=== PATIENT | male | born 1935 | race Caucasian/White ===

== ENCOUNTER 2017-04-25 11:15 | Inpatient (IN) | payer MEDICARE, BC ==
[2017-04-25] VITALS (39 sets, daily range): BP systolic 69–208; BP diastolic 41–97; PULSE 56–129; RESP 15–32; TEMP 98.7–98.9; O2SAT 48–100
[~2017-04-25] VITALS: Ht 170.2 cm; Wt 64.4 kg
[2017-04-25] MEDS ORDERED: methylPREDNISolone SOD SUCC 125 MG/2 ML VIAL IV PUSH ONE (11:30)
[2017-04-25] MEDS ORDERED: SODIUM CHLORIDE 0.9% FLUSH 10 ML FLUSH IVF PRN ×2 (11:30→16:00)
[2017-04-25] MEDS: RESP: ALBUTEROL 2.5 MG/IPRATROPIUM 0.5 MG NEB (SCH) INH ×3 (11:33→21:15)
[2017-04-25 11:40] LABS: BASOPHIL # 0.1 TH/MM3 (0-0.2); BASOPHIL % 0.3 % (0.0-2.0); EOSINOPHIL # 0.2 TH/MM3 (0-0.4); EOSINOPHIL % 0.7 % (0.0-4.0); HEMATOCRIT 48.1 % (39.0-51.0); HEMOGLOBIN 16.1 GM/DL (13.0-17.0); LYMPH % 1.7 % (9.0-44.0); LYMPHOCYTE # 0.4 TH/MM3 (1.0-4.8); MEAN CELL VOLUME 87.5 FL (80.0-100.0); MEAN CORPUSCULAR HEMOGLOBIN 29.2 PG (27.0-34.0); MEAN CORPUSCULAR HGB CONC 33.4 % (32.0-36.0); MEAN PLATELET VOLUME 8.2 FL (7.0-11.0); MONO % 5.9 % (0.0-8.0); MONOCYTE # 1.3 TH/MM3 (0-0.9); NEUT % 91.4 % (16.0-70.0); PLATELET COUNT 278 TH/MM3 (150-450); RED CELL DISTRIBUTION WIDTH 12.8 % (11.6-17.2)
[2017-04-25 11:45] LABS: CHLORIDE 87 MEQ/L (98-107); SODIUM (NA) 129 MEQ/L (136-145)
[2017-04-25 11:49] LABS: ALBUMIN 3.7 GM/DL (3.4-5.0); BICARBONATE 35.6 MEQ/L (21.0-32.0); BLOOD UREA NITROGEN 26 MG/DL (7-18); CALCIUM 9.9 MG/DL (8.5-10.1); GLUCOSE,RANDOM 195 MG/DL (74-106)
[2017-04-25 11:52] LABS: ALT (GPT) 24 U/L (12-78); AST (GOT) 21 U/L (15-37); GLOMERULAR FILTRATION RATE 65 ML/MIN (>89)
[2017-04-25 11:53] LABS: TOTAL BILIRUBIN ADULT 0.7 MG/DL (0.2-1.0)
[2017-04-25 11:54] LABS: TOTAL PROTEIN 8.9 GM/DL (6.4-8.2)
[2017-04-25 11:55] LABS: ALKALINE PHOSPHATASE 109 U/L (45-117)
[2017-04-25 11:57] LABS: TROPONIN I 0.05 NG/ML (0.02-0.05)
--- NOTE | 2017-04-25 12:04 | PD ---
HPI Chief Complaint: Respiratory Distress Time Seen by Provider: 11:23 Travel History International Travel<30 days: No Contact w/Intl Traveler<30days: No Traveled to known affect area: No History of Present Illness HPI This is a 81-year-old male who presents to the emergency department with a history of COPD with increasing shortness of breath, constant, severe over the past 2 days associated with a productive cough with jay sputum. He has not had any fevers or chills. History is limited as the patient is very dyspneic on exam. 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) Respiratory: Yes Shingles: Yes Tetanus Vaccination: > 5 Years Influenza Vaccination: Yes Social History Alcohol Use: No Tobacco Use: No Substance Use: No Allergies-Medications (Allergen,Severity, Reaction): Coded Allergies: No Known Drug Allergies (Verified Allergy, Unknown, 04/25/17) Reported Meds & Prescriptions Reported Meds & Active Scripts Active Reported Vitamin C (Ascorbic Acid) 250 Mg Tab 1,000 Mg PO DAILY Calcium & Magnesium (Calcium-Magnesium) 750-465 Mg Tab 1 Tab PO Saw [place] ([place]) 450 Mg Cap 2,000 Mg PO DAILY Multiple Vitamin 1 Tab 1 Tab PO DAILY Albuterol Neb (Albuterol Sulfate) 1.25 Mg/3 Ml Neb 1.25 Mg NEB Q6HR NEB PRN Advair Diskus Inh (Fluticasone-Salmeterol Inh) 250-50 Mcg/Blist Aer 2 Puff INH DAILY Rinse mouth after use. Simvastatin 10 Mg Tab 10 Mg PO DAILY Desloratadine 5 Mg Tab 5 Mg PO DAILY Quinapril-Hydrochlorothiazide 20-12.5 Mg Tab 1 Tab PO DAILY Review of Systems ROS Limitations: Clinical Condition Physical Exam Narrative GENERAL: Severe respiratory distress SKIN: Focused skin assessment warm and dry. HEAD: Atraumatic. Normocephalic. EYES: Pupils equal and round. No injection or drainage. ENT: Moist mucous membranes NECK: Trachea midline. CARDIOVASCULAR: Tachycardic No murmur appreciated. 1+ pitting edema in the bilateral lower extremities. RESPIRATORY: Poor air movement bilaterally, accessory muscle use, prolonged expiratory phase, speaking 1 word answers to questions GASTROINTESTINAL: Abdomen soft, non-tender, nondistended. MUSCULOSKELETAL: No obvious deformities. NEUROLOGICAL: Awake and alert. No obvious cranial nerve deficits. Moving all extremities. PSYCHIATRIC: Anxious appearing. Data Data Last Documented VS Vital Signs Date Time Temp Pulse Resp B/P (MAP) Pulse Ox O2 Delivery O2 Flow Rate FiO2 04/25/17 13:47 115 21 154/66 (95) 99 BiPAP 04/25/17 13:10 98.7 04/25/17 11:25 40 Orders Orders Electrocardiogram (04/25/17 11:23) Arterial Blood Gas (Abg) (04/25/17 11:23) Complete Blood Count With Diff (04/25/17 11:23) Comprehensive Metabolic Panel (04/25/17 11:23) Chest, Single Ap (04/25/17 11:23) Ecg Monitoring (04/25/17 11:23) Iv Access Insert/Monitor (04/25/17 11:23) Oximetry (04/25/17 11:23) Oxygen Administration (04/25/17 11:23) Methylprednisolone So Succ Inj (Solumedr (04/25/17 11:30) Albuterol-Ipratropium Neb (Duoneb Neb) (04/25/17 11:30) Sodium Chloride 0.9% Flush (Ns Flush) (04/25/17 11:30) B-Type Natriuretic Peptide (04/25/17 11:23) Troponin I (04/25/17 11:23) D-Dimer (04/25/17 11:28) Ct Pulmonary Angiogram (04/25/17 ) Blood Culture (04/25/17 12:06) Lactic Acid (04/25/17 12:06) Sodium Chlor 0.9% 1000 Ml Inj (Ns 1000 M (04/25/17 12:15) Cefepime Inj (Maxipime Inj) (04/25/17 12:15) Azithromycin Inj (Zithromax Inj) (04/25/17 12:15) Iohexol 350 Inj (Omnipaque 350 Inj) (04/25/17 13:06) Sodium Chlor 0.9% 1000 Ml Inj (Ns 1000 M (04/25/17 13:15) Arterial Blood Gas (Abg) (04/25/17 ) Influenzae A/B Antigen (04/25/17 14:16) Admit Order (Ed Use Only) (04/25/17 14:30) Labs Laboratory Tests Test 04/25/17 11:30 04/25/17 11:50 04/25/17 12:20 White Blood Count 22.0 TH/MM3 Red Blood Count 5.50 MIL/MM3 Hemoglobin 16.1 GM/DL Hematocrit 48.1 % Mean Corpuscular Volume 87.5 FL Mean Corpuscular Hemoglobin 29.2 PG Mean Corpuscular Hemoglobin Concent 33.4 % Red Cell Distribution Width 12.8 % Platelet Count 278 TH/MM3 Mean Platelet Volume 8.2 FL Neutrophils (%) (Auto) 91.4 % Lymphocytes (%) (Auto) 1.7 % Monocytes (%) (Auto) 5.9 % Eosinophils (%) (Auto) 0.7 % Basophils (%) (Auto) 0.3 % Neutrophils # (Auto) 20.0 TH/MM3 Lymphocytes # (Auto) 0.4 TH/MM3 Monocytes # (Auto) 1.3 TH/MM3 Eosinophils # (Auto) 0.2 TH/MM3 Basophils # (Auto) 0.1 TH/MM3 CBC Comment DIFF FINAL Differential Comment D-Dimer Quantitative (PE/DVT) 0.73 MG/L FEU Blood Urea Nitrogen 26 MG/DL Creatinine 1.10 MG/DL Random Glucose 195 MG/DL Total Protein 8.9 GM/DL Albumin 3.7 GM/DL Calcium Level 9.9 MG/DL Alkaline Phosphatase 109 U/L Aspartate Amino Transf (AST/SGOT) 21 U/L Alanine Aminotransferase (ALT/SGPT) 24 U/L Total Bilirubin 0.7 MG/DL Sodium Level 129 MEQ/L Potassium Level 3.9 MEQ/L Chloride Level 87 MEQ/L Carbon Dioxide Level 35.6 MEQ/L Anion Gap 6 MEQ/L Estimat Glomerular Filtration Rate 65 ML/MIN Troponin I 0.05 NG/ML B-Type Natriuretic Peptide 142 PG/ML Blood Gas Puncture Site RT RADIAL Blood Gas Patient Temperature 98.6 Blood Gas HCO3 37 mmol/L Blood Gas Base Excess 10.5 mmol/L Blood Gas Oxygen Saturation 93 % Arterial Blood pH 7.29 Arterial Blood Partial Pressure CO2 79 mmHG Arterial Blood Partial Pressure O2 88 mmHG Arterial Blood Oxygen Content 20.6 Vol % Arterial Blood Carboxyhemoglobin 1.8 % Arterial Blood Methemoglobin 1.1 % Blood Gas Hemoglobin 15.7 G/DL Oxygen Delivery Device BIPAP Blood Gas Ventilator Setting IPAP15/EPAP5 Blood Gas Inspired Oxygen 40 % Lactic Acid Level 2.7 mmol/L MDM Medical Decision Making Medical Screen Exam Complete: Yes Emergency Medical Condition: Yes Interpretation(s) Afebrile, tachycardic, tachypneic, hypoxic Leukocytosis 91% neutrophils Mild hyponatremia Lactic acid is 2.7 Troponin is 0.05 ABG: Respiratory acidosis with metabolic compensation Last 24 hours Impressions Chest X-Ray 04/25/17 1123 Signed Impressions: Service Date/Time: Tuesday, April 25, 2017 11:38 - CONCLUSION: 1. Hyperinflation which could indicate underlying emphysema. 2. No focal consolidation. Suhail Cooper MD CT Angiography 04/25/17 0000 Signed Impressions: Service Date/Time: Tuesday, April 25, 2017 12:58 - CONCLUSION: 1. The study is negative for pulmonary embolism. 2. Bilateral subcentimeter (8 mm and 9 mm) pulmonary nodules and scattered areas of terminal airway opacity. In accordance with Fleischner Society guidelines, recommend followup CT thorax in 6 months to follow the nodules. Mk Freitas MD Differential Diagnosis COPD exacerbation, pneumonia, pulmonary embolism, bronchitis Narrative Course This is a 81-year-old male who presents to the emergency department in severe respiratory distress. His oxygen saturation on arrival was 45% on room air. He is not on oxygen at home. He was immediately placed on oxygen and transitioned to BiPAP. He tolerated BiPAP quite well and his initial ABG suggested he may improve. He was observed in the emergency department and every time he came off BiPAP for CT or to clear his sputum he became extremely dyspneic. Repeat ABG was not reassuring. The decision was made between ne and Dr. Rudd to electively intubate the patient. Intubation went smoothly without complication. Labs were obtained which demonstrate a leukocytosis of 22 and a lactic acid of 2.7. Patient was given 2 L of IV hydration, cefepime and azithromycin and cultures were obtained. CT of the chest is reassuring with no pneumonia or pulmonary embolism. The patient will be admitted to the intensive care unit for further management. Critical Care Narrative Aggregate critical care time was 60 minutes. Time to perform other separately billable procedures was not included in the critical care time. My time did not include minutes spent treating any other patients simultaneously or on activities that did not directly contribute to the patient's treatment. The services I provided to this patient were to treat and/or prevent clinically significant deterioration that could result in: Disability, I provided critical care services requiring my management, as noted below: Chart data review, documentation time, medication orders and management, vital sign assessments/reviewing monitor data, ordering and reviewing lab tests, ordering and interpreting/reviewing x-rays and diagnostic studies, care of the patient and discussion of the patient with the admitting physicians. Procedures Procedure Narrative After the risks and benefits were discussed the following procedure was performed: INTUBATION: The patient was put in optimal position for the procedure. Rapid sequence intubation was initiated by me using 20 milligrams of etomidate IV and 100 milligrams of succinylcholine IV. The patient was intubated with a 7.5 cuffed endotracheal tube. Tube placement was confirmed by visualization of the tube and balloon passing through the cords, capnometry and subsequent chest x- ray. Breath sounds were equal and well aerated bilaterally postintubation. No breath sounds over stomach. Patient tolerated procedure well. Physician Communication Physician Communication Discussed with Dr. Rudd Diagnosis Primary Impression: COPD with exacerbation Admitting Information Admitting Physician Requests: Admit Patient Instructions: General Instructions Ani Cardona MD Apr 25, 2017 12:04
--- NOTE | 2017-04-25 12:12 | RADRPT ---
EXAM DATE/TIME: 04/25/2017 11:38 [facility] COMPARISON: No previous studies available for comparison. INDICATIONS : Short of Breath and wheezing. MEDICAL HISTORY : None. SURGICAL HISTORY : None. ENCOUNTER: Initial ACUITY: 1 day PAIN SCORE: 0/10 LOCATION: Bilateral chest FINDINGS: A single AP erect view of the chest was obtained and demonstrates hyperinflation of both lungs with n o focal confluent infiltrates or effusions. The heart and mediastinal structures remain within normal limits. There are atherosclerotic calcifications in the aorta. There is overlying artifact from oxyg en tubing and electrocardiogram leads. CONCLUSION: 1. Hyperinflation which could indicate underlying emphysema. 2. No focal consolidation. Suhail Cooper MD on April 25, 2017 at 12:09 Board Certified Radiologist. This report was verified electronically.
[2017-04-25] MEDS ORDERED: SAW450CA2 PO (12:15)
[2017-04-25] MEDS ORDERED: SIMV10TA PO (12:15)
[2017-04-25] MEDS ORDERED: ADVA250A INH (12:15)
[2017-04-25] MEDS ORDERED: DESL5TAB4 PO (12:15)
[2017-04-25] MEDS ORDERED: ALBU1.25 NEB (12:15)
[2017-04-25] MEDS ORDERED: MULTTAB67 PO (12:15)
[2017-04-25] MEDS ORDERED: CALC-131 PO (12:15)
[2017-04-25] MEDS ORDERED: QUIN20TA2 PO (12:15)
[2017-04-25] MEDS ORDERED: SODIUM CHLOR 0.9% 1000 ML INJ 1,000 ML IV ONE ×3 (12:15→15:55)
[2017-04-25] MEDS ORDERED: VITA250T3 PO (12:15)
[2017-04-25] MEDS ORDERED: CEFEPIME INJ 2,000 MG in SODIUM CHLORIDE 0.9% INJ 100 ML IV ONE (12:15)
[2017-04-25] MEDS ORDERED: AZITHROMYCIN INJ 500 MG in SODIUM CHLOR 0.9% 250 ML INJ 250 ML IV ONE (12:15)
[2017-04-25] MEDS ORDERED: IOHEXOL 350 MG/ML 10 ML VIAL (for RAD DIAG) IVCONTRAST ONE (13:06)
--- NOTE | 2017-04-25 13:24 | RADRPT ---
EXAM DATE/TIME: 04/25/2017 12:58 [facility] COMPARISON: No previous studies available for comparison. INDICATIONS : Short of breath. IV CONTRAST: 65 cc Omnipaque 350 (iohexol) IV RADIATION DOSE: 12.37 CTDIvol (mGy) MEDICAL HISTORY : None SURGICAL HISTORY : None. ENCOUNTER: Initial ACUITY: 1 day PAIN SCALE: 0/10 LOCATION: chest TECHNIQUE: Volumetric scanning of the chest was performed using a pulmonary embolism protocol MIP images were re constructed. Using automated exposure control and adjustment of the mA and/or kV according to patien t size, radiation dose was kept as low as reasonably achievable to obtain optimal diagnostic quality images. DICOM format image data is available electronically for review and comparison. Follow-up recommendations for detected pulmonary nodules are based at a minimum on nodule size and pa tient risk factors according to Fleischner Society Guidelines. FINDINGS: PULMONARY ARTERIES: No filling defects are seen in the pulmonary arteries through the segmental level. LUNGS: There is scattered areas of interstitial prominence in the medial right lung and in the lateral left midlung. There are 2 focal nodular densities with a regular margins, central material left lung shruthi uring 9 mm (image #55) and medial upper right lung near the thoracic spine measuring 9 mm (image #34) .. There are also mild tree in bud opacities in the lateral mid lungs bilaterally and in the posteri or lateral left lower lung. No focal areas of consolidation PLEURAE: There is no pleural thickening or pleural effusion. MEDIASTINUM: There is good visualization of the great vessels of the middle mediastinum. No evidence of mediastin al or hilar adenopathy/mass. OTHER: The left kidney is not seen. CONCLUSION: 1. The study is negative for pulmonary embolism. 2. Bilateral subcentimeter (8 mm and 9 mm) pulmonary nodules and scattered areas of terminal airway o pacity. In accordance with Fleischner Society guidelines, recommend followup CT thorax in 6 months t o follow the nodules. Mk Freitas MD on April 25, 2017 at 13:11 Board Certified Radiologist. This report was verified electronically.
[2017-04-25] MEDS ORDERED: SENNOSIDES 8.6 MG TAB PO PRN (15:15)
[2017-04-25] MEDS ORDERED: BISACODYL 10 MG SUPP RECTAL PRN (15:15)
[2017-04-25] MEDS ORDERED: DEXTROSE 50% IN WATER 50 ML VIAL(D50) IV PUSH PRN (15:15)
[2017-04-25] MEDS ORDERED: LACTULOSE SYRUP 20 GM/30 ML CUP PO PRN (15:15)
[2017-04-25] MEDS ORDERED: MAGNESIUM HYDROXIDE SUSP 30 ML CUP PO PRN (15:15)
[2017-04-25] MEDS ORDERED: MISCELLANEOUS NURSING INFORMATION XX SCH (15:15)
[2017-04-25] MEDS ORDERED: CHLORHEXIDINE GLUCONATE 2 % 1 PACK (2 CLOTHS) TOP PRN (15:15)
[2017-04-25] MEDS ORDERED: GLUCAGON 1 MG/ML VIAL OTHER PRN (15:15)
[2017-04-25] MEDS ORDERED: SUCCINYLCHOLINE CHLORIDE 200 MG/10 ML VIAL ONE (15:25)
[2017-04-25] MEDS ORDERED: ETOMIDATE 20 MG/10 ML VIAL IV PUSH ONE (15:30)
[2017-04-25] MEDS ORDERED: SUCCINYLCHOLINE CHLORIDE 100 MG/5 ML SYRINGE IV PUSH ONE (15:30)
[2017-04-25] MEDS ORDERED: PROPOFOL 1000 MG/100 ML INJ 100 ML IV PRN (15:45)
[2017-04-25] MEDS: PROPOFOL 1000 MG/100 ML INJ 100 ML IV PRN ×2 (15:54→17:30)
[2017-04-25] MEDS: ENOXAPARIN SODIUM 40 MG/0.4 ML SYRINGE SQ SCH (16:24)
[2017-04-25] MEDS: PANTOPRAZOLE SODIUM 40 MG VIAL IV PUSH SCH (16:25)
[2017-04-25] MEDS: SODIUM CHLOR 0.9% 1000 ML INJ 1,000 ML IV SCH (16:26)
[2017-04-25] MEDS: PIPERACIL-TAZO 4.5 GM PREMIX 100 ML IV SCH ×2 (16:27→21:57)
--- NOTE | 2017-04-25 16:49 | RADRPT ---
EXAM DATE/TIME: 04/25/2017 16:15 [facility] COMPARISON: CT PULMONARY ANGIOGRAM, April 25, 2017, 12:58. CHEST SINGLE AP, April 25, 2017, 11:38. INDICATIONS : Post intubation. MEDICAL HISTORY : None. SURGICAL HISTORY : None. ENCOUNTER: Subsequent ACUITY: 1 day PAIN SCORE: Non-responsive. LOCATION: Bilateral chest FINDINGS: A single view of the chest demonstrates the lungs to be symmetrically aerated without evidence of mas s, infiltrate or effusion. The endotracheal tube identified with the tip above the candice at the cla vicular heads. Nasogastric tube traverses the GE junction and is positioned in the gastric fundus. He art size is normal. Osseous structures are intact CONCLUSION: 1. Endotracheal tube appropriately positioned above the candice the nasogastric tube entering the stom ach. 2. Lungs are grossly clear. Trevin Flores MD on April 25, 2017 at 16:43 Board Certified Radiologist. This report was verified electronically.
[2017-04-25] MEDS ORDERED: fentaNYL DRIP 250 ML IV PRN (17:00)
[2017-04-25] MEDS ORDERED: SODIUM CHLORID 0.9% 500 ML INJ 500 ML IV ONE (17:00)
--- NOTE | 2017-04-25 17:28 | MH ---
cc: JENNIFER NIKC M.D. DATE OF 1935 DATE OF ADMISSION 04/25/2017 HISTORY The patient is a 81-year-old male with past medical history of COPD, hyperlipidemia who presented to [facility] [place] [facility] ED with progressive worsening of shortness of breath for the past 2 days associated with productive cough. There is no history of any constitutional symptoms. On arrival to the ER the patient was hypertensive and tachycardiac. He was placed on a BiPap 15/5 with 40% FIO2 and his ABG showed acute hypercapnic respiratory acidosis with a pH of 7.29, CO2 79, bicarb 37, saturation 93%. A repeat ABG was performed at 1450 on the same setting which showed worsening pH of 7.21, CO2 79, bicarb 30 and sats of 96%. He was subsequently intubated and placed on full mechanical ventilation. His laboratory data significant for leukocytosis with WBC of 22.0 and lactic acid level at 2.7. In the ER he was given 2 liters of normal saline, cefepime, azithromycin, Solu-Medrol and bronchodilator treatment. CT angiogram was obtained which showed no evidence of pulmonary embolism, however, it showed bilateral subcentimeter pulmonary nodules. When seen in the ER the patient is sedated with Diprivan and on full mechanical ventilation. Most of the history was obtained from reviewing the medical records as there are no family members present at the bedside. PAST MEDICAL HISTORY Significant for severe COPD. 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 SOCIAL HISTORY Nonsmoker, nondrinker. ALLERGIES NO KNOWN DRUG ALLERGIES. FAMILY HISTORY Noncontributory. MEDICATIONS Reported medications include: 1. Multivitamins. 2. Albuterol inhaler. 3. Advair. 4. Simvastatin. 5. Vitamin C. 6. Calcium. 7. Multivitamins. REVIEW OF SYSTEMS As per history of present illness. The rest of the review of symptoms unobtainable. PHYSICAL EXAMINATION GENERAL: A 81-year-old male intubated for respiratory failure. VITAL SIGNS: Temperature of 98.7, pulse 78, blood pressure 105/58, saturation 98%, vent setting PRVC / assist control, rate of 16, tidal volume 500. Itime 1.0. PEEP of 5. FIO2 35%. HEENT: Atraumatic, normocephalic. Pupils equal, round and reactive to light and accommodation. Extraocular muscles intact. Conjunctivae pink. Nonicteric sclerae. Oral mucosa within normal. NECK: Supple. No JVD, adenopathy or thyromegaly. Trachea midline. Orally intubated. CARDIOVASCULAR: Regular rate and rhythm. Normal S1-S2. No murmurs, rubs or gallops noted. LUNGS: Pulmonary exam bilateral equal air entry. No crackles. Overall diminished. ABDOMEN: Soft, nontender, no distension. Positive bowel sounds. EXTREMITIES: No clubbing, cyanosis or edema. NEUROLOGIC: Intubated and sedated. LABORATORY DATA WBC 22, hemoglobin 16, hematocrit 48, platelet count 278. Sodium 129, potassium 3.9, chloride 87, CO2 35, BUN 26, creatinine 1.1, glucose 195, lactic acid 2.7. BNP 142. Albumin 3.7. IMAGING Radiographic studies, CT angiogram of the chest showed no evidence of pulmonary embolism. However it showed bilateral subcentimeter 8 mm and 9 mm pulmonary nodules. IMPRESSION 1. Acute hypoxemic and hypercapnic respiratory failure requiring intubation. 2. COPD exacerbation. 3. Leukocytosis. 4. Mild lactic acidemia. 5. Hyponatremia. 6. Bilateral subcentimeter pulmonary nodules. RECOMMENDATIONS 1. Continue with Diprivan infusion for sedation and daily sedation vacation. 2. Continue vent support and maintain sats above 92%. 3. Bronchodilators in the form of DuoNeb q.6h and IV steroids. We will continue with Solu-Medrol 60 mg IV q.6h. 4. We will initiate ICU vent bundle. Check a chest x-ray and ABG postintubation. We will start spontaneous breathing trials in a.m. as tolerated. Consult pulmonary service. The patient is known to Dr. Pratt. He will need a repeat CT scan of the chest in 3 months to follow up on the stability of pulmonary nodules. His last PFT from April 2016 showed severe obstructive lung disease with no response to bronchodilator treatment. 5. Monitor heart rate and blood pressure closely and maintain MAP greater than 65 mmHg. Serial lactic acid monitoring. 6. Monitor renal function Is and Os and electrolyte replacement per protocol. Continue with IV fluids in the form of NS at 84 ml an hour. 7. Keep n.p.o. for now and place on Protonix 40 mg IV daily for GI prophylaxis. Start nutrition support within 24 hours if remains intubated. 8. Continue with empiric antibiotics in the form of Zosyn and monitor for signs of infections which include fever and WBC. Follow up on a blood cultures. Check sputum culture with gram stain for strep pneumoniae and Legionella urinary antigen and will send nasal washing to rule out influenza. 9. Place on sliding scale insulin with Accu-Cheks q. 4-hour for glycemic control. 10. Monitor CBC. 11. GI prophylaxis with Protonix 40 mg daily and DVT prophylaxis with SCDs and Lovenox 40 mg subcu daily. Further recommendations will be based on hospital course. MD BEVERLY Mensah/YAS /4:35 PM /4:59 PM
[2017-04-25] MEDS ORDERED: ALBUMIN 5% INJ 250 ML IV ONE (19:39)
[2017-04-25] MEDS: INSULIN NovoLIN REGULAR SUPPLEMENTAL SCALE SQ SCH (20:00)
[2017-04-25] MEDS ORDERED: ALBUMIN 5% INJ 500 ML IV ONE (20:00)
[2017-04-25] MEDS: DOCUSATE SODIUM 50 MG/SENNA 8.6 MG TAB PO SCH (21:00)
[2017-04-25] MEDS: methylPREDNISolone SOD SUCC 125 MG/2 ML VIAL IV SCH (21:54)
[2017-04-25] MEDS: NOREPINEPHRINE 4 MG/D5W 250 ML IV PRN (22:13)
[2017-04-26] VITALS (46 sets, daily range): BP systolic 100–158; BP diastolic 47–71; PULSE 46–92; RESP 15–16; TEMP 97.5–97.9; O2SAT 95–100
--- NOTE | 2017-04-26 00:53 | PD ---
Data Data Last Documented VS Vital Signs Date Time Temp Pulse Resp B/P (MAP) Pulse Ox O2 Delivery O2 Flow Rate FiO2 04/25/17 13:47 115 21 154/66 (95) 99 BiPAP 04/25/17 13:10 98.7 04/25/17 11:25 40 Orders Orders Electrocardiogram (04/25/17 11:23) Arterial Blood Gas (Abg) (04/25/17 11:23) Complete Blood Count With Diff (04/25/17 11:23) Comprehensive Metabolic Panel (04/25/17 11:23) Chest, Single Ap (04/25/17 11:23) Ecg Monitoring (04/25/17 11:23) Iv Access Insert/Monitor (04/25/17 11:23) Oximetry (04/25/17 11:23) Oxygen Administration (04/25/17 11:23) Methylprednisolone So Succ Inj (Solumedr (04/25/17 11:30) Albuterol-Ipratropium Neb (Duoneb Neb) (04/25/17 11:30) Sodium Chloride 0.9% Flush (Ns Flush) (04/25/17 11:30) B-Type Natriuretic Peptide (04/25/17 11:23) Troponin I (04/25/17 11:23) D-Dimer (04/25/17 11:28) Ct Pulmonary Angiogram (04/25/17 ) Blood Culture (04/25/17 12:06) Lactic Acid (04/25/17 12:06) Sodium Chlor 0.9% 1000 Ml Inj (Ns 1000 M (04/25/17 12:15) Cefepime Inj (Maxipime Inj) (04/25/17 12:15) Azithromycin Inj (Zithromax Inj) (04/25/17 12:15) Iohexol 350 Inj (Omnipaque 350 Inj) (04/25/17 13:06) Sodium Chlor 0.9% 1000 Ml Inj (Ns 1000 M (04/25/17 13:15) Arterial Blood Gas (Abg) (04/25/17 ) Influenzae A/B Antigen (04/25/17 14:16) Admit Order (Ed Use Only) (04/25/17 14:30) Labs Laboratory Tests Test 04/25/17 11:30 04/25/17 11:50 04/25/17 12:20 White Blood Count 22.0 TH/MM3 Red Blood Count 5.50 MIL/MM3 Hemoglobin 16.1 GM/DL Hematocrit 48.1 % Mean Corpuscular Volume 87.5 FL Mean Corpuscular Hemoglobin 29.2 PG Mean Corpuscular Hemoglobin Concent 33.4 % Red Cell Distribution Width 12.8 % Platelet Count 278 TH/MM3 Mean Platelet Volume 8.2 FL Neutrophils (%) (Auto) 91.4 % Lymphocytes (%) (Auto) 1.7 % Monocytes (%) (Auto) 5.9 % Eosinophils (%) (Auto) 0.7 % Basophils (%) (Auto) 0.3 % Neutrophils # (Auto) 20.0 TH/MM3 Lymphocytes # (Auto) 0.4 TH/MM3 Monocytes # (Auto) 1.3 TH/MM3 Eosinophils # (Auto) 0.2 TH/MM3 Basophils # (Auto) 0.1 TH/MM3 CBC Comment DIFF FINAL Differential Comment D-Dimer Quantitative (PE/DVT) 0.73 MG/L FEU Blood Urea Nitrogen 26 MG/DL Creatinine 1.10 MG/DL Random Glucose 195 MG/DL Total Protein 8.9 GM/DL Albumin 3.7 GM/DL Calcium Level 9.9 MG/DL Alkaline Phosphatase 109 U/L Aspartate Amino Transf (AST/SGOT) 21 U/L Alanine Aminotransferase (ALT/SGPT) 24 U/L Total Bilirubin 0.7 MG/DL Sodium Level 129 MEQ/L Potassium Level 3.9 MEQ/L Chloride Level 87 MEQ/L Carbon Dioxide Level 35.6 MEQ/L Anion Gap 6 MEQ/L Estimat Glomerular Filtration Rate 65 ML/MIN Troponin I 0.05 NG/ML B-Type Natriuretic Peptide 142 PG/ML Blood Gas Puncture Site RT RADIAL Blood Gas Patient Temperature 98.6 Blood Gas HCO3 37 mmol/L Blood Gas Base Excess 10.5 mmol/L Blood Gas Oxygen Saturation 93 % Arterial Blood pH 7.29 Arterial Blood Partial Pressure CO2 79 mmHG Arterial Blood Partial Pressure O2 88 mmHG Arterial Blood Oxygen Content 20.6 Vol % Arterial Blood Carboxyhemoglobin 1.8 % Arterial Blood Methemoglobin 1.1 % Blood Gas Hemoglobin 15.7 G/DL Oxygen Delivery Device BIPAP Blood Gas Ventilator Setting IPAP15/EPAP5 Blood Gas Inspired Oxygen 40 % Lactic Acid Level 2.7 mmol/L MDM Supervised Visit with WINSOME: No Narrative Course I was called by senior commissions analyst Dr. Foster to place a central line as there is no senior commissions analyst coverage in [place] overnight. Patient requires central line placement as he is on a Levophed drip. This line was placed emergently by me. See procedure note. Procedures Procedure Narrative CENTRAL VENOUS LINE: The site was prepped with ChloraPrep and sterilely draped. The deep vein was cannulated using normal Seldinger technique under ultrasound guidance using the linear ultrasound probe. A triple lumen central line was placed in the right IJ and secured with simple interrupted suture. The site was sterilely dressed. The patient tolerated the procedure well. Postprocedural x- ray ordered. Diagnosis Primary Impression: COPD with exacerbation Patient Instructions: General Instructions Carl Guzman MD Apr 26, 2017 00:53
--- NOTE | 2017-04-26 01:14 | RADRPT ---
EXAM DATE/TIME: 04/26/2017 00:47 [facility] COMPARISON: CHEST SINGLE AP, April 25, 2017, 16:15. INDICATIONS : Central line placement. MEDICAL HISTORY : None. SURGICAL HISTORY : None. ENCOUNTER: Subsequent ACUITY: 1 day PAIN SCORE: Non-responsive. LOCATION: Bilateral chest FINDINGS: A single view of the chest demonstrates the lungs to be symmetrically aerated without evidence of mas s, infiltrate or effusion. Right jugular central line with tip in the SVC and no pneumothorax. Nasog astric tube with tip in stomach. The cardiomediastinal contours are unremarkable. Osseous structures are intact. CONCLUSION: Adequate placement a right jugular central line without pneumothorax. Bill Vences MD on April 26, 2017 at 1:11 Board Certified Radiologist. This report was verified electronically.
[2017-04-26] MEDS: RESP: ALBUTEROL 2.5 MG/IPRATROPIUM 0.5 MG NEB (SCH) INH ×4 (03:44→21:02)
[2017-04-26] MEDS: INSULIN NovoLIN REGULAR SUPPLEMENTAL SCALE SQ SCH ×6 (04:00→20:00)
[2017-04-26] MEDS: CHLORHEXIDINE GLUCONATE 2 % 1 PACK (2 CLOTHS) TOP SCH (04:00)
[2017-04-26] MEDS: PROPOFOL 1000 MG/100 ML INJ 100 ML IV PRN ×2 (04:17→15:37)
[2017-04-26] MEDS: SODIUM CHLOR 0.9% 1000 ML INJ 1,000 ML IV SCH ×2 (04:43→11:18)
[2017-04-26] MEDS: PIPERACIL-TAZO 4.5 GM PREMIX 100 ML IV SCH ×4 (04:43→21:06)
[2017-04-26] MEDS: methylPREDNISolone SOD SUCC 125 MG/2 ML VIAL IV SCH ×4 (04:44→23:19)
[2017-04-26 06:22] LABS: ALBUMIN 2.8 GM/DL (3.4-5.0); ALKALINE PHOSPHATASE 72 U/L (45-117); ALT (GPT) 18 U/L (12-78); AST (GOT) 16 U/L (15-37); CALCIUM 8.1 MG/DL (8.5-10.1); CHLORIDE 101 MEQ/L (98-107); CREATININE 0.81 MG/DL (0.60-1.30); GLOMERULAR FILTRATION RATE 92 ML/MIN (>89); GLUCOSE,RANDOM 165 MG/DL (74-106); MAGNESIUM 2.1 MG/DL (1.5-2.5); PHOSPHORUS 1.4 MG/DL (2.5-4.9); SODIUM (NA) 137 MEQ/L (136-145); TOTAL BILIRUBIN ADULT 0.5 MG/DL (0.2-1.0); TOTAL PROTEIN 6.2 GM/DL (6.4-8.2)
[2017-04-26 06:23] LABS: BLOOD UREA NITROGEN 24 MG/DL (7-18)
--- NOTE | 2017-04-26 08:50 | MB ---
cc: ANDI HIGGINBOTHAM ALAA M.D. DATE OF CONSULTATION: 04/25/[address] Albino Rudd. REASON FOR CONSULTATION COPD and respiratory failure. HISTORY OF PRESENT ILLNESS Mr. Sosa is an elderly 81-year-old male who is known to me from the office with a history of severe COPD , anxiety disorder. The patient came to the hospital with worsening of his shortness of breath going on for the last two days. He was seen in the emergency room and found to be tachycardic and tachypneic. He was found to be in respiratory acidosis and hypoxic. The patient was put on BiPAP. With worsening of his respiratory acidosis he was intubated and currently on the ventilator. He is on fentanyl. He started waking up, has received 2 liters of fluid. His blood pressure is borderline. LABORATORY CBC showed WBC count 22,000, hemoglobin 16.1, hematocrit 48, MCV 87, platelet count 278. Sodium 129, potassium 3.9, chloride 87, CO2 35, BUN 26, creatinine 1.10. Blood gas on assist control: FIO2 32%, pH 7.26, PCO2 65, PO2 132. IMAGING CT of the chest shows no pulmonary embolism. It shows two subcentimeter lung nodules. PAST MEDICAL HISTORY 1. COPD. 2. Right kidney donation. MEDICATIONS He is currently takin. Solu-Medrol 60 mg q.6h. 2. Fentanyl drip. 3. Protonix 40 mg. 4. Albuterol/Atrovent nebulizer treatment. 5. Lovenox 40 mg a day. 6. Zosyn IV. ALLERGIES No known drug allergies. SOCIAL HISTORY He has a history of smoking in the past. FAMILY HISTORY Noncontributory. REVIEW OF SYSTEMS Cannot be assessed. PHYSICAL EXAMINATION GENERAL: An elderly male on a ventilator. He is sedated with fentanyl. VITAL SIGNS: Blood pressure 97/54, heart rate 17, respirations 16, temperature 98. HEENT: Pupils react to light. He is orally intubated. NECK: Supple. JVP not raised. CHEST: Equal bilaterally. He has rhonchi. CV: S1, S2 normal. ABDOMEN: Benign. EXTREMITIES: No edema. IMPRESSION 1. Hypercapnic respiratory failure. 2. Leukocytosis. 3. Early sepsis. 4. Lung nodules. 5. Severe COPD. PLAN The patient will be maintained on the ventilator. If needed will start him on Diprivan. If blood pressure does not hold he will need pressor support. He is started on IV albumin. He already received IV fluid. Continue antibiotic, IV Solu-Medrol and aerosol treatment. He is on subcu Lovenox. Further treatment will depend on the course in the hospital. Thank you, Dr. Rudd, for this consult. MD PANCHITO Christensen/BT /7:43 PM /8:27 AM MTDNehemias
[2017-04-26] MEDS: DOCUSATE SODIUM 50 MG/SENNA 8.6 MG TAB PO SCH ×2 (09:00→21:02)
[2017-04-26] MEDS: PANTOPRAZOLE SODIUM 40 MG VIAL IV PUSH SCH (09:27)
[2017-04-26] MEDS: NOREPINEPHRINE 4 MG/D5W 250 ML IV PRN (09:37)
[2017-04-26] MEDS ORDERED: MAGNESIUM OXIDE 400 MG TAB PO PRN (09:45)
[2017-04-26] MEDS ORDERED: SODIUM PHOSPHATE INJ 30 MMOL in SODIUM CHLOR 0.9% 250 ML INJ 240 ML IV PRN (09:45)
[2017-04-26] MEDS ORDERED: POTASSIUM PHOSPHATE MONOBASIC 500 MG TAB PO PRN (09:45)
[2017-04-26] MEDS ORDERED: POTASSIUM CHLORIDE 25 MEQ EFFERVESCENT TAB PO PRN (09:45)
[2017-04-26] MEDS ORDERED: POTASSIUM CHLOR 20 MEQ PREMIX 100 ML IV PRN ×2 (09:45)
[2017-04-26] MEDS ORDERED: POTASSIUM PHOSPHATE INJ 30 MMOL in SODIUM CHLOR 0.9% 250 ML INJ 250 ML IV PRN (09:45)
[2017-04-26] MEDS ORDERED: POTASSIUM CHLOR 40 MEQ PREMIX 100 ML IV PRN ×2 (09:45)
[2017-04-26] MEDS ORDERED: MAGNESIUM SULFATE INJ 4 GM in SODIUM CHLORIDE 0.9% INJ 92 ML IV PRN (09:45)
[2017-04-26] MEDS ORDERED: MAGNESIUM SULFATE INJ 2 GM in SODIUM CHLORIDE 0.9% INJ 96 ML IV PRN (09:45)
--- NOTE | 2017-04-26 12:34 | MB ---
cc: JACEK CELESTE MD DATE OF CONSULTATION 04/26/2017 REASON FOR CONSULTATION 1. Urinary retention 2. Difficult Hernandez catheter placement. HISTORY OF PRESENT ILLNESS The patient is a 81-year-old male with a past history of COPD who presented to [place] ED late yesterday with progressive worsening of shortness of breath for the last two days associated with a cough. On arrival to the ER, he was found to be hypertensive and tachycardiac and his EKG showed acute respiratory acidosis. He began to progress to respiratory failure and subsequently was intubated and placed on full mechanical ventilation. Once in the intensive care unit, he had minimal output. A bladder scan was performed which greater than 800 in his bladder. Multiple attempts were made to pass a Hernandez catheter, but the nurse staff were unsuccessful. Urology was consulted for catheter placement due to urinary retention and the fact the patient is critically ill. Currently the patient is intubated and sedated and all of the history is per the records, but per the records, there was no evidence of any prostate issues in the past. There was no evidence of any urinary tract infections or kidney stones. PAST MEDICAL HISTORY History of COPD and hyperlipidemia. 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 SOCIAL HISTORY Denies smoking, alcohol or illicit drugs. ALLERGIES NO KNOWN DRUG ALLERGIES. FAMILY HISTORY No evidence any urolithiasis or genitourinary malignancy. MEDICATIONS Include: 1. Albuterol inhaler 2. Advair 3. Simvastatin 4. Multivitamins REVIEW OF SYSTEMS See HPI, otherwise all systems reviewed and are otherwise negative. PHYSICAL EXAMINATION VITAL SIGNS: Temperature 97.9, pulse 60, respiratory rate 15, BP 137/61, on 35% FIO2. GENERAL: He is intubated and sedated. No apparent distress, appears his stated age. HEAD: Normocephalic, atraumatic. NECK: Supple. Trachea is midline. EYES: No scleral icterus. Pupils equal, round, and reactive to light. SKIN: No ulcers or rashes visible. Mucous membranes pink and moist. LUNGS: Clear to auscultation bilaterlally. No wheezes, rales or rhonchi. HEART: Regular rate and rhythm. No murmurs, gallops, or rubs. ABDOMEN: Soft, nontender, nondistended. His bladder is palpable. GENITOURINARY: His penis is circumcised. Testes are descended bilaterally without mass. Normal in size. They are slightly atrophic but normal consistency. 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 EXTREMITIES: Nontender. No clubbing, cyanosis or edema. LABORATORY DATA Labs show a white count 22.0, hemoglobin 16.1, hematocrit 48.1, platelet count 278. Sodium 129, potassium 3.9, chloride 87, bicarb 35.6, creatinine 1.0, BUN 26, GFR 65. IMAGING STUDIES CT angiography images were reviewed. Agree with radiologist report. The patient does not have any evidence of pulmonary embolism, however, he has small bilateral pulmonary nodules. ASSESSMENT AND PLAN The patient is a 81-year-old male with a history of COPD who presented to the ER in respiratory distress, was subsequently intubated and presents with urinary retention, as well as Hernandez catheter placement secondary to a coronal hypospadias. PLAN Using a sterile hemostat, I was able to dilate the urethral meatus which was located on the ventral side of the penis near the coronal sulcus. I was then able to pass a 16-Afghan regular catheter without difficulty into the bladder. 800 cc of concentrated urine returned. Recommend leaving the Hernandez catheter in place at this time. Give a void trial prior to discharge. We will start the patient on Flomax once he is able to take p.o. Thank you for this consult. MD ELEAZAR Sierra/BENJAMIN /11:54 AM /12:20 PM
[2017-04-26 14:15] LABS: AUTOMATED NEUTROPHIL # 11.1 TH/MM3 (1.8-7.7); EOSINOPHIL % 0.1 % (0.0-4.0); HEMATOCRIT 36.9 % (39.0-51.0); HEMOGLOBIN 12.2 GM/DL (13.0-17.0); LYMPH % 1.5 % (9.0-44.0); LYMPHOCYTE # 0.2 TH/MM3 (1.0-4.8); MEAN CELL VOLUME 88.3 FL (80.0-100.0); MEAN CORPUSCULAR HEMOGLOBIN 29.3 PG (27.0-34.0); MEAN CORPUSCULAR HGB CONC 33.2 % (32.0-36.0); MEAN PLATELET VOLUME 7.7 FL (7.0-11.0); MONO % 4.5 % (0.0-8.0); MONOCYTE # 0.5 TH/MM3 (0-0.9); NEUT % 93.9 % (16.0-70.0); PLATELET COUNT 222 TH/MM3 (150-450); RED BLOOD COUNT 4.18 MIL/MM3 (4.50-5.90); RED CELL DISTRIBUTION WIDTH 13.3 % (11.6-17.2); WHITE BLOOD COUNT 11.8 TH/MM3 (4.0-11.0)
[2017-04-26] MEDS: ENOXAPARIN SODIUM 40 MG/0.4 ML SYRINGE SQ SCH (15:38)
--- NOTE | 2017-04-26 16:58 | HHI.CCPN ---
Subjective Remarks/Hospital Course Patient is a 81-year-old male with past medical history of COPD, hyperlipidemia who presented to [place] ED with progressive worsening of shortness of breath for the past 2 days associated with productive cough. There is no history of any constitutional symptoms. On arrival to the ER the patient was hypertensive and tachycardiac. He was placed on a BiPap 15/5 with 40% FIO2 and his ABG showed acute hypercapnic respiratory acidosis with a pH of 7.29, CO2 79, bicarb 37, saturation 93%. A repeat ABG was performed at 1450 on the same setting which showed worsening pH of 7.21, CO2 79, bicarb 30 and sats of 96 %. He was subsequently intubated and placed on full mechanical ventilation. His laboratory data significant for leukocytosis with WBC of 22.0 and lactic acid level at 2.7. In the ER he was given 2 liters of normal saline, cefepime, azithromycin, Solu-Medrol and bronchodilator treatment. CT angiogram was obtained which showed no evidence of pulmonary embolism, however, it showed bilateral subcentimeter pulmonary nodules. When seen in the ER the patient is sedated with Diprivan and on full mechanical ventilation. 04/26 Patient was placed on Levophed overnight for hypotension he is now on 1.5 luis. Sedated with Diprivan. WBC is trending down. Afebrile. 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 Objective Vital Signs Date Time Temp Pulse Resp B/P (MAP) Pulse Ox O2 Delivery O2 Flow Rate FiO2 04/26/17 16:00 54 04/26/17 16:00 35 04/26/17 16:00 97.7 15 137/61 (86) 100 04/25/17 17:15 Ventilator Intake and Output 04/26/17 04/26/17 04/27/17 08:00 16:00 00:00 Intake Total 382 ml 650 ml Output Total 800 ml Balance -418 ml 650 ml Result Diagram: 04/26/17 1405 04/26/17 1005 Other Results Laboratory Tests Test 04/25/17 18:30 04/26/17 04:55 04/26/17 10:40 04/26/17 13:31 Nasal Screen MRSA (PCR) MRSA NOT DETECTED Blood Urea Nitrogen 24 MG/DL Creatinine 0.81 MG/DL Random Glucose 165 MG/DL Total Protein 6.2 GM/DL Albumin 2.8 GM/DL Calcium Level 8.1 MG/DL Phosphorus Level 1.4 MG/DL 1.7 MG/DL Magnesium Level 2.1 MG/DL Alkaline Phosphatase 72 U/L Aspartate Amino Transf (AST/SGOT) 16 U/L Alanine Aminotransferase (ALT/SGPT) 18 U/L Total Bilirubin 0.5 MG/DL Sodium Level 137 MEQ/L Potassium Level 4.2 MEQ/L Chloride Level 101 MEQ/L Carbon Dioxide Level 29.0 MEQ/L Anion Gap 7 MEQ/L Estimat Glomerular Filtration Rate 92 ML/MIN Lactic Acid Level 1.5 mmol/L Blood Gas Puncture Site RT RADIAL Blood Gas Patient Temperature 37.0 Blood Gas HCO3 28 mmol/L Blood Gas Base Excess 3.2 mmol/L Blood Gas Oxygen Saturation 96 % Arterial Blood pH 7.36 Arterial Blood Partial Pressure CO2 51 mmHg Arterial Blood Partial Pressure O2 98 mmHg Arterial Blood Oxygen Content 16.4 Vol % Arterial Blood Carboxyhemoglobin 1.1 % Arterial Blood Methemoglobin 1.1 % Blood Gas Hemoglobin 12.1 G/DL Oxygen Delivery Device VENTILATOR Blood Gas Ventilator Setting PRVC/AC 16/500/1/5PE Blood Gas Inspired Oxygen 35 % Test 04/26/17 14:05 White Blood Count 11.8 TH/MM3 Red Blood Count 4.18 MIL/MM3 Hemoglobin 12.2 GM/DL Hematocrit 36.9 % Mean Corpuscular Volume 88.3 FL Mean Corpuscular Hemoglobin 29.3 PG Mean Corpuscular Hemoglobin Concent 33.2 % Red Cell Distribution Width 13.3 % Platelet Count 222 TH/MM3 Mean Platelet Volume 7.7 FL Neutrophils (%) (Auto) 93.9 % Lymphocytes (%) (Auto) 1.5 % Monocytes (%) (Auto) 4.5 % Eosinophils (%) (Auto) 0.1 % Basophils (%) (Auto) 0.0 % Neutrophils # (Auto) 11.1 TH/MM3 Lymphocytes # (Auto) 0.2 TH/MM3 Monocytes # (Auto) 0.5 TH/MM3 Eosinophils # (Auto) 0.0 TH/MM3 Basophils # (Auto) 0.0 TH/MM3 CBC Comment DIFF FINAL Differential Comment Imaging Last Impressions Chest X-Ray 04/26/17 0000 Signed Impressions: Service Date/Time: Wednesday, April 26, 2017 00:47 - CONCLUSION: Adequate placement a right jugular central line without pneumothorax. Bill Vences MD CT Angiography 04/25/17 0000 Signed Impressions: Service Date/Time: Tuesday, April 25, 2017 12:58 - CONCLUSION: 1. The study is negative for pulmonary embolism. 2. Bilateral subcentimeter (8 mm and 9 mm) pulmonary nodules and scattered areas of terminal airway opacity. In accordance with Fleischner Society guidelines, recommend followup CT thorax in 6 months to follow the nodules. Mk Freitas MD Objective Remarks GENERAL: Patient is 81 yo intubated and sedated SKIN: Warm and dry. HEAD: Normocephalic. EYES: No scleral icterus. No injection or drainage. NECK: Supple, trachea midline. No JVD or lymphadenopathy. CARDIOVASCULAR: Regular rate and rhythm without murmurs, gallops, or rubs. RESPIRATORY: Breath sounds equal bilaterally. No accessory muscle use. GASTROINTESTINAL: Abdomen soft, non-tender, nondistended. MUSCULOSKELETAL: No cyanosis, or edema. Neuro: Sedated A/P Assessment and Plan 1. Acute hypoxemic and hypercapnic respiratory failure requiring intubation. 2. COPD exacerbation. 3. Leukocytosis...trending down 4. Mild lactic acidemia... resolved 5. Hyponatremia. 6. Bilateral subcentimeter pulmonary nodules. Plan: Neuro: On Diprivan infusion for sedation> Daily sedation vacation. Pulm: Continue vent support and maintain sats >92%. Bronchodilators, Solu-Medrol 60 mg IV q.6h. ICU vent bundle. Start SBT in am Pulm- Dr. Pratt. CV: Wean off Levophed Monitor HR and BP and maintain MAP> 65 mmHg. Lactic acid 1.5 : Monitor renal function Is and Os and electrolyte replacement per protocol. For Phos replacement. d/c IVF GI: On Protonix 40 mg IV daily for GI prophylaxis. Start Glucerna 1.5 with goal rate 45ml/hr ID: Continue with abx- Zosyn and monitor for signs of infections ( fever and WBC ). WBC is trending down Follow up on a blood cultures.Check strep pneumoniae and Legionella urinary antigen. Nasal washing negative for influenza. Endo: SSI with Accu-Cheks q. 4-hour for glycemic control. Heme: Monitor CBC. GI prophylaxis with Protonix 40 mg daily and DVT prophylaxis with SCDs and Lovenox 40 mg subcu daily. Level 3 Albino Rudd MD Apr 26, 2017 16:58
--- NOTE | 2017-04-26 17:36 | HHI.PR ---
Subjective Remarks 81 YOWM with VDRF, COPD exac tried sedation vacation and CPAP Became techypnoic , techycardia Awake, follows commands no fever Objective Vital Signs Vital Signs Date Time Temp Pulse Resp B/P (MAP) Pulse Ox O2 Delivery O2 Flow Rate FiO2 04/26/17 17:05 98 35 04/26/17 17:00 58 15 108/47 (67) 98 04/26/17 16:55 58 119/53 04/26/17 16:00 54 04/26/17 16:00 35 04/26/17 16:00 97.7 54 15 137/61 (86) 100 04/26/17 15:00 48 15 107/53 (71) 98 04/26/17 14:00 54 16 155/71 (99) 99 04/26/17 14:00 54 04/26/17 13:52 99 35 04/26/17 13:00 50 15 134/57 (82) 98 04/26/17 12:00 97.6 50 16 117/52 (73) 97 04/26/17 12:00 35 04/26/17 12:00 50 04/26/17 11:30 56 16 136/57 (83) 96 04/26/17 11:00 62 15 151/65 (93) 95 04/26/17 11:00 62 151/65 04/26/17 10:58 95 35 04/26/17 10:30 56 16 145/60 (88) 99 04/26/17 10:00 56 04/26/17 10:00 56 16 155/66 (95) 99 04/26/17 09:45 52 15 126/60 (82) 100 04/26/17 09:37 53 132/58 04/26/17 09:30 50 15 132/58 (82) 100 04/26/17 09:15 46 15 122/55 (77) 100 04/26/17 09:00 46 15 119/55 (76) 99 04/26/17 08:00 60 04/26/17 08:00 60 16 158/65 (96) 97 04/26/17 08:00 35 04/26/17 08:00 46 121/54 04/26/17 07:45 50 150/63 04/26/17 07:03 99 35 04/26/17 07:00 52 148/62 04/26/17 07:00 97.5 52 16 148/62 (90) 99 04/26/17 06:00 50 04/26/17 06:00 50 15 145/57 (86) 100 04/26/17 05:00 56 16 120/53 (75) 04/26/17 04:00 35 04/26/17 04:00 60 04/26/17 04:00 97.9 60 15 137/61 (86) 04/26/17 03:43 98 35 04/26/17 03:00 66 16 138/63 (88) 04/26/17 02:15 50 15 112/54 (73) 04/26/17 02:00 56 04/26/17 01:45 62 15 106/50 (68) 04/26/17 00:55 98 35 04/26/17 00:00 35 04/26/17 00:00 54 04/25/17 23:15 58 16 126/57 (80) 04/25/17 22:13 57 112/54 04/25/17 22:00 98 35 04/25/17 22:00 56 15 112/54 (73) 04/25/17 22:00 56 04/25/17 21:08 62 15 119/65 (83) 04/25/17 20:08 98.7 78 17 110/58 (75) 04/25/17 20:00 84 04/25/17 20:00 35 04/25/17 19:55 98 35 04/25/17 19:08 66 15 87/51 (63) 04/25/17 18:56 64 16 85/48 (60) 04/25/17 18:54 64 15 77/45 (56) 04/25/17 18:53 64 16 82/46 (58) 04/25/17 18:38 68 15 91/54 (66) 04/25/17 18:31 64 15 91/49 (63) 04/25/17 18:25 66 16 84/45 (58) 04/25/17 18:23 66 15 87/47 (60) 04/25/17 18:22 66 15 81/49 (60) 04/25/17 18:08 66 16 83/47 (59) 04/25/17 17:53 78 15 96/50 (65) 04/25/17 17:40 80 27 90/48 (62) 04/25/17 17:40 100 35 04/25/17 17:36 72 15 69/50 (56) 04/25/17 17:34 72 15 77/41 (53) I/O 04/25/17 04/25/17 04/25/17 04/26/17 04/26/17 04/26/17 07:00 15:00 23:00 07:00 15:00 23:00 Intake Total 1100 ml 3550 ml 382 ml 554 ml 917 ml Output Total 800 ml Balance 1100 ml 3550 ml -418 ml 554 ml 917 ml Intake IV Total 1100 ml 3550 ml 382 ml 554 ml 917 ml Output Urine Total 800 ml Result Diagram: 04/26/17 1405 04/26/17 0455 Objective Remarks GENERAL: elderly WM, on Vent SKIN: Warm and dry. HEAD: Normocephalic. EYES: No scleral icterus. No injection or drainage. NECK: Supple, trachea midline. No JVD or lymphadenopathy. CARDIOVASCULAR: Regular rate and rhythm without murmurs, gallops, or rubs. RESPIRATORY: Breath sounds equal bilaterally. No accessory muscle use. GASTROINTESTINAL: Abdomen soft, non-tender, nondistended. MUSCULOSKELETAL: No cyanosis, or edema. BACK: Nontender without obvious deformity. No CVA tenderness. A/P Assessment and Plan VDRF COPD exac Sepsis Anxiety Lung nodules PLAN: Sedation with diprivan vent support Aerosol nebs cont Abx IV Solumedrol SQ Lovenox CPAP trial in Denys Pratt MD Apr 26, 2017 17:36
[2017-04-27] VITALS (50 sets, daily range): BP systolic 97–232; BP diastolic 43–102; PULSE 52–145; RESP 15–38; TEMP 97.4–98; O2SAT 93–99
[2017-04-27] MEDS: PROPOFOL 1000 MG/100 ML INJ 100 ML IV PRN ×2 (00:23→07:51)
[2017-04-27] MEDS: CHLORHEXIDINE GLUCONATE 2 % 1 PACK (2 CLOTHS) TOP SCH (04:00)
[2017-04-27] MEDS: PIPERACIL-TAZO 4.5 GM PREMIX 100 ML IV SCH ×4 (04:14→22:28)
[2017-04-27] MEDS: INSULIN NovoLIN REGULAR SUPPLEMENTAL SCALE SQ SCH ×6 (04:20→19:30)
[2017-04-27] MEDS: methylPREDNISolone SOD SUCC 125 MG/2 ML VIAL IV SCH ×4 (04:26→22:28)
[2017-04-27] MEDS: RESP: ALBUTEROL 2.5 MG/IPRATROPIUM 0.5 MG NEB (SCH) INH ×4 (04:54→20:00)
[2017-04-27 05:10] LABS: AUTOMATED NEUTROPHIL # 12.6 TH/MM3 (1.8-7.7); EOSINOPHIL % 0.1 % (0.0-4.0); HEMATOCRIT 36.6 % (39.0-51.0); HEMOGLOBIN 11.9 GM/DL (13.0-17.0); LYMPH % 1.3 % (9.0-44.0); LYMPHOCYTE # 0.2 TH/MM3 (1.0-4.8); MEAN CORPUSCULAR HEMOGLOBIN 28.3 PG (27.0-34.0); MEAN CORPUSCULAR HGB CONC 32.6 % (32.0-36.0); MEAN PLATELET VOLUME 7.4 FL (7.0-11.0); MONO % 5.4 % (0.0-8.0); MONOCYTE # 0.7 TH/MM3 (0-0.9); NEUT % 93.2 % (16.0-70.0); PLATELET COUNT 261 TH/MM3 (150-450); RED CELL DISTRIBUTION WIDTH 13.2 % (11.6-17.2); WHITE BLOOD COUNT 13.5 TH/MM3 (4.0-11.0)
[2017-04-27 05:39] LABS: BICARBONATE 30.3 MEQ/L (21.0-32.0); CALCIUM 8.1 MG/DL (8.5-10.1); CREATININE 0.76 MG/DL (0.60-1.30); MAGNESIUM 2.5 MG/DL (1.5-2.5); PHOSPHORUS 2.3 MG/DL (2.5-4.9)
--- NOTE | 2017-04-27 07:11 | HHI.CCPN ---
Subjective Remarks/Hospital Course Patient is a 81-year-old male with past medical history of COPD, hyperlipidemia who presented to [place] ED with progressive worsening of shortness of breath for the past 2 days associated with productive cough. There is no history of any constitutional symptoms. On arrival to the ER the patient was hypertensive and tachycardiac. He was placed on a BiPap 15/5 with 40% FIO2 and his ABG showed acute hypercapnic respiratory acidosis with a pH of 7.29, CO2 79, bicarb 37, saturation 93%. A repeat ABG was performed at 1450 on the same setting which showed worsening pH of 7.21, CO2 79, bicarb 30 and sats of 96 %. He was subsequently intubated and placed on full mechanical ventilation. His laboratory data significant for leukocytosis with WBC of 22.0 and lactic acid level at 2.7. In the ER he was given 2 liters of normal saline, cefepime, azithromycin, Solu-Medrol and bronchodilator treatment. CT angiogram was obtained which showed no evidence of pulmonary embolism, however, it showed bilateral subcentimeter pulmonary nodules. When seen in the ER the patient is sedated with Diprivan and on full mechanical ventilation. 04/26 Patient was placed on Levophed overnight for hypotension he is now on 1.5 luis. Sedated with Diprivan. WBC is trending down. Afebrile. 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 04/27 No events overnight. Off Levophed. On Fentanyl drip for sedation. Afebrile. Objective Vital Signs Date Time Temp Pulse Resp B/P (MAP) Pulse Ox O2 Delivery O2 Flow Rate FiO2 04/27/17 06:01 68 15 100/44 (62) 98 04/27/17 04:54 35 04/27/17 04:01 97.5 04/25/17 17:15 Ventilator Intake and Output 04/27/17 04/27/17 04/28/17 08:00 16:00 00:00 Intake Total 586 ml Output Total 300 ml Balance 286 ml Result Diagram: 04/27/17 0430 04/27/17 043 Other Results Laboratory Tests Test 04/26/17 10:40 04/26/17 13:31 04/26/17 14:05 04/27/17 04:30 Phosphorus Level 1.7 MG/DL 2.3 MG/DL Blood Gas Puncture Site RT RADIAL Blood Gas Patient Temperature 37.0 Blood Gas HCO3 28 mmol/L Blood Gas Base Excess 3.2 mmol/L Blood Gas Oxygen Saturation 96 % Arterial Blood pH 7.36 Arterial Blood Partial Pressure CO2 51 mmHg Arterial Blood Partial Pressure O2 98 mmHg Arterial Blood Oxygen Content 16.4 Vol % Arterial Blood Carboxyhemoglobin 1.1 % Arterial Blood Methemoglobin 1.1 % Blood Gas Hemoglobin 12.1 G/DL Oxygen Delivery Device VENTILATOR Blood Gas Ventilator Setting [facility]/ 16500/1/5PE Blood Gas Inspired Oxygen 35 % White Blood Count 11.8 TH/MM3 13.5 TH/MM3 Red Blood Count 4.18 MIL/MM3 4.20 MIL/MM3 Hemoglobin 12.2 GM/DL 11.9 GM/DL Hematocrit 36.9 % 36.6 % Mean Corpuscular Volume 88.3 FL 87.0 FL Mean Corpuscular Hemoglobin 29.3 PG 28.3 PG Mean Corpuscular Hemoglobin Concent 33.2 % 32.6 % Red Cell Distribution Width 13.3 % 13.2 % Platelet Count 222 TH/MM3 261 TH/MM3 Mean Platelet Volume 7.7 FL 7.4 FL Neutrophils (%) (Auto) 93.9 % 93.2 % Lymphocytes (%) (Auto) 1.5 % 1.3 % Monocytes (%) (Auto) 4.5 % 5.4 % Eosinophils (%) (Auto) 0.1 % 0.1 % Basophils (%) (Auto) 0.0 % 0.0 % Neutrophils # (Auto) 11.1 TH/MM3 12.6 TH/MM3 Lymphocytes # (Auto) 0.2 TH/MM3 0.2 TH/MM3 Monocytes # (Auto) 0.5 TH/MM3 0.7 TH/MM3 Eosinophils # (Auto) 0.0 TH/MM3 0.0 TH/MM3 Basophils # (Auto) 0.0 TH/MM3 0.0 TH/MM3 CBC Comment DIFF FINAL DIFF FINAL Differential Comment Blood Urea Nitrogen 28 MG/DL Creatinine 0.76 MG/DL Random Glucose 161 MG/DL Calcium Level 8.1 MG/DL Magnesium Level 2.5 MG/DL Sodium Level 141 MEQ/L Potassium Level 3.2 MEQ/L Chloride Level 104 MEQ/L Carbon Dioxide Level 30.3 MEQ/L Anion Gap 7 MEQ/L Estimat Glomerular Filtration Rate 99 ML/MIN Imaging Last Impressions Chest X-Ray 04/26/17 0000 Signed Impressions: Service Date/Time: Wednesday, April 26, 2017 00:47 - CONCLUSION: Adequate placement a right jugular central line without pneumothorax. Bill Vences MD CT Angiography 04/25/17 0000 Signed Impressions: Service Date/Time: Tuesday, April 25, 2017 12:58 - CONCLUSION: 1. The study is negative for pulmonary embolism. 2. Bilateral subcentimeter (8 mm and 9 mm) pulmonary nodules and scattered areas of terminal airway opacity. In accordance with Fleischner Society guidelines, recommend followup CT thorax in 6 months to follow the nodules. Mk Freitas MD Objective Remarks GENERAL: Patient is 81 yo intubated and sedated SKIN: Warm and dry. HEAD: Normocephalic. EYES: No scleral icterus. No injection or drainage. NECK: Supple, trachea midline. No JVD or lymphadenopathy. CARDIOVASCULAR: Regular rate and rhythm without murmurs, gallops, or rubs. RESPIRATORY: Breath sounds equal bilaterally. No accessory muscle use. GASTROINTESTINAL: Abdomen soft, non-tender, nondistended. MUSCULOSKELETAL: No cyanosis, or edema. Neuro: Sedated A/P Assessment and Plan 1. Acute hypoxemic and hypercapnic respiratory failure requiring intubation. 2. COPD exacerbation. 3. Leukocytosis...trending down 4. Mild lactic acidemia... resolved 5. Hyponatremia. 6. Bilateral subcentimeter pulmonary nodules. Plan: Neuro: On Diprivan infusion for sedation> Daily sedation vacation. Pulm: Continue vent support and maintain sats >92%. Bronchodilators, Solu-Medrol 60 mg IV q.6h. ICU vent bundle. SBT as basilio Pulm- Dr. Pratt. CV: Off Levophed Monitor HR and BP and maintain MAP> 65 mmHg. Lactic acid 1.5 : Monitor renal function Is and Os and electrolyte replacement per protocol. Will need K, Phos replacement today. GI: On Protonix 40 mg IV daily for GI prophylaxis. Glucerna 1.5 with goal rate 45ml/hr ID: Continue with abx- Zosyn and monitor for signs of infections ( fever and WBC ). strep pneumoniae and Legionella urinary antigen negative Nasal washing negative for influenza. 04/25 Sputum cx: Haemophilus Influenza 04/25 BC: NGTD Endo: SSI with Accu-Cheks q. 4-hour for glycemic control. Heme: Monitor CBC. GI prophylaxis with Protonix 40 mg daily and DVT prophylaxis with SCDs and Lovenox 40 mg subcu daily. Level 3 Albion Rudd MD Apr 27, 2017 07:11
[2017-04-27] MEDS: DOCUSATE SODIUM 50 MG/SENNA 8.6 MG TAB PO SCH ×2 (07:51→19:25)
[2017-04-27] MEDS: PANTOPRAZOLE SODIUM 40 MG VIAL IV PUSH SCH (07:51)
--- NOTE | 2017-04-27 08:02 | EKG ---
Date Performed: 04/25/2017 Time Performed: 11:27:09 PTAGE: 81 years EKG: SINUS TACHYCARDIA INFERIOR MYOCARDIAL INFARCTION, AGE UNDETERMINED ABNORMAL ECG NO PREVIOUS TRACING DOCTOR: Angel Singh Interpretating Date/Time 04/27/2017 08:01:53
[2017-04-27] MEDS: DEXMEDETOMIDINE INJ 200 MCG in SODIUM CHLORIDE 0.9% INJ 50 ML IV PRN ×2 (11:40→19:27)
[2017-04-27] MEDS: ENOXAPARIN SODIUM 40 MG/0.4 ML SYRINGE SQ SCH (16:00)
--- NOTE | 2017-04-27 17:22 | HHI.PR ---
Subjective Remarks 81 YOWM with VDRF, COPD exac Extubated On VM Mild sob, anxious Objective Vital Signs Vital Signs Date Time Temp Pulse Resp B/P (MAP) Pulse Ox O2 Delivery O2 Flow Rate FiO2 04/27/17 16:00 98 Venturi Mask 6 50 04/27/17 13:35 Venturi Mask 50 35 04/27/17 13:35 97 35 04/27/17 10:40 99 35 04/27/17 10:40 35 04/27/17 10:00 72 04/27/17 08:00 72 04/27/17 07:45 96 35 04/27/17 07:40 145 34 196/96 (129) 97 04/27/17 07:15 102 16 99 04/27/17 07:10 99 35 04/27/17 07:10 35 04/27/17 07:01 98.0 62 15 107/46 (66) 97 04/27/17 07:00 62 16 97 04/27/17 06:01 68 15 100/44 (62) 98 04/27/17 06:00 68 04/27/17 05:31 70 15 99/45 (63) 98 04/27/17 05:01 64 15 97/43 (61) 99 04/27/17 04:54 97 35 04/27/17 04:31 70 15 115/49 (71) 97 04/27/17 04:01 97.5 72 16 110/53 (72) 97 04/27/17 04:00 35 04/27/17 04:00 72 04/27/17 03:01 80 15 100/45 (63) 97 04/27/17 02:01 102 15 119/52 (74) 97 04/27/17 02:00 101 04/27/17 01:34 126 04/27/17 01:34 126 27 165/67 (99) 98 04/27/17 01:31 122 20 156/61 (92) 97 04/27/17 01:01 118 25 145/63 (90) 98 04/27/17 00:35 97 35 04/27/17 00:29 70 25 152/80 (104) 97 04/27/17 00:01 97.4 52 15 144/63 (90) 98 04/27/17 00:00 35 04/27/17 00:00 55 04/26/17 23:31 52 16 114/57 (76) 98 04/26/17 23:01 50 15 100/51 (67) 97 04/26/17 22:31 52 15 111/55 (73) 98 04/26/17 22:01 70 16 143/67 (92) 99 04/26/17 22:00 68 04/26/17 21:58 98 35 04/26/17 21:31 54 16 119/56 (77) 100 04/26/17 21:01 50 16 147/64 (91) 98 04/26/17 20:01 54 16 140/62 (88) 98 04/26/17 20:00 57 04/26/17 20:00 35 04/26/17 19:36 97 35 04/26/17 19:31 97.5 48 16 113/55 (74) 98 04/26/17 19:16 50 15 119/57 (77) 98 04/26/17 19:01 52 15 122/57 (78) 98 04/26/17 18:00 90 15 137/71 (93) 98 04/26/17 18:00 92 04/26/17 17:40 97 35 I/O 04/26/17 04/26/17 04/26/17 04/27/17 04/27/17 04/27/17 07:00 15:00 23:00 07:00 15:00 23:00 Intake Total 382 ml 554 ml 1272 ml 586 ml Output Total 800 ml 470.0 ml 320.0 ml Balance -418 ml 554 ml 802.0 ml 266.0 ml Intake IV Total 382 ml 554 ml 1272 ml 276 ml Tube Feeding 250 ml Other 60 ml Output Urine Total 800 ml 450 ml 300 ml Tube Feeding Residual Discard 20.0 ml 20.0 ml # Bowel Movements 0 0 Result Diagram: 04/27/1742904/27/17429 Objective Remarks GENERAL: elderly WM, on Vent SKIN: Warm and dry. HEAD: Normocephalic. EYES: No scleral icterus. No injection or drainage. NECK: Supple, trachea midline. No JVD or lymphadenopathy. CARDIOVASCULAR: Regular rate and rhythm without murmurs, gallops, or rubs. RESPIRATORY: Breath sounds equal bilaterally. No accessory muscle use. GASTROINTESTINAL: Abdomen soft, non-tender, nondistended. MUSCULOSKELETAL: No cyanosis, or edema. BACK: Nontender without obvious deformity. No CVA tenderness. A/P Assessment and Plan VDRF, s/p extubation COPD exac Sepsis Anxiety Lung nodules PLAN: cont VM CPAP prn Aerosol nebs cont Abx IV Solumedrol SQ Lovenox Denys Pratt MD Apr 27, 2017 17:22
[2017-04-27 21:19] LABS: PHOSPHORUS 2.9 MG/DL (2.5-4.9)
[2017-04-27] MEDS: RESP: ALBUTEROL 2.5 MG/IPRATROPIUM 0.5 MG NEB (PRN) NEB (22:50)
[2017-04-28] VITALS (65 sets, daily range): BP systolic 91–192; BP diastolic 45–89; PULSE 56–130; RESP 14–28; TEMP 97.2–98.9; O2SAT 93–100
[2017-04-28] MEDS: RESP: ALBUTEROL 2.5 MG/IPRATROPIUM 0.5 MG NEB (SCH) INH ×4 (03:18→20:54)
[2017-04-28] MEDS: INSULIN NovoLIN REGULAR SUPPLEMENTAL SCALE SQ SCH ×6 (04:00→20:27)
[2017-04-28] MEDS: CHLORHEXIDINE GLUCONATE 2 % 1 PACK (2 CLOTHS) TOP SCH (04:00)
[2017-04-28] MEDS: PIPERACIL-TAZO 4.5 GM PREMIX 100 ML IV SCH ×4 (04:40→20:26)
[2017-04-28] MEDS: methylPREDNISolone SOD SUCC 125 MG/2 ML VIAL IV SCH ×4 (04:40→21:57)
[2017-04-28 05:35] LABS: BICARBONATE 33.9 MEQ/L (21.0-32.0)
[2017-04-28 05:36] LABS: CALCIUM 8.3 MG/DL (8.5-10.1); MAGNESIUM 2.7 MG/DL (1.5-2.5)
[2017-04-28 05:38] LABS: CREATININE 0.66 MG/DL (0.60-1.30)
[2017-04-28 05:39] LABS: PHOSPHORUS 2.2 MG/DL (2.5-4.9)
[2017-04-28 05:42] LABS: AUTOMATED NEUTROPHIL # 14.4 TH/MM3 (1.8-7.7); BASOPHIL % 0.1 % (0.0-2.0); EOSINOPHIL % 0.1 % (0.0-4.0); HEMATOCRIT 37.1 % (39.0-51.0); HEMOGLOBIN 12.3 GM/DL (13.0-17.0); LYMPH % 1.1 % (9.0-44.0); LYMPHOCYTE # 0.2 TH/MM3 (1.0-4.8); MEAN CORPUSCULAR HEMOGLOBIN 28.9 PG (27.0-34.0); MEAN CORPUSCULAR HGB CONC 33.2 % (32.0-36.0); MONO % 4.2 % (0.0-8.0); MONOCYTE # 0.6 TH/MM3 (0-0.9); NEUT % 94.5 % (16.0-70.0); PLATELET COUNT 228 TH/MM3 (150-450); RED BLOOD COUNT 4.27 MIL/MM3 (4.50-5.90); RED CELL DISTRIBUTION WIDTH 13.4 % (11.6-17.2); WHITE BLOOD COUNT 15.2 TH/MM3 (4.0-11.0)
--- NOTE | 2017-04-28 06:50 | HHI.CCPN ---
Subjective Remarks/Hospital Course Patient is a 81-year-old male with past medical history of COPD, hyperlipidemia who presented to [place] ED with progressive worsening of shortness of breath for the past 2 days associated with productive cough. There is no history of any constitutional symptoms. On arrival to the ER the patient was hypertensive and tachycardiac. He was placed on a BiPap 15/5 with 40% FIO2 and his ABG showed acute hypercapnic respiratory acidosis with a pH of 7.29, CO2 79, bicarb 37, saturation 93%. A repeat ABG was performed at 1450 on the same setting which showed worsening pH of 7.21, CO2 79, bicarb 30 and sats of 96 %. He was subsequently intubated and placed on full mechanical ventilation. His laboratory data significant for leukocytosis with WBC of 22.0 and lactic acid level at 2.7. In the ER he was given 2 liters of normal saline, cefepime, azithromycin, Solu-Medrol and bronchodilator treatment. CT angiogram was obtained which showed no evidence of pulmonary embolism, however, it showed bilateral subcentimeter pulmonary nodules. When seen in the ER the patient is sedated with Diprivan and on full mechanical ventilation. 04/26 Patient was placed on Levophed overnight for hypotension he is now on 1.5 luis. Sedated with Diprivan. WBC is trending down. Afebrile. 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 04/27 No events overnight. Off Levophed. On Fentanyl drip for sedation. Afebrile. 04/28 Patient was extubated yesterday. On BIPAP overnight 04/07 with 30% FIO2. Awake and alert. Afebrile. Objective Vital Signs Date Time Temp Pulse Resp B/P (MAP) Pulse Ox O2 Delivery O2 Flow Rate FiO2 04/28/17 06:03 88 04/28/17 06:00 98.9 16 150/68 (95) 95 04/28/17 04:30 30 04/27/17 20:10 Bi-Pap 04/27/17 16:00 6 Intake and Output 04/28/17 04/28/17 04/29/17 08:00 16:00 00:00 Output Total 500 ml Balance -500 ml Result Diagram: 04/28/17 0500 04/28/17 0500 Other Results Laboratory Tests Test 04/27/17 15:45 04/27/17 20:45 04/27/17 20:52 04/28/17 05:00 Blood Gas Puncture Site RT RADIAL RT RADIAL Blood Gas Patient Temperature 37.0 37.0 Blood Gas HCO3 31 mmol/L 32 mmol/L Blood Gas Base Excess 5.8 mmol/L 6.2 mmol/L Blood Gas Oxygen Saturation 96 % 96 % Arterial Blood pH 7.39 7.34 Arterial Blood Partial Pressure CO2 53 mmHg 61 mmHg Arterial Blood Partial Pressure O2 120 mmHg 106 mmHg Arterial Blood Oxygen Content 17.8 Vol % 17.9 Vol % Arterial Blood Carboxyhemoglobin 0.9 % 0.8 % Arterial Blood Methemoglobin 1.3 % 1.1 % Blood Gas Hemoglobin 13.0 G/DL 13.2 G/DL Oxygen Delivery Device VENTILATOR BIPAP Blood Gas Ventilator Setting CPAP 5/10/35% [id number] Blood Gas Inspired Oxygen 35 % 35 % Potassium Level 3.9 MEQ/L 4.1 MEQ/L Phosphorus Level 2.9 MG/DL 2.2 MG/DL White Blood Count 15.2 TH/MM3 Red Blood Count 4.27 MIL/MM3 Hemoglobin 12.3 GM/DL Hematocrit 37.1 % Mean Corpuscular Volume 87.0 FL Mean Corpuscular Hemoglobin 28.9 PG Mean Corpuscular Hemoglobin Concent 33.2 % Red Cell Distribution Width 13.4 % Platelet Count 228 TH/MM3 Mean Platelet Volume 8.0 FL Neutrophils (%) (Auto) 94.5 % Lymphocytes (%) (Auto) 1.1 % Monocytes (%) (Auto) 4.2 % Eosinophils (%) (Auto) 0.1 % Basophils (%) (Auto) 0.1 % Neutrophils # (Auto) 14.4 TH/MM3 Lymphocytes # (Auto) 0.2 TH/MM3 Monocytes # (Auto) 0.6 TH/MM3 Eosinophils # (Auto) 0.0 TH/MM3 Basophils # (Auto) 0.0 TH/MM3 CBC Comment DIFF FINAL Differential Comment Blood Urea Nitrogen 37 MG/DL Creatinine 0.66 MG/DL Random Glucose 125 MG/DL Calcium Level 8.3 MG/DL Magnesium Level 2.7 MG/DL Sodium Level 144 MEQ/L Chloride Level 106 MEQ/L Carbon Dioxide Level 33.9 MEQ/L Anion Gap 4 MEQ/L Estimat Glomerular Filtration Rate 116 ML/MIN Imaging Last Impressions Chest X-Ray 04/26/17 0000 Signed Impressions: Service Date/Time: Wednesday, April 26, 2017 00:47 - CONCLUSION: Adequate placement a right jugular central line without pneumothorax. Bill Vences MD CT Angiography 04/25/17 0000 Signed Impressions: Service Date/Time: Tuesday, April 25, 2017 12:58 - CONCLUSION: 1. The study is negative for pulmonary embolism. 2. Bilateral subcentimeter (8 mm and 9 mm) pulmonary nodules and scattered areas of terminal airway opacity. In accordance with Fleischner Society guidelines, recommend followup CT thorax in 6 months to follow the nodules. Mk Freitas MD Objective Remarks GENERAL: Patient is 81 yo lying in bed in NAD SKIN: Warm and dry. HEAD: Normocephalic. EYES: No scleral icterus. No injection or drainage. NECK: Supple, trachea midline. No JVD or lymphadenopathy. CARDIOVASCULAR: Regular rate and rhythm without murmurs, gallops, or rubs. RESPIRATORY: Breath sounds equal bilaterally. No accessory muscle use. GASTROINTESTINAL: Abdomen soft, non-tender, nondistended. MUSCULOSKELETAL: No cyanosis, or edema. Neuro: Awake and alert A/P Assessment and Plan 1. Acute hypoxemic and hypercapnic respiratory failure requiring intubation. Extubated 04/26 2. COPD exacerbation. 3. Leukocytosis...trending down 4. Mild lactic acidemia... resolved 5. Hyponatremia. 6. Bilateral subcentimeter pulmonary nodules. Plan: Neuro: Awake and alert. Avoid sedatives Pulm: Continue with oxygen maintain sats >92%. Bronchodilators, Solu-Medrol 60 mg IV q.6h. NIPPV PRN for resp distress. Add Symbicort Pulm- Dr. Pratt. CV:Monitor HR and BP and maintain MAP> 65 mmHg. Lactic acid 1.5 : Monitor renal function Is and Os and electrolyte replacement per protocol. Will need Phos replacement today. GI: On Protonix 40 mg IV daily for GI prophylaxis. On PO diet ID: Continue with abx- Zosyn and monitor for signs of infections ( fever and WBC ). strep pneumoniae and Legionella urinary antigen negative Nasal washing negative for influenza. 04/25 Sputum cx: Haemophilus Influenza 04/25 BC: NGTD Endo: SSI with Accu-Cheks q. 4-hour for glycemic control. Heme: Monitor CBC. GI prophylaxis with Protonix 40 mg daily and DVT prophylaxis with SCDs and Lovenox 40 mg subcu daily. Level 3 Albino Rudd MD Apr 28, 2017 06:50
[2017-04-28 07:53] LABS: BILIRUBIN, URINE NEG (NEG); BLOOD, URINE LARGE (NEG); GLUCOSE,URINE NEG (NEG); KETONE, URINE TRACE mg/dL (NEG); NITRITE,URINE NEG (NEG); URINE LEUKOCYTE ESTERASE NEG (NEG)
[2017-04-28 07:57] LABS: RBC, URINE INNUM /hpf (0-3); SQUAMOUS EPITHELIAL CELL URINE 0-5 /hpf (0-5); URINE COLOR PINK (YELLW/STRAW)
[2017-04-28] MEDS: RESP: ALBUTEROL 2.5 MG/IPRATROPIUM 0.5 MG NEB (PRN) NEB (08:21)
[2017-04-28] MEDS: DOCUSATE SODIUM 50 MG/SENNA 8.6 MG TAB PO SCH ×2 (09:00→20:27)
[2017-04-28] MEDS: BUDESONIDE-FORMOTEROL 160/4.5 MCG INHALER INH SCH ×2 (09:00→20:25)
[2017-04-28] MEDS: PANTOPRAZOLE SODIUM 40 MG VIAL IV PUSH SCH (10:31)
[2017-04-28] MEDS: ENOXAPARIN SODIUM 40 MG/0.4 ML SYRINGE SQ SCH (17:44)
--- NOTE | 2017-04-28 18:04 | HHI.PR ---
Subjective Remarks 81 YOWM with VDRF, COPD exac Extubated On VM Mild sob, anxious Feels hungry ' I did't get any thing to eat" Objective Vital Signs Vital Signs Date Time Temp Pulse Resp B/P (MAP) Pulse Ox O2 Delivery O2 Flow Rate FiO2 04/28/17 17:30 88 16 176/77 (110) 97 04/28/17 17:00 96 22 175/75 (108) 97 04/28/17 16:30 100 20 177/86 (116) 97 04/28/17 16:00 72 04/28/17 16:00 96 17 174/76 (108) 97 04/28/17 15:00 92 18 172/81 (111) 99 04/28/17 14:30 82 17 168/85 (112) 98 04/28/17 14:00 80 22 160/77 (104) 99 04/28/17 14:00 68 04/28/17 13:30 72 18 167/73 (104) 98 04/28/17 13:20 96 Venturi Mask 6.00 40 04/28/17 13:00 72 18 155/64 (94) 98 04/28/17 12:00 64 04/28/17 12:00 62 19 156/64 (94) 97 04/28/17 11:30 56 18 134/63 (86) 96 04/28/17 11:09 97 30 04/28/17 11:00 60 17 131/61 (84) 97 04/28/17 10:30 82 15 156/69 (98) 97 04/28/17 10:00 90 21 160/66 (97) 96 04/28/17 09:30 90 14 158/78 (104) 97 04/28/17 09:00 96 19 160/69 (99) 95 04/28/17 08:36 97 30 04/28/17 08:30 100 20 190/89 (122) 98 04/28/17 08:22 95 Venturi Mask 6.00 40 04/28/17 08:00 93 04/28/17 08:00 98.7 94 24 176/82 (113) 96 04/28/17 07:30 90 25 192/77 (115) 97 04/28/17 07:00 82 18 96 04/28/17 07:00 96 Bi-Pap 04/28/17 06:03 88 10/26/17 06:00 98.9 74 16 150/68 (95) 95 04/28/17 05:30 76 17 140/66 (90) 95 04/28/17 05:30 76 17 140/66 (90) 95 04/28/17 05:00 60 18 136/64 (88) 94 04/28/17 05:00 60 18 136/64 (88) 94 04/28/17 04:53 88 04/28/17 04:30 95 30 04/28/17 04:30 62 18 123/55 (77) 94 04/28/17 04:30 98.1 62 18 123/55 (77) 94 04/28/17 04:30 62 18 123/55 (77) 94 04/28/17 04:15 76 19 94 04/28/17 04:00 72 18 118/54 (75) 94 04/28/17 04:00 72 18 118/54 (75) 94 04/28/17 04:00 72 18 118/54 (75) 94 04/28/17 03:45 84 19 93 04/28/17 03:30 88 17 152/76 (101) 94 04/28/17 03:30 88 17 152/76 (101) 94 04/28/17 03:30 88 17 152/76 (101) 94 04/28/17 03:30 88 17 152/76 (101) 94 04/28/17 03:15 68 17 95 04/28/17 03:15 68 17 95 04/28/17 03:00 56 17 119/59 (79) 94 04/28/17 03:00 56 17 119/59 (79) 94 04/28/17 03:00 92 04/28/17 03:00 56 17 119/59 (79) 94 04/28/17 03:00 56 17 119/59 (79) 94 04/28/17 02:45 68 16 94 04/28/17 02:45 68 16 94 04/28/17 02:30 88 19 152/72 (98) 95 04/28/17 02:30 88 19 152/72 (98) 95 04/28/17 02:30 88 19 152/72 (98) 95 04/28/17 02:30 88 19 152/72 (98) 95 04/28/17 02:15 62 17 95 04/28/17 02:15 62 17 95 04/28/17 02:00 60 16 134/64 (87) 95 04/28/17 02:00 60 16 134/64 (87) 95 04/28/17 02:00 60 16 134/64 (87) 95 04/28/17 02:00 60 16 134/64 (87) 95 04/28/17 01:45 64 17 94 04/28/17 01:45 64 17 94 04/28/17 01:30 58 16 126/57 (80) 95 04/28/17 01:30 58 16 126/57 (80) 95 04/28/17 01:30 58 16 126/57 (80) 95 04/28/17 01:30 58 16 126/57 (80) 95 04/28/17 01:15 62 18 95 04/28/17 01:15 62 18 95 04/28/17 01:05 95 30 04/28/17 01:00 80 21 161/76 (104) 95 04/28/17 01:00 80 21 161/76 (104) 95 04/28/17 01:00 80 21 161/76 (104) 95 04/28/17 01:00 80 21 161/76 (104) 95 04/28/17 01:00 80 21 161/76 (104) 95 04/28/17 00:45 62 17 133/59 (83) 95 04/28/17 00:45 62 17 133/59 (83) 95 04/28/17 00:45 62 17 133/59 (83) 95 04/28/17 00:45 97.2 62 17 133/59 (83) 95 04/28/17 00:45 62 17 133/59 (83) 95 04/28/17 00:45 62 17 133/59 (83) 95 04/28/17 00:30 70 19 156/71 (99) 94 04/28/17 00:30 70 19 156/71 (99) 94 04/28/17 00:30 70 19 156/71 (99) 94 04/28/17 00:30 70 19 156/71 (99) 94 04/28/17 00:30 70 19 156/71 (99) 94 04/28/17 00:30 70 19 156/71 (99) 94 04/28/17 00:15 68 18 133/70 (91) 94 04/28/17 00:15 68 18 133/70 (91) 94 04/28/17 00:15 68 18 133/70 (91) 94 04/28/17 00:15 68 18 133/70 (91) 94 04/28/17 00:15 68 18 133/70 (91) 94 04/28/17 00:15 68 18 133/70 (91) 94 04/28/17 00:01 62 04/28/17 00:00 68 18 135/61 (85) 95 04/28/17 00:00 68 18 135/61 (85) 95 04/28/17 00:00 68 18 135/61 (85) 95 04/28/17 00:00 68 18 135/61 (85) 95 04/28/17 00:00 68 18 135/61 (85) 95 04/28/17 00:00 68 18 135/61 (85) 95 04/27/17 23:00 94 30 04/27/17 22:00 86 22 153/78 (103) 93 04/27/17 22:00 86 04/27/17 21:10 97 30 04/27/17 20:55 96 30 04/27/17 20:53 102 22 147/75 (99) 96 04/27/17 20:43 97 04/27/17 20:30 120 26 163/83 (109) 95 04/27/17 20:10 95 35 04/27/17 20:10 94 Bi-Pap 04/27/17 20:05 140 38 232/99 (143) 94 04/27/17 20:00 94 Venturi Mask 40 04/27/17 20:00 120 04/27/17 19:00 97.7 108 28 184/90 (121) 97 04/27/17 18:31 104 27 178/99 (125) 97 I/O 04/27/17 04/27/17 04/27/17 04/28/17 04/28/17 04/28/17 07:00 15:00 23:00 07:00 15:00 23:00 Intake Total 586 ml 50 ml 240 ml Output Total 320.0 ml 550 ml 500 ml Balance 266.0 ml -500 ml -260 ml Intake Oral 0 ml IV Total 276 ml 50 ml 240 ml Tube Feeding 250 ml 0 ml Other 60 ml Output Urine Total 300 ml 550 ml 500 ml Tube Feeding Residual Discard 20.0 ml # Bowel Movements 0 0 Result Diagram: 04/28/1749904/28/17499 Objective Remarks GENERAL: elderly WM, on Vent SKIN: Warm and dry. HEAD: Normocephalic. EYES: No scleral icterus. No injection or drainage. NECK: Supple, trachea midline. No JVD or lymphadenopathy. CARDIOVASCULAR: Regular rate and rhythm without murmurs, gallops, or rubs. RESPIRATORY: Breath sounds equal bilaterally. No accessory muscle use. GASTROINTESTINAL: Abdomen soft, non-tender, nondistended. MUSCULOSKELETAL: No cyanosis, or edema. BACK: Nontender without obvious deformity. No CVA tenderness. A/P Assessment and Plan VDRF, s/p extubation COPD exac Sepsis Anxiety Lung nodules PLAN: cont VM CPAP prn Aerosol nebs cont Abx IV Solumedrol SQ Lovenox Start Po diet Denys Pratt MD Apr 28, 2017 18:04
[2017-04-28] MEDS: hydrALAZINE HCL 20 MG/ML VIAL IV PRN (20:26)
[2017-04-28] MEDS ORDERED: DEXMEDETOMIDINE HCL 200 MCG/2 ML VIAL IV PUSH ONE (21:00)
[2017-04-28] MEDS ORDERED: DEXMEDETOMIDINE INJ 200 MCG in SODIUM CHLORIDE 0.9% INJ 50 ML IV PRN (21:00)
[2017-04-28] MEDS ORDERED: LORazepam 2 MG/ML VIAL ONE (21:24)
[2017-04-28] MEDS ORDERED: LORazepam 2 MG/ML VIAL IV ONE (21:30)
[2017-04-29] VITALS (81 sets, daily range): BP systolic 102–177; BP diastolic 49–89; PULSE 56–116; RESP 13–34; TEMP 98.2–99.2; O2SAT 90–98
[2017-04-29] MEDS: RESP: ALBUTEROL 2.5 MG/IPRATROPIUM 0.5 MG NEB (SCH) INH ×3 (03:46→15:23)
[2017-04-29] MEDS: CHLORHEXIDINE GLUCONATE 2 % 1 PACK (2 CLOTHS) TOP SCH (04:00)
[2017-04-29] MEDS: INSULIN NovoLIN REGULAR SUPPLEMENTAL SCALE SQ SCH ×7 (04:00→21:47)
[2017-04-29] MEDS: methylPREDNISolone SOD SUCC 125 MG/2 ML VIAL IV SCH ×4 (04:20→21:37)
[2017-04-29] MEDS: PIPERACIL-TAZO 4.5 GM PREMIX 100 ML IV SCH ×2 (04:20→08:35)
[2017-04-29 05:28] LABS: AUTOMATED NEUTROPHIL # 10.7 TH/MM3 (1.8-7.7); BASOPHIL # 0.1 TH/MM3 (0-0.2); BASOPHIL % 1.2 % (0.0-2.0); HEMATOCRIT 38.9 % (39.0-51.0); LYMPHOCYTE # 0.3 TH/MM3 (1.0-4.8); MEAN CELL VOLUME 87.3 FL (80.0-100.0); MEAN CORPUSCULAR HEMOGLOBIN 29.2 PG (27.0-34.0); MEAN CORPUSCULAR HGB CONC 33.5 % (32.0-36.0); MEAN PLATELET VOLUME 7.1 FL (7.0-11.0); MONO % 4.6 % (0.0-8.0); MONOCYTE # 0.5 TH/MM3 (0-0.9); NEUT % 91.2 % (16.0-70.0); PLATELET COUNT 231 TH/MM3 (150-450); RED BLOOD COUNT 4.46 MIL/MM3 (4.50-5.90); RED CELL DISTRIBUTION WIDTH 13.3 % (11.6-17.2); WHITE BLOOD COUNT 11.6 TH/MM3 (4.0-11.0)
[2017-04-29 05:37] LABS: CALCIUM 8.1 MG/DL (8.5-10.1)
[2017-04-29 05:38] LABS: BICARBONATE 36.8 MEQ/L (21.0-32.0)
[2017-04-29 05:41] LABS: CREATININE 0.73 MG/DL (0.60-1.30); PHOSPHORUS 2.1 MG/DL (2.5-4.9)
[2017-04-29] MEDS: hydrALAZINE HCL 20 MG/ML VIAL IV PRN ×2 (06:32→20:34)
[2017-04-29] MEDS: PANTOPRAZOLE SODIUM 40 MG VIAL IV PUSH SCH (08:35)
[2017-04-29] MEDS: DOCUSATE SODIUM 50 MG/SENNA 8.6 MG TAB PO SCH ×2 (08:35→20:34)
[2017-04-29] MEDS: BUDESONIDE-FORMOTEROL 160/4.5 MCG INHALER INH SCH ×2 (08:35→20:35)
[2017-04-29] MEDS: ENOXAPARIN SODIUM 40 MG/0.4 ML SYRINGE SQ SCH (16:00)
--- NOTE | 2017-04-29 16:23 | HHI.CCPN ---
Subjective Remarks/Hospital Course Patient is a 81-year-old male with past medical history of COPD, hyperlipidemia who presented to [place] ED with progressive worsening of shortness of breath for the past 2 days associated with productive cough. There is no history of any constitutional symptoms. On arrival to the ER the patient was hypertensive and tachycardiac. He was placed on a BiPap 15/5 with 40% FIO2 and his ABG showed acute hypercapnic respiratory acidosis with a pH of 7.29, CO2 79, bicarb 37, saturation 93%. A repeat ABG was performed at 1450 on the same setting which showed worsening pH of 7.21, CO2 79, bicarb 30 and sats of 96 %. He was subsequently intubated and placed on full mechanical ventilation. His laboratory data significant for leukocytosis with WBC of 22.0 and lactic acid level at 2.7. In the ER he was given 2 liters of normal saline, cefepime, azithromycin, Solu-Medrol and bronchodilator treatment. CT angiogram was obtained which showed no evidence of pulmonary embolism, however, it showed bilateral subcentimeter pulmonary nodules. When seen in the ER the patient is sedated with Diprivan and on full mechanical ventilation. 04/26 Patient was placed on Levophed overnight for hypotension he is now on 1.5 lius. Sedated with Diprivan. WBC is trending down. Afebrile. 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 04/27 No events overnight. Off Levophed. On Fentanyl drip for sedation. Afebrile. 04/28 Patient was extubated yesterday. On BIPAP overnight 04/07 with 30% FIO2. Awake and alert. Afebrile. 04/29 No events overnight. On 3L oxygen with good sats. Afebrile. Objective Vital Signs Date Time Temp Pulse Resp B/P (MAP) Pulse Ox O2 Delivery O2 Flow Rate FiO2 04/29/17 13:15 106 20 96 04/29/17 12:44 171/83 (112) 04/29/17 11:12 Nasal Cannula 3.00 04/29/17 08:00 30 04/29/17 08:00 98.7 Intake and Output 04/29/17 04/29/17 04/30/17 08:00 16:00 00:00 Intake Total 32 ml 100 ml Output Total 375 ml Balance -343 ml 100 ml Result Diagram: 04/29/17 0515 04/29/17 0515 Other Results Laboratory Tests Test 04/29/17 05:15 White Blood Count 11.6 TH/MM3 Red Blood Count 4.46 MIL/MM3 Hemoglobin 13.0 GM/DL Hematocrit 38.9 % Mean Corpuscular Volume 87.3 FL Mean Corpuscular Hemoglobin 29.2 PG Mean Corpuscular Hemoglobin Concent 33.5 % Red Cell Distribution Width 13.3 % Platelet Count 231 TH/MM3 Mean Platelet Volume 7.1 FL Neutrophils (%) (Auto) 91.2 % Lymphocytes (%) (Auto) 3.0 % Monocytes (%) (Auto) 4.6 % Eosinophils (%) (Auto) 0.0 % Basophils (%) (Auto) 1.2 % Neutrophils # (Auto) 10.7 TH/MM3 Lymphocytes # (Auto) 0.3 TH/MM3 Monocytes # (Auto) 0.5 TH/MM3 Eosinophils # (Auto) 0.0 TH/MM3 Basophils # (Auto) 0.1 TH/MM3 CBC Comment DIFF FINAL Differential Comment Blood Urea Nitrogen 42 MG/DL Creatinine 0.73 MG/DL Random Glucose 125 MG/DL Calcium Level 8.1 MG/DL Phosphorus Level 2.1 MG/DL Sodium Level 143 MEQ/L Potassium Level 4.1 MEQ/L Chloride Level 104 MEQ/L Carbon Dioxide Level 36.8 MEQ/L Anion Gap 2 MEQ/L Estimat Glomerular Filtration Rate 104 ML/MIN Imaging Last Impressions Chest X-Ray 04/26/17 0000 Signed Impressions: Service Date/Time: Wednesday, April 26, 2017 00:47 - CONCLUSION: Adequate placement a right jugular central line without pneumothorax. Bill Vences MD CT Angiography 04/25/17 0000 Signed Impressions: Service Date/Time: Tuesday, April 25, 2017 12:58 - CONCLUSION: 1. The study is negative for pulmonary embolism. 2. Bilateral subcentimeter (8 mm and 9 mm) pulmonary nodules and scattered areas of terminal airway opacity. In accordance with Fleischner Society guidelines, recommend followup CT thorax in 6 months to follow the nodules. Mk Freitas MD Objective Remarks GENERAL: Patient is 81 yo lying in bed in [facility] SKIN: Warm and dry. HEAD: Normocephalic. EYES: No scleral icterus. No injection or drainage. NECK: Supple, trachea midline. No JVD or lymphadenopathy. CARDIOVASCULAR: Tachycardic without murmurs, gallops, or rubs. RESPIRATORY: Breath sounds equal bilaterally. No accessory muscle use. GASTROINTESTINAL: Abdomen soft, non-tender, nondistended. MUSCULOSKELETAL: No cyanosis, or edema. Neuro: Awake and alert A/P Assessment and Plan 1. Acute hypoxemic and hypercapnic respiratory failure requiring intubation. Extubated 04/26 2. COPD exacerbation. 3. Leukocytosis...trending down 4. Mild lactic acidemia... resolved 5. Hypertension 6. Bilateral subcentimeter pulmonary nodules. Plan: Neuro: Awake and alert. Avoid sedatives Pulm: Continue with oxygen maintain sats >92%. Bronchodilators, Solu-Medrol 60 mg IV q.6h. NIPPV PRN for resp distress. Add Symbicort Pulm- Dr. Pratt. CV: Place on Lopressor 25mg Q12 for BP control. Monitor HR and BP and maintain MAP> 65 mmHg. Lactic acid 1.5 : Monitor renal function Is and Os and electrolyte replacement per protocol. Will need Phos replacement today. GI: On Protonix 40 mg IV daily for GI prophylaxis. On PO diet ID: Change Zosyn to Rocephin and monitor for signs of infections ( fever and WBC ). strep pneumoniae and Legionella urinary antigen negative Nasal washing negative for influenza. 04/25 Sputum cx: Haemophilus Influenza 04/25 BC: NGTD Endo: SSI with Accu-Cheks q. 4-hour for glycemic control. Heme: Monitor CBC. GI prophylaxis with Protonix 40 mg daily and DVT prophylaxis with SCDs and Lovenox 40 mg subcu daily. Level 3 Albino Rudd MD Apr 29, 2017 16:23
--- NOTE | 2017-04-29 17:18 | HHI.PR ---
Subjective Remarks 81 YOWM with VDRF, COPD exac Extubated On VM Mild sob, anxious Anxiety makes his sob worse Wants to get out of bed at BS Objective Vital Signs Vital Signs Date Time Temp Pulse Resp B/P (MAP) Pulse Ox O2 Delivery O2 Flow Rate FiO2 04/29/17 13:15 106 20 96 04/29/17 13:00 106 25 95 04/29/17 12:44 112 20 171/83 (112) 95 04/29/17 12:30 108 20 95 04/29/17 12:23 114 25 163/88 (113) 95 04/29/17 12:08 104 18 158/82 (107) 96 04/29/17 12:01 106 17 157/73 (101) 97 04/29/17 12:00 98 04/29/17 11:53 108 20 96 04/29/17 11:38 108 20 157/81 (106) 98 04/29/17 11:30 112 23 97 04/29/17 11:23 112 22 177/76 (109) 97 04/29/17 11:12 98 Nasal Cannula 3.00 04/29/17 11:08 96 18 165/72 (103) 97 04/29/17 10:53 114 26 171/84 (113) 97 04/29/17 10:38 98 21 149/76 (100) 97 04/29/17 10:30 102 19 96 04/29/17 10:23 108 23 149/76 (100) 96 04/29/17 10:08 100 20 136/66 (89) 97 04/29/17 10:00 95 04/29/17 09:53 112 29 154/71 (98) 95 04/29/17 09:38 110 26 153/74 (100) 90 04/29/17 09:30 116 24 94 04/29/17 09:07 90 18 142/85 (104) 95 04/29/17 09:00 74 17 95 04/29/17 08:52 82 18 130/63 (85) 94 04/29/17 08:37 82 16 128/60 (82) 95 04/29/17 08:22 78 18 125/56 (79) 95 04/29/17 08:07 88 16 129/63 (85) 95 04/29/17 08:00 99 Bi-Pap 30 04/29/17 08:00 63 04/29/17 08:00 98.7 62 18 94 04/29/17 07:52 66 17 106/58 (74) 94 04/29/17 07:41 94 30 04/29/17 07:37 68 20 108/49 (68) 94 04/29/17 07:22 66 17 108/50 (69) 94 04/29/17 07:07 66 18 104/53 (70) 94 04/29/17 07:00 70 19 95 04/29/17 06:07 62 17 158/70 (99) 97 04/29/17 06:00 62 04/29/17 06:00 97 Bi-Pap 30 04/29/17 05:52 60 18 149/70 (96) 96 04/29/17 05:37 56 19 150/61 (90) 96 04/29/17 05:22 74 18 154/68 (96) 97 04/29/17 05:11 84 21 158/72 (100) 97 04/29/17 05:07 92 23 165/78 (107) 97 04/29/17 04:37 64 20 134/59 (84) 97 04/29/17 04:22 62 17 138/58 (84) 97 04/29/17 04:07 98.4 64 20 136/60 (85) 94 04/29/17 04:00 96 30 04/29/17 04:00 97 Bi-Pap 30 04/29/17 04:00 64 04/29/17 03:52 64 18 157/73 (101) 97 04/29/17 03:37 64 18 154/70 (98) 97 04/29/17 03:22 64 18 147/69 (95) 96 04/29/17 03:07 64 18 143/63 (89) 96 04/29/17 02:52 64 19 141/68 (92) 96 04/29/17 02:37 64 17 144/74 (97) 96 04/29/17 02:22 64 18 142/65 (90) 96 04/29/17 02:07 64 18 140/67 (91) 96 04/29/17 02:00 64 04/29/17 01:52 64 17 135/65 (88) 96 04/29/17 01:37 64 19 131/64 (86) 96 04/29/17 01:35 96 30 04/29/17 01:22 64 18 133/68 (89) 96 04/29/17 01:22 64 18 133/68 (89) 96 04/29/17 01:07 64 20 129/62 (84) 95 04/29/17 01:07 64 20 129/62 (84) 95 04/29/17 00:52 64 19 118/58 (78) 95 04/29/17 00:52 64 19 118/58 (78) 95 04/29/17 00:37 62 19 112/57 (75) 95 04/29/17 00:37 62 19 112/57 (75) 95 04/29/17 00:37 62 19 112/57 (75) 95 04/29/17 00:30 58 19 95 04/29/17 00:22 62 19 108/53 (71) 94 04/29/17 00:22 62 19 108/53 (71) 94 04/29/17 00:22 62 19 108/53 (71) 94 04/29/17 00:15 58 20 94 04/29/17 00:15 58 20 94 04/29/17 00:07 60 21 102/52 (69) 95 04/29/17 00:07 99.2 60 21 102/52 (69) 95 04/29/17 00:07 60 21 102/52 (69) 95 04/29/17 00:00 68 19 95 04/29/17 00:00 68 04/29/17 00:00 95 Bi-Pap 30 04/28/17 22:37 96 22 110/54 (72) 94 04/28/17 22:35 93 30 04/28/17 22:22 100 24 107/55 (72) 94 04/28/17 22:11 106 24 113/59 (77) 93 04/28/17 22:04 98 21 103/48 (66) 93 04/28/17 22:00 100 04/28/17 22:00 100 25 91/45 (60) 94 04/28/17 21:30 130 28 158/58 (91) 94 04/28/17 21:00 130 26 181/71 (107) 98 04/28/17 20:55 95 30 04/28/17 20:55 100 Bi-Pap 30 04/28/17 20:30 92 23 192/86 (121) 100 04/28/17 20:00 94 04/28/17 20:00 97.7 94 19 184/81 (115) 100 04/28/17 19:55 95 Venturi Mask 40 04/28/17 19:30 98 21 188/80 (116) 100 04/28/17 19:00 112 28 187/87 (120) 100 04/28/17 19:00 100 Nasal Cannula 4.00 04/28/17 18:00 64 04/28/17 17:30 88 16 176/77 (110) 97 I/O 04/28/17 04/28/17 04/28/17 04/29/17 04/29/17 04/29/17 07:00 15:00 23:00 07:00 15:00 23:00 Intake Total 240 ml 32 ml 100 ml Output Total 500 ml 500 ml 375 ml Balance -260 ml -500 ml -343 ml 100 ml Intake Oral 0 ml IV Total 240 ml 32 ml 100 ml Output Urine Total 500 ml 500 ml 375 ml Result Diagram: 04/29/17 0515 04/29/17 0515 Objective Remarks GENERAL: elderly WM, on Vent SKIN: Warm and dry. HEAD: Normocephalic. EYES: No scleral icterus. No injection or drainage. NECK: Supple, trachea midline. No JVD or lymphadenopathy. CARDIOVASCULAR: Regular rate and rhythm without murmurs, gallops, or rubs. RESPIRATORY: Breath sounds equal bilaterally. No accessory muscle use. GASTROINTESTINAL: Abdomen soft, non-tender, nondistended. MUSCULOSKELETAL: No cyanosis, or edema. BACK: Nontender without obvious deformity. No CVA tenderness. A/P Assessment and Plan VDRF, s/p extubation COPD exac Sepsis Anxiety Lung nodules PLAN: cont VM CPAP prn Aerosol nebs cont Abx IV Solumedrol SQ Lovenox Buspar 5 mg bid DW pt and his Denys Pratt MD Apr 29, 2017 17:18
[2017-04-29] MEDS: cefTRIAXone INJ 1,000 MG in SODIUM CHLORIDE 0.9% INJ 100 ML IV SCH (17:39)
[2017-04-29] MEDS: METOPROLOL TARTRATE 25 MG TAB PO SCH ×2 (17:39→20:34)
[2017-04-29] MEDS: busPIRone HCL 5 MG TAB PO SCH (20:34)
[2017-04-29] MEDS: RESP: ALBUTEROL 2.5 MG/IPRATROPIUM 0.5 MG NEB (PRN) NEB (21:52)
[2017-04-30] VITALS (20 sets, daily range): BP systolic 143–190; BP diastolic 56–88; PULSE 64–110; RESP 15–31; TEMP 96.9–99.7; O2SAT 93–98
[2017-04-30] MEDS: CHLORHEXIDINE GLUCONATE 2 % 1 PACK (2 CLOTHS) TOP SCH (04:00)
[2017-04-30] MEDS: INSULIN NovoLIN REGULAR SUPPLEMENTAL SCALE SQ SCH (04:00)
[2017-04-30] MEDS: methylPREDNISolone SOD SUCC 125 MG/2 ML VIAL IV SCH (05:45)
--- NOTE | 2017-04-30 06:31 | HHI.CCPN ---
Subjective Remarks/Hospital Course Patient is a 81-year-old male with past medical history of COPD, hyperlipidemia who presented to [place] ED with progressive worsening of shortness of breath for the past 2 days associated with productive cough. There is no history of any constitutional symptoms. On arrival to the ER the patient was hypertensive and tachycardiac. He was placed on a BiPap 15/5 with 40% FIO2 and his ABG showed acute hypercapnic respiratory acidosis with a pH of 7.29, CO2 79, bicarb 37, saturation 93%. A repeat ABG was performed at 1450 on the same setting which showed worsening pH of 7.21, CO2 79, bicarb 30 and sats of 96 %. He was subsequently intubated and placed on full mechanical ventilation. His laboratory data significant for leukocytosis with WBC of 22.0 and lactic acid level at 2.7. In the ER he was given 2 liters of normal saline, cefepime, azithromycin, Solu-Medrol and bronchodilator treatment. CT angiogram was obtained which showed no evidence of pulmonary embolism, however, it showed bilateral subcentimeter pulmonary nodules. When seen in the ER the patient is sedated with Diprivan and on full mechanical ventilation. 04/26 Patient was placed on Levophed overnight for hypotension he is now on 1.5 luis. Sedated with Diprivan. WBC is trending down. Afebrile. 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 04/27 No events overnight. Off Levophed. On Fentanyl drip for sedation. Afebrile. 04/28 Patient was extubated yesterday. On BIPAP overnight 04/07 with 30% FIO2. Awake and alert. Afebrile. 04/29 No events overnight. On 3L oxygen with good sats. Afebrile. Subjective: 04/30 Temp max 99.7 with WBC continuing downtrend. Tolerating NC. Nurse states he was short of breath with getting up last night and is generally weak. He does not use home O2 but inquires about whether Dr. Pratt feels he will need it. Not sleeping well. Objective Vital Signs Date Time Temp Pulse Resp B/P (MAP) Pulse Ox O2 Delivery O2 Flow Rate FiO2 04/30/17 06:00 80 20 159/66 (97) 93 04/30/17 04:00 99.7 04/29/17 21:52 Nasal Cannula 2.00 04/29/17 08:00 30 Intake and Output 04/30/17 04/30/17 05/01/17 08:00 16:00 00:00 Intake Total 520 ml Output Total 400 ml Balance 120 ml Result Diagram: 04/29/17 0515 04/29/17 0515 Imaging Last Impressions Chest X-Ray 04/26/17 0000 Signed Impressions: Service Date/Time: Wednesday, April 26, 2017 00:47 - CONCLUSION: Adequate placement a right jugular central line without pneumothorax. Bill Vences MD CT Angiography 04/25/17 0000 Signed Impressions: Service Date/Time: Tuesday, April 25, 2017 12:58 - CONCLUSION: 1. The study is negative for pulmonary embolism. 2. Bilateral subcentimeter (8 mm and 9 mm) pulmonary nodules and scattered areas of terminal airway opacity. In accordance with Fleischner Society guidelines, recommend followup CT thorax in 6 months to follow the nodules. Mk Freitas MD Objective Remarks GENERAL: WNWD male patient who is sitting up in bed, awake and conversant. SKIN: Warm and dry. HEAD: Normocephalic. EYES: No scleral icterus. No injection or drainage. NECK: Supple, trachea midline. No JVD or lymphadenopathy. CARDIOVASCULAR: RRR with rate in the 80s. No mrg. RESPIRATORY: Breath sounds equal bilaterally but with slight expiratory wheeze. GASTROINTESTINAL: Abdomen soft, non-tender, nondistended. : Alfonso in place with light yellow urine output MUSCULOSKELETAL: No cyanosis, or edema. NEURO: Awake and alert, oriented. Moves all extremities with no focal deficit. A/P Problem List: (1) Acute respiratory failure with hypoxia and hypercapnia ICD Code: J96.01 - Acute respiratory failure with hypoxia; J96.02 - Acute respiratory failure with hypercapnia Status: Resolved (2) HTN (hypertension) ICD Code: I10 - Essential (primary) hypertension Status: Chronic (3) HLD (hyperlipidemia) ICD Code: E78.5 - Hyperlipidemia, unspecified (4) BPH (benign prostatic hyperplasia) ICD Code: N40.0 - Benign prostatic hyperplasia without lower urinary tract symptoms Status: Chronic (5) Pulmonary nodules ICD Code: R91.8 - Other nonspecific abnormal finding of lung field Status: Acute (6) Pneumonia due to hemophilus influenzae ICD Code: J14 - Pneumonia due to Hemophilus influenzae Status: Acute (7) COPD with exacerbation ICD Code: J44.1 - Chronic obstructive pulmonary disease with (acute) exacerbation Status: Acute (8) Insomnia due to medical condition ICD Code: G47.01 - Insomnia due to medical condition Status: Acute (9) Physical deconditioning ICD Code: R53.81 - Other malaise Status: Acute Assessment and Plan 1. Acute hypoxemic and hypercapnic respiratory failure requiring intubation. Extubated 04/26 2. COPD exacerbation. 3. Leukocytosis...trending down 4. Mild lactic acidemia... resolved 5. Hypertension 6. Bilateral subcentimeter pulmonary nodules. Plan: Neuro: Deconditioning Awake and alert. Avoid sedatives. Melatonin qhs for sleep. OOB. PT consult Pulm: Acute hypoxemic and hypercapnic respiratory failure, resolved Acute COPD exacerbation Subcentimeter pulmonary nodules Tolerating nasal cannula. BiPAP if needed for respiratory distress. Reordered scheduled Duoneb q6 hours. D/c solumedrol and place on prednisone 60 mg by mouth daily. NIPPV PRN for resp distress. Continue Symbicort Pulm- Dr. Pratt. CV: HTN Hyperlipidemia Continue on Lopressor 25mg Q12 for BP control. Continue simvastatin 10 mg by mouth daily Monitor HR and BP and maintain MAP> 65 mmHg. Lactic acid 1.5 : BPH Urethral dilation and alfonso placement by Dr. Carbajal. Reviewed recommendations, will remove Alfonso now that he is extubated and allow for voiding trial.Start Flomax. D/c electrolyte replacement. GI: Change Protonix to 40 mg by mouth daily for GI prophylaxis while on steroids. On PO diet ID: Previously on cefepime 04/25, then Zosyn 04/25 through 04/29 Continue Rocephin with stop date 05/01 strep pneumoniae and Legionella urinary antigen negative Nasal washing negative for influenza. 04/25 Sputum cx: Haemophilus Influenza 04/25 BC: NGTD Endo: Not requiring insulin coverage so will discontinue. Heme: Monitor CBC. GI prophylaxis with Protonix 40 mg daily and DVT prophylaxis with SCDs and Lovenox 40 mg subcu daily. Transfer to floor. Consult hospitalist to assume care. Level 2 Luzmaria Cash MD Apr 30, 2017 06:31
[2017-04-30] MEDS ORDERED: MELATONIN 5 MG TAB PO PRN (06:45)
[2017-04-30] MEDS: predniSONE 20 MG TAB PO SCH (07:59)
[2017-04-30] MEDS: PANTOPRAZOLE SOD 40 MG DELAYED RELEASE TAB PO SCH (08:00)
[2017-04-30] MEDS: PRAVASTATIN SOD 20 MG TAB PO SCH (08:00)
[2017-04-30] MEDS: TAMSULOSIN HCL 0.4 MG CAP PO SCH (08:00)
[2017-04-30] MEDS: METOPROLOL TARTRATE 25 MG TAB PO SCH ×2 (08:00→20:39)
[2017-04-30] MEDS: busPIRone HCL 5 MG TAB PO SCH ×2 (08:00→20:39)
[2017-04-30] MEDS: BUDESONIDE-FORMOTEROL 160/4.5 MCG INHALER INH SCH ×2 (08:00→20:39)
[2017-04-30] MEDS: DOCUSATE SODIUM 50 MG/SENNA 8.6 MG TAB PO SCH ×2 (08:00→20:39)
[2017-04-30 08:19] LABS: BASOPHIL # 0.1 TH/MM3 (0-0.2); BASOPHIL % 0.9 % (0.0-2.0); EOSINOPHIL # 0.2 TH/MM3 (0-0.4); EOSINOPHIL % 1.4 % (0.0-4.0); HEMATOCRIT 40.2 % (39.0-51.0); HEMOGLOBIN 13.4 GM/DL (13.0-17.0); LYMPH % 2.1 % (9.0-44.0); LYMPHOCYTE # 0.3 TH/MM3 (1.0-4.8); MEAN CELL VOLUME 87.7 FL (80.0-100.0); MEAN CORPUSCULAR HEMOGLOBIN 29.1 PG (27.0-34.0); MEAN CORPUSCULAR HGB CONC 33.2 % (32.0-36.0); MEAN PLATELET VOLUME 8.1 FL (7.0-11.0); MONO % 1.2 % (0.0-8.0); MONOCYTE # 0.2 TH/MM3 (0-0.9); NEUT % 94.4 % (16.0-70.0); PLATELET COUNT 248 TH/MM3 (150-450); RED BLOOD COUNT 4.59 MIL/MM3 (4.50-5.90); RED CELL DISTRIBUTION WIDTH 13.3 % (11.6-17.2); WHITE BLOOD COUNT 14.8 TH/MM3 (4.0-11.0)
[2017-04-30 08:33] LABS: CALCIUM 8.3 MG/DL (8.5-10.1)
[2017-04-30 08:34] LABS: BICARBONATE 34.1 MEQ/L (21.0-32.0)
[2017-04-30 08:37] LABS: CREATININE 0.59 MG/DL (0.60-1.30); PHOSPHORUS 2.4 MG/DL (2.5-4.9)
[2017-04-30] MEDS: RESP: ALBUTEROL 2.5 MG/IPRATROPIUM 0.5 MG NEB (SCH) NEB ×3 (11:03→20:55)
[2017-04-30] MEDS: LISINOPRIL 20 MG TAB PO SCH (13:56)
[2017-04-30] MEDS: HYDROCHLOROTHIAZIDE 12.5 MG CAP PO SCH (13:56)
[2017-04-30] MEDS: ENOXAPARIN SODIUM 40 MG/0.4 ML SYRINGE SQ SCH (16:00)
[2017-04-30] MEDS: cefTRIAXone INJ 1,000 MG in SODIUM CHLORIDE 0.9% INJ 100 ML IV SCH (16:18)
[2017-04-30] MEDS: ENALAPRILAT 1.25 MG/ML VIAL IV PUSH PRN (16:56)
--- NOTE | 2017-04-30 17:50 | HHI.PR ---
Subjective Remarks 81 YOWM with VDRF, COPD exac Mild sob, anxious Anxiety makes his sob worse Wants to get out of bed Breathing better Weaned to NC Objective Vital Signs Vital Signs Date Time Temp Pulse Resp B/P (MAP) Pulse Ox O2 Delivery O2 Flow Rate FiO2 04/30/17 16:56 110 04/30/17 16:56 108 20 184/78 (113) 97 04/30/17 12:03 99 04/30/17 12:00 97.7 97 20 173/70 (104) 97 04/30/17 11:05 96 Nasal Cannula 2.00 04/30/17 08:41 98.2 85 18 162/70 (100) 98 04/30/17 08:41 92 04/30/17 08:41 Nasal Cannula 2.00 04/30/17 06:00 80 20 159/66 (97) 93 04/30/17 06:00 85 04/30/17 05:00 72 16 153/65 (94) 96 04/30/17 04:00 99.7 82 21 151/66 (94) 95 04/30/17 04:00 92 04/30/17 03:00 76 16 153/61 (91) 96 04/30/17 02:45 82 15 97 04/30/17 02:30 70 17 96 04/30/17 02:15 84 23 97 04/30/17 02:00 72 19 152/64 (93) 96 04/30/17 02:00 86 04/30/17 02:00 79 04/30/17 01:45 70 31 96 04/30/17 01:30 64 17 96 04/30/17 01:15 78 17 96 04/30/17 01:00 70 17 143/63 (89) 97 04/30/17 00:00 80 04/30/17 00:00 99.7 88 20 148/56 (86) 95 04/29/17 23:00 86 31 143/61 (88) 96 04/29/17 22:26 94 25 149/66 (93) 94 04/29/17 22:00 86 21 95 04/29/17 22:00 86 04/29/17 21:56 84 13 145/74 (97) 95 04/29/17 21:52 94 Nasal Cannula 2.00 04/29/17 21:26 94 22 154/68 (96) 94 10/27/17 21:00 94 22 94 04/29/17 20:00 Nasal Cannula 2.00 04/29/17 20:00 82 04/29/17 20:00 98.2 83 23 168/75 (106) 94 04/29/17 18:00 100 34 159/89 (112) 93 I/O 04/29/17 04/29/17 04/29/17 04/30/17 04/30/17 04/30/17 07:00 15:00 23:00 07:00 15:00 23:00 Intake Total 32 ml 100 ml 100 ml 520 ml Output Total 375 ml 450 ml 400 ml 175 ml Balance -343 ml 100 ml -350 ml 120 ml -175 ml Intake Oral 0 ml 520 ml IV Total 32 ml 100 ml 100 ml Output Urine Total 375 ml 450 ml 400 ml 175 ml # Bowel Movements 0 0 Result Diagram: 04/30/1772904/30/1730 Objective Remarks GENERAL: elderly WM, on Vent SKIN: Warm and dry. HEAD: Normocephalic. EYES: No scleral icterus. No injection or drainage. NECK: Supple, trachea midline. No JVD or lymphadenopathy. CARDIOVASCULAR: Regular rate and rhythm without murmurs, gallops, or rubs. RESPIRATORY: Breath sounds equal bilaterally. No accessory muscle use. GASTROINTESTINAL: Abdomen soft, non-tender, nondistended. MUSCULOSKELETAL: No cyanosis, or edema. BACK: Nontender without obvious deformity. No CVA tenderness. A/P Assessment and Plan VDRF, s/p extubation COPD exac Sepsis Anxiety Lung nodules PLAN: cont VM CPAP prn Aerosol nebs cont Abx IV Solumedrol SQ Lovenox Buspar 5 mg bid Stable to tr to floor Denys Pratt MD Apr 30, 2017 17:50
[2017-05-01] VITALS (8 sets, daily range): BP systolic 164–198; BP diastolic 83–93; PULSE 77–110; RESP 18–24; TEMP 96.8–98; O2SAT 92–96
[2017-05-01] MEDS: ENALAPRILAT 1.25 MG/ML VIAL IV PUSH PRN (00:05)
[2017-05-01] MEDS: CHLORHEXIDINE GLUCONATE 2 % 1 PACK (2 CLOTHS) TOP SCH (03:00)
[2017-05-01] MEDS: RESP: ALBUTEROL 2.5 MG/IPRATROPIUM 0.5 MG NEB (SCH) NEB ×5 (03:00→19:23)
[2017-05-01 07:57] LABS: AUTOMATED NEUTROPHIL # 14.5 TH/MM3 (1.8-7.7); BASOPHIL # 0.2 TH/MM3 (0-0.2); BASOPHIL % 1.4 % (0.0-2.0); EOSINOPHIL % 0.1 % (0.0-4.0); HEMATOCRIT 42.7 % (39.0-51.0); HEMOGLOBIN 14.1 GM/DL (13.0-17.0); LYMPH % 4.6 % (9.0-44.0); LYMPHOCYTE # 0.7 TH/MM3 (1.0-4.8); MEAN CELL VOLUME 87.6 FL (80.0-100.0); MEAN CORPUSCULAR HEMOGLOBIN 28.8 PG (27.0-34.0); MEAN CORPUSCULAR HGB CONC 32.9 % (32.0-36.0); MEAN PLATELET VOLUME 7.7 FL (7.0-11.0); MONO % 4.5 % (0.0-8.0); MONOCYTE # 0.7 TH/MM3 (0-0.9); NEUT % 89.4 % (16.0-70.0); PLATELET COUNT 275 TH/MM3 (150-450); RED BLOOD COUNT 4.88 MIL/MM3 (4.50-5.90); RED CELL DISTRIBUTION WIDTH 13.4 % (11.6-17.2); WHITE BLOOD COUNT 16.1 TH/MM3 (4.0-11.0)
[2017-05-01 08:06] LABS: BICARBONATE 35.6 MEQ/L (21.0-32.0); CALCIUM 8.4 MG/DL (8.5-10.1)
[2017-05-01 08:10] LABS: CREATININE 0.62 MG/DL (0.60-1.30)
[2017-05-01] MEDS: LISINOPRIL 20 MG TAB PO SCH ×2 (08:56→20:29)
[2017-05-01] MEDS: TAMSULOSIN HCL 0.4 MG CAP PO SCH (08:56)
[2017-05-01] MEDS: HYDROCHLOROTHIAZIDE 12.5 MG CAP PO SCH ×2 (08:56→20:30)
[2017-05-01] MEDS: predniSONE 20 MG TAB PO SCH (08:56)
[2017-05-01] MEDS: DOCUSATE SODIUM 50 MG/SENNA 8.6 MG TAB PO SCH ×2 (08:56→20:31)
[2017-05-01] MEDS: METOPROLOL TARTRATE 25 MG TAB PO SCH ×2 (08:57→20:31)
[2017-05-01] MEDS: PRAVASTATIN SOD 20 MG TAB PO SCH (08:57)
[2017-05-01] MEDS: PANTOPRAZOLE SOD 40 MG DELAYED RELEASE TAB PO SCH (08:57)
[2017-05-01] MEDS: busPIRone HCL 5 MG TAB PO SCH ×2 (08:57→20:29)
[2017-05-01] MEDS: BUDESONIDE-FORMOTEROL 160/4.5 MCG INHALER INH SCH ×2 (08:57→21:24)
[2017-05-01] MEDS: ENOXAPARIN SODIUM 40 MG/0.4 ML SYRINGE SQ SCH (16:00)
--- NOTE | 2017-05-01 17:27 | HHI.PR ---
Subjective Remarks 81 YOWM with VDRF, COPD exac Mild sob, anxious Anxiety makes his sob worse Breathing better Weaned to NC " I want to go to rehab" Objective Vital Signs Vital Signs Date Time Temp Pulse Resp B/P (MAP) Pulse Ox O2 Delivery O2 Flow Rate FiO2 05/01/17 16:00 98.0 110 18 164/93 (116) 92 05/01/17 12:00 97.9 104 24 183/83 (116) 92 05/01/17 09:25 Nasal Cannula 2.00 30 05/01/17 08:08 95 Nasal Cannula 2.00 05/01/17 08:00 97.7 94 20 187/91 (123) 94 05/01/17 04:00 96.8 99 20 186/86 (119) 95 05/01/17 00:00 97.1 77 20 193/85 (121) 96 04/30/17 20:55 96 Nasal Cannula 2.00 04/30/17 20:00 74 04/30/17 20:00 97 Nasal Cannula 2.00 04/30/17 20:00 96.9 95 20 190/88 (122) 97 I/O 04/30/17 04/30/17 04/30/17 05/01/17 05/01/17 05/01/17 07:00 15:00 23:00 07:00 15:00 23:00 Intake Total 520 ml 480 ml 240 ml Output Total 400 ml 175 ml 350 ml 750 ml 500 ml Balance 120 ml -175 ml -350 ml -270 ml -260 ml Intake Oral 520 ml 480 ml 240 ml Output Urine Total 400 ml 175 ml 350 ml 750 ml 500 ml # Bowel Movements 0 1 Result Diagram: 05/01/1772305/01/17723 Objective Remarks GENERAL: elderly WM, on Vent SKIN: Warm and dry. HEAD: Normocephalic. EYES: No scleral icterus. No injection or drainage. NECK: Supple, trachea midline. No JVD or lymphadenopathy. CARDIOVASCULAR: Regular rate and rhythm without murmurs, gallops, or rubs. RESPIRATORY: Breath sounds equal bilaterally. No accessory muscle use. GASTROINTESTINAL: Abdomen soft, non-tender, nondistended. MUSCULOSKELETAL: No cyanosis, or edema. BACK: Nontender without obvious deformity. No CVA tenderness. A/P Assessment and Plan VDRF, s/p extubation COPD exac Sepsis Anxiety Lung nodules PLAN: cont VM CPAP prn Aerosol nebs cont Abx DC Solumedrol PO Prednisone SQ Lovenox Buspar 5 mg bid Denys Pratt MD May 01, 2017 17:27
[2017-05-01] MEDS ORDERED: FUROSEMIDE 20 MG/2 ML VIAL IV PUSH ONE ×2 (18:30→22:00)
--- NOTE | 2017-05-01 18:53 | HHI.PR ---
Subjective Remarks 81 year-old male who is originally was managed by critical care medicine and suddenly transferred to medical care when stabilized. Patient presented to emergency department on 04/25/17 at that time patient was found to have hypercapnic, hypoxic respiratory failure due to chronic obstructive pulmonary disease exacerbation. Patient was intubated in the emergency department, central line was placed area patient is admitted to critical care management. Patient underwent treatment with O2 supplementation by ventilator, ventilator bundle, Solu-Medrol, patient did develop hypotension and required at least 3 L of fluid bolus. And subtotally started on Levophed for blood pressure management on the night of 04/26. Patient continued followed by critical care and eventually was extubated on 04/27. Patient remained on BiPAP and continued management with O2 supplementation, steroids, antibiotics. Oil Plant Operator was consulted for care and management. Patient was successfully weaned off of BiPAP and tolerating nasal cannula oxygen at 2 L. Hospitalist was consulted to assume medical management. Upon evaluating the patient today he appears to be rather stable. Oxygen 2 L per Nasal Cannula. He States That He Is Rather Deconditioned and Unable to Stand and Walk on His Own at This Time. Patient Indicates That He Still Has Significant Edema in His Arms, Hands , Legs. Records Indicate That He Has Gained Approximately 5 Kg since Presenting to the Hospital. Patient blood pressure is now elevated and his home medications have been continued. Patient continues on nebulizer treatments , Symbicort, prednisone 60 mg daily. Patient states that he is unable to go home and his condition that he is in. Asking if he can go to a rehabilitation facility prior to going home. Objective Vitals Vital Signs Date Time Temp Pulse Resp B/P (MAP) Pulse Ox O2 Delivery O2 Flow Rate FiO2 05/01/17 16:00 98.0 110 18 164/93 (116) 92 05/01/17 12:00 97.9 104 24 183/83 (116) 92 05/01/17 09:25 Nasal Cannula 2.00 30 05/01/17 08:08 95 Nasal Cannula 2.00 05/01/17 08:00 97.7 94 20 187/91 (123) 94 05/01/17 04:00 96.8 99 20 186/86 (119) 95 05/01/17 00:00 97.1 77 20 193/85 (121) 96 04/30/17 20:55 96 Nasal Cannula 2.00 04/30/17 20:00 74 04/30/17 20:00 97 Nasal Cannula 2.00 04/30/17 20:00 96.9 95 20 190/88 (122) 97 I/O 04/30/17 04/30/17 04/30/17 05/01/17 05/01/17 05/01/17 07:00 15:00 23:00 07:00 15:00 23:00 Intake Total 520 ml 480 ml 240 ml Output Total 400 ml 175 ml 350 ml 750 ml 500 ml 600 ml Balance 120 ml -175 ml -350 ml -270 ml -260 ml -600 ml Intake Oral 520 ml 480 ml 240 ml Output Urine Total 400 ml 175 ml 350 ml 750 ml 500 ml 600 ml # Bowel Movements 0 1 Result Diagram: 05/01/1724 05/01/17723 Imaging Last Impressions Chest X-Ray 04/26/17 0000 Signed Impressions: Service Date/Time: Wednesday, April 26, 2017 00:47 - CONCLUSION: Adequate placement a right jugular central line without pneumothorax. Bill Vences MD CT Angiography 04/25/17 0000 Signed Impressions: Service Date/Time: Tuesday, April 25, 2017 12:58 - CONCLUSION: 1. The study is negative for pulmonary embolism. 2. Bilateral subcentimeter (8 mm and 9 mm) pulmonary nodules and scattered areas of terminal airway opacity. In accordance with Fleischner Society guidelines, recommend followup CT thorax in 6 months to follow the nodules. Mk Freitas MD Objective Remarks GENERAL: Well-developed, well-nourished, patient appears to still have some respiratory difficulties. alert and orientated HEENT: Head is normocephalic without any lesions or masses noted. Facial features are symmetric. Eyes: Extraocular muscles are intact. NECK: Supple without any masses. Trachea midline no deviation. No JVD, CARDIAC: Regular rhythm, regular rate. S1/S2 are heard. No murmurs gallops or rubs. LUNGS: Diminished breath sounds, patient unable to finish full sentences when talking due to shortness of breath No wheeze, rhonchi or rales. No use of accessory muscles on inspiration or expiration. ABDOMEN: Soft, nontender. Nondistended. Bowel sounds heard in all 4 quadrants. No organomegaly or masses. Negative rebound, negative guarding EXTREMITIES: No 2+ pitting edema noted in the hands and feet, pulses are equal bilaterally. No cyanosis or clubbing NEUROLOGY: Mood and affect appear appropriate. Cranial nerves II through XII grossly intact. Moving all extremities, speech is clear Urinary Catheter: No Date of Insertion: Apr 28, 2017 Date of Removal: May 01, 2017 A/P Assessment and Plan Severe sepsis on presentation - Patient met criteria of leukocytosis, tachycardia, respiratory failure, lactic acidosis - Patient was initially started on cefepime, Zithromax, Zosyn - Patient required intubation and sedation - Blood cultures were unremarkable 5 days, influenza testing was negative, urine culture is unremarkable, Legionella, streptococcal antigen were negative - Sputum culture showed Haemophilus influenza Acute hypoxic, hypercapnic respiratory failure: Secondary to chronic obstructive pulmonary disease exacerbation - Patient required intubation on 04/25/17, extubated on 04/26/17. - Continue O2 supplementation maintain O2 sats greater than 92% - Continue to wean by mouth prednisone - Continue nebulizer treatments - Continue budesonide Haemophilus influenza infection - Original sputum culture showed Haemophilus influenza, follow sputum culture showed light growth of normal respiratory mala - Patient did receive 5 days of Zosyn, 3 days of Rocephin - Patient without any signs of infection at this time Leukocytosis - Was improving, however his worsening this time, - Could be secondary to steroid use or possible recurrent infection Fluid overload with peripheral edema - Patient did require significant IV fluid boluses, IV fluid, 5 kg weight gain - Home diuretic has been continued, will increase to twice a day considering patient blood pressures also uncontrolled - Give Lasix 20 mg IV 1 Hypertension - Increase to lisinopril 20 mg twice daily - Increase the HCTZ 12.5 mg twice daily - Continue metoprolol 25 mg every 12 hours - Vasotec as needed Anxiety - Continue Buspar Subcentimeter pulmonary nodules - Will require outpatient management with dental hygiene administrative assistant Physical deconditioning - Physical therapy following the patient - Patient will need rehabilitation facility upon discharge Prophylaxis - DVT prevention with Lovenox - GI protection with [facility] May 01, 2017 18:53
[2017-05-01] MEDS: cefTRIAXone INJ 1,000 MG in SODIUM CHLORIDE 0.9% INJ 100 ML IV SCH (18:55)
[2017-05-01] MEDS ORDERED: FAMOTIDINE 20 MG TAB PO SCH (21:00)
[2017-05-02] VITALS: BP 185/89; PULSE 98; RESP 18; TEMP 96.5; O2SAT 91
[2017-05-02] MEDS: ENALAPRILAT 1.25 MG/ML VIAL IV PUSH PRN (00:43)
[2017-05-02 03:47] VITALS: BP 188/86; PULSE 75; RESP 18; TEMP 97.7; O2SAT 91
[2017-05-02] MEDS ORDERED: cloNIDine HCL 0.1 MG TAB PO ONE (04:30)
[2017-05-02 06:45] LABS: AUTOMATED NEUTROPHIL # 13.5 TH/MM3 (1.8-7.7); BASOPHIL # 0.1 TH/MM3 (0-0.2); EOSINOPHIL % 0.2 % (0.0-4.0); HEMATOCRIT 43.6 % (39.0-51.0); HEMOGLOBIN 14.6 GM/DL (13.0-17.0); LYMPH % 3.6 % (9.0-44.0); LYMPHOCYTE # 0.5 TH/MM3 (1.0-4.8); MEAN CELL VOLUME 86.8 FL (80.0-100.0); MEAN CORPUSCULAR HEMOGLOBIN 29.2 PG (27.0-34.0); MEAN CORPUSCULAR HGB CONC 33.6 % (32.0-36.0); MEAN PLATELET VOLUME 7.3 FL (7.0-11.0); MONO % 4.6 % (0.0-8.0); MONOCYTE # 0.7 TH/MM3 (0-0.9); NEUT % 90.6 % (16.0-70.0); PLATELET COUNT 273 TH/MM3 (150-450); RED BLOOD COUNT 5.02 MIL/MM3 (4.50-5.90); WHITE BLOOD COUNT 14.8 TH/MM3 (4.0-11.0)
[2017-05-02 07:09] LABS: BICARBONATE 35.6 MEQ/L (21.0-32.0)
[2017-05-02 07:11] LABS: CALCIUM 8.6 MG/DL (8.5-10.1)
[2017-05-02 07:12] LABS: CREATININE 0.57 MG/DL (0.60-1.30)
[2017-05-02] MEDS: RESP: ALBUTEROL 2.5 MG/IPRATROPIUM 0.5 MG NEB (SCH) NEB ×2 (07:56→14:00)
[2017-05-02 07:59] VITALS: O2SAT 96
[2017-05-02 08:00] VITALS: BP 131/72; PULSE 68; RESP 18; TEMP 97.7; O2SAT 99
[2017-05-02] MEDS: BUDESONIDE-FORMOTEROL 160/4.5 MCG INHALER INH SCH (08:32)
[2017-05-02] MEDS: DOCUSATE SODIUM 50 MG/SENNA 8.6 MG TAB PO SCH ×2 (08:33→09:00)
[2017-05-02] MEDS: PRAVASTATIN SOD 20 MG TAB PO SCH (08:34)
[2017-05-02] MEDS: METOPROLOL TARTRATE 25 MG TAB PO SCH (08:34)
[2017-05-02] MEDS: HYDROCHLOROTHIAZIDE 12.5 MG CAP PO SCH (08:34)
[2017-05-02] MEDS: LISINOPRIL 20 MG TAB PO SCH (08:34)
[2017-05-02] MEDS: TAMSULOSIN HCL 0.4 MG CAP PO SCH (08:34)
[2017-05-02] MEDS: busPIRone HCL 5 MG TAB PO SCH (08:35)
[2017-05-02] MEDS ORDERED: predniSONE 50 MG TAB PO SCH (09:00)
[2017-05-02 12:00] VITALS: BP 128/75; PULSE 72; RESP 17; TEMP 97.9; O2SAT 98
[2017-05-02] MEDS ORDERED: METO25TA3 PO (13:35)
[2017-05-02] MEDS ORDERED: FAMO20TA2 PO (13:35)
[2017-05-02] MEDS ORDERED: LISI-515 PO (13:35)
[2017-05-02] MEDS ORDERED: GNP5TAB6 PO (13:35)
[2017-05-02] MEDS ORDERED: IPRASOL NEB (13:35)
[2017-05-02] MEDS ORDERED: PRED10 PO (13:35)
[2017-05-02] MEDS ORDERED: BUSP5TAB PO (13:35)
[2017-05-02] MEDS ORDERED: HYDR12.57 PO (13:35)
[2017-05-02] MEDS ORDERED: TAMS5CAP PO (13:35)
--- NOTE | 2017-05-02 13:38 | HHI.DCPOC ---
Discharge Care Plan Diagnosis: (1) Acute respiratory failure with hypoxia and hypercapnia (2) COPD with exacerbation (3) Pneumonia due to hemophilus influenzae Goals to Promote Your Health * To prevent worsening of your condition and complications * To maintain your health at the optimal level Directions to Meet Your Goals Take your medications as prescribed Follow your dietary instruction Follow activity as directed Keep your appointments as scheduled Take your immunizations and boosters as scheduled If your symptoms worsen call your PCP, if no PCP go to Urgent Care Center or Emergency Room Smoking is Dangerous to Your Health. Avoid second hand smoke Call the 24-hour hour crisis hotline for domestic abuse at [facility] May 02, 2017 13:38
--- NOTE | 2017-05-02 13:38 | HHI.DCPOC ---
Discharge Care Plan Diagnosis: (1) Acute respiratory failure with hypoxia and hypercapnia (2) COPD with exacerbation (3) Pneumonia due to hemophilus influenzae Goals to Promote Your Health * To prevent worsening of your condition and complications * To maintain your health at the optimal level Directions to Meet Your Goals Take your medications as prescribed Follow your dietary instruction Follow activity as directed Keep your appointments as scheduled Take your immunizations and boosters as scheduled If your symptoms worsen call your PCP, if no PCP go to Urgent Care Center or Emergency Room Smoking is Dangerous to Your Health. Avoid second hand smoke Call the 24-hour hour crisis hotline for domestic abuse at [facility] May 02, 2017 13:38
--- NOTE | 2017-05-02 13:38 | HHI.DCPOC ---
Discharge Care Plan Diagnosis: (1) Acute respiratory failure with hypoxia and hypercapnia (2) COPD with exacerbation (3) Pneumonia due to hemophilus influenzae Goals to Promote Your Health * To prevent worsening of your condition and complications * To maintain your health at the optimal level Directions to Meet Your Goals Take your medications as prescribed Follow your dietary instruction Follow activity as directed Keep your appointments as scheduled Take your immunizations and boosters as scheduled If your symptoms worsen call your PCP, if no PCP go to Urgent Care Center or Emergency Room Smoking is Dangerous to Your Health. Avoid second hand smoke Call the 24-hour hour crisis hotline for domestic abuse at [facility] May 02, 2017 13:38
--- NOTE | 2017-05-02 13:43 | HHI.DS ---
Discharge Summary Admission Date Apr 25, 2017 at 14:30 Discharge Date: May 02, 2017 Admitting Diagnosis copd exacerbation (1) Acute respiratory failure with hypoxia and hypercapnia ICD Code: J96.01 - Acute respiratory failure with hypoxia; J96.02 - Acute respiratory failure with hypercapnia Status: Resolved (2) COPD with exacerbation ICD Code: J44.1 - Chronic obstructive pulmonary disease with (acute) exacerbation Status: Acute (3) Pneumonia due to hemophilus influenzae ICD Code: J14 - Pneumonia due to Hemophilus influenzae Status: Acute Procedures Intubation 04/25 until extubation on 04/26 Central line Brief History - From Admission The patient is a 81-year-old male with past medical history of COPD, hyperlipidemia who presented to [place] ED with progressive worsening of shortness of breath for the past 2 days associated with productive cough. There is no history of any constitutional symptoms. On arrival to the ER the patient was hypertensive and tachycardiac. He was placed on a BiPap 15/5 with 40% FIO2 and his ABG showed acute hypercapnic respiratory acidosis with a pH of 7.29, CO2 79, bicarb 37, saturation 93%. A repeat ABG was performed at 1450 on the same setting which showed worsening pH of 7.21, CO2 79, bicarb 30 and sats of 96%. He was subsequently intubated and placed on full mechanical ventilation. His laboratory data significant for leukocytosis with WBC of 22.0 and lactic acid level at 2.7. In the ER he was given 2 liters of normal saline, cefepime, azithromycin, Solu-Medrol and bronchodilator treatment. CT angiogram was obtained which showed no evidence of pulmonary embolism, however, it showed bilateral subcentimeter pulmonary nodules. When seen in the ER the patient is sedated with Diprivan and on full mechanical ventilation. Most of the history was obtained from reviewing the medical records as there are no family members present at the bedside. CBC/BMP: 05/02/17 0620 05/02/17 0620 Significant Findings Laboratory Tests Test 04/30/17 07:30 05/01/17 07:24 05/02/17 06:20 White Blood Count 14.8 TH/MM3 (4.0-11.0) 16.1 TH/MM3 (4.0-11.0) 14.8 TH/MM3 (4.0-11.0) Neutrophils (%) (Auto) 94.4 % (16.0-70.0) 89.4 % (16.0-70.0) 90.6 % (16.0-70.0) Lymphocytes (%) (Auto) 2.1 % (9.0-44.0) 4.6 % (9.0-44.0) 3.6 % (9.0-44.0) Neutrophils # (Auto) 14.0 TH/MM3 (1.8-7.7) 14.5 TH/MM3 (1.8-7.7) 13.5 TH/MM3 (1.8-7.7) Lymphocytes # (Auto) 0.3 TH/MM3 (1.0-4.8) 0.7 TH/MM3 (1.0-4.8) 0.5 TH/MM3 (1.0-4.8) Blood Urea Nitrogen 41 MG/DL (7-18) 32 MG/DL (7-18) 22 MG/DL (7-18) Creatinine 0.59 MG/DL (0.60-1.30) 0.57 MG/DL (0.60-1.30) Random Glucose 111 MG/DL (74-106) Calcium Level 8.3 MG/DL (8.5-10.1) 8.4 MG/DL (8.5-10.1) Phosphorus Level 2.4 MG/DL (2.5-4.9) Carbon Dioxide Level 34.1 MEQ/L (21.0-32.0) 35.6 MEQ/L (21.0-32.0) 35.6 MEQ/L (21.0-32.0) Chloride Level 97 MEQ/L (98-107) 92 MEQ/L (98-107) Sodium Level 135 MEQ/L (136-145) Imaging Last Impressions Chest X-Ray 04/26/17 0000 Signed Impressions: Service Date/Time: Wednesday, April 26, 2017 00:47 - CONCLUSION: Adequate placement a right jugular central line without pneumothorax. Bill Vences MD CT Angiography 04/25/17 0000 Signed Impressions: Service Date/Time: Tuesday, April 25, 2017 12:58 - CONCLUSION: 1. The study is negative for pulmonary embolism. 2. Bilateral subcentimeter (8 mm and 9 mm) pulmonary nodules and scattered areas of terminal airway opacity. In accordance with Fleischner Society guidelines, recommend followup CT thorax in 6 months to follow the nodules. Mk Freitas MD PE at Discharge GENERAL: Well-developed, well-nourished, patient appears to still have some respiratory difficulties. alert and orientated HEENT: Head is normocephalic without any lesions or masses noted. Facial features are symmetric. Eyes: Extraocular muscles are intact. NECK: Supple without any masses. Trachea midline no deviation. No JVD, CARDIAC: Regular rhythm, regular rate. S1/S2 are heard. No murmurs gallops or rubs. LUNGS: Diminished breath sounds, patient unable to finish full sentences when talking due to shortness of breath No wheeze, rhonchi or rales. No use of accessory muscles on inspiration or expiration. ABDOMEN: Soft, nontender. Nondistended. Bowel sounds heard in all 4 quadrants. No organomegaly or masses. Negative rebound, negative guarding EXTREMITIES: No 2+ pitting edema noted in the hands and feet, pulses are equal bilaterally. No cyanosis or clubbing NEUROLOGY: Mood and affect appear appropriate. Cranial nerves II through XII grossly intact. Moving all extremities, speech is clear Hospital Course 81 year-old male who is originally was managed by critical care medicine and suddenly transferred to medical care when stabilized. Patient presented to emergency department on 04/25/17 at that time patient was found to have hypercapnic, hypoxic respiratory failure due to chronic obstructive pulmonary disease exacerbation. Patient was intubated in the emergency department, central line was placed area patient is admitted to critical care management. Patient underwent treatment with O2 supplementation by ventilator, ventilator bundle, Solu-Medrol, patient did develop hypotension and required at least 3 L of fluid bolus. And subtotally started on Levophed for blood pressure management on the night of 04/26. Patient continued followed by critical care and eventually was extubated on 04/27. Patient remained on BiPAP and continued management with O2 supplementation, steroids, antibiotics. Drug Purchaser was consulted for care and management. Patient was successfully weaned off of BiPAP and tolerating nasal cannula oxygen at 2 L. Hospitalist was consulted to assume medical management. Upon evaluating the patient today he appears to be rather stable. Oxygen 2 L per Nasal Cannula. He States That He Is Rather Deconditioned and Unable to Stand and Walk on His Own at This Time. Patient Indicates That He Still Has Significant Edema in His Arms, Hands , Legs. Records Indicate That He Has Gained Approximately 5 Kg since Presenting to the Hospital. Patient blood pressure is now elevated and his home medications have been continued. Patient continues on nebulizer treatments , Symbicort, prednisone 60 mg daily. Patient states that he is unable to go home and his condition that he is in. Asking if he can go to a rehabilitation facility prior to going home. Patient is doing well today. He had significant diuresis last night with improvement of his edema. Patient is stable to discharge to [facility] today. Will plan discharge accordingly. Pt Condition on Discharge: Stable Discharge Disposition: Discharge to SNF Discharge Time: > 30 minutes Discharge Instructions DIET: Follow Instructions for: Heart Healthy Diet Speech Therapy-Diet Recommends: Pureed Activities you can perform: Regular-No Restrictions Activities to Avoid: Driving for 24 hrs Follow up Referrals: PCP Follow-up - 1 Week Pulmonology with Denys Pratt MD New Medications: Prednisone (Prednisone) 10 Mg Tab 10 MG PO DIRECTED for COPD, #30 TAB 0 Refills 5 tablets daily for 2 days, then 4 tablets daily for 2 days, then 3 tablets daily for 2 days, then 2 tabs daily for 2 days, then 1 tab daily for 2 days Buspirone (Buspirone) 5 Mg Tab 5 MG PO Q12HR for anxiety for 30 Days, TAB Famotidine (Famotidine) 20 Mg Tab 20 MG PO HS for GI protection for 30 Days, TAB Hydrochlorothiazide (Hydrochlorothiazide) 12.5 Mg Cap 12.5 MG PO BID for Blood Pressure Management for 30 Days, #60 CAP Ipratropium-Albuterol Neb (Duoneb) 0.5-2.5 Mg/3 Ml Neb 1 AMPULE NEB Q6HR WHILE AWAKE NEB for COPD for 30 Days, ML Lisinopril (Lisinopril) 20 Mg Tab 20 MG PO BID for Blood Pressure Management for 30 Days, #60 TAB Melatonin (Gnp Melatonin Maximum Str) 5 Mg Tab 5 MG PO HS PRN for SLEEP for 30 Days, TAB Metoprolol Tartrate (Metoprolol Tartrate) 25 Mg Tab 25 MG PO Q12HR for Blood Pressure Management for 30 Days, TAB Tamsulosin (Flomax) 0.4 Mg Cap 0.4 MG PO DAILY for urinary retention, #30 CAP Continued Medications: Ascorbic Acid (Vitamin C) 250 Mg Tab 1000 MG PO DAILY for Nutritional Supplement, TAB 0 Refills Calcium-Magnesium (Calcium & Magnesium) 750-465 Mg Tab 1 TAB PO, TAB Desloratadine (Desloratadine) 5 Mg Tab 5 MG PO DAILY for Allergy Management, #30 TAB 0 Refills Fluticasone-Salmeterol Inh (Advair Diskus Inh) 250-50 Mcg/Blist Aer 2 PUFF INH DAILY, #1 INHALER 0 Refills Rinse mouth after use. Multiple Vitamin (Multiple Vitamin) 1 Tab 1 TAB PO DAILY for Nutritional Supplement, TAB 0 Refills [place] ([place]) (Saw [place] ([place])) 450 Mg Cap 2000 MG PO DAILY, CAP 0 Refills Simvastatin (Simvastatin) 10 Mg Tab 10 MG PO DAILY for Cholesterol Management, #30 TAB 0 Refills Discontinued Medications: Albuterol Neb (Albuterol Neb) 1.25 Mg/3 Ml Neb 1.25 MG NEB Q6HR NEB PRN for SHORTNESS OF BREATH, #50 NEBULE 0 Refills Quinapril-Hydrochlorothiazide (Quinapril-Hydrochlorothiazide) 20-12.5 Mg Tab 1 TAB PO DAILY for Blood Pressure Management, #30 TAB 0 Refills Fermín Anne May 02, 2017 13:43
[2017-05-02] MEDS: ENOXAPARIN SODIUM 40 MG/0.4 ML SYRINGE SQ SCH (16:00)
== END 2017-05-02 16:59 | DRG 208 ==
LOC: PHED 11:15 → PHEDA 14:30 → PHICU 17:20 → PH3A 04-30 18:21
PROVIDERS: ADMIT Hospitalist; ATTEND Hospitalist
PROC: 5A1945Z Respiratory Ventilation, 24-96 Consecutive Hours (ICD-10-PCS; principal; 2017-04-25)
PROC: 0BH17EZ Insertion of Endotracheal Airway into Trachea, Via Natural or Artificial Opening (ICD-10-PCS; 2017-04-25)
PROC: 5A09357 Assistance with Respiratory Ventilation, Less than 24 Consecutive Hours, Continuous Positive Airway Pressure (ICD-10-PCS; 2017-04-25)
PROC: 02HV33Z Insertion of Infusion Device into Superior Vena Cava, Percutaneous Approach (ICD-10-PCS; 2017-04-26)
PROC: B548ZZA Ultrasonography of Superior Vena Cava, Guidance (ICD-10-PCS; 2017-04-26)
PROC: 0T9B70Z Drainage of Bladder with Drainage Device, Via Natural or Artificial Opening (ICD-10-PCS; 2017-04-26)
DX: J96.01 Acute respiratory failure with hypoxia (principal); R65.20 Severe sepsis without septic shock; J14 Pneumonia due to Hemophilus influenzae; E87.2 Acidosis; I95.9 Hypotension, unspecified; A41.9 Sepsis, unspecified organism; J44.0 Chronic obstructive pulmonary disease with (acute) lower respiratory infection; E87.1 Hypo-osmolality and hyponatremia; J44.1 Chronic obstructive pulmonary disease with (acute) exacerbation; J96.02 Acute respiratory failure with hypercapnia; E78.5 Hyperlipidemia, unspecified; Z90.5 Acquired absence of kidney; Z87.891 Personal history of nicotine dependence; R33.8 Other retention of urine; Q54.0 Hypospadias, balanic; I10 Essential (primary) hypertension; E87.70 Fluid overload, unspecified; R60.0 Localized edema; F41.9 Anxiety disorder, unspecified; R91.1 Solitary pulmonary nodule
CPT/HCPCS: 31500; 36556; 36600; 71010; 71275; 76937; 80048; 80053; 81001; 82805; 82948; 83605; 83735; 83880; 84100; 84132; 84484; 85025; 85379; 87040; 87070; 87077; 87086; 87185; 87186; 87205; 87449; 87641; 87804; 93005; 94002; 94003; 94150; 94640; 94664; 96361; 96365; 96367; 96375; C9113; J0330; J0360; J0456; J0692; J0696; J1650; J1940; J2060; J2543; J2930; J3010; J7030; J7040; J7050; J7512; P9045; Q9967

== ENCOUNTER 2017-07-20 04:51 | Inpatient (IN) | payer MEDICARE, BC ==
[2017-07-20] VITALS (15 sets, daily range): BP systolic 93–184; BP diastolic 52–90; PULSE 54–104; RESP 12–39; TEMP 97.6–98.2; O2SAT 88–100
[~2017-07-20] VITALS: Ht 170.2 cm; Wt 58.0 kg
[~2017-07-20 04:51] MED LIST: ADVA250A INH; BUSP5TAB PO; CALC-131 PO; DESL5TAB4 PO; FAMO20TA2 PO; HYDR12.57 PO; IPRASOL NEB; LISI-515 PO; MELA1TAB31 PO; METO25TA3 PO; MULTTAB67 PO; PRED10 PO; SAW450CA2 PO; SIMV10TA PO; TAMS5CAP PO; VITA250T3 PO
[2017-07-20] MEDS ORDERED: SODIUM CHLORIDE 0.9% FLUSH 10 ML FLUSH IVF PRN (05:00)
[2017-07-20] MEDS ORDERED: methylPREDNISolone SOD SUCC 125 MG/2 ML VIAL IV PUSH ONE (05:00)
[2017-07-20] MEDS: RESP: ALBUTEROL 2.5 MG/IPRATROPIUM 0.5 MG NEB (SCH) INH (05:01)
[2017-07-20] MEDS ORDERED: PRED5TAB PO (05:22)
[2017-07-20 05:39] LABS: AUTOMATED NEUTROPHIL # 13.9 TH/MM3 (1.8-7.7); BASOPHIL % 0.1 % (0.0-2.0); HEMATOCRIT 40.3 % (39.0-51.0); HEMOGLOBIN 13.3 GM/DL (13.0-17.0); LYMPHOCYTE # 0.3 TH/MM3 (1.0-4.8); MEAN CELL VOLUME 86.9 FL (80.0-100.0); MEAN CORPUSCULAR HEMOGLOBIN 28.6 PG (27.0-34.0); MEAN CORPUSCULAR HGB CONC 32.9 % (32.0-36.0); MEAN PLATELET VOLUME 7.9 FL (7.0-11.0); MONO % 5.6 % (0.0-8.0); MONOCYTE # 0.8 TH/MM3 (0-0.9); NEUT % 92.3 % (16.0-70.0); PLATELET COUNT 382 TH/MM3 (150-450); RED BLOOD COUNT 4.64 MIL/MM3 (4.50-5.90); RED CELL DISTRIBUTION WIDTH 14.8 % (11.6-17.2); WHITE BLOOD COUNT 15.1 TH/MM3 (4.0-11.0)
[2017-07-20 05:45] LABS: BILIRUBIN, URINE NEG (NEG); BLOOD, URINE NEG (NEG); GLUCOSE,URINE NEG (NEG); HYALINE CAST, URINE 1 /lpf (RARE); KETONE, URINE TRACE mg/dL (NEG); MUCUS URINE FEW /lpf (OCC); NITRITE,URINE NEG (NEG); URINE COLOR YELLOW (YELLW/STRAW); URINE LEUKOCYTE ESTERASE SMALL (NEG)
--- NOTE | 2017-07-20 05:48 | PD ---
HPI . Acute respiratory symptoms Chief Complaint: Respiratory Symptoms Time Seen by Provider: 04:55 Travel History International Travel<30 days: No Contact w/Intl Traveler<30days: No Traveled to known affect area: No History of Present Illness HPI 81-year-old male history of severe COPD, presents with having acute respiratory distress, EMS reports patient having circumoral cyanosis, with tachypnea and accessory muscle use. Patient denies chest pain or fever. Patient is well- known to EMS, with reported multiple similar presentations. Patient denies any recent leg swelling or pain, recent sedentary travel PFSH Past Medical History Narrative Medical Past medical history reviewed COPD: Yes Diminished Hearing: No Respiratory: Yes Shingles: Yes Past Surgical History Other Surgery: Yes (PROSTATE CA 20 YRS AGO) Social History Alcohol Use: No Tobacco Use: No (QUIT 20 YRS AGO) Substance Use: No Allergies-Medications (Allergen,Severity, Reaction): Coded Allergies: No Known Drug Allergies (Verified Allergy, Unknown, 07/20/17) Reported Meds & Prescriptions Reported Meds & Active Scripts Active Prednisone 10 Mg Tab 10 Mg PO DIRECTED 5 tablets daily for 2 days, then 4 tablets daily for 2 days, then 3 tablets daily for 2 days, then 2 tabs daily for 2 days, then 1 tab daily for 2 days Gnp Melatonin Maximum Str (Melatonin) 5 Mg Tab 5 Mg PO HS PRN 30 Days Famotidine 20 Mg Tab 20 Mg PO HS 30 Days Hydrochlorothiazide 12.5 Mg Cap 12.5 Mg PO BID 30 Days Buspirone (Buspirone HCl) 5 Mg Tab 5 Mg PO Q12HR 30 Days Lisinopril 20 Mg Tab 20 Mg PO BID 30 Days Metoprolol Tartrate 25 Mg Tab 25 Mg PO Q12HR 30 Days Duoneb (Ipratropium-Albuterol Neb) 0.5-2.5 Mg/3 Ml Neb 1 Ampule NEB Q6HR WHILE AWAKE NEB 30 Days Flomax (Tamsulosin HCl) 0.4 Mg Cap 0.4 Mg PO DAILY Reported Prednisone 5 Mg Tab 5 Mg PO DAILY Vitamin C (Ascorbic Acid) 250 Mg Tab 1,000 Mg PO DAILY Calcium & Magnesium (Calcium-Magnesium) 750-465 Mg Tab 1 Tab PO [place] ([place]ens) 450 Mg Cap 2,000 Mg PO DAILY Multiple Vitamin 1 Tab 1 Tab PO DAILY Advair Diskus Inh (Fluticasone-Salmeterol Inh) 250-50 Mcg/Blist Aer 2 Puff INH DAILY Rinse mouth after use. Simvastatin 10 Mg Tab 10 Mg PO DAILY Desloratadine 5 Mg Tab 5 Mg PO DAILY Narrative Medication Allergies and medications reviewed Review of Systems General / Constitutional: No: Fever Eyes: No: Visual changes HENT: No: Headaches Cardiovascular: No: Chest Pain or Discomfort Respiratory: Positive: Shortness of Breath, Wheezing, No: Cough, Orthopnea, Hemoptysis, Stridor, Night Sweats, Pleuritic Pain Gastrointestinal: No: Abdominal Pain Genitourinary: No: Dysuria Musculoskeletal: No: Pain Skin: No Rash Neurologic: No: Weakness Psychiatric: No: Depression Endocrine: No: Polydipsia Hematologic/Lymphatic: No: Easy Bruising Physical Exam Narrative GENERAL: Awake and alert, in acute respiratory distress. Respiratory rate greater than 40 oxygen saturation 92% on 4 L nasal cannula SKIN: Warm and dry. Color is normal no diaphoresis cyanosis or pallor HEAD: Atraumatic. Normocephalic. EYES: Pupils equal and round. No scleral icterus. No injection or drainage. ENT: No nasal bleeding or discharge. Mucous membranes pink and moist. NECK: Trachea midline. No JVD. Supple no stridor CARDIOVASCULAR: Regular rate and rhythm. S1-S2 no murmurs rubs or gallops RESPIRATORY: Poor air entry, significantly prolonged expiratory phase, wheezing bilateral. Positive accessory muscle use GASTROINTESTINAL: Abdomen soft, non-tender, nondistended. Hepatic and splenic margins not palpable. MUSCULOSKELETAL: Extremities without clubbing, cyanosis, or edema. No obvious deformities. NEUROLOGICAL: Awake and alert. No obvious cranial nerve deficits. Motor grossly within normal limits. Five out of 5 muscle strength in the arms and legs. Normal speech. PSYCHIATRIC: Appropriate mood and affect; insight and judgment normal. Data Data Last Documented VS Vital Signs Date Time Temp Pulse Resp B/P (MAP) Pulse Ox O2 Delivery O2 Flow Rate FiO2 07/20/17 06:00 76 20 148/81 (103) 97 BiPAP 07/20/17 05:35 30 07/20/17 05:05 97.6 2.00 Orders Orders Complete Blood Count With Diff (07/20/17 04:55) Comprehensive Metabolic Panel (07/20/17 04:55) B-Type Natriuretic Peptide (07/20/17 04:55) D-Dimer (07/20/17 04:55) Act Partial Throm Time (Ptt) (07/20/17 04:55) Prothrombin Time / Inr (Pt) (07/20/17 04:55) Magnesium (Mg) (07/20/17 04:55) Troponin I (07/20/17 04:55) Arterial Blood Gas (Abg) (07/20/17 04:55) Urinalysis - C+S If Indicated (07/20/17 04:55) Influenzae A/B Antigen (07/20/17 04:55) Iv Access Insert/Monitor (07/20/17 04:55) Ecg Monitoring (07/20/17 04:55) Oximetry (07/20/17 04:55) Oxygen Administration (07/20/17 04:55) Chest, Single Ap (07/20/17 04:55) Sodium Chloride 0.9% Flush (Ns Flush) (07/20/17 05:00) Methylprednisolone So Succ Inj (Solumedr (07/20/17 05:00) Albuterol-Ipratropium Neb (Duoneb Neb) (07/20/17 05:00) Arterial Blood Gas (Abg) (07/20/17 ) Admit To Inpatient (07/20/17 ) Code Status (07/20/17 07:01) Vital Signs (Adult) MANDEEP.Q1H (07/20/17 07:01) Activity Bed Rest (07/20/17 07:01) Pipe And Test Supervisor / Telemetry MANDEEP.Q8H (07/20/17 07:01) Intake + Output MANDEEP.Q8H (07/20/17 07:01) Diet Npo (07/20/17 Breakfast) Sodium Chlor 0.9% 1000 Ml Inj (Ns 1000 M (07/20/17 07:01) Sodium Chloride 0.9% Flush (Ns Flush) (07/20/17 07:15) Sodium Chloride 0.9% Flush (Ns Flush) (07/20/17 09:00) Albuterol-Ipratropium Neb (Duoneb Neb) (07/20/17 08:00) Albuterol Neb (Albuterol Neb) (07/20/17 07:15) Chlorhexidine 0.12% Liq (Peridex 0.12% L (07/20/17 08:00) Famotidine Inj (Pepcid Inj) (07/20/17 09:00) Comprehensive Metabolic Panel (07/21/17 06:00) Arterial Blood Gas (Abg) (07/20/17 12:00) Resp Bipap / Cpap Non Invas Vt (07/20/17 ) Consult Cm-Day 5 Ltac Eval (07/20/17 ) Enoxaparin Inj (Lovenox Inj) (07/20/17 07:15) ^ Initiate Protocol (07/20/17 07:01) Instruction (07/20/17 07:01) Notify Md To Reorder (07/20/17 07:15) Chlorhexidine 2% Cloth (Chlorhexidine 2% (07/21/17 04:00) Chlorhexidine 2% Cloth (Chlorhexidine 2% (07/20/17 07:15) Mrsa Pcr Surveillance (07/20/17 07:01) Inpatient Certification (07/20/17 ) Methylprednisolone So Succ Inj (Solumedr (07/20/17 07:15) Cefepime Inj (Maxipime Inj) (07/20/17 07:15) Labs Laboratory Tests Test 07/20/17 05:03 07/20/17 05:07 07/20/17 05:26 07/20/17 06:07 White Blood Count 15.1 TH/MM3 Red Blood Count 4.64 MIL/MM3 Hemoglobin 13.3 GM/DL Hematocrit 40.3 % Mean Corpuscular Volume 86.9 FL Mean Corpuscular Hemoglobin 28.6 PG Mean Corpuscular Hemoglobin Concent 32.9 % Red Cell Distribution Width 14.8 % Platelet Count 382 TH/MM3 Mean Platelet Volume 7.9 FL Neutrophils (%) (Auto) 92.3 % Lymphocytes (%) (Auto) 2.0 % Monocytes (%) (Auto) 5.6 % Eosinophils (%) (Auto) 0.0 % Basophils (%) (Auto) 0.1 % Neutrophils # (Auto) 13.9 TH/MM3 Lymphocytes # (Auto) 0.3 TH/MM3 Monocytes # (Auto) 0.8 TH/MM3 Eosinophils # (Auto) 0.0 TH/MM3 Basophils # (Auto) 0.0 TH/MM3 CBC Comment DIFF FINAL Differential Comment Blood Urea Nitrogen 24 MG/DL Creatinine 0.56 MG/DL Random Glucose 106 MG/DL Total Protein 8.0 GM/DL Albumin 3.1 GM/DL Calcium Level 9.1 MG/DL Magnesium Level 2.1 MG/DL Alkaline Phosphatase 88 U/L Aspartate Amino Transf (AST/SGOT) 42 U/L Alanine Aminotransferase (ALT/SGPT) 30 U/L Total Bilirubin 0.5 MG/DL Sodium Level 131 MEQ/L Potassium Level 4.7 MEQ/L Chloride Level 82 MEQ/L Carbon Dioxide Level GREATER THAN 45.0 MEQ/L Anion Gap 4 MEQ/L Estimat Glomerular Filtration Rate 141 ML/MIN Troponin I LESS THAN 0.02 NG/ML B-Type Natriuretic Peptide 26 PG/ML Blood Gas Puncture Site RT RADIAL Blood Gas Patient Temperature 98.6 Blood Gas HCO3 50 mmol/L Blood Gas Base Excess 22.6 mmol/L Blood Gas Oxygen Saturation 97 % Arterial Blood pH 7.29 Arterial Blood Partial Pressure CO2 107 mmHg Arterial Blood Partial Pressure O2 137 mmHG Arterial Blood Oxygen Content 17.7 Vol % Arterial Blood Carboxyhemoglobin 1.4 % Arterial Blood Methemoglobin 0.6 % Blood Gas Hemoglobin 12.8 G/DL Oxygen Delivery Device NASAL CANNULA Blood Gas Liter Flow 3 L/M Blood Gas Inspired Oxygen 32 % Urine Color YELLOW Urine Turbidity CLEAR Urine pH 6.0 Urine Specific [place] 1.025 Urine Protein 30 mg/dL Urine Glucose (UA) NEG mg/dL Urine Ketones TRACE mg/dL Urine Occult Blood NEG Urine Nitrite NEG Urine Bilirubin NEG Urine Urobilinogen LESS THAN 2.0 MG/DL Urine Leukocyte Esterase SMALL Urine RBC 15 /hpf Urine WBC 6 /hpf Urine Hyaline Casts 1 /lpf Urine Mucus FEW /lpf Microscopic Urinalysis Comment CULT NOT INDICATED Prothrombin Time 10.2 SEC Prothromb Time International Ratio 1.0 RATIO Activated Partial Thromboplast Time 23.8 SEC D-Dimer Quantitative (PE/DVT) 2.80 MG/L FEU Test 07/20/17 06:39 Blood Gas Puncture Site RT RADIAL Blood Gas Patient Temperature 98.6 Blood Gas HCO3 49 mmol/L Blood Gas Base Excess 22.4 mmol/L Blood Gas Oxygen Saturation 89 % Arterial Blood pH 7.34 Arterial Blood Partial Pressure CO2 93 mmHg Arterial Blood Partial Pressure O2 60 mmHG Arterial Blood Oxygen Content 15.8 Vol % Arterial Blood Carboxyhemoglobin 1.5 % Arterial Blood Methemoglobin 0.6 % Blood Gas Hemoglobin 12.6 G/DL Oxygen Delivery Device BIPAP Blood Gas Ventilator Setting [id number] Blood Gas Inspired Oxygen 30 % MDM Medical Decision Making Medical Screen Exam Complete: Yes Emergency Medical Condition: Yes Medical Record Reviewed: Yes Differential Diagnosis COPD exacerbation, pneumothorax, pneumonia Narrative Course Chest x-ray no acute focal is no pneumothorax. ABG is 7.294, PCO2 107, PaO2 137 Previously 15. Patient concomitantly on prednisone at home. Patient started on multiple DuoNeb treatments, slight Medrol 125 mg IV push, BiPAP 06/[address] Clark, admitted the ICU. BiPAP settings changed according to second ABG Diagnosis Primary Impression: COPD exacerbation Admitting Information Admitting Physician Requests: Admit Condition: Serious Nasir Marie MD Jul 20, 2017 05:48
[2017-07-20 05:57] LABS: ALKALINE PHOSPHATASE 88 U/L (45-117); TOTAL BILIRUBIN ADULT 0.5 MG/DL (0.2-1.0); TROPONIN I LESS THAN 0.02 NG/ML (0.02-0.05)
[2017-07-20 06:03] LABS: ALBUMIN 3.1 GM/DL (3.4-5.0); ALT (GPT) 30 U/L (12-78); AST (GOT) 42 U/L (15-37); BLOOD UREA NITROGEN 24 MG/DL (7-18); CALCIUM 9.1 MG/DL (8.5-10.1); CHLORIDE 82 MEQ/L (98-107); CREATININE 0.56 MG/DL (0.60-1.30); GLOMERULAR FILTRATION RATE 141 ML/MIN (>89); GLUCOSE,RANDOM 106 MG/DL (74-106); MAGNESIUM 2.1 MG/DL (1.5-2.5); SODIUM (NA) 131 MEQ/L (136-145)
[2017-07-20 06:06] LABS: BICARBONATE GREATER THAN 45.0 MEQ/L (21.0-32.0)
--- NOTE | 2017-07-20 06:08 | RADRPT ---
EXAM DATE/TIME: 07/20/2017 05:25 [facility] COMPARISON: CHEST SINGLE AP, April 26, 2017, 0:47. INDICATIONS : Short of breath. MEDICAL HISTORY : None. SURGICAL HISTORY : None. ENCOUNTER: Initial ACUITY: 1 day PAIN SCORE: 0/10 LOCATION: Bilateral chest FINDINGS: The heart size is normal. The lungs are clear. No effusion is seen. CONCLUSION: No acute disease. Eduardo Mann MD on July 20, 2017 at 6:05 Board Certified Radiologist. This report was verified electronically.
[2017-07-20 06:50] LABS: PROTHROMBIN TIME - PATIENT 10.2 SEC (9.8-11.6)
[2017-07-20 06:51] LABS: D-DIMER 2.8 MG/L FEU (0.00-0.50)
[2017-07-20] MEDS ORDERED: RESP: ALBUTEROL 2.5 MG/3 ML NEB (PRN) INH (07:15)
[2017-07-20] MEDS ORDERED: SODIUM CHLORIDE 0.9% FLUSH 10 ML FLUSH IV FLUSH PRN (07:15)
[2017-07-20] MEDS ORDERED: CHLORHEXIDINE GLUCONATE 2 % 1 PACK (2 CLOTHS) TOP PRN (07:15)
[2017-07-20] MEDS ORDERED: MISCELLANEOUS NURSING INFORMATION XX SCH (07:15)
[2017-07-20] MEDS: RESP: ALBUTEROL 2.5 MG/IPRATROPIUM 0.5 MG NEB (SCH) NEB ×4 (08:03→23:51)
[2017-07-20] MEDS: SODIUM CHLORIDE 0.9% FLUSH 10 ML FLUSH IV FLUSH SCH ×2 (08:29→20:24)
[2017-07-20] MEDS: CEFEPIME INJ 2,000 MG in SODIUM CHLORIDE 0.9% INJ 100 ML IV SCH ×2 (08:29→20:24)
[2017-07-20] MEDS: SODIUM CHLOR 0.9% 1000 ML INJ 1,000 ML IV SCH ×2 (08:29→22:49)
[2017-07-20] MEDS: ENOXAPARIN SODIUM 40 MG/0.4 ML SYRINGE SQ SCH (08:29)
[2017-07-20] MEDS: FAMOTIDINE 20 MG/2 ML VIAL IV PUSH SCH ×2 (08:30→20:24)
--- NOTE | 2017-07-20 09:06 | RADRPT ---
EXAM DATE/TIME: 07/20/2017 08:44 [facility] COMPARISON: No previous studies available for comparison. INDICATIONS : Left sided weakness. RADIATION DOSE: 40.13 CTDIvol (mGy) MEDICAL HISTORY : Chronic obstructive pulmonary disease. Carcinoma, prostate. SURGICAL HISTORY : None. ENCOUNTER: Initial ACUITY: 1 day PAIN SCALE: 0/10 LOCATION: cranial TECHNIQUE: Multiple contiguous axial images were obtained of the head. Using automated exposure control and adj ustment of the mA and/or kV according to patient size, radiation dose was kept as low as reasonably a chievable to obtain optimal diagnostic quality images. DICOM format image data is available electro nically for review and comparison. FINDINGS: CEREBRUM: The ventricles are normal for age. No evidence of midline shift, mass lesion, hemorrhage or acute in farction. No extra-axial fluid collections are seen. POSTERIOR FOSSA: The cerebellum and brainstem are intact. The 4th ventricle is midline. The cerebellopontine angle i s unremarkable. EXTRACRANIAL: The visualized portion of the orbits is intact. SKULL: The calvaria is intact. No evidence of skull fracture. CONCLUSION: Normal examination. Flo Rider MD on July 20, 2017 at 9:03 Board Certified Radiologist. This report was verified electronically.
--- NOTE | 2017-07-20 09:36 | EKG ---
Date Performed: 07/20/2017 Time Performed: 05:02:26 PTAGE: 81 years EKG: Sinus rhythm POSSIBLE RIGHT ATRIAL ENLARGEMENT POSSIBLE LEFT ATRIAL ENLARGEMENT BORDERLINE ECG NO PREVIOUS TRACING DOCTOR: Flo Beaulieu Interpretating Date/Time 07/20/2017 09:34:58
--- NOTE | 2017-07-20 11:27 | HHI.HP ---
[facility] Service Critical Care Medicine Primary Care Physician Obi De La Cruz MD Admission Diagnosis COPD Diagnosis: (1) Acute respiratory failure with hypoxia and hypercapnia Diagnosis: Principal (2) COPD exacerbation Diagnosis: Principal Chief Complaint: Acute COPD exacerbation and respiratory failure Travel History International Travel<30 Days: No Contact w/Intl Traveler <30 Da: No Traveled to Known Affected Are: No History of Present Illness 81-year-old male history of severe COPD, HTN, dyslipidemia presented to the emergency room with acute respiratory distress. Apparently EMS reported circumoral cyanosis, with tachypnea and accessory muscle use. His ABG on presentation was 7.294, PCO2 107, PaO2 137. Received multiple breathing treatments and IV Solu-Medrol 125 mg push. Patient was placed on BiPAP 12 over 5. Chest x-ray showed no acute infiltrate. Apparently describe some weakness on one side and a CT of the head was done which was negative for acute infiltrate. I evaluated the patient in ICU. Patient remains on BiPAP now at 15 over 5. Remains quite somnolent, but pH improved to 7.36 and Co2 85. I have increased BiPAP 18 over 5 and will repeat ABG in one hour. If mentation not consistently improving will need endotracheal intubation. 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 Carbajal. Reported Medications Prednisone 10 Mg Tab 10 Mg PO DIRECTED Gnp Melatonin Maximum Str (Melatonin) 5 Mg Tab 5 Mg PO HS PRN 30 Days Famotidine 20 Mg Tab 20 Mg PO HS 30 Days Hydrochlorothiazide 12.5 Mg Cap 12.5 Mg PO BID 30 Days Buspirone (Buspirone HCl) 5 Mg Tab 5 Mg PO Q12HR 30 Days Lisinopril 20 Mg Tab 20 Mg PO BID 30 Days Metoprolol Tartrate 25 Mg Tab 25 Mg PO Q12HR 30 Days Duoneb (Ipratropium-Albuterol Neb) 0.5-2.5 Mg/3 Ml Neb 1 Ampule NEB Q6HR WHILE AWAKE NEB 30 Days Flomax (Tamsulosin HCl) 0.4 Mg Cap 0.4 Mg PO DAILY Vitamin C (Ascorbic Acid) 250 Mg Tab 1,000 Mg PO DAILY Calcium & Magnesium (Calcium-Magnesium) 750-465 Mg Tab 1 Tab PO [place] ([place]ren[place] Repens) 450 Mg Cap 2,000 Mg PO DAILY Multiple Vitamin 1 Tab 1 Tab PO DAILY Advair Diskus Inh (Fluticasone-Salmeterol Inh) 250-50 Mcg/Blist Aer 2 Puff INH DAILY Simvastatin 10 Mg Tab 10 Mg PO DAILY Desloratadine 5 Mg Tab 5 Mg PO DAILY Active Ordered Medications Reviewed Family History Unable to obtain due to encephalopathy Social History Quit smoking approximately 20 years ago Physical Exam Vital Signs Vital Signs Date Time Temp Pulse Resp B/P (MAP) Pulse Ox O2 Delivery O2 Flow Rate FiO2 07/20/17 09:14 100 40 07/20/17 08:03 98 40 07/20/17 07:00 70 21 147/68 (94) 94 BiPAP 30 07/20/17 06:00 76 20 148/81 (103) 97 BiPAP 07/20/17 05:35 100 30 07/20/17 05:05 97.6 98 28 177/83 (114) 96 Nasal Cannula 2.00 07/20/17 05:05 96 07/20/17 05:04 Nasal Cannula 2.00 07/20/17 04:56 28 96 Nasal Cannula 2.00 Physical Exam GENERAL: 81 yo male patient who is lying in bed on BiPAP, somnolent SKIN: Warm and dry. HEAD: Normocephalic. EYES: No scleral icterus. No injection or drainage. NECK: Supple, trachea midline. No JVD or lymphadenopathy. CARDIOVASCULAR: RRR with rate in the 80s. No murmur RESPIRATORY: Breath sounds equal bilaterally with bilateral expiratory wheeze. No crackles GASTROINTESTINAL: Abdomen soft, non-tender, nondistended. MUSCULOSKELETAL: No cyanosis, or edema. NEURO: Patient remains on BiPAP currently somnolent. Wakes up to stimulation moves extremities Laboratory Laboratory Tests Test 07/20/17 05:03 07/20/17 05:07 07/20/17 05:26 07/20/17 06:07 White Blood Count 15.1 Red Blood Count 4.64 Hemoglobin 13.3 Hematocrit 40.3 Mean Corpuscular Volume 86.9 Mean Corpuscular Hemoglobin 28.6 Mean Corpuscular Hemoglobin Concent 32.9 Red Cell Distribution Width 14.8 Platelet Count 382 Mean Platelet Volume 7.9 Neutrophils (%) (Auto) 92.3 Lymphocytes (%) (Auto) 2.0 Monocytes (%) (Auto) 5.6 Eosinophils (%) (Auto) 0.0 Basophils (%) (Auto) 0.1 Neutrophils # (Auto) 13.9 Lymphocytes # (Auto) 0.3 Monocytes # (Auto) 0.8 Eosinophils # (Auto) 0.0 Basophils # (Auto) 0.0 CBC Comment DIFF FINAL Differential Comment Blood Urea Nitrogen 24 Creatinine 0.56 Random Glucose 106 Total Protein 8.0 Albumin 3.1 Calcium Level 9.1 Magnesium Level 2.1 Alkaline Phosphatase 88 Aspartate Amino Transf (AST/SGOT) 42 Alanine Aminotransferase (ALT/SGPT) 30 Total Bilirubin 0.5 Sodium Level 131 Potassium Level 4.7 Chloride Level 82 Carbon Dioxide Level GREATER THAN 45.0 Anion Gap 4 Estimat Glomerular Filtration Rate 141 Troponin I LESS THAN 0.02 B-Type Natriuretic Peptide 26 Blood Gas Puncture Site RT RADIAL Blood Gas Patient Temperature 98.6 Blood Gas HCO3 50 Blood Gas Base Excess 22.6 Blood Gas Oxygen Saturation 97 Arterial Blood pH 7.29 Arterial Blood Partial Pressure CO2 107 Arterial Blood Partial Pressure O2 137 Arterial Blood Oxygen Content 17.7 Arterial Blood Carboxyhemoglobin 1.4 Arterial Blood Methemoglobin 0.6 Blood Gas Hemoglobin 12.8 Oxygen Delivery Device NASAL CANNULA Blood Gas Liter Flow 3 Blood Gas Inspired Oxygen 32 Urine Color YELLOW Urine Turbidity CLEAR Urine pH 6.0 Urine Specific [place] 1.025 Urine Protein 30 Urine Glucose (UA) NEG Urine Ketones TRACE Urine Occult Blood NEG Urine Nitrite NEG Urine Bilirubin NEG Urine Urobilinogen LESS THAN 2.0 Urine Leukocyte Esterase SMALL Urine RBC 15 Urine WBC 6 Urine Hyaline Casts 1 Urine Mucus FEW Microscopic Urinalysis Comment CULT NOT INDICATED Prothrombin Time 10.2 Prothromb Time International Ratio 1.0 Activated Partial Thromboplast Time 23.8 D-Dimer Quantitative (PE/DVT) 2.80 Test 07/20/17 06:39 07/20/17 09:00 07/20/17 10:45 Blood Gas Puncture Site RT RADIAL RT RADIAL Blood Gas Patient Temperature 98.6 98.6 Blood Gas HCO3 49 47 Blood Gas Base Excess 22.4 20.0 Blood Gas Oxygen Saturation 89 95 Arterial Blood pH 7.34 7.36 Arterial Blood Partial Pressure CO2 93 85 Arterial Blood Partial Pressure O2 60 99 Arterial Blood Oxygen Content 15.8 15.1 Arterial Blood Carboxyhemoglobin 1.5 1.3 Arterial Blood Methemoglobin 0.6 1.2 Blood Gas Hemoglobin 12.6 11.2 Oxygen Delivery Device BIPAP BIPAP Blood Gas Ventilator Setting IPAP12/EPAP5 IPAP +16/EPAP +5 Blood Gas Inspired Oxygen 30 40 Date/Time Source Procedure Growth Status 07/20/17 07:15 Sputum Expectorated Sputum Gram Stain Pending Received 07/20/17 07:15 Sputum Expectorated Sputum Sputum Culture Pending Received Result Diagram: 07/20/17 0503 07/20/17 0503 Imaging Chest x-ray no acute infiltrate Caprini VTE Risk Assessment Caprini VTE Risk Assessment: Mod/High Risk (score >= 2) Caprini Risk Assessment Model Point Value = 1 Point Value = 2 Point Value = 3 Point Value = 5 Age 41-60 Minor surgery BMI > 25 kg/m2 Swollen legs Varicose veins or History of unexplained or recurrent spontaneous Oral contraceptives or hormone replacement Sepsis (< 1 month) Serious lung disease, including pneumonia (< 1 month) Abnormal pulmonary function Acute myocardial infarction Congestive heart failure (< 1 month) History of inflammatory bowel disease Medical patient at bed rest Age 61-74 Arthroscopic surgery Major open surgery (> 45 min) Laparoscopic surgery (> 45 min) Malignancy Confined to bed (> 72 hours) Immobilizing plaster cast Central venous access Age >= 75 History of VTE Family history of VTE Factor V Leiden Prothrombin [id number] Lupus anticoagulant Anticardiolipin antibodies Elevated serum homocysteine Heparin-induced thrombocytopenia Other congenital or acquired thrombophilia Stroke (< 1 month) Elective arthroplasty Hip, pelvis, or leg fracture Acute spinal cord injury (< 1 month) Prophylaxis Regimen Total Risk Factor Score Risk Level Prophylaxis Regimen 0-1 Low Early ambulation 2 Moderate Order ONE of the following: *Sequential Compression Device (SCD) *Heparin 5000 units SQ BID 3-4 Higher Order ONE of the following medications: *Heparin 5000 units SQ TID *Enoxaparin/Lovenox 40 mg SQ daily (WT < 150 kg, CrCl > 30 mL/min) *Enoxaparin/Lovenox 30 mg SQ daily (WT < 150 kg, CrCl > 10-29 mL/min) *Enoxaparin/Lovenox 30 mg SQ BID (WT < 150 kg, CrCl > 30 mL/min) AND/OR *Sequential Compression Device (SCD) 5 or more Highest Order ONE of the following medications: *Heparin 5000 units SQ TID (Preferred with Epidurals) *Enoxaparin/Lovenox 40 mg SQ daily (WT < 150 kg, CrCl > 30 mL/min) *Enoxaparin/Lovenox 30 mg SQ daily (WT < 150 kg, CrCl > 10-29 mL/min) *Enoxaparin/Lovenox 30 mg SQ BID (WT < 150 kg, CrCl > 30 mL/min) AND *Sequential Compression Device (SCD) Assessment and Plan Assessment and Plan Plan: Neuro: Acute encephalopathy/CO2 narcosis - Minimize sedation - PT evaluation and treatment is appropriate Pulm: Acute hypoxemic and hypercapnic respiratory failure Acute COPD exacerbation History of subcentimeter pulmonary nodules - Currently on BiPAP 15/5. Increase to 18 over 5 - Remains somnolent with hypercapnia if not improving in the next 1 hours may need endotracheal intubation - DuoNeb every hour scheduled and when necessary - IV Solu-Medrol 60 mg every 8 hours, continue Advair - Cefepime for COPD exacerbation CV: HTN Hyperlipidemia - Continue on Lopressor, lisinopril. Continue simvastatin 10 mg by mouth daily - Monitor HR and BP and maintain MAP> 65 mmHg. : BPH Previous Urethral dilation and Alfonso placement by Dr. Carbajal. Continue Flomax. GI: - NPO, IV famotidine ID: - Continue cefepime 2 g every 12 hours - History of previous Haemophilus influenza pneumonia Endo: - Electrolyte replacement per protocol Heme: - Monitor CBC. GI prophylaxis with famotidine and DVT prophylaxis with SCDs and Lovenox 40 mg subcu daily. CCT 45 MIN Patient remains critically somnolent on BiPAP. Mental status/encephalopathy not improving in the next 1 hour with increased BiPAP sending patient will need endotracheal intubation Code Status Full Discussed Condition With ED physician Jillian Clark MD Jul 20, 2017 11:27
[2017-07-20] MEDS: methylPREDNISolone SOD SUCC 125 MG/2 ML VIAL IV PUSH SCH ×2 (14:33→20:25)
[2017-07-20] MEDS: CHLORHEXIDINE 0.12% (ORAL KIT) 15 ML CUP MT SCH ×2 (14:33→20:00)
[2017-07-20] MEDS: LABETALOL HCL 100 MG/20 ML VIAL IV PUSH PRN (17:01)
[2017-07-20] MEDS: LISINOPRIL 20 MG TAB PO SCH (20:25)
[2017-07-20] MEDS: METOPROLOL TARTRATE 25 MG TAB PO SCH (20:25)
[2017-07-20] MEDS: busPIRone HCL 5 MG TAB PO SCH (22:39)
[2017-07-20] MEDS: hydrALAZINE HCL 20 MG/ML VIAL IV PUSH PRN (22:48)
[2017-07-20] MEDS: HALOPERIDOL LACTATE 5 MG/ML AMP IV PRN (23:08)
[2017-07-21] VITALS (19 sets, daily range): BP systolic 102–192; BP diastolic 52–111; PULSE 45–118; RESP 24–44; TEMP 97.2–98.9; O2SAT 93–100
[2017-07-21] MEDS: HALOPERIDOL LACTATE 5 MG/ML AMP IV PRN (03:37)
[2017-07-21] MEDS: RESP: ALBUTEROL 2.5 MG/IPRATROPIUM 0.5 MG NEB (SCH) NEB ×6 (03:59→23:42)
[2017-07-21] MEDS: CHLORHEXIDINE GLUCONATE 2 % 1 PACK (2 CLOTHS) TOP SCH (04:00)
[2017-07-21] MEDS: LABETALOL HCL 100 MG/20 ML VIAL IV PUSH PRN ×2 (04:39→10:29)
[2017-07-21] MEDS: methylPREDNISolone SOD SUCC 125 MG/2 ML VIAL IV PUSH SCH ×3 (05:39→19:49)
[2017-07-21] MEDS: hydrALAZINE HCL 20 MG/ML VIAL IV PUSH PRN (05:39)
[2017-07-21 06:32] LABS: ALBUMIN 2.7 GM/DL (3.4-5.0); ALT (GPT) 23 U/L (12-78); AST (GOT) 16 U/L (15-37); BLOOD UREA NITROGEN 30 MG/DL (7-18); CALCIUM 8.8 MG/DL (8.5-10.1); CHLORIDE 89 MEQ/L (98-107); CREATININE 0.81 MG/DL (0.60-1.30); GLOMERULAR FILTRATION RATE 92 ML/MIN (>89); GLUCOSE,RANDOM 126 MG/DL (74-106); SODIUM (NA) 136 MEQ/L (136-145)
[2017-07-21 06:34] LABS: ALKALINE PHOSPHATASE 72 U/L (45-117); TOTAL BILIRUBIN ADULT 0.4 MG/DL (0.2-1.0); TOTAL PROTEIN 6.7 GM/DL (6.4-8.2)
[2017-07-21] MEDS: METOPROLOL TARTRATE 25 MG TAB PO SCH ×2 (09:00→20:14)
[2017-07-21] MEDS: TAMSULOSIN HCL 0.4 MG CAP PO SCH (09:00)
[2017-07-21] MEDS: LISINOPRIL 20 MG TAB PO SCH ×2 (09:00→20:09)
[2017-07-21] MEDS: BUDESONIDE-FORMOTEROL 160/4.5 MCG INHALER INH SCH ×2 (09:00→21:00)
[2017-07-21] MEDS: busPIRone HCL 5 MG TAB PO SCH ×2 (09:00→20:09)
[2017-07-21] MEDS: CEFEPIME INJ 2,000 MG in SODIUM CHLORIDE 0.9% INJ 100 ML IV SCH ×2 (09:00→19:48)
[2017-07-21] MEDS: PRAVASTATIN SOD 20 MG TAB PO SCH (09:00)
[2017-07-21] MEDS ORDERED: DEXMEDETOMIDINE INJ 1,000 MCG in SODIUM CHLOR 0.9% 250 ML INJ 250 ML IV PRN (09:45)
--- NOTE | 2017-07-21 09:45 | HHI.CCPN ---
Subjective Remarks/Hospital Course 81-year-old male history of severe COPD, HTN, dyslipidemia presented to the emergency room with acute respiratory distress. Apparently EMS reported circumoral cyanosis, with tachypnea and accessory muscle use. His ABG on presentation was 7.294, PCO2 107, PaO2 137. Received multiple breathing treatments and IV Solu-Medrol 125 mg push. Patient was placed on BiPAP 12 over 5. Chest x-ray showed no acute infiltrate. Apparently describe some weakness on one side and a CT of the head was done which was negative for acute infiltrate. I evaluated the patient in ICU. Patient remains on BiPAP now at 15 over 5. Remains quite somnolent, but pH improved to 7.36 and Co2 85. I have increased BiPAP 18 over 5 and will repeat ABG in one hour. If mentation not consistently improving will need endotracheal intubation. Cefepime started for COPD exacerbation SUBJ 07/21/17: Currently on nasal cannula maintaining oxygen saturation but patient is tachypneic using accessory muscles. Unable to speak in full sentences and is oriented to person only. Placed back on BiPAP 15 over 5. Intermittent confusion and agitation requiring Haldol. I will start Precedex to ensure compliance with BiPAP Objective Vital Signs Date Time Temp Pulse Resp B/P (MAP) Pulse Ox O2 Delivery O2 Flow Rate FiO2 07/21/17 09:26 98 BiPAP 35 07/21/17 07:33 2.00 07/21/17 06:00 102 07/21/17 04:00 98.9 39 173/111 (131) Result Diagram: 07/20/17 0503 07/21/17 0545 Other Results Microbiology Date/Time Source Procedure Growth Status 07/20/17 05:26 Nasal Washing Influenza Types A,B Antigen (SHERRI) - Final NEGATIVE FOR FLU A AND B ANTIGEN.... Complete Laboratory Tests Test 07/20/17 10:45 Blood Gas Puncture Site RT RADIAL Blood Gas Patient Temperature 98.6 Blood Gas HCO3 47 mmol/L (22-26) Blood Gas Base Excess 20.0 mmol/L (-2-2) Blood Gas Oxygen Saturation 95 % (90-100) Arterial Blood pH 7.36 (7.380-7.420) Arterial Blood Partial Pressure CO2 85 mmHg (38-42) Arterial Blood Partial Pressure O2 99 mmHg (61-120) Arterial Blood Oxygen Content 15.1 Vol % (12.0-20.0) Arterial Blood Carboxyhemoglobin 1.3 % (0-4) Arterial Blood Methemoglobin 1.2 % (0-2) Blood Gas Hemoglobin 11.2 G/DL (12.0-16.0) Oxygen Delivery Device BIPAP Blood Gas Ventilator Setting IPAP +16/EPAP +5 Blood Gas Inspired Oxygen 40 % Imaging Chest x-ray no acute infiltrate Objective Remarks GENERAL: 81 yo male patient who is lying in bed on BiPAP, tachypneic in moderate respiratory distress SKIN: Warm and dry. HEAD: Normocephalic. EYES: No scleral icterus. No injection or drainage. NECK: Supple, trachea midline. No JVD or lymphadenopathy. CARDIOVASCULAR: RRR with rate in the 80s. No murmur RESPIRATORY: Tachypneic Breath sounds equal bilaterally with bilateral expiratory wheeze. Using accessory muscles GASTROINTESTINAL: Abdomen soft, non-tender, nondistended. MUSCULOSKELETAL: No cyanosis, or edema. NEURO: Patient remains oriented to person only. Follows commands. Awake alert Urinary Catheter: Yes Assessment to: Continue A/P Assessment and Plan Plan: Neuro: Acute encephalopathy/CO2 narcosis - Start Precedex to ensure compliance with BiPAP - Use Haldol when necessary for agitation - CT of the head negative for acute findings Pulm: Acute hypoxemic and hypercapnic respiratory failure Acute COPD exacerbation History of subcentimeter pulmonary nodules - Place back on BiPAP 15/5. ABG today - May need endotracheal intubation, if respiratory status not improving on BiPAP - DuoNeb every hour scheduled and when necessary - IV Solu-Medrol 60 mg every 8 hours, continue Advair - Cefepime for COPD exacerbation CV: HTN, uncontrolled Hyperlipidemia - Continue on Lopressor, lisinopril. Continue simvastatin 10 mg by mouth daily - Monitor HR and BP and maintain MAP> 65 mmHg. - IV labetalol and hydralazine when necessary for SBP more than 170 - Add HCTZ 25 mg daily : BPH Previous Urethral dilation and Hernandez placement by Dr. Carbajal. Continue Flomax. UA neg for infection GI: - NPO except meds until respiratory status is improved, IV famotidine ID: - Continue cefepime 2 g every 12 hours - History of previous Haemophilus influenza pneumonia Endo: - Electrolyte replacement per protocol Heme: - Monitor CBC. - GI prophylaxis with famotidine and DVT prophylaxis with SCDs and Lovenox 40 mg subcu daily. CCT 35 MIN Patient remains critically ill, respiratory failure and metabolic encephalopathy persists. Placed back on BiPAP. Continue ICU care. Patient is at acute risk for respiratory decompensation and need for endotracheal intubation Jillian Clark MD Jul 21, 2017 09:45
[2017-07-21] MEDS ORDERED: DEXMEDETOMIDINE INJ 1,000 MCG in SODIUM CHLOR 0.9% 250 ML INJ 240 ML IV PRN (10:00)
[2017-07-21] MEDS ORDERED: RASS Change Order XX ONE (10:30)
[2017-07-21] MEDS: HYDROCHLOROTHIAZIDE 25 MG TAB PO SCH (11:00)
[2017-07-21] MEDS: ENOXAPARIN SODIUM 40 MG/0.4 ML SYRINGE SQ SCH (11:23)
[2017-07-21] MEDS: SODIUM CHLORIDE 0.9% FLUSH 10 ML FLUSH IV FLUSH SCH ×2 (11:24→20:11)
[2017-07-21] MEDS: FAMOTIDINE 20 MG/2 ML VIAL IV PUSH SCH ×2 (11:25→19:49)
[2017-07-21] MEDS: CHLORHEXIDINE 0.12% (ORAL KIT) 15 ML CUP MT SCH ×2 (11:26→20:00)
--- NOTE | 2017-07-21 11:28 | HHI.PR ---
Subjective Patient symptoms today Patient may follow-up with Dr. Arriaga, Urology, in clinic after discharge. Hernandez catheter may remain in place due to history of urethral dilation until follow- up clinic appt. Please call with questions Objective Result Diagram: 07/20/17 0503 07/21/17 0545 Henrique Garcia MD Jul 21, 2017 11:28
--- NOTE | 2017-07-21 16:47 | MB ---
cc: ANDI HIGGINBOTHAM DATE OF CONSULTATION: 07/21/[address] Jillian Clark. REASON FOR CONSULTATION Respiratory failure. HISTORY OF PRESENT ILLNESS Mr. Sosa is a 81-year-old male who is known to me from the history of severe COPD, anxiety disorder, chronic respiratory failure. He is oxygen dependent. He gets very anxious which makes his breathing worse. He has not been doing well over the last 2 days or so but on the day of admission the patient slumped in the house, was very lethargic. [facility] was called and they found the patient was hypoxic and had circumoral cyanosis. The patient was brought to the emergency room. He had a workup done. His blood gas showed pH 7.29, PCO2 107, pO2 137, bicarb 50. He was put on BiPAP and now he is weaned to BiPAP 35. Blood gas today pH 7.49, pCO2 54, p02 133, bicarb 41. He is still very lethargic. is at the bedside. PAST MEDICAL HISTORY Past medical history is significant for: 1. Longstanding history of COPD. 2. He is oxygen dependent. 3. History of right kidney donation. MEDICATIONS He is currently taking: e 1. Hydrochlorothiazide 25 mg a day. 3. Symbicort 160/4.5 two puffs twice a day. 4. Pravastatin 10 mg a day. 5. BuSpar 5 mg q.12 hours. 6. Metoprolol 25 mg q. 12 hours. 7. Lisinopril 20 mg a day. 8. Haldol 2 mg p.r.n. 9. Labetalol p.r.n. 10. Solu-Medrol 60 mg q. 8-hours. 11. Cefepime 2 gram q. 12-hour. 12. Albuterol/Atrovent nebulizer treatment. 13. Lovenox 40 mg q. 24-hours. ALLERGIES NO KNOWN DRUG ALLERGIES. SOCIAL HISTORY He is . He has history of smoking in the past. FAMILY HISTORY Noncontributory. REVIEW OF SYSTEMS He gets very anxious, barely can walk inside the house without getting short of breath. Appetite has been poor. No nausea or vomiting. No seizure. PHYSICAL EXAMINATION GENERAL: Elderly male on BiPAP, obtunded. VITAL SIGNS: His blood pressure is 173/111, heart rate 102, respirations 16, temperature 98.9. HEENT: Pupils are equal and reactive to light. Oral mucosa, nasal mucosa normal. NECK: Supple. JVP not elevated. CHEST: He has a few rhonchi. CVS: S1, S2 normal. ABDOMEN: Soft, nondistended. Bowel sounds present. EXTREMITIES: No edema. LABORATORY FINDINGS His WBC count is 15.1, hemoglobin 13.3, hematocrit 40.3, MCV 86, platelet count 382. Sodium 130, potassium 4.0, chloride 89, CO2 42, BUN 30, creatinine 0.81. IMAGING STUDIES His chest x-ray shows no acute disease. CT scan of the brain shows normal examination. IMPRESSION 1. Hypercapnic respiratory failure. 2. Respiratory acidosis. 3. Hypertension. 4. Hyperlipidemia. 5. Anxiety disorder. PLAN I discussed with the patient's at the bedside. He will be maintained on BiPAP. He is sedated with Precedex. Continue IV Solu-Medrol aerosol treatment, continue antibiotic, supplement his oxygen, wean from the BiPAP as he tolerates. Discussed with the patient's incase the patient's condition gets worse he will need to be intubated and she is agreeable, if there is any chance if he is intubated, after that the patient's will make the decision if the patient cannot come off from the ventilator. Further treatment will depend on the course in the hospital. Thank you Dr. Jillian Clark for this consultation. MD PANCHITO Christensen/EDILMA /2:57 PM /3:54 PM RIGOBERTO
[2017-07-22] VITALS (16 sets, daily range): BP systolic 123–181; BP diastolic 58–84; PULSE 48–96; RESP 11–25; TEMP 96.1–98.3; O2SAT 96–98
[2017-07-22] MEDS: RESP: ALBUTEROL 2.5 MG/IPRATROPIUM 0.5 MG NEB (SCH) NEB ×5 (03:40→19:43)
[2017-07-22] MEDS: CHLORHEXIDINE GLUCONATE 2 % 1 PACK (2 CLOTHS) TOP SCH (04:00)
[2017-07-22] MEDS: methylPREDNISolone SOD SUCC 125 MG/2 ML VIAL IV PUSH SCH ×3 (04:36→21:35)
--- NOTE | 2017-07-22 05:15 | RADRPT ---
EXAM DATE/TIME: 07/22/2017 03:51 [facility] COMPARISON: CHEST SINGLE AP, April 26, 2017, 0:47. CHEST SINGLE AP, July 20, 2017, 5:25. INDICATIONS : Evaluate for pneumonia- Respiratory failure MEDICAL HISTORY : None. SURGICAL HISTORY : None. ENCOUNTER: Subsequent ACUITY: 2 days PAIN SCORE: Non-responsive. LOCATION: Bilateral chest FINDINGS: Stable mild diffuse interstitial prominence with likely biapical scarring. No significant new focal p leural or parenchymal opacities. Cardiomediastinal contours are stable. Remainder of the exam is unch anged. CONCLUSION: 1. No acute abnormality or significant interval change. Matthew Johnston MD on July 22, 2017 at 5:11 Board Certified Radiologist. This report was verified electronically.
[2017-07-22] MEDS: LABETALOL HCL 100 MG/20 ML VIAL IV PUSH PRN ×2 (06:29→09:16)
[2017-07-22 07:48] LABS: AUTOMATED NEUTROPHIL # 7.7 TH/MM3 (1.8-7.7); HEMATOCRIT 38.2 % (39.0-51.0); HEMOGLOBIN 12.7 GM/DL (13.0-17.0); LYMPH % 1.4 % (9.0-44.0); LYMPHOCYTE # 0.1 TH/MM3 (1.0-4.8); MEAN CELL VOLUME 87.2 FL (80.0-100.0); MEAN CORPUSCULAR HGB CONC 33.3 % (32.0-36.0); MEAN PLATELET VOLUME 8.3 FL (7.0-11.0); MONO % 5.5 % (0.0-8.0); MONOCYTE # 0.5 TH/MM3 (0-0.9); NEUT % 93.1 % (16.0-70.0); PLATELET COUNT 298 TH/MM3 (150-450); RED BLOOD COUNT 4.38 MIL/MM3 (4.50-5.90); RED CELL DISTRIBUTION WIDTH 15.4 % (11.6-17.2); WHITE BLOOD COUNT 8.3 TH/MM3 (4.0-11.0)
[2017-07-22] MEDS: CHLORHEXIDINE 0.12% (ORAL KIT) 15 ML CUP MT SCH ×2 (08:00→20:00)
[2017-07-22 08:12] LABS: ALKALINE PHOSPHATASE 63 U/L (45-117); TOTAL BILIRUBIN ADULT 0.3 MG/DL (0.2-1.0); TOTAL PROTEIN 6.2 GM/DL (6.4-8.2)
[2017-07-22 08:15] LABS: ALBUMIN 2.5 GM/DL (3.4-5.0); ALT (GPT) 24 U/L (12-78); AST (GOT) 24 U/L (15-37); BICARBONATE 40.5 MEQ/L (21.0-32.0); BLOOD UREA NITROGEN 40 MG/DL (7-18); CALCIUM 8.6 MG/DL (8.5-10.1); CHLORIDE 92 MEQ/L (98-107); CREATININE 0.54 MG/DL (0.60-1.30); GLOMERULAR FILTRATION RATE 147 ML/MIN (>89); GLUCOSE,RANDOM 110 MG/DL (74-106); MAGNESIUM 2.3 MG/DL (1.5-2.5); SODIUM (NA) 139 MEQ/L (136-145)
[2017-07-22] MEDS: ENOXAPARIN SODIUM 40 MG/0.4 ML SYRINGE SQ SCH (08:36)
[2017-07-22] MEDS: CEFEPIME INJ 2,000 MG in SODIUM CHLORIDE 0.9% INJ 100 ML IV SCH ×2 (08:36→21:34)
[2017-07-22] MEDS: BUDESONIDE-FORMOTEROL 160/4.5 MCG INHALER INH SCH ×2 (08:36→21:33)
[2017-07-22] MEDS: FAMOTIDINE 20 MG/2 ML VIAL IV PUSH SCH ×2 (08:36→21:35)
[2017-07-22] MEDS: PRAVASTATIN SOD 20 MG TAB PO SCH (08:37)
[2017-07-22] MEDS: METOPROLOL TARTRATE 25 MG TAB PO SCH ×2 (08:37→21:35)
[2017-07-22] MEDS: busPIRone HCL 5 MG TAB PO SCH ×2 (08:37→21:35)
[2017-07-22] MEDS: LISINOPRIL 20 MG TAB PO SCH ×2 (08:37→21:35)
[2017-07-22] MEDS: TAMSULOSIN HCL 0.4 MG CAP PO SCH (08:37)
[2017-07-22] MEDS: HYDROCHLOROTHIAZIDE 25 MG TAB PO SCH (08:38)
[2017-07-22] MEDS: SODIUM CHLORIDE 0.9% FLUSH 10 ML FLUSH IV FLUSH SCH ×2 (09:16→21:34)
[2017-07-22] MEDS: hydrALAZINE HCL 20 MG/ML VIAL IV PUSH PRN (12:01)
--- NOTE | 2017-07-22 16:15 | HHI.CCPN ---
Subjective Remarks/Hospital Course 81-year-old male history of severe COPD, HTN, dyslipidemia presented to the emergency room with acute respiratory distress. Apparently EMS reported circumoral cyanosis, with tachypnea and accessory muscle use. His ABG on presentation was 7.294, PCO2 107, PaO2 137. Received multiple breathing treatments and IV Solu-Medrol 125 mg push. Patient was placed on BiPAP 12 over 5. Chest x-ray showed no acute infiltrate. Apparently describe some weakness on one side and a CT of the head was done which was negative for acute infiltrate. I evaluated the patient in ICU. Patient remains on BiPAP now at 15 over 5. Remains quite somnolent, but pH improved to 7.36 and Co2 85. I have increased BiPAP 18 over 5 and will repeat ABG in one hour. If mentation not consistently improving will need endotracheal intubation. Cefepime started for COPD exacerbation SUBJ 07/21/17: Currently on nasal cannula maintaining oxygen saturation but patient is tachypneic using accessory muscles. Unable to speak in full sentences and is oriented to person only. Placed back on BiPAP 15 over 5. Intermittent confusion and agitation requiring Haldol. I will start Precedex to ensure compliance with BiPAP 07/22/17: Back on BiPAP overnight. Was complaining about abd pain, after RN placed Hernandez catheter there was 800 mL output and abdominal pain improved. Sputum culture growing GNR Objective Vital Signs Date Time Temp Pulse Resp B/P (MAP) Pulse Ox O2 Delivery O2 Flow Rate FiO2 07/22/17 16:00 98.3 69 18 123/60 (81) 97 07/22/17 07:52 30 07/21/17 11:27 BiPAP 07/21/17 07:33 2.00 Intake and Output 07/22/17 07/22/17 07/23/17 08:00 16:00 00:00 Intake Total 321.8 ml Output Total 0 ml Balance 321.8 ml Result Diagram: 07/22/1762007/22/17620 Other Results Microbiology Date/Time Source Procedure Growth Status 07/20/17 05:26 Nasal Washing Influenza Types A,B Antigen (SHERRI) - Final NEGATIVE FOR FLU A AND B ANTIGEN.... Complete Imaging Chest x-ray no acute infiltrate Objective Remarks GENERAL: 81 yo male patient who is lying in bed on BiPAP, tachypneic, complaining of abdominal pain SKIN: Warm and dry. HEAD: Normocephalic. EYES: No scleral icterus. No injection or drainage. NECK: Supple, trachea midline. No JVD or lymphadenopathy. CARDIOVASCULAR: RRR with rate in the 80s. No murmur RESPIRATORY: Tachypneic Breath sounds equal bilaterally with bilateral mild expiratory wheeze. Using accessory muscles GASTROINTESTINAL: Abdomen soft, nondistended. Mild lower abdominal tenderness MUSCULOSKELETAL: No cyanosis, or edema. NEURO: Patient remains oriented to person only. Follows commands. Awake alert A/P Assessment and Plan Plan: Neuro: Acute encephalopathy/CO2 narcosis - DC Precedex - Use Haldol when necessary for agitation - CT of the head negative for acute findings Pulm: Acute hypoxemic and hypercapnic respiratory failure Acute COPD exacerbation History of subcentimeter pulmonary nodules - Continue BiPAP 15/5. May need endotracheal intubation, continue to monitor - DuoNeb every hour scheduled and when necessary - IV Solu-Medrol 60 mg every 8 hours, continue Advair - Cefepime for COPD exacerbation. GNR in sputum CV: HTN, uncontrolled Hyperlipidemia - Continue on Lopressor, lisinopril. Continue simvastatin 10 mg by mouth daily - Monitor HR and BP and maintain MAP> 65 mmHg. - IV labetalol and hydralazine when necessary for SBP more than 170 - Continue HCTZ 25 mg daily : BPH Previous Urethral dilation and Hernandez placement by Dr. Carbajal. Continue Hernandez per urology Continue Flomax. UA neg for infection GI: - Start diet if patient tolerates time off BiPAP, IV famotidine ID: - Continue cefepime 2 g every 12 hours, f/u GNR in sputum - History of previous Haemophilus influenza pneumonia Endo: - Electrolyte replacement per protocol Heme: - Monitor CBC. - GI prophylaxis with famotidine and DVT prophylaxis with SCDs and Lovenox 40 mg subcu daily. CCT 35 MIN Patient remains critically ill, respiratory failure and metabolic encephalopathy persists. On BiPAP. Continue ICU care. Patient remains at acute risk for respiratory decompensation and possible need for endotracheal intubation Jillian Clark MD Jul 22, 2017 16:15
--- NOTE | 2017-07-22 16:28 | HHI.PR ---
Subjective Remarks 81 YOWM with COPD, Hypercapnoic RF, anxiety On BIPAP, 30% Anxious , wants to take BIPAP off at BS No Fever Objective Vital Signs Vital Signs Date Time Temp Pulse Resp B/P (MAP) Pulse Ox O2 Delivery O2 Flow Rate FiO2 07/22/17 16:00 88 07/22/17 16:00 98.3 69 18 123/60 (81) 97 07/22/17 14:00 92 07/22/17 12:00 62 07/22/17 12:00 98.0 90 20 156/69 (98) 97 07/22/17 11:40 98 07/22/17 08:00 97.5 53 17 175/74 (107) 97 07/22/17 08:00 64 07/22/17 07:52 98 30 07/22/17 06:00 62 07/22/17 04:00 48 07/22/17 04:00 96.1 48 22 154/72 (99) 96 07/22/17 03:40 98 30 07/22/17 02:00 50 07/22/17 00:00 80 07/22/17 00:00 96.4 80 25 181/84 (116) 97 07/21/17 23:42 98 30 07/21/17 22:00 45 07/21/17 20:17 97 30 07/21/17 20:00 55 07/21/17 20:00 97.4 55 33 167/70 (102) 98 07/21/17 18:00 51 I/O 07/21/17 07/21/17 07/21/17 07/22/17 07/22/17 07/22/17 06:59 14:59 22:59 06:59 14:59 22:59 Intake Total 100 ml 321.8 ml Output Total 600 ml 0 ml Balance -500 ml 321.8 ml Intake Oral 0 ml 240 ml IV Total 100 ml 81.8 ml Output Urine Total 600 ml 0 ml # Voids 1 # Bowel Movements 0 1 Result Diagram: 07/22/1762007/22/17620 Objective Remarks GENERAL: Elderly male, sob SKIN: Warm and dry. HEAD: Normocephalic. EYES: No scleral icterus. No injection or drainage. NECK: Supple, trachea midline. No JVD or lymphadenopathy. CARDIOVASCULAR: Regular rate and rhythm without murmurs, gallops, or rubs. RESPIRATORY: Breath sounds equal bilaterally. No accessory muscle use. GASTROINTESTINAL: Abdomen soft, non-tender, nondistended. MUSCULOSKELETAL: No cyanosis, or edema. BACK: Nontender without obvious deformity. No CVA tenderness. A/P Assessment and Plan Hypercapnoic RF COPD HTN Anxiety PLAN: DW at BS IV Solumedrol Will Try NC to give him break from BIPAP Cont Abx Buspar for anxiety. Denys Pratt MD Jul 22, 2017 16:28
[2017-07-23] VITALS (14 sets, daily range): BP systolic 145–188; BP diastolic 66–84; PULSE 65–102; RESP 16–28; TEMP 97–99; O2SAT 93–100
[2017-07-23] MEDS: RESP: ALBUTEROL 2.5 MG/IPRATROPIUM 0.5 MG NEB (SCH) NEB ×7 (00:05→23:19)
[2017-07-23] MEDS: HALOPERIDOL LACTATE 5 MG/ML AMP IV PRN ×3 (00:09→19:42)
[2017-07-23] MEDS: CHLORHEXIDINE GLUCONATE 2 % 1 PACK (2 CLOTHS) TOP SCH (04:00)
[2017-07-23] MEDS: methylPREDNISolone SOD SUCC 125 MG/2 ML VIAL IV PUSH SCH ×3 (06:19→19:41)
[2017-07-23] MEDS: CHLORHEXIDINE 0.12% (ORAL KIT) 15 ML CUP MT SCH ×2 (08:00→19:41)
[2017-07-23] MEDS: BUDESONIDE-FORMOTEROL 160/4.5 MCG INHALER INH SCH ×2 (09:00→19:41)
[2017-07-23] MEDS: CEFEPIME INJ 2,000 MG in SODIUM CHLORIDE 0.9% INJ 100 ML IV SCH ×2 (11:35→18:47)
[2017-07-23] MEDS: TAMSULOSIN HCL 0.4 MG CAP PO SCH (11:36)
[2017-07-23] MEDS: FAMOTIDINE 20 MG/2 ML VIAL IV PUSH SCH ×2 (11:36→19:41)
[2017-07-23] MEDS: HYDROCHLOROTHIAZIDE 25 MG TAB PO SCH (11:37)
[2017-07-23] MEDS: METOPROLOL TARTRATE 25 MG TAB PO SCH ×2 (11:37→19:41)
[2017-07-23] MEDS: PRAVASTATIN SOD 20 MG TAB PO SCH (11:37)
[2017-07-23] MEDS: busPIRone HCL 5 MG TAB PO SCH ×2 (11:37→21:00)
[2017-07-23] MEDS: LISINOPRIL 20 MG TAB PO SCH ×2 (11:37→19:42)
[2017-07-23] MEDS: SODIUM CHLORIDE 0.9% FLUSH 10 ML FLUSH IV FLUSH SCH ×2 (11:38→19:41)
[2017-07-23] MEDS: ENOXAPARIN SODIUM 40 MG/0.4 ML SYRINGE SQ SCH (13:34)
--- NOTE | 2017-07-23 13:41 | HHI.PR ---
Subjective Remarks 81 YOWM with COPD, Hypercapnoic RF, anxiety Weaned to NC Anxious , at BS No Fever Feels better at BS Objective Vital Signs Vital Signs Date Time Temp Pulse Resp B/P (MAP) Pulse Ox O2 Delivery O2 Flow Rate FiO2 07/23/17 08:27 96 Nasal Cannula 3.00 07/23/17 08:00 90 07/23/17 06:16 97 30 07/23/17 06:00 102 07/23/17 04:00 95 07/23/17 04:00 95 22 153/75 (101) 99 07/23/17 02:00 94 07/23/17 01:14 97 30 07/23/17 00:06 100 Nasal Cannula 2.00 07/23/17 00:00 74 07/23/17 00:00 97.0 74 22 156/73 (100) 100 07/22/17 22:00 96 07/22/17 20:00 65 07/22/17 20:00 97.7 65 11 130/58 (82) 97 07/22/17 19:43 97 30 07/22/17 18:00 92 07/22/17 17:16 97 30 07/22/17 16:00 88 07/22/17 16:00 98.3 69 18 123/60 (81) 97 07/22/17 14:00 92 I/O 07/22/17 07/22/17 07/22/17 07/23/17 07/23/17 07/23/17 06:59 14:59 22:59 06:59 14:59 22:59 Intake Total 321.8 ml 3148 ml 214 ml Output Total 0 ml 1000 ml 475 ml Balance 321.8 ml 2148 ml -261 ml Intake Oral 240 ml 600 ml IV Total 81.8 ml 2548 ml 214 ml Output Urine Total 0 ml 1000 ml 475 ml # Bowel Movements 1 0 Result Diagram: 07/22/1762007/22/17620 Objective Remarks GENERAL: Elderly male, sob SKIN: Warm and dry. HEAD: Normocephalic. EYES: No scleral icterus. No injection or drainage. NECK: Supple, trachea midline. No JVD or lymphadenopathy. CARDIOVASCULAR: Regular rate and rhythm without murmurs, gallops, or rubs. RESPIRATORY: Breath sounds equal bilaterally. No accessory muscle use. GASTROINTESTINAL: Abdomen soft, non-tender, nondistended. MUSCULOSKELETAL: No cyanosis, or edema. BACK: Nontender without obvious deformity. No CVA tenderness. A/P Assessment and Plan Hypercapnoic RF COPD HTN Anxiety PLAN: DW at BS IV Solumedrol Supplement 02 with NC BIPAP at night and prn Cont Abx Buspar for anxiety. Denys Pratt MD Jul 23, 2017 13:41
--- NOTE | 2017-07-23 14:19 | HHI.CCPN ---
Subjective Remarks/Hospital Course 81-year-old male history of severe COPD, HTN, dyslipidemia presented to the emergency room with acute respiratory distress. Apparently EMS reported circumoral cyanosis, with tachypnea and accessory muscle use. His ABG on presentation was 7.294, PCO2 107, PaO2 137. Received multiple breathing treatments and IV Solu-Medrol 125 mg push. Patient was placed on BiPAP 12 over 5. Chest x-ray showed no acute infiltrate. Apparently describe some weakness on one side and a CT of the head was done which was negative for acute infiltrate. I evaluated the patient in ICU. Patient remains on BiPAP now at 15 over 5. Remains quite somnolent, but pH improved to 7.36 and Co2 85. I have increased BiPAP 18 over 5 and will repeat ABG in one hour. If mentation not consistently improving will need endotracheal intubation. Cefepime started for COPD exacerbation SUBJ 07/21/17: Currently on nasal cannula maintaining oxygen saturation but patient is tachypneic using accessory muscles. Unable to speak in full sentences and is oriented to person only. Placed back on BiPAP 15 over 5. Intermittent confusion and agitation requiring Haldol. I will start Precedex to ensure compliance with BiPAP 07/22/17: Back on BiPAP overnight. Was complaining about abd pain, after RN placed Hernandez catheter there was 800 mL output and abdominal pain improved. Sputum culture growing GNR 07/23/17: He is breathing better today on nasal cannula maintaining oxygen saturation. Abdominal pain is much improved. Sputum culture is growing Pseudomonas. Cefepime increased to 2 g IV every 8 hours Objective Vital Signs Date Time Temp Pulse Resp B/P (MAP) Pulse Ox O2 Delivery O2 Flow Rate FiO2 07/23/17 08:27 96 Nasal Cannula 3.00 07/23/17 08:00 90 07/23/17 06:16 30 07/23/17 04:00 22 153/75 (101) 07/23/17 00:00 97.0 Intake and Output 07/23/17 07/23/17 07/24/17 08:00 16:00 00:00 Intake Total 214 ml Output Total 475 ml Balance -261 ml Result Diagram: 07/22/1762007/22/17620 Imaging Chest x-ray no acute infiltrate Objective Remarks GENERAL: 81 yo male patient who is lying in bed on NC SKIN: Warm and dry. HEAD: Normocephalic. EYES: No scleral icterus. No injection or drainage. NECK: Supple, trachea midline. No JVD or lymphadenopathy. CARDIOVASCULAR: RRR with rate in the 80s. No murmur RESPIRATORY: Mildly Tachypneic Breath sounds equal bilaterally with bilateral mild expiratory wheeze. GASTROINTESTINAL: Abdomen soft, nondistended. Mild lower abdominal tenderness MUSCULOSKELETAL: No cyanosis, or edema. NEURO: Patient remains alert awake. Follows commands. Better oriented A/P Assessment and Plan Plan: Neuro: Acute encephalopathy/CO2 narcosis - Resolved - Use Haldol when necessary for agitation - CT of the head negative for acute findings Pulm: Acute hypoxemic and hypercapnic respiratory failure Acute COPD exacerbation History of subcentimeter pulmonary nodules - Continue BiPAP 15/5 PRN. Currently maintaining oxygen saturation on nasal cannula - DuoNeb every 4 hour scheduled and when necessary - IV Solu-Medrol 60 mg every 8 hours, continue Advair - Cefepime for COPD exacerbation. Pseudomonas in sputum CV: HTN, uncontrolled Hyperlipidemia - Continue on Lopressor, lisinopril. Continue simvastatin 10 mg by mouth daily - Monitor HR and BP and maintain MAP> 65 mmHg. - IV labetalol and hydralazine when necessary for SBP more than 170 - Continue HCTZ 25 mg daily : BPH Previous Urethral dilation and Hernandez placement by Dr. Carbajal. Continue Hernandez per urology Continue Flomax. UA neg for infection GI: - Heart healthy diet. DC famotidine ID: - Continue cefepime, increase to 2 g every 8 hours, Pseudomonas in sputum sensitive to cefepime - History of previous Haemophilus influenza pneumonia Endo: - Electrolyte replacement per protocol Heme: - Monitor CBC. - DVT prophylaxis with SCDs and Lovenox 40 mg subcu daily. DC famotidine Level 2 Transfer to [facility] with telemetry, consult hospitalist to assume care in a.blu. Jillian Clark MD Jul 23, 2017 14:19
[2017-07-24] VITALS (11 sets, daily range): BP systolic 92–183; BP diastolic 56–94; PULSE 73–95; RESP 20–33; TEMP 97.5–98.6; O2SAT 93–99
[2017-07-24] MEDS: CEFEPIME INJ 2,000 MG in SODIUM CHLORIDE 0.9% INJ 100 ML IV SCH ×3 (00:14→18:24)
[2017-07-24] MEDS: RESP: ALBUTEROL 2.5 MG/IPRATROPIUM 0.5 MG NEB (SCH) NEB ×5 (03:37→21:38)
[2017-07-24] MEDS: CHLORHEXIDINE GLUCONATE 2 % 1 PACK (2 CLOTHS) TOP SCH (04:00)
[2017-07-24] MEDS: methylPREDNISolone SOD SUCC 125 MG/2 ML VIAL IV PUSH SCH (06:05)
[2017-07-24] MEDS: HALOPERIDOL LACTATE 5 MG/ML AMP IV PRN (06:28)
[2017-07-24] MEDS: hydrALAZINE HCL 20 MG/ML VIAL IV PUSH PRN (07:55)
[2017-07-24] MEDS: CHLORHEXIDINE 0.12% (ORAL KIT) 15 ML CUP MT SCH ×2 (08:00→20:00)
[2017-07-24] MEDS: TAMSULOSIN HCL 0.4 MG CAP PO SCH (09:00)
[2017-07-24] MEDS: busPIRone HCL 5 MG TAB PO SCH ×2 (09:00→21:03)
[2017-07-24] MEDS: HYDROCHLOROTHIAZIDE 25 MG TAB PO SCH (09:51)
[2017-07-24] MEDS: PRAVASTATIN SOD 20 MG TAB PO SCH (09:51)
[2017-07-24] MEDS: ENOXAPARIN SODIUM 40 MG/0.4 ML SYRINGE SQ SCH (09:51)
[2017-07-24] MEDS: METOPROLOL TARTRATE 25 MG TAB PO SCH ×2 (09:52→21:03)
[2017-07-24] MEDS: FAMOTIDINE 20 MG/2 ML VIAL IV PUSH SCH (09:52)
[2017-07-24] MEDS: LISINOPRIL 20 MG TAB PO SCH ×2 (09:52→21:03)
[2017-07-24] MEDS: BUDESONIDE-FORMOTEROL 160/4.5 MCG INHALER INH SCH ×2 (09:53→21:03)
[2017-07-24] MEDS: SODIUM CHLORIDE 0.9% FLUSH 10 ML FLUSH IV FLUSH SCH ×2 (09:53→21:04)
--- NOTE | 2017-07-24 12:32 | HHI.PR ---
Subjective Remarks 81 YOWM with COPD, Hypercapnoic RF, anxiety Weaned to NC Anxious , at BS No Fever Feels better Did't require CPAP Objective Vital Signs Vital Signs Date Time Temp Pulse Resp B/P (MAP) Pulse Ox O2 Delivery O2 Flow Rate FiO2 07/24/17 07:51 97 Nasal Cannula 2.00 07/24/17 04:00 98.6 73 30 160/70 (100) 99 07/24/17 04:00 73 07/24/17 03:38 96 Nasal Cannula 3.00 07/24/17 00:00 93 07/24/17 00:00 98.6 93 20 164/94 (117) 96 07/23/17 23:20 96 Nasal Cannula 3.00 07/23/17 20:00 69 07/23/17 20:00 99.0 69 17 158/71 (100) 100 07/23/17 19:51 93 Nasal Cannula 3.00 07/23/17 16:00 92 07/23/17 16:00 98.1 92 28 145/66 (92) 98 I/O 07/23/17 07/23/17 07/23/17 07/24/17 07/24/17 07/24/17 07:00 15:00 23:00 07:00 15:00 23:00 Intake Total 214 ml 550 ml 473 ml Output Total 475 ml 400 ml Balance -261 ml 550 ml 73 ml Intake Oral 550 ml IV Total 214 ml 473 ml Output Urine Total 475 ml 400 ml # Bowel Movements 0 0 Result Diagram: 07/22/1762007/22/1721 Objective Remarks GENERAL: Elderly male, sob SKIN: Warm and dry. HEAD: Normocephalic. EYES: No scleral icterus. No injection or drainage. NECK: Supple, trachea midline. No JVD or lymphadenopathy. CARDIOVASCULAR: Regular rate and rhythm without murmurs, gallops, or rubs. RESPIRATORY: Breath sounds equal bilaterally. No accessory muscle use. GASTROINTESTINAL: Abdomen soft, non-tender, nondistended. MUSCULOSKELETAL: No cyanosis, or edema. BACK: Nontender without obvious deformity. No CVA tenderness. A/P Assessment and Plan Hypercapnoic RF COPD HTN Anxiety PLAN: DW at BS Decrease Solumedrol 40 mg q 8 hrs Supplement 02 with NC Cont Abx Buspar for anxiety. Denys Pratt MD Jul 24, 2017 12:32
--- NOTE | 2017-07-24 13:27 | HHI.CCPN ---
Subjective Remarks/Hospital Course 81-year-old male history of severe COPD, HTN, dyslipidemia presented to the emergency room with acute respiratory distress. Apparently EMS reported circumoral cyanosis, with tachypnea and accessory muscle use. His ABG on presentation was 7.294, PCO2 107, PaO2 137. Received multiple breathing treatments and IV Solu-Medrol 125 mg push. Patient was placed on BiPAP 12 over 5. Chest x-ray showed no acute infiltrate. Apparently describe some weakness on one side and a CT of the head was done which was negative for acute infiltrate. I evaluated the patient in ICU. Patient remains on BiPAP now at 15 over 5. Remains quite somnolent, but pH improved to 7.36 and Co2 85. I have increased BiPAP 18 over 5 and will repeat ABG in one hour. If mentation not consistently improving will need endotracheal intubation. Cefepime started for COPD exacerbation SUBJ 07/21/17: Currently on nasal cannula maintaining oxygen saturation but patient is tachypneic using accessory muscles. Unable to speak in full sentences and is oriented to person only. Placed back on BiPAP 15 over 5. Intermittent confusion and agitation requiring Haldol. I will start Precedex to ensure compliance with BiPAP 07/22/17: Back on BiPAP overnight. Was complaining about abd pain, after RN placed Hernandez catheter there was 800 mL output and abdominal pain improved. Sputum culture growing GNR 07/23/17: He is breathing better today on nasal cannula maintaining oxygen saturation. Abdominal pain is much improved. Sputum culture is growing Pseudomonas. Cefepime increased to 2 g IV every 8 hours 07/24/17: Patient breathing comfortably and not acute distress. Denies abdominal pain Objective Vital Signs Date Time Temp Pulse Resp B/P (MAP) Pulse Ox O2 Delivery O2 Flow Rate FiO2 07/24/17 07:51 97 Nasal Cannula 2.00 07/24/17 04:00 98.6 73 30 160/70 (100) 07/23/17 06:16 30 Intake and Output 07/24/17 07/24/17 07/25/17 08:00 16:00 00:00 Intake Total 473 ml Output Total 400 ml Balance 73 ml Result Diagram: 07/22/1762007/22/17620 Imaging Chest x-ray no acute infiltrate Objective Remarks GENERAL: 81 yo male patient who is lying in bed on NC SKIN: Warm and dry. HEAD: Normocephalic. EYES: No scleral icterus. No injection or drainage. NECK: Supple, trachea midline. No JVD or lymphadenopathy. CARDIOVASCULAR: RRR with rate in the 80s. No murmur RESPIRATORY: Mildly Tachypneic mild expiratory wheeze. GASTROINTESTINAL: Abdomen soft, nondistended. Mild lower abdominal tenderness MUSCULOSKELETAL: No cyanosis, or edema. NEURO: Patient remains alert awake. Follows commands. Better oriented A/P Assessment and Plan Plan: Neuro: Acute encephalopathy/CO2 narcosis- Resolved - Use Haldol when necessary for agitation - CT of the head negative for acute findings Pulm: Acute hypoxemic and hypercapnic respiratory failure Acute COPD exacerbation History of subcentimeter pulmonary nodules - Continue BiPAP 15/5 PRN. Currently maintaining oxygen saturation on nasal cannula - DuoNeb every 4 hour scheduled and when necessary - IV Solu-Medrol 60 mg every 8 hours-reduce to q12, continue Advair - Cefepime for COPD exacerbation. Pseudomonas in sputum - Pulmonary Dr. Pratt following CV: HTN, uncontrolled Hyperlipidemia - Continue on Lopressor, lisinopril. Continue simvastatin 10 mg by mouth daily - Monitor HR and BP and maintain MAP> 65 mmHg. - IV labetalol and hydralazine when necessary for SBP more than 170 - Continue HCTZ 25 mg daily : BPH Previous Urethral dilation and Hernandez placement by Dr. Carbajal. Continue Hernandez per urology Continue Flomax. UA neg for infection GI: - Heart healthy diet. DCd famotidine ID: - Continue cefepime, increase to 2 g every 8 hours, Pseudomonas in sputum sensitive to cefepime - History of previous Haemophilus influenza pneumonia Endo: - Electrolyte replacement per protocol Heme: - Monitor CBC. - DVT prophylaxis with SCDs and Lovenox 40 mg subcu daily. DC famotidine Level 2 Awaiting Transfer to [facility] with telemetry, consult hospitalist to assume care in Jillian Ryder MD Jul 24, 2017 13:27
[2017-07-24] MEDS: methylPREDNISolone SOD SUCC 40 MG/1 ML VIAL IV PUSH SCH ×2 (15:10→23:02)
--- NOTE | 2017-07-24 18:43 | HHI.PR ---
Subjective Remarks NOT SEEN Objective Vitals Vital Signs Date Time Temp Pulse Resp B/P (MAP) Pulse Ox O2 Delivery O2 Flow Rate FiO2 07/24/17 18:29 87 07/24/17 18:22 Nasal Cannula 2.00 07/24/17 17:28 88 07/24/17 17:13 97.5 25 141/72 (95) 07/24/17 12:00 98.3 95 27 92/56 (68) 96 07/24/17 12:00 95 07/24/17 08:00 86 07/24/17 08:00 97.9 86 33 183/72 (109) 98 07/24/17 07:51 97 Nasal Cannula 2.00 07/24/17 04:00 98.6 73 30 160/70 (100) 99 07/24/17 04:00 73 07/24/17 03:38 96 Nasal Cannula 3.00 07/24/17 00:00 93 07/24/17 00:00 98.6 93 20 164/94 (117) 96 07/23/17 23:20 96 Nasal Cannula 3.00 07/23/17 20:00 69 07/23/17 20:00 99.0 69 17 158/71 (100) 100 07/23/17 19:51 93 Nasal Cannula 3.00 I/O 07/23/17 07/23/17 07/23/17 07/24/17 07/24/17 07/24/17 07:00 15:00 23:00 07:00 15:00 23:00 Intake Total 214 ml 550 ml 473 ml Output Total 475 ml 400 ml Balance -261 ml 550 ml 73 ml Intake Oral 550 ml IV Total 214 ml 473 ml Output Urine Total 475 ml 400 ml # Bowel Movements 0 0 Result Diagram: 07/22/1721 07/22/1721 Imaging Last Impressions Chest X-Ray 07/22/17 0600 Signed Impressions: Service Date/Time: Saturday, July 22, 2017 03:51 - CONCLUSION: 1. No acute abnormality or significant interval change. Matthew Johnston MD Head CT 07/20/17 0000 Signed Impressions: Service Date/Time: Thursday, July 20, 2017 08:44 - CONCLUSION: Normal examination. Flo Rider MD Objective Remarks GENERAL: 81 yo male patient who is lying in bed on NC SKIN: Warm and dry. HEAD: Normocephalic. EYES: No scleral icterus. No injection or drainage. NECK: Supple, trachea midline. No JVD or lymphadenopathy. CARDIOVASCULAR: RRR with rate in the 80s. No murmur RESPIRATORY: Mildly Tachypneic mild expiratory wheeze. GASTROINTESTINAL: Abdomen soft, nondistended. Mild lower abdominal tenderness MUSCULOSKELETAL: No cyanosis, or edema. NEURO: Patient remains alert awake. Follows commands. Better oriented Procedures none A/P Problem List: (1) Acute respiratory failure with hypoxia and hypercapnia ICD Code: J96.01 - Acute respiratory failure with hypoxia; J96.02 - Acute respiratory failure with hypercapnia Status: Resolved (2) COPD exacerbation ICD Code: J44.1 - Chronic obstructive pulmonary disease with (acute) exacerbation Status: Acute Assessment and Plan Neuro: Acute encephalopathy/CO2 narcosis- Resolved - Use Haldol when necessary for agitation - CT of the head negative for acute findings Pulm: Acute hypoxemic and hypercapnic respiratory failure, chronic resp failure on home [place] Acute COPD exacerbation History of subcentimeter pulmonary nodules - Continue BiPAP 15/5 PRN. Currently maintaining oxygen saturation on nasal cannula - DuoNeb every 4 hour scheduled and when necessary - IV Solu-Medrol, continue Advair - Cefepime for COPD exacerbation. Pseudomonas in sputum - Pulmonary Dr. Pratt following CV: HTN, uncontrolled Hyperlipidemia - Continue on Lopressor, lisinopril. Continue simvastatin 10 mg by mouth daily - Monitor HR and BP and maintain MAP> 65 mmHg. - IV labetalol and hydralazine when necessary for SBP more than 170 - Continue HCTZ 25 mg daily : BPH Previous Urethral dilation and Hernandez placement by Dr. Carbaajl. Continue Hernandez outpatient per urology Continue Flomax. UA neg for infection GI: - Heart healthy diet. ID: - Continue cefepime, increase to 2 g every 8 hours, Pseudomonas in sputum sensitive to cefepime - History of previous Haemophilus influenza pneumonia Endo: - Electrolyte replacement per protocol - hyperglycemia likely steroid induced. Ck Aic Heme: - Monitor CBC. - DVT prophylaxis with SCDs and Lovenox 40 mg subcu daily. Colby Bearden MD Jul 24, 2017 18:43
[2017-07-24] MEDS: FAMOTIDINE 20 MG TAB PO SCH (21:04)
[2017-07-25] VITALS (15 sets, daily range): BP systolic 144–162; BP diastolic 64–79; PULSE 55–109; RESP 18–21; TEMP 95.3–98.3; O2SAT 93–98
[2017-07-25] MEDS: CEFEPIME INJ 2,000 MG in SODIUM CHLORIDE 0.9% INJ 100 ML IV SCH ×3 (01:50→16:28)
[2017-07-25] MEDS: CHLORHEXIDINE GLUCONATE 2 % 1 PACK (2 CLOTHS) TOP SCH (04:00)
[2017-07-25] MEDS: RESP: ALBUTEROL 2.5 MG/IPRATROPIUM 0.5 MG NEB (SCH) NEB ×4 (04:41→21:45)
[2017-07-25 05:28] LABS: ALBUMIN 2.4 GM/DL (3.4-5.0); ALT (GPT) 24 U/L (12-78); AST (GOT) 22 U/L (15-37); BICARBONATE 36.7 MEQ/L (21.0-32.0); BLOOD UREA NITROGEN 37 MG/DL (7-18); CALCIUM 8.3 MG/DL (8.5-10.1); CHLORIDE 96 MEQ/L (98-107); CREATININE 0.43 MG/DL (0.60-1.30); GLOMERULAR FILTRATION RATE 191 ML/MIN (>89); GLUCOSE,RANDOM 116 MG/DL (74-106); SODIUM (NA) 137 MEQ/L (136-145)
[2017-07-25 05:30] LABS: ALKALINE PHOSPHATASE 60 U/L (45-117); TOTAL BILIRUBIN ADULT 0.5 MG/DL (0.2-1.0); TOTAL PROTEIN 5.7 GM/DL (6.4-8.2)
--- NOTE | 2017-07-25 05:42 | RADRPT ---
EXAM DATE/TIME: 07/25/2017 04:03 [place] COMPARISON: CHEST SINGLE AP, July 22, 2017, 3:51. INDICATIONS : Shortness of breath, possible pulmonary disease. MEDICAL HISTORY : None. SURGICAL HISTORY : None. ENCOUNTER: Subsequent ACUITY: 4 - 6 days PAIN SCORE: 0/10 LOCATION: Bilateral chest FINDINGS: A single view of the chest demonstrates the lungs to be symmetrically aerated without evidence of mas s, infiltrate or effusion. No evidence of pneumothorax. Skin fold projects over the lateral right c hest. The cardiomediastinal contours are unremarkable. Osseous structures are intact. CONCLUSION: The lungs are clear. Mk Freitas MD on July 25, 2017 at 5:40 Board Certified Radiologist. This report was verified electronically.
[2017-07-25] MEDS: methylPREDNISolone SOD SUCC 40 MG/1 ML VIAL IV PUSH SCH ×3 (06:50→21:58)
[2017-07-25 06:59] LABS: AUTOMATED NEUTROPHIL # 15.8 TH/MM3 (1.8-7.7); BASOPHIL # 0.1 TH/MM3 (0-0.2); BASOPHIL % 0.3 % (0.0-2.0); HEMATOCRIT 37.9 % (39.0-51.0); HEMOGLOBIN 12.8 GM/DL (13.0-17.0); LYMPH % 0.9 % (9.0-44.0); LYMPHOCYTE # 0.1 TH/MM3 (1.0-4.8); MEAN CELL VOLUME 86.3 FL (80.0-100.0); MEAN CORPUSCULAR HEMOGLOBIN 29.1 PG (27.0-34.0); MEAN CORPUSCULAR HGB CONC 33.7 % (32.0-36.0); MEAN PLATELET VOLUME 8.2 FL (7.0-11.0); MONO % 3.6 % (0.0-8.0); MONOCYTE # 0.6 TH/MM3 (0-0.9); NEUT % 95.2 % (16.0-70.0); PLATELET COUNT 273 TH/MM3 (150-450); RED BLOOD COUNT 4.39 MIL/MM3 (4.50-5.90); RED CELL DISTRIBUTION WIDTH 14.4 % (11.6-17.2); WHITE BLOOD COUNT 16.6 TH/MM3 (4.0-11.0)
[2017-07-25] MEDS: CHLORHEXIDINE 0.12% (ORAL KIT) 15 ML CUP MT SCH ×2 (08:00→20:00)
[2017-07-25] MEDS: ENOXAPARIN SODIUM 40 MG/0.4 ML SYRINGE SQ SCH (09:00)
[2017-07-25] MEDS: HYDROCHLOROTHIAZIDE 25 MG TAB PO SCH (09:00)
[2017-07-25] MEDS: METOPROLOL TARTRATE 25 MG TAB PO SCH ×2 (09:00→21:56)
[2017-07-25] MEDS: PRAVASTATIN SOD 20 MG TAB PO SCH (09:00)
[2017-07-25] MEDS: busPIRone HCL 5 MG TAB PO SCH ×2 (09:00→21:56)
[2017-07-25] MEDS: SODIUM CHLORIDE 0.9% FLUSH 10 ML FLUSH IV FLUSH SCH ×2 (09:01→21:57)
[2017-07-25] MEDS: LISINOPRIL 20 MG TAB PO SCH ×2 (09:01→21:56)
[2017-07-25] MEDS: TAMSULOSIN HCL 0.4 MG CAP PO SCH (09:01)
[2017-07-25] MEDS: FAMOTIDINE 20 MG TAB PO SCH ×2 (09:01→21:56)
[2017-07-25] MEDS: BUDESONIDE-FORMOTEROL 160/4.5 MCG INHALER INH SCH ×2 (09:02→21:59)
--- NOTE | 2017-07-25 09:22 | HHI.PR ---
Subjective Remarks Patient remains very weak. Shortness of breath with minimal activities. No chest pain. Objective Vitals Vital Signs Date Time Temp Pulse Resp B/P (MAP) Pulse Ox O2 Delivery O2 Flow Rate FiO2 07/25/17 08:04 Nasal Cannula 3.00 07/25/17 08:00 98.3 84 18 162/79 (106) 94 07/25/17 08:00 84 07/25/17 05:00 71 07/25/17 04:00 64 07/25/17 03:28 98.0 63 21 154/69 (97) 94 07/25/17 03:00 77 07/25/17 02:00 71 07/25/17 01:01 55 07/25/17 00:00 98.0 63 21 154/69 (97) 94 07/24/17 21:38 93 Nasal Cannula 2.00 07/24/17 20:50 98.0 92 21 181/76 (111) 93 07/24/17 18:29 87 07/24/17 18:22 Nasal Cannula 2.00 07/24/17 17:28 88 07/24/17 17:13 97.5 25 141/72 (95) 07/24/17 12:00 98.3 95 27 92/56 (68) 96 07/24/17 12:00 95 I/O 07/24/17 07/24/17 07/24/17 07/25/17 07/25/17 07/25/17 07:00 15:00 23:00 07:00 15:00 23:00 Intake Total 473 ml 340 ml Output Total 400 ml 350 ml Balance 73 ml -10 ml Intake Oral 240 ml IV Total 473 ml 100 ml Output Urine Total 400 ml 350 ml # Bowel Movements 0 0 Result Diagram: 07/25/170 07/25/17 0440 Objective Remarks GENERAL: Frail elderly male. Gets short of breath with minimal activity. CARDIOVASCULAR: Normal rate and regular rhythm without murmurs, gallops, or rubs. RESPIRATORY: Air movement is fair. Diffuse expiratory wheezing. GASTROINTESTINAL: Abdomen soft, non-tender, non-distended. Normal active bowel sounds MUSCULOSKELETAL: Extremities without cyanosis, or edema. NEURO: Alert & Oriented x4 to person, place, time, situation. Moves all ext x4 but generalized weakness present. PSYCH: Appropriate mood and affect. Procedures none A/P Problem List: (1) Acute respiratory failure with hypoxia and hypercapnia ICD Code: J96.01 - Acute respiratory failure with hypoxia; J96.02 - Acute respiratory failure with hypercapnia Status: Resolved (2) COPD exacerbation ICD Code: J44.1 - Chronic obstructive pulmonary disease with (acute) exacerbation Status: Acute Assessment and Plan 81-year-old male admitted with acute respiratory failure secondary to COPD exacerbation: Acute hypoxemic and hypercapnic respiratory failure Acute COPD exacerbation History of subcentimeter pulmonary nodules -Status post BiPAP. Currently maintaining oxygen saturation on nasal cannula - DuoNeb every 4 hour scheduled and when necessary - Continue IV Solu-Medrol 60 mg every 8 hours-reduce to q12, continue Advair - Cefepime for COPD exacerbation. Pseudomonas in sputum - Pulmonary Dr. Pratt following Acute encephalopathy/CO2 narcosis- Resolved - Use Haldol when necessary for agitation - CT of the head negative for acute findings HTN Hyperlipidemia - Continue on Lopressor, lisinopril. Continue simvastatin 10 mg by mouth daily - Monitor HR and BP and maintain MAP> 65 mmHg. - IV labetalol and hydralazine when necessary for SBP more than 170 - Continue HCTZ 25 mg daily BPH Previous Urethral dilation and Hernandez placement by Dr. Carbajal. Continue Hernandez per urology Continue Flomax. UA neg for infection DVT prophylaxis with SCDs and Lovenox 40 mg subcu daily. Discharge Planning Continue IV steroids and antibiotics for today. Consider transitioning to oral tomorrow. PT to evaluate. Will likely need SNF. He is very frail. Laine Suarez MD Jul 25, 2017 09:22
[2017-07-25 16:33] LABS: HEMOGLOBIN A1C 5.2 % (4.3-6.0)
--- NOTE | 2017-07-25 19:56 | HHI.PR ---
Subjective Remarks 81 YOWM with COPD, Hypercapnoic RF, anxiety Weaned to NC Anxious , No Fever Feels better Tr to floor Objective Vital Signs Vital Signs Date Time Temp Pulse Resp B/P (MAP) Pulse Ox O2 Delivery O2 Flow Rate FiO2 07/25/17 16:11 98 Nasal Cannula 3.00 07/25/17 16:00 97.7 69 18 145/64 (91) 98 07/25/17 12:00 95.3 109 18 144/67 (92) 94 07/25/17 10:00 88 07/25/17 09:00 86 07/25/17 08:04 93 Nasal Cannula 2.50 07/25/17 08:00 98.3 84 18 162/79 (106) 94 07/25/17 08:00 84 07/25/17 05:00 71 07/25/17 04:00 64 07/25/17 03:28 98.0 63 21 154/69 (97) 94 07/25/17 03:00 77 07/25/17 02:00 71 07/25/17 01:01 55 07/25/17 00:00 98.0 63 21 154/69 (97) 94 07/24/17 21:38 93 Nasal Cannula 2.00 07/24/17 20:50 98.0 92 21 181/76 (111) 93 I/O 07/24/17 07/24/17 07/24/17 07/25/17 07/25/17 07/25/17 07:00 15:00 23:00 07:00 15:00 23:00 Intake Total 473 ml 340 ml 600 ml Output Total 400 ml 350 ml 300 ml Balance 73 ml -10 ml 300 ml Intake Oral 240 ml 600 ml IV Total 473 ml 100 ml Output Urine Total 400 ml 350 ml 300 ml # Bowel Movements 0 0 1 Result Diagram: 07/25/1743907/25/170 Objective Remarks GENERAL: Elderly male, sob SKIN: Warm and dry. HEAD: Normocephalic. EYES: No scleral icterus. No injection or drainage. NECK: Supple, trachea midline. No JVD or lymphadenopathy. CARDIOVASCULAR: Regular rate and rhythm without murmurs, gallops, or rubs. RESPIRATORY: Breath sounds equal bilaterally. No accessory muscle use. GASTROINTESTINAL: Abdomen soft, non-tender, nondistended. MUSCULOSKELETAL: No cyanosis, or edema. BACK: Nontender without obvious deformity. No CVA tenderness. A/P Assessment and Plan Hypercapnoic RF COPD HTN Anxiety PLAN: Wean 02 Decrease Solumedrol 40 mg q 8 hrs Supplement 02 with NC Cont Abx Buspar for anxiety. Denys Pratt MD Jul 25, 2017 19:56
[2017-07-26] VITALS (13 sets, daily range): BP systolic 121–171; BP diastolic 58–78; PULSE 61–97; RESP 16–18; TEMP 96.3–98; O2SAT 95–98
[2017-07-26] MEDS: CHLORHEXIDINE GLUCONATE 2 % 1 PACK (2 CLOTHS) TOP SCH (02:09)
[2017-07-26] MEDS: CEFEPIME INJ 2,000 MG in SODIUM CHLORIDE 0.9% INJ 100 ML IV SCH ×3 (02:10→17:16)
[2017-07-26] MEDS: RESP: ALBUTEROL 2.5 MG/IPRATROPIUM 0.5 MG NEB (SCH) NEB ×4 (03:09→21:02)
[2017-07-26] MEDS: methylPREDNISolone SOD SUCC 40 MG/1 ML VIAL IV PUSH SCH ×2 (05:03→14:44)
[2017-07-26 07:14] LABS: HEMATOCRIT 35.9 % (39.0-51.0); MEAN CELL VOLUME 86.7 FL (80.0-100.0); MEAN CORPUSCULAR HEMOGLOBIN 28.9 PG (27.0-34.0); MEAN CORPUSCULAR HGB CONC 33.4 % (32.0-36.0); MEAN PLATELET VOLUME 8.6 FL (7.0-11.0); PLATELET COUNT 235 TH/MM3 (150-450); RED BLOOD COUNT 4.14 MIL/MM3 (4.50-5.90); RED CELL DISTRIBUTION WIDTH 14.6 % (11.6-17.2); WHITE BLOOD COUNT 16.2 TH/MM3 (4.0-11.0)
[2017-07-26 07:42] LABS: BICARBONATE 37.9 MEQ/L (21.0-32.0); CALCIUM 8.2 MG/DL (8.5-10.1)
[2017-07-26] MEDS: CHLORHEXIDINE 0.12% (ORAL KIT) 15 ML CUP MT SCH ×2 (08:00→20:00)
[2017-07-26 08:26] LABS: CREATININE 0.4 MG/DL (0.60-1.30)
[2017-07-26] MEDS: FAMOTIDINE 20 MG TAB PO SCH ×2 (08:43→21:54)
[2017-07-26] MEDS: HYDROCHLOROTHIAZIDE 25 MG TAB PO SCH (08:43)
[2017-07-26] MEDS: PRAVASTATIN SOD 20 MG TAB PO SCH (08:43)
[2017-07-26] MEDS: busPIRone HCL 5 MG TAB PO SCH ×2 (08:43→21:54)
[2017-07-26] MEDS: TAMSULOSIN HCL 0.4 MG CAP PO SCH (08:43)
[2017-07-26] MEDS: LISINOPRIL 20 MG TAB PO SCH ×2 (08:43→21:54)
[2017-07-26] MEDS: METOPROLOL TARTRATE 25 MG TAB PO SCH ×2 (08:43→21:54)
[2017-07-26] MEDS: ENOXAPARIN SODIUM 40 MG/0.4 ML SYRINGE SQ SCH (08:43)
[2017-07-26] MEDS: BUDESONIDE-FORMOTEROL 160/4.5 MCG INHALER INH SCH ×2 (08:44→21:58)
[2017-07-26] MEDS: SODIUM CHLORIDE 0.9% FLUSH 10 ML FLUSH IV FLUSH SCH ×2 (08:44→21:54)
--- NOTE | 2017-07-26 14:31 | HHI.PR ---
Subjective Remarks Respiratory status continues to improve. Physical abilities are improving slowly. Recommendation is for inpatient rehabilitation. Patient is not interested in an inpatient rehabilitation setting. He would like to discharge to home. In the setting he should be monitored little bit longer in regards to his respiratory status and physical ability. Objective Vital Signs Date Time Temp Pulse Resp B/P (MAP) Pulse Ox O2 Delivery O2 Flow Rate FiO2 07/26/17 12:00 97.0 85 18 121/58 (79) 95 07/26/17 10:16 95 Nasal Cannula 3.00 07/26/17 08:00 96.3 92 18 171/78 (109) 95 07/26/17 07:57 73 07/26/17 04:00 98.0 74 16 141/66 (91) 96 07/26/17 03:10 97 Nasal Cannula 3.00 07/26/17 00:26 97 07/26/17 00:00 96.7 66 18 138/65 (89) 98 07/25/17 20:00 98.1 82 18 153/67 (95) 98 07/25/17 16:11 98 Nasal Cannula 3.00 07/25/17 16:00 97.7 69 18 145/64 (91) 98 I/O 07/25/17 07/25/17 07/25/17 07/26/17 07/26/17 07/26/17 07:00 15:00 23:00 07:00 15:00 23:00 Intake Total 340 ml 600 ml 100 ml Output Total 350 ml 300 ml Balance -10 ml 300 ml 100 ml Intake Oral 240 ml 600 ml IV Total 100 ml 100 ml Output Urine Total 350 ml 300 ml # Bowel Movements 0 1 Result Diagram: 07/26/17 04407/26/175 Objective Remarks GENERAL: NAD, A&Ox3, oxygen by nasal cannula in place HEAD: Normocephalic. NECK: Supple, trachea midline. No lymphadenopathy. EYES: No scleral icterus. No injection or drainage. CARDIOVASCULAR: Regular rate and rhythm without murmurs, gallops, or rubs. RESPIRATORY: Breath sounds equal bilaterally. No accessory muscle use. GASTROINTESTINAL: Abdomen soft, non-tender, nondistended. MUSCULOSKELETAL: No cyanosis, or edema. SKIN: Warm and dry. NEURO: No focal neurological deficitis. Global weakness. A/P Problem List: (1) Acute respiratory failure with hypoxia and hypercapnia ICD Code: J96.01 - Acute respiratory failure with hypoxia; J96.02 - Acute respiratory failure with hypercapnia Status: Resolved (2) COPD exacerbation ICD Code: J44.1 - Chronic obstructive pulmonary disease with (acute) exacerbation Status: Acute Assessment and Plan 81-year-old male admitted with acute respiratory failure secondary to COPD exacerbation Acute hypoxemic and hypercapnic respiratory failure Acute COPD exacerbation History of subcentimeter pulmonary nodules Improving slowly Continue DuoNeb scheduled Continue as needed albuterol Continue systemic steroids Cefepime continue Pulmonology following Acute encephalopathy CO2 narcosis Resolved HTN Hyperlipidemia Continue on Lopressor, lisinopril, hydrochlorothiazide Continue simvastatin 10 mg by mouth daily BPH Previous Urethral dilation Continue Flomax DVT prophylaxis SCDs Lovenox Discharge Planning Patient rather discharge to home rather than group home facility or inpatient rehabilitation Monitor respiratory status for 1 more day to ensure stability Alexandru Weinstein MD Jul 26, 2017 14:31
--- NOTE | 2017-07-26 19:05 | HHI.PR ---
Subjective Remarks 81 YOWM with COPD, Hypercapnoic RF, anxiety Weaned to NC Anxious , No Fever Feels better Objective Vital Signs Vital Signs Date Time Temp Pulse Resp B/P (MAP) Pulse Ox O2 Delivery O2 Flow Rate FiO2 07/26/17 16:00 97.3 80 18 128/68 (88) 95 07/26/17 12:07 69 07/26/17 12:00 97.0 85 18 121/58 (79) 95 07/26/17 10:16 95 Nasal Cannula 3.00 07/26/17 08:00 96.3 92 18 171/78 (109) 95 07/26/17 07:57 73 07/26/17 04:00 98.0 74 16 141/66 (91) 96 07/26/17 03:10 97 Nasal Cannula 3.00 07/26/17 00:26 97 07/26/17 00:00 96.7 66 18 138/65 (89) 98 07/25/17 20:00 98.1 82 18 153/67 (95) 98 I/O 07/25/17 07/25/17 07/25/17 07/26/17 07/26/17 07/26/17 07:00 15:00 23:00 07:00 15:00 23:00 Intake Total 340 ml 600 ml 100 ml 800 ml Output Total 350 ml 300 ml Balance -10 ml 300 ml 100 ml 800 ml Intake Oral 240 ml 600 ml 600 ml IV Total 100 ml 100 ml 200 ml Output Urine Total 350 ml 300 ml # Bowel Movements 0 1 Result Diagram: 07/26/1744407/26/175 Objective Remarks GENERAL: Elderly male, sob SKIN: Warm and dry. HEAD: Normocephalic. EYES: No scleral icterus. No injection or drainage. NECK: Supple, trachea midline. No JVD or lymphadenopathy. CARDIOVASCULAR: Regular rate and rhythm without murmurs, gallops, or rubs. RESPIRATORY: Breath sounds equal bilaterally. No accessory muscle use. GASTROINTESTINAL: Abdomen soft, non-tender, nondistended. MUSCULOSKELETAL: No cyanosis, or edema. BACK: Nontender without obvious deformity. No CVA tenderness. A/P Assessment and Plan Hypercapnoic RF COPD HTN Anxiety PLAN: Wean 02 Supplement 02 with NC Cont Abx Buspar for anxiety. DC Solumedrol PO Prednisonr Denys Pratt MD Jul 26, 2017 19:05
[2017-07-27] VITALS (10 sets, daily range): BP systolic 129–168; BP diastolic 61–75; PULSE 59–97; RESP 16–20; TEMP 96.5–97.9; O2SAT 90–98
[2017-07-27] MEDS: CEFEPIME INJ 2,000 MG in SODIUM CHLORIDE 0.9% INJ 100 ML IV SCH ×3 (02:45→17:55)
[2017-07-27] MEDS: CHLORHEXIDINE GLUCONATE 2 % 1 PACK (2 CLOTHS) TOP SCH (02:58)
[2017-07-27] MEDS: RESP: ALBUTEROL 2.5 MG/IPRATROPIUM 0.5 MG NEB (SCH) NEB ×4 (03:35→21:15)
[2017-07-27] MEDS ORDERED: PRED10 PO (08:16)
--- NOTE | 2017-07-27 08:19 | HHI.FF ---
Face to Face Verification Diagnosis: (1) COPD exacerbation (2) Acute respiratory failure with hypoxia and hypercapnia (3) Physical deconditioning Physical Therapy Order: Evaluate and Treat I have seen patient Eduardo Sosa on 07/27/17. My clinical findings support the need for the requested home health care services because: Ltd mobility - disease progression Patient has SOB Deconditioned w/ increased weakness Limited ability to care for self High risk of falls I certify that my clinical findings support that this patient is homebound because: Hx COPD- exertion dyspnea/weakness Unsteady gait/balance Unsafe to leave home unassisted [id number] bed/chair Unable to use public transportation Alexandru Weinstein MD Jul 27, 2017 08:19
[2017-07-27] MEDS: CHLORHEXIDINE 0.12% (ORAL KIT) 15 ML CUP MT SCH ×2 (08:20→20:00)
[2017-07-27] MEDS: SODIUM CHLORIDE 0.9% FLUSH 10 ML FLUSH IV FLUSH SCH ×2 (08:26→22:23)
[2017-07-27] MEDS: predniSONE 10 MG TAB PO SCH ×3 (08:26→17:54)
[2017-07-27] MEDS: busPIRone HCL 5 MG TAB PO SCH ×2 (08:26→20:27)
[2017-07-27] MEDS: ENOXAPARIN SODIUM 40 MG/0.4 ML SYRINGE SQ SCH (08:26)
[2017-07-27] MEDS: METOPROLOL TARTRATE 25 MG TAB PO SCH ×2 (08:26→20:26)
[2017-07-27] MEDS: TAMSULOSIN HCL 0.4 MG CAP PO SCH (08:26)
[2017-07-27] MEDS: FAMOTIDINE 20 MG TAB PO SCH ×2 (08:26→20:27)
[2017-07-27] MEDS: PRAVASTATIN SOD 20 MG TAB PO SCH (08:26)
[2017-07-27] MEDS: HYDROCHLOROTHIAZIDE 25 MG TAB PO SCH (08:27)
[2017-07-27] MEDS: LISINOPRIL 20 MG TAB PO SCH ×2 (08:27→20:27)
[2017-07-27] MEDS: BUDESONIDE-FORMOTEROL 160/4.5 MCG INHALER INH SCH ×2 (08:37→20:27)
--- NOTE | 2017-07-27 16:17 | HHI.DS ---
Discharge Summary Admission Date Jul 20, 2017 at 07:10 Discharge Date: Jul 27, 2017 Admitting Diagnosis COPD (1) Acute respiratory failure with hypoxia and hypercapnia ICD Code: J96.01 - Acute respiratory failure with hypoxia; J96.02 - Acute respiratory failure with hypercapnia Diagnosis: Principal Status: Resolved (2) COPD exacerbation ICD Code: J44.1 - Chronic obstructive pulmonary disease with (acute) exacerbation Diagnosis: Principal Status: Acute Procedures none Brief History - From Admission 81-year-old male history of severe COPD, HTN, dyslipidemia presented to the emergency room with acute respiratory distress. Apparently EMS reported circumoral cyanosis, with tachypnea and accessory muscle use. His ABG on presentation was 7.294, PCO2 107, PaO2 137. Received multiple breathing treatments and IV Solu-Medrol 125 mg push. Patient was placed on BiPAP 12 over 5. Chest x-ray showed no acute infiltrate. Apparently describe some weakness on one side and a CT of the head was done which was negative for acute infiltrate. I evaluated the patient in ICU. Patient remains on BiPAP now at 15 over 5. Remains quite somnolent, but pH improved to 7.36 and Co2 85. I have increased BiPAP 18 over 5 and will repeat ABG in one hour. If mentation not consistently improving will need endotracheal intubation. Cefepime started for COPD exacerbation CBC/BMP: 07/26/17 0445 07/26/17 0445 Significant Findings Laboratory Tests Test 07/24/17 21:53 07/25/17 04:40 07/26/17 04:45 White Blood Count 16.6 TH/MM3 (4.0-11.0) 16.2 TH/MM3 (4.0-11.0) Red Blood Count 4.39 MIL/MM3 (4.50-5.90) 4.14 MIL/MM3 (4.50-5.90) Hemoglobin 12.8 GM/DL (13.0-17.0) 12.0 GM/DL (13.0-17.0) Hematocrit 37.9 % (39.0-51.0) 35.9 % (39.0-51.0) Neutrophils (%) (Auto) 95.2 % (16.0-70.0) Lymphocytes (%) (Auto) 0.9 % (9.0-44.0) Neutrophils # (Auto) 15.8 TH/MM3 (1.8-7.7) Lymphocytes # (Auto) 0.1 TH/MM3 (1.0-4.8) Blood Urea Nitrogen 37 MG/DL (7-18) 29 MG/DL (7-18) Creatinine 0.43 MG/DL (0.60-1.30) 0.40 MG/DL (0.60-1.30) Random Glucose 116 MG/DL (74-106) Total Protein 5.7 GM/DL (6.4-8.2) Albumin 2.4 GM/DL (3.4-5.0) Calcium Level 8.3 MG/DL (8.5-10.1) 8.2 MG/DL (8.5-10.1) Chloride Level 96 MEQ/L (98-107) 93 MEQ/L (98-107) Carbon Dioxide Level 36.7 MEQ/L (21.0-32.0) 37.9 MEQ/L (21.0-32.0) Anion Gap 4 MEQ/L (5-15) PE at Discharge GENERAL: Frail elderly male. Gets short of breath with minimal activity. CARDIOVASCULAR: Normal rate and regular rhythm without murmurs, gallops, or rubs. RESPIRATORY: Air movement is fair. Diffuse expiratory wheezing. GASTROINTESTINAL: Abdomen soft, non-tender, non-distended. Normal active bowel sounds MUSCULOSKELETAL: Extremities without cyanosis, or edema. NEURO: Alert & Oriented x4 to person, place, time, situation. Moves all ext x4 but generalized weakness present. PSYCH: Appropriate mood and affect. Hospital Course Mr. Sosa is a 81-year-old male. He was admitted secondary to COPD exacerbation. He has a baseline underlying severe lung disease with oxygen dependent at baseline. His COPD exacerbation has gradually improved over the past week. Global weakness and physical debility have complicated his course. His continuing to need PT and has not yet to baseline in regards to his physical abilities. Medically stable now for discharge from the hospital and at this point he will discharge to inpatient rehabilitation when a bed is available. Pt Condition on Discharge: Stable Discharge Disposition: Rehab Inpatient Discharge Time: > 30 minutes Discharge Instructions DIET: Follow Instructions for: As Tolerated, No Restrictions Activities you can perform: Regular-No Restrictions Follow up Referrals: PCP Follow-up - 2 Weeks Continued Medications: Ascorbic Acid (Vitamin C) 250 Mg Tab 1000 MG PO DAILY for Nutritional Supplement, TAB 0 Refills Buspirone (Buspirone) 5 Mg Tab 5 MG PO Q12HR for anxiety for 30 Days, TAB Calcium-Magnesium (Calcium & Magnesium) 750-465 Mg Tab 1 TAB PO, TAB Desloratadine (Desloratadine) 5 Mg Tab 5 MG PO DAILY for Allergy Management, #30 TAB 0 Refills Famotidine (Famotidine) 20 Mg Tab 20 MG PO HS for GI protection for 30 Days, TAB Fluticasone-Salmeterol Inh (Advair Diskus Inh) 250-50 Mcg/Blist Aer 2 PUFF INH DAILY, #1 INHALER 0 Refills Rinse mouth after use. Hydrochlorothiazide (Hydrochlorothiazide) 12.5 Mg Cap 12.5 MG PO BID for Blood Pressure Management for 30 Days, #60 CAP Ipratropium-Albuterol Neb (Duoneb) 0.5-2.5 Mg/3 Ml Neb 1 AMPULE NEB Q6HR WHILE AWAKE NEB for COPD for 30 Days, ML Lisinopril (Lisinopril) 20 Mg Tab 20 MG PO BID for Blood Pressure Management for 30 Days, #60 TAB Melatonin (Gnp Melatonin Maximum Str) 5 Mg Tab 5 MG PO HS PRN for SLEEP for 30 Days, TAB Metoprolol Tartrate (Metoprolol Tartrate) 25 Mg Tab 25 MG PO Q12HR for Blood Pressure Management for 30 Days, TAB Multiple Vitamin (Multiple Vitamin) 1 Tab 1 TAB PO DAILY for Nutritional Supplement, TAB 0 Refills Prednisone (Prednisone) 5 Mg Tab 5 MG PO DAILY, TAB 0 Refills Prednisone (Prednisone) 10 Mg Tab 10 MG PO DIRECTED for COPD, #30 TAB 0 Refills (This prescription has been renewed) 5 tablets daily for 2 days, then 4 tablets daily for 2 days, then 3 tablets daily for 2 days, then 2 tabs daily for 2 days, then 1 tab daily for 2 days Saw Kulm (Serenoa Repens) (Saw Kulm (Serenoa Repens)) 450 Mg Cap 2000 MG PO DAILY, CAP 0 Refills Simvastatin (Simvastatin) 10 Mg Tab 10 MG PO DAILY for Cholesterol Management, #30 TAB 0 Refills Tamsulosin (Flomax) 0.4 Mg Cap 0.4 MG PO DAILY for urinary retention, #30 CAP Alexandru Weinstein MD Jul 27, 2017 16:17
--- NOTE | 2017-07-27 17:40 | HHI.PR ---
Subjective Remarks 81 YOWM with COPD, Hypercapnoic RF, anxiety Weaned to NC Anxious , No Fever Feels better Weak Objective Vital Signs Vital Signs Date Time Temp Pulse Resp B/P (MAP) Pulse Ox O2 Delivery O2 Flow Rate FiO2 07/27/17 16:33 97 07/27/17 16:00 96.7 96 17 129/61 (83) 90 07/27/17 12:00 97.5 97 18 138/64 (88) 97 07/27/17 09:37 92 Nasal Cannula 2.00 07/27/17 08:20 97 Nasal Cannula 2.00 07/27/17 08:20 89 07/27/17 08:00 96.5 96 17 158/67 (97) 97 07/27/17 08:00 59 07/27/17 04:00 85 07/27/17 04:00 97.9 83 16 141/65 (90) 94 07/27/17 00:00 97.7 75 16 139/64 (89) 94 07/26/17 23:26 61 07/26/17 21:20 96 Nasal Cannula 3.00 07/26/17 21:03 97 Nasal Cannula 2.00 07/26/17 20:00 98.0 86 18 158/66 (96) 96 I/O 07/26/17 07/26/17 07/26/17 07/27/17 07/27/17 07/27/17 07:00 15:00 23:00 07:00 15:00 23:00 Intake Total 100 ml 800 ml 580 ml Output Total 600 ml Balance 100 ml 800 ml -20 ml Intake Oral 600 ml 480 ml IV Total 100 ml 200 ml 100 ml Output Urine Total 600 ml Result Diagram: 07/26/1744407/26/17444 Objective Remarks GENERAL: Elderly male, sob SKIN: Warm and dry. HEAD: Normocephalic. EYES: No scleral icterus. No injection or drainage. NECK: Supple, trachea midline. No JVD or lymphadenopathy. CARDIOVASCULAR: Regular rate and rhythm without murmurs, gallops, or rubs. RESPIRATORY: Breath sounds equal bilaterally. No accessory muscle use. GASTROINTESTINAL: Abdomen soft, non-tender, nondistended. MUSCULOSKELETAL: No cyanosis, or edema. BACK: Nontender without obvious deformity. No CVA tenderness. A/P Assessment and Plan Hypercapnoic RF COPD HTN Anxiety PLAN: Wean 02 Supplement 02 with NC Cont Abx Buspar for anxiety. PO Prednisone DC Plans underway for rehab Denys Pratt MD Jul 27, 2017 17:40
[2017-07-28] VITALS: BP 133/60; PULSE 63; PULSE 66; RESP 18; TEMP 97.3; O2SAT 98
[2017-07-28] MEDS: CEFEPIME INJ 2,000 MG in SODIUM CHLORIDE 0.9% INJ 100 ML IV SCH ×2 (02:44→09:11)
[2017-07-28] MEDS: CHLORHEXIDINE GLUCONATE 2 % 1 PACK (2 CLOTHS) TOP SCH (02:51)
[2017-07-28] MEDS: RESP: ALBUTEROL 2.5 MG/IPRATROPIUM 0.5 MG NEB (SCH) NEB ×2 (02:59→08:51)
[2017-07-28 03:45] VITALS: PULSE 63
[2017-07-28 04:00] VITALS: BP 140/66; PULSE 85; RESP 18; TEMP 96.1; O2SAT 99
[2017-07-28 08:00] VITALS: BP 136/63; PULSE 87; RESP 17; TEMP 97.5; O2SAT 98
[2017-07-28] MEDS: CHLORHEXIDINE 0.12% (ORAL KIT) 15 ML CUP MT SCH (08:00)
[2017-07-28 08:53] VITALS: O2SAT 98
[2017-07-28] MEDS: PRAVASTATIN SOD 20 MG TAB PO SCH (09:11)
[2017-07-28] MEDS: TAMSULOSIN HCL 0.4 MG CAP PO SCH (09:11)
[2017-07-28] MEDS: FAMOTIDINE 20 MG TAB PO SCH (09:12)
[2017-07-28] MEDS: METOPROLOL TARTRATE 25 MG TAB PO SCH (09:12)
[2017-07-28] MEDS: busPIRone HCL 5 MG TAB PO SCH (09:12)
[2017-07-28] MEDS: predniSONE 10 MG TAB PO SCH ×2 (09:12→12:51)
[2017-07-28] MEDS: LISINOPRIL 20 MG TAB PO SCH (09:13)
[2017-07-28] MEDS: HYDROCHLOROTHIAZIDE 25 MG TAB PO SCH (09:13)
[2017-07-28] MEDS: ENOXAPARIN SODIUM 40 MG/0.4 ML SYRINGE SQ SCH (09:13)
[2017-07-28] MEDS: BUDESONIDE-FORMOTEROL 160/4.5 MCG INHALER INH SCH (09:14)
[2017-07-28] MEDS: SODIUM CHLORIDE 0.9% FLUSH 10 ML FLUSH IV FLUSH SCH (09:14)
--- NOTE | 2017-07-28 11:19 | HHI.PR ---
Subjective Remarks Stable respiratory status at this point, near baseline. Patient is medically stable yesterday for discharge to inpatient rehabilitation. Tentative plan for transfer to inpatient rehabilitation today. Objective Vital Signs Date Time Temp Pulse Resp B/P (MAP) Pulse Ox O2 Delivery O2 Flow Rate FiO2 07/28/17 08:53 98 Nasal Cannula 2.00 07/28/17 08:00 97.5 87 17 136/63 (87) 98 07/28/17 04:00 96.1 85 18 140/66 (90) 99 07/28/17 03:45 63 07/28/17 00:00 97.3 66 18 133/60 (84) 98 07/28/17 00:00 63 07/27/17 21:16 98 Nasal Cannula 2.00 07/27/17 20:25 98 Nasal Cannula 2.00 07/27/17 20:00 96.5 85 20 168/75 (106) 98 07/27/17 16:33 97 07/27/17 16:00 96.7 96 17 129/61 (83) 90 07/27/17 12:00 97.5 97 18 138/64 (88) 97 I/O 07/27/17 07/27/17 07/27/17 07/28/17 07/28/17 07/28/17 07:00 15:00 23:00 07:00 15:00 23:00 Intake Total 580 ml 340 ml 100 ml Output Total 600 ml 700 ml 600 ml Balance -20 ml -360 ml -500 ml Intake Oral 480 ml 240 ml 0 ml IV Total 100 ml 100 ml 100 ml Output Urine Total 600 ml 700 ml 600 ml # Bowel Movements 1 0 Result Diagram: 07/26/1744407/26/17444 Objective Remarks GENERAL: NAD, A&Ox3, oxygen by nasal cannula in place HEAD: Normocephalic. NECK: Supple, trachea midline. No lymphadenopathy. EYES: No scleral icterus. No injection or drainage. CARDIOVASCULAR: Regular rate and rhythm without murmurs, gallops, or rubs. RESPIRATORY: Breath sounds equal bilaterally. No accessory muscle use. GASTROINTESTINAL: Abdomen soft, non-tender, nondistended. MUSCULOSKELETAL: No cyanosis, or edema. SKIN: Warm and dry. NEURO: No focal neurological deficitis. Global weakness. A/P Problem List: (1) Acute respiratory failure with hypoxia and hypercapnia ICD Code: J96.01 - Acute respiratory failure with hypoxia; J96.02 - Acute respiratory failure with hypercapnia Status: Resolved (2) COPD exacerbation ICD Code: J44.1 - Chronic obstructive pulmonary disease with (acute) exacerbation Status: Acute Assessment and Plan 81-year-old male admitted with acute respiratory failure secondary to COPD exacerbation. Plan for transfer to inpatient rehabilitation today. Acute hypoxemic and hypercapnic respiratory failure Acute COPD exacerbation History of subcentimeter pulmonary nodules Improving slowly Continue DuoNeb scheduled Continue as needed albuterol Continue systemic steroids Cefepime continue Pulmonology following Acute encephalopathy CO2 narcosis Resolved HTN Hyperlipidemia Continue on Lopressor, lisinopril, hydrochlorothiazide Continue simvastatin 10 mg by mouth daily BPH Previous Urethral dilation Continue Flomax DVT prophylaxis SCDs Lovenox Discharge Planning Discharge inpatient rehabilitation. Alexandru Weinstein MD Jul 28, 2017 11:19
[2017-07-28 12:00] VITALS: BP 114/56; PULSE 79; RESP 16; TEMP 96.5; O2SAT 95
== END 2017-07-28 14:42 | DRG 189 ==
LOC: NEPC 04:51 → NEDA 07:10 → HIMN 09:00 → HCPC 07-24 17:00 → N07A 07-25 11:22
PROVIDERS: ADMIT Hospitalist; ATTEND Hospitalist
PROC: 5A09457 Assistance with Respiratory Ventilation, 24-96 Consecutive Hours, Continuous Positive Airway Pressure (ICD-10-PCS; principal; 2017-07-20)
PROC: 0T9B70Z Drainage of Bladder with Drainage Device, Via Natural or Artificial Opening (ICD-10-PCS; 2017-07-22)
DX: J96.21 Acute and chronic respiratory failure with hypoxia (principal); G93.41 Metabolic encephalopathy; E87.2 Acidosis; J44.1 Chronic obstructive pulmonary disease with (acute) exacerbation; J96.22 Acute and chronic respiratory failure with hypercapnia; I10 Essential (primary) hypertension; E78.5 Hyperlipidemia, unspecified; N40.0 Benign prostatic hyperplasia without lower urinary tract symptoms; R23.0 Cyanosis; T38.0X5A Adverse effect of glucocorticoids and synthetic analogues, initial encounter; R73.9 Hyperglycemia, unspecified; F41.9 Anxiety disorder, unspecified; Z85.46 Personal history of malignant neoplasm of prostate; Z87.891 Personal history of nicotine dependence; Z90.5 Acquired absence of kidney; Z99.81 Dependence on supplemental oxygen
CPT/HCPCS: 36600; 70450; 71045; 80048; 80053; 81001; 82805; 83036; 83735; 83880; 84484; 85025; 85027; 85379; 85610; 85730; 87070; 87077; 87186; 87205; 87641; 87804; 93005; 94003; 94640; 94664; 96374; J0360; J0692; J1630; J1650; J2920; J2930; J7030; J7050; J7512

== ENCOUNTER 2017-08-02 07:37 | Inpatient (IN) | payer MEDICARE, BC ==
[2017-08-02] VITALS (10 sets, daily range): BP systolic 110–160; BP diastolic 57–77; PULSE 93–117; RESP 20–33; TEMP 98–98.6; O2SAT 91–99
[~2017-08-02 07:37] MED LIST changes: +PRED5TAB PO
[2017-08-02] MEDS ORDERED: LIDOCAINE HCL 1% 50 ML VIAL ONE (07:48)
--- NOTE | 2017-08-02 08:11 | HHI.PR ---
Subjective Remarks Follow up on patient with severe COPD. Zain called this morning due to patients worsening dyspnea and uncontrolled blood pressure. CXR obtained revealing moderate sized pneumothorax on the left with mediastinal shift to the right. Patient complains of progressive shortness of breath since 3am. He denies any fever or chills. Reports cough with whitish sputum production. He denies any chest pain, nausea or vomiting. He denies any swelling in his legs or feet. Objective Vitals Imaging Chest, Single AP Signed EXAM DATE/TIME: 08/02/2017 07:07 [facility] COMPARISON: CHEST SINGLE AP, July 31, 2017, 7:50. INDICATIONS : Shortness of breath. CONCLUSION: New, moderate-sized left pneumothorax with tension. Edel, the nurse on the rehabilitation floor was notified. Objective Remarks GENERAL: This is a thin elderly male patient in respiratory distress. Sitting up in bed. Tachypneic. SKIN: No rashes, left foot toe with ecchymosis, left heel with fluid-filled blister. Cool and dry. HEAD: Atraumatic. Normocephalic. EYES: Pupils equal round and reactive. Extraocular motions intact. No scleral icterus. No injection or drainage. ENT: Nose without bleeding, purulent drainage. Airway patent. NECK: Trachea midline. CARDIOVASCULAR: Sinus tachycardia without murmurs, gallops, or rubs. RESPIRATORY: Using accessory muscles to breathe. Very diminished throughout. GASTROINTESTINAL: Abdomen soft, non-tender, nondistended. No palpable masses. No guarding. MUSCULOSKELETAL: Extremities without clubbing, cyanosis, or edema. NEUROLOGICAL: Awake and alert. Cranial nerves grossly intact. Able to move all extremities spontaneously. Dyspneic with speech. Medications and IVs Prednisone 10 Mg Tab 10 Mg PO DIRECTED 5 tablets daily for 2 days, then 4 tablets daily for 2 days, then 3 tablets daily for 2 days, then 2 tabs daily for 2 days, then 1 tab daily for 2 days Gnp Melatonin Maximum Str (Melatonin) 5 Mg Tab 5 Mg PO HS PRN 30 Days Famotidine 20 Mg Tab 20 Mg PO HS 30 Days Hydrochlorothiazide 12.5 Mg Cap 12.5 Mg PO BID 30 Days Buspirone (Buspirone HCl) 5 Mg Tab 5 Mg PO Q12HR 30 Days Lisinopril 20 Mg Tab 20 Mg PO BID 30 Days Metoprolol Tartrate 25 Mg Tab 25 Mg PO Q12HR 30 Days Duoneb (Ipratropium-Albuterol Neb) 0.5-2.5 Mg/3 Ml Neb 1 Ampule NEB Q6HR WHILE AWAKE NEB 30 Days Flomax (Tamsulosin HCl) 0.4 Mg Cap 0.4 Mg PO DAILY Prednisone 5 Mg Tab 5 Mg PO DAILY Vitamin C (Ascorbic Acid) 250 Mg Tab 1,000 Mg PO DAILY Calcium & Magnesium (Calcium-Magnesium) 750-465 Mg Tab 1 Tab PO [place] (Serenoa Repens) 450 Mg Cap 2,000 Mg PO DAILY Multiple Vitamin 1 Tab 1 Tab PO DAILY Advair Diskus Inh (Fluticasone-Salmeterol Inh) 250-50 Mcg/Blist Aer 2 Puff INH DAILY Rinse mouth after use. Simvastatin 10 Mg Tab 10 Mg PO DAILY Desloratadine 5 Mg Tab 5 Mg PO DAILY A/P Assessment and Plan 81-year-old male with past medical history of severe COPD who is O2 dependent at home, hypertension, dyslipidemia, BPH, right kidney donor who was recently hospitalized secondary to acute respiratory failure with encephalopathy secondary to CO2 narcosis. Patient was admitted to inpatient ICU with BiPAP treatment along with treatment of Pseudomonas PNA, and IV steroids. He was discharged from the hospital on 07/27 and admitted to inpatient [facility] rehabilitation. Medical consulted due to COPD and leukocytosis. Acute on chronic respiratory failure secondary to acute left sided spontaneous pneumothorax [facility] called, patient being transferred to [facility] - CXR reveals moderate sized PTX on the left with mediastinal shift to the right, images reviewed by me - ABG reviewed pCO2 68, O2 sat 89 - Consult Rn Corrections, appreciate assistance - continue supplemental oxygen to maintain O2 sats Severe COPD, O2 dependent - Continue nasal cannula - Continue oral steroids, tapered dose - Continue Symbicort along with 4 times a day duo nebs - Pulmonary following as well Leukocytosis - Patient has been afebrile, no obvious source of infection identified - UA checked on 07/29 negative - Chest x-ray completed on 07/31 reviewed, stable appearance of emphysema. No evidence of acute pulmonary disease. - Suspect leukocytosis is secondary to steroid use - Patient was recently treated for Pseudomonas in the sputum Rectal bleeding - Hematochezia - Drop from 13.8-->11.3 - Lovenox held - GI consult placed, appreciate recommendations, EGD and colonoscopy planned for today but will be held due to acute respiratory failure - Continue monitoring for bleeding and monitoring H&H BPH - Patient with history of ureter dilatation with Hernandez catheter in place - Continue Flomax and catheter, monitor for signs of infection HTN, uncontrolled Tachycardia - Blood pressure fluctuating - Continue hydrochlorothiazide to 12.5 mg daily, lisinopril 20 mg twice a day and metoprolol 25mg BID DVT prophylaxis - Lovenox on hold secondary to rectal bleeding Gina Jacques Aug 02, 2017 08:11
--- NOTE | 2017-08-02 08:25 | HHI.HP ---
[facility] Service Critical Care Medicine Primary Care Physician Obi De La Cruz MD Admission Diagnosis spontaneous pneumothorax Diagnosis: Chief Complaint: shortness of breath Travel History International Travel<30 Days: No Contact w/Intl Traveler <30 Da: No Traveled to Known Affected Are: No History of Present Illness This is a 81yM with history of severe COPD and recent admission for COPD exacerbation [facility] when he had sudden onset of dyspnea. denied any chest pain or any other symptoms. rapid response was called and CXR demonstrated new left pneumothorax. due to his respiratory distress, he was emergently transferred to the ICU. I evaluated the patient upon arrival to the ICU. He was in respiratory distress, using accessory muscles to breath. dyspneic. complaining of shortness of breath. ROS unobtainable due to his distress and the emergent nature of his condition. Review of Systems ROS Limitations: Clinical Condition ROS respiratory distress. Past Family Social History Allergies: Coded Allergies: No Known Drug Allergies (Verified Allergy, Unknown, 07/20/17) Past Medical History Severe COPD BPH Hypertension Dyslipidemia History of prostate ca Past Surgical History Kidney donation to her daughter Previous Urethral dilation and alfonso placement by Dr. Carbajal. Reported Medications Prednisone 10 Mg Tab 10 Mg PO DIRECTED 5 tablets daily for 2 days, then 4 tablets daily for 2 days, then 3 tablets daily for 2 days, then 2 tabs daily for 2 days, then 1 tab daily for 2 days Gnp Melatonin Maximum Str (Melatonin) 5 Mg Tab 5 Mg PO HS PRN 30 Days Famotidine 20 Mg Tab 20 Mg PO HS 30 Days Hydrochlorothiazide 12.5 Mg Cap 12.5 Mg PO BID 30 Days Buspirone (Buspirone HCl) 5 Mg Tab 5 Mg PO Q12HR 30 Days Lisinopril 20 Mg Tab 20 Mg PO BID 30 Days Metoprolol Tartrate 25 Mg Tab 25 Mg PO Q12HR 30 Days Duoneb (Ipratropium-Albuterol Neb) 0.5-2.5 Mg/3 Ml Neb 1 Ampule NEB Q6HR WHILE AWAKE NEB 30 Days Flomax (Tamsulosin HCl) 0.4 Mg Cap 0.4 Mg PO DAILY Prednisone 5 Mg Tab 5 Mg PO DAILY Vitamin C (Ascorbic Acid) 250 Mg Tab 1,000 Mg PO DAILY Calcium & Magnesium (Calcium-Magnesium) 750-465 Mg Tab 1 Tab PO Saw [place] ([place] Repens) 450 Mg Cap 2,000 Mg PO DAILY Multiple Vitamin 1 Tab 1 Tab PO DAILY Advair Diskus Inh (Fluticasone-Salmeterol Inh) 250-50 Mcg/Blist Aer 2 Puff INH DAILY Rinse mouth after use. Simvastatin 10 Mg Tab 10 Mg PO DAILY Desloratadine 5 Mg Tab 5 Mg PO DAILY Active Ordered Medications See MAR Family History reviewed and found to be noncontributory to his acute illness. Social History Quit smoking approximately 20 years ago Physical Exam Vital Signs Vital Signs Date Time Temp Pulse Resp B/P (MAP) Pulse Ox O2 Delivery O2 Flow Rate FiO2 08/02/17 08:36 97 Nasal Cannula 4.00 Current Medications Medications (Trade) Dose Ordered Sig/Godfrey Route PRN Reason Start Time Stop Time Status Last Admin Dose Admin Lidocaine HCl (Xylocaine 1% Inj (50 ml)) 50 ml STK-MED ONCE .ROUTE 08/02/17 07:48 08/02/17 07:49 DC 08/02/17 07:48 Albuterol/ Ipratropium (Duoneb Neb) 1 ampule Q6HR NEB INH 08/02/17 10:00 UNV Albuterol/ Ipratropium (Duoneb Neb) 1 ampule Q2HR NEB PRN INH WHEEZING 08/02/17 09:30 UNV Sodium Chloride (NS Flush) 2 ml UNSCH PRN IV FLUSH FLUSH AFTER USING IV ACCESS 08/02/17 09:30 UNV Sodium Chloride (NS Flush) 2 ml BID IV FLUSH 08/02/17 21:00 UNV Acetaminophen (Tylenol) 650 mg Q6H PRN PO PAIN 1-10 AND/OR FEVER >101F 08/02/17 09:30 UNV Ondansetron HCl (Zofran Inj) 4 mg Q6H PRN IV PUSH NAUSEA OR VOMITING 08/02/17 09:30 UNV Miscellaneous Information 1 Q361D XX 08/02/17 09:30 UNV Chlorhexidine Gluconate (Chlorhexidine 2% Cloth) 3 pack Taper DAILY@04 TOP 08/03/17 04:00 07/30/18 03:59 UNV Chlorhexidine Gluconate (Chlorhexidine 2% Cloth) 3 pack UNSCH PRN TOP HYGIENIC CARE 08/02/17 09:30 UNV Senna/Docusate Sodium (Cecilia-Colace) 1 tab BID PO 08/02/17 21:00 UNV Magnesium Hydroxide (Milk Of Magnesia Liq) 30 ml Q12H PRN PO Mild constipation 08/02/17 09:30 UNV Sennosides (Senokot) 17.2 mg Q12H PRN PO Moderate constipation 08/02/17 09:30 UNV Bisacodyl (Dulcolax Supp) 10 mg DAILY PRN RECTAL SEVERE CONSITIPATION 08/02/17 09:30 UNV Lactulose (Lactulose Liq) 30 ml DAILY PRN PO SEVERE CONSITIPATION 08/02/17 09:30 UNV Buspirone HCl (Buspar) 5 mg Q12HR PO 08/02/17 21:00 UNV Famotidine (Pepcid) 20 mg HS PO 08/02/17 21:00 UNV Hydrochlorothiazide (Microzide) 12.5 mg BID PO 08/02/17 21:00 UNV Lisinopril (Prinivil) 20 mg BID PO 08/02/17 21:00 UNV Melatonin (Melatonin) 5 mg HS PRN PO SLEEP 08/02/17 09:30 UNV Metoprolol Tartrate (Lopressor) 25 mg Q12HR PO 08/02/17 21:00 UNV Prednisone (Deltasone) 5 mg DAILY PO 08/03/17 09:00 UNV Prednisone (Deltasone) 10 mg DAILY PO 08/03/17 09:00 UNV Tamsulosin HCl (Flomax) 0.4 mg DAILY PO 08/03/17 09:00 UNV Non-Formulary Medication 1,000 mg DAILY PO 08/03/17 09:00 UNV Non-Formulary Medication 5 mg DAILY PO 08/03/17 09:00 UNV Non-Formulary Medication 2 puff DAILY INH 08/03/17 09:00 UNV Non-Formulary Medication 1 tab DAILY PO 08/03/17 09:00 UNV Non-Formulary Medication 2,000 mg DAILY PO 08/03/17 09:00 UNV Non-Formulary Medication 10 mg DAILY PO 08/03/17 09:00 UNV Physical Exam on my exam, patient is in respiratory distress, using accessory muscles to breath. on nc o2. tachypneic. Imaging CXR reviewed from kerry: shows large left pneumothorax Caprini VTE Risk Assessment Caprini VTE Risk Assessment: Mod/High Risk (score >= 2) Caprini Risk Assessment Model Point Value = 1 Point Value = 2 Point Value = 3 Point Value = 5 Age 41-60 Minor surgery BMI > 25 kg/m2 Swollen legs Varicose veins or History of unexplained or recurrent spontaneous Oral contraceptives or hormone replacement Sepsis (< 1 month) Serious lung disease, including pneumonia (< 1 month) Abnormal pulmonary function Acute myocardial infarction Congestive heart failure (< 1 month) History of inflammatory bowel disease Medical patient at bed rest Age 61-74 Arthroscopic surgery Major open surgery (> 45 min) Laparoscopic surgery (> 45 min) Malignancy Confined to bed (> 72 hours) Immobilizing plaster cast Central venous access Age >= 75 History of VTE Family history of VTE Factor V Leiden Prothrombin [id number] Lupus anticoagulant Anticardiolipin antibodies Elevated serum homocysteine Heparin-induced thrombocytopenia Other congenital or acquired thrombophilia Stroke (< 1 month) Elective arthroplasty Hip, pelvis, or leg fracture Acute spinal cord injury (< 1 month) Prophylaxis Regimen Total Risk Factor Score Risk Level Prophylaxis Regimen 0-1 Low Early ambulation 2 Moderate Order ONE of the following: *Sequential Compression Device (SCD) *Heparin 5000 units SQ BID 3-4 Higher Order ONE of the following medications: *Heparin 5000 units SQ TID *Enoxaparin/Lovenox 40 mg SQ daily (WT < 150 kg, CrCl > 30 mL/min) *Enoxaparin/Lovenox 30 mg SQ daily (WT < 150 kg, CrCl > 10-29 mL/min) *Enoxaparin/Lovenox 30 mg SQ BID (WT < 150 kg, CrCl > 30 mL/min) AND/OR *Sequential Compression Device (SCD) 5 or more Highest Order ONE of the following medications: *Heparin 5000 units SQ TID (Preferred with Epidurals) *Enoxaparin/Lovenox 40 mg SQ daily (WT < 150 kg, CrCl > 30 mL/min) *Enoxaparin/Lovenox 30 mg SQ daily (WT < 150 kg, CrCl > 10-29 mL/min) *Enoxaparin/Lovenox 30 mg SQ BID (WT < 150 kg, CrCl > 30 mL/min) AND *Sequential Compression Device (SCD) Assessment and Plan Assessment and Plan Assessment: 81yM with severe COPD and left-sided spontaneous pneumothorax. placed left sided 8 Fr pigtail chest tube with improvement in hypoxia. Hemodynamically stable and safe for previously scheduled colonoscopy today. Left sided spontaneous pneumothorax severe COPD - chest tube to -[id number] suction - CXR - nebs - wean o2 for goal spo2 > 90% Rectal bleeding - stable and cleared for previously scheduled colonoscopy. - hold SQH. If the patient remains stable and improved, then he can be safely transferred out of ICU. Will consult hospitalist service to assume care. The patient remained critically ill for the time I evaluated and managed his acute respiratory distress and placed emergent chest tube. I spent in excess of 34 minutes in the evaluation, care, management, and documentation of this critically ill patient. this time is exclusive of procedures. Octavio Harding MD Aug 02, 2017 08:25
--- NOTE | 2017-08-02 09:11 | RADRPT ---
EXAM DATE/TIME: 08/02/2017 08:41 [facility] COMPARISON: CHEST SINGLE AP, August 02, 2017, 7:07. INDICATIONS : Post left side chest tube placement. MEDICAL HISTORY : Chronic obstructive pulmonary disease. Carcinoma, prostate. HTN. Donated right kidney. SURGICAL HISTORY : Donated right kidney ENCOUNTER: Subsequent ACUITY: 1 day PAIN SCORE: 1/10 LOCATION: Bilateral chest FINDINGS: There is placement of a smallbore left chest tube with minimal residual slitlike upper lobe apical pn eumothorax. Some residual hyperinflation is appreciated with right lung clear. CONCLUSION: Place the left chest tube with clearance of the majority of the pneumothorax slit like residual in th e upper lobe apex. Abiodun Galan MD on August 02, 2017 at 9:06 Board Certified Radiologist. This report was verified electronically.
[2017-08-02] MEDS ORDERED: SODIUM CHLORIDE 0.9% FLUSH 10 ML FLUSH IV FLUSH PRN (09:30)
[2017-08-02] MEDS ORDERED: CHLORHEXIDINE GLUCONATE 2 % 1 PACK (2 CLOTHS) TOP PRN (09:30)
[2017-08-02] MEDS ORDERED: MISCELLANEOUS NURSING INFORMATION XX SCH (09:30)
[2017-08-02] MEDS ORDERED: ACETAMINOPHEN 325 MG TAB PO PRN (10:00)
[2017-08-02] MEDS ORDERED: RESP: ALBUTEROL 2.5 MG/IPRATROPIUM 0.5 MG NEB (PRN) INH (10:00)
[2017-08-02] MEDS ORDERED: MELATONIN 5 MG TAB PO PRN (10:00)
[2017-08-02] MEDS ORDERED: ONDANSETRON HCL 4 MG/2 ML VIAL IV PUSH PRN (10:00)
[2017-08-02] MEDS ORDERED: LACTULOSE SYRUP 20 GM/30 ML CUP PO PRN (10:00)
[2017-08-02] MEDS ORDERED: BISACODYL 10 MG SUPP RECTAL PRN (10:00)
--- NOTE | 2017-08-02 10:09 | HHI.PR ---
Addendum to Inpatient Note Addendum Reason: Additional Documentation Additional Information Zain Note S: Resident team was called on approximately 0700 for patient with respiratory distress. Patient is a 81-year-old male with past history of COPD who was at [facility] following a hospital stay. Patient reports he's been having difficulty breathing for approximately 2 hours. He typically has some minimal difficulty breathing however this is significantly above his baseline and has been worsening. He endorses productive cough, no blood present, shortness of breath, "feels like my COPD" He denies nausea, vomiting, fever, chills, chest pain, palpitations, pain in left arm or jaw, abdominal pain, lightheadedness, dizziness, change in vision. He had received DuoNeb's earlier this day however respiratory therapy reports he had been tachycardic following administration. The patient cannot pinpoint what makes the shores of breath better or worse, however it has been worsening with time. No other complaints at this time. O: GENERAL: Seated up in bed, apparent increased respiratory effort, can respond to questions however needs to take a breath after long sentences. SKIN: Warm and dry. Sellers cheeks. HEAD: Atraumatic. Normocephalic. EYES: Pupils equal and round. No scleral icterus. No injection or drainage. ENT: No nasal bleeding or discharge. Mucous membranes pink and moist. NECK: Trachea midline. No JVD. CARDIOVASCULAR: Regular rate and rhythm. RESPIRATORY: No accessory muscle use. Crackles heard predominantly in the right base, decreased breath sounds on the left, prolonged expiratory stage, bilateral wheezes, no rhonchi GASTROINTESTINAL: Abdomen soft, non-tender, nondistended. Hepatic and splenic margins not palpable. MUSCULOSKELETAL: Extremities without clubbing, cyanosis, or edema. No obvious deformities. NEUROLOGICAL: Awake and alert. No obvious cranial nerve deficits. Motor grossly within normal limits. Other than noted above, normal speech. PSYCHIATRIC: Appropriate mood and affect; insight and judgment normal. A/P 81-year-old male with past history of COPD with increasing shortness of breath. Decreased breath sounds on left, crackles on right. -Methylprednisolone 125 mg IV once -Ipratropium 0.5 mg every 2 hours nebulized -Follow up chest x-ray -Follow-up EKG -Transfer to ICU for respiratory distress with worsening symptoms Suhail Hermosillo MD R1 Aug 02, 2017 10:09
[2017-08-02] MEDS: RESP: ALBUTEROL 2.5 MG/IPRATROPIUM 0.5 MG NEB (SCH) INH ×3 (10:29→20:05)
[2017-08-02] MEDS: predniSONE 5 MG TAB PO SCH ×2 (11:00→21:41)
[2017-08-02] MEDS ORDERED: SENNOSIDES 8.6 MG TAB PO PRN (11:00)
[2017-08-02] MEDS ORDERED: MAGNESIUM HYDROXIDE SUSP 30 ML CUP PO PRN (11:00)
--- NOTE | 2017-08-02 14:10 | PD.CONS ---
HPI History of Present Illness This is a 81 year old male with hx COPD on O2, prostate ca who was admitted to [facility] for respiratory distress and falls, then transferred to [place] rehab where GI was consulted for GIB. per RN he had episode adriana red blood in loose stool this morning. He admits lower abd discomfort over the past few days. He denies prior hx GIB, n/v. Denies ever having had EGD and colonoscopy. Has been having SOB and low sats on exertion. Was on lovenox, this is currently held. Pt Zain called last night for dyspnea, blood pressure and pt was found to have pneumothorax, now s/p pigtail catheter left chest. No further bleeding. Pt and family wish to pursue EGD/colonoscopy tomorrow. Pt is limited historian. (Akua Del Toro) PFSH Past Medical History COPD Falls prostate ca Past Surgical History Kidney extracted for dontation dilatation urethra prostate surgery (Akua Del Toro) Coded Allergies: No Known Drug Allergies (Verified Allergy, Unknown, 07/20/17) Family History lung ca DM Social History denies etoh former smoker- 42y no illicit drug use (Akua Del Toro) Review of Systems Constitutional: COMPLAINS OF: Fatigue Eyes: DENIES: Blurred vision Ears, nose, mouth, throat: DENIES: Hearing loss Cardiovascular: DENIES: Chest pain Gastrointestinal: DENIES: Abdominal pain, Black stools, Bloody stools, Nausea, Vomiting Musculoskeletal: DENIES: Joint Swelling pt relatively noncontributory (Akua Del Toro) GI Exam Vitals I&O Vital Signs Date Time Temp Pulse Resp B/P (MAP) Pulse Ox O2 Delivery O2 Flow Rate FiO2 08/02/17 12:00 98.0 104 33 160/77 (104) 97 08/02/17 12:00 104 08/02/17 10:00 95 08/02/17 10:00 98.0 95 20 156/74 (101) 97 08/02/17 08:36 97 Nasal Cannula 4.00 08/02/17 08:00 100 08/02/17 08:00 97 Nasal Cannula 6.00 08/02/17 07:00 91 6.00 Imaging Last Impressions Chest X-Ray 08/02/17 0000 Signed Impressions: Service Date/Time: Wednesday, August 02, 2017 08:41 - CONCLUSION: Place the left chest tube with clearance of the majority of the pneumothorax slit like residual in the upper lobe apex. Abiodun Galan MD Laboratory Test 08/02/17 10:48 Physical Examination HEENT: PERRL normocephalic; atraumatic; no jaundice. CHEST: diminished CT left chest CARDIAC: RRR ABDOMEN: Soft, nondistended, nontender; no hepatosplenomegaly; bowel sounds are present in all four quadrants. EXTREMITIES: No clubbing, cyanosis, or edema. SKIN: Normal; no rash; no jaundice. TITLE INVESTIGATOR: lethargic but answers appropriately (Akua Del Toro) Assessment and Plan Plan ASSESSMENT - hematochezia - 1 x episode adriana blood in loose stool. pt denies hx GIB. per RN no bleeding independently of stool pt hesitant about EGD and colonoscopy. - anemia - mild, drop in hgb from 13.8 to 12.2 today. was on lovenox this is held. - leukocytosis - COPD pulmonology following 08/02/17 zain called last night for dyspnea, pt now s/p chest tube for pneumothorax. he is cleared by [facility] for colonoscopy and pt and family after discussion agree to have EGD and colonoscopy tomorrow. HH stable PLAN - will need EGD and colonoscopy tomorrow - obtain consent - clear liquids - NPO after MN - goLytely prep - monitor HH - transfuse if needed - continue to hold lovenox - further recs to follow pt seen by myself and Dr Hein and this note is written on his behalf (Akua Del Toro) Plan Patient was seen and examined, agree with above Notes, patient agrees now to have the endoscopy and colonoscopy, he was cleared by the inspector air carrier for these procedures tomorrow, we'll proceed if patient tolerated prep tomorrow (Red Hein MD) Akua Del Toro Aug 02, 2017 14:10 Red Hein MD Aug 02, 2017 19:26
[2017-08-02] MEDS ORDERED: PEG (High)/E-LYTE SOLN 4000 ML BTL PO ONE (16:00)
--- NOTE | 2017-08-02 19:15 | PD.PROCEDR ---
Procedure Note Procedure Percutaneous Pigtail Tube Thoracostomy Procedure Note 8 Romanian left-sided pigtail chest tube Diagnosis: Spontaneous pneumothorax Indications: Patient is a 81-year-old male with severe COPD who had sudden onset dyspnea was found have a spontaneous left-sided pneumothorax with respiratory distress Consent: Verbal consent was obtained from the patient, however the procedure is an emergent procedure and written consent was unobtainable. Anesthesia: 1% lidocaine locally Description of the Procedure: The patient was placed in the supine position. The arm was abducted above the head and secured. The left lateral chest was prepped and draped sterilely to include the axilla and nipple. 1% Lidocaine was infiltrated subcutaneously and into the tissues down to the periosteum of the rib. The 5th intercostal space was identified. A small incision was made using a #11 blade. At the mid-axillary line, a 8 Fr pigtail catheter with stylet and pencil point trochar introducer were inserted superior to the adjacent rib and the pigtail catheter was advanced over the trochar in a modified Seldinger Technique, easily and without resistance. The catheter was connected to a Pleur-o-vac and connected to [id number] suction. The catheter was sutured to the skin using a 2-0 silk sandal suture and an occlusive dressing was applied. There were no immediate complications noted. There was minimal EBL. The patient tolerated the procedure well. A Chest x-ray has been ordered. I personally performed the procedure. Octavio Harding MD Aug 02, 2017 19:15
--- NOTE | 2017-08-02 19:42 | MB ---
cc: ANDI HIGGINBOTHAM DATE OF CONSULTATION 08/02/[address] Harding. REASON FOR CONSULTATION Pulmonary management. HISTORY OF THE PRESENT ILLNESS Mr. Sosa is a pleasant elderly male with longstanding history of COPD who is oxygen dependent, anxiety disorder. The [facility] He became short of breath and chest x-ray shows he has moderate left pneumothorax. He was transferred to the [facility]. He had a left chest tube placed with resolution of the pneumothorax. He also was noted some blood in the stools. Dr. Hein is evaluating the patient. He is being planned for colonoscopy. LABORATORY FINDINGS Reveals hemoglobin 12.6, hematocrit 37.8. Sodium 131, potassium 3.6, chloride 87, CO2 38, BUN 18, creatinine 0.34. PAST MEDICAL HISTORY Significant for: 1. History of severe COPD. 2. Anxiety disorder. 3. History of right kidney donation. MEDICATIONS He is currently takin. Flomax 0.4 milligrams. 2. Claritin 10 milligrams. 3. Symbicort 160/ 4.5 two puffs twice a day. 4. Pravachol 20 mg a day. 5. Famotidine 20 mg a day. 6. Hydrochlorothiazide 12.5 milligrams daily. 7. Lisinopril 20 milligrams. 8. Lopressor 25 mg. 9. Prednisone 5 mg twice a day. 10. Albuterol/Atrovent nebulizer treatment. 11. Melatonin 5 mg at nighttime. ALLERGIES NO KNOWN DRUG ALLERGIES. SOCIAL HISTORY He is . He has history of smoking. There is no alcohol use. FAMILY HISTORY Noncontributory. REVIEW OF SYSTEMS He feels weak, tired, has mild chest discomfort. No abdominal pain. No nausea or vomiting. PHYSICAL EXAMINATION GENERAL: Elderly male, mild short of breath. VITAL SIGNS: Blood pressure 110/57, heart rate 117, respiratory rate 32, temperature 98.6. HEENT: Examination pupils are equal and reactive to light. Oral mucosa, nasal mucosa normal. NECK: Supple. JVP not raised. CHEST: He has left chest tube in place. No air leaks. CARDIOVASCULAR: S1-S2 normal. ABDOMEN: Benign. EXTREMITIES: No edema. IMPRESSION 1. Left pneumothorax status post chest tube placement and resolution of pneumothorax. 2. Severe COPD. 3. Anxiety disorder. 4. Deconditioning. 5. History of kidney donation. PLAN We will continue aerosol treatment, Symbicort twice a day. Supplement his oxygen. Continue hydrochlorothiazide. Continue chest tube to suction. Repeat chest x-ray in the morning. Further treatment will depend on the course in the hospital. Thank you Dr. Harding for this consultation. MD PANCHITO Christensen/YAS /6:56 PM /7:12 PM
[2017-08-02] MEDS: SODIUM CHLORIDE 0.9% FLUSH 10 ML FLUSH IV FLUSH SCH (21:00)
[2017-08-02] MEDS: busPIRone HCL 5 MG TAB PO SCH (21:41)
[2017-08-02] MEDS: LISINOPRIL 20 MG TAB PO SCH (21:41)
[2017-08-02] MEDS: METOPROLOL TARTRATE 25 MG TAB PO SCH (21:41)
[2017-08-02] MEDS: FAMOTIDINE 20 MG TAB PO SCH (21:41)
[2017-08-02] MEDS: HYDROCHLOROTHIAZIDE 12.5 MG CAP PO SCH (21:41)
[2017-08-02] MEDS: DOCUSATE SODIUM 50 MG/SENNA 8.6 MG TAB PO SCH (21:41)
[2017-08-03] VITALS: BP 176/82; PULSE 75; RESP 28; TEMP 98.1; O2SAT 98
[2017-08-03] MEDS: RESP: ALBUTEROL 2.5 MG/IPRATROPIUM 0.5 MG NEB (SCH) INH ×4 (03:28→19:40)
[2017-08-03 04:00] VITALS: BP 155/68; PULSE 82; RESP 21; TEMP 98.5; O2SAT 99
[2017-08-03] MEDS: CHLORHEXIDINE GLUCONATE 2 % 1 PACK (2 CLOTHS) TOP SCH (04:00)
--- NOTE | 2017-08-03 05:44 | RADRPT ---
EXAM DATE/TIME: 08/03/2017 04:20 [facility] COMPARISON: CHEST SINGLE AP, August 02, 2017, 8:41. INDICATIONS : Shortness of breath. MEDICAL HISTORY : Chronic obstructive pulmonary disease. Carcinoma, prostate. HTN, Donated right kidney SURGICAL HISTORY : Donated right kidney ENCOUNTER: Subsequent ACUITY: 2 weeks PAIN SCORE: Non-responsive. LOCATION: Bilateral chest FINDINGS: A single view of the chest demonstrates the lungs to be symmetrically aerated without evidence of mas s, infiltrate or effusion. Small caliber left chest tube present without pneumothorax. The cardiomed iastinal contours are unremarkable. Osseous structures are intact. CONCLUSION: 1. Small caliber left chest tube without evidence for pneumothorax on the current exam. Minimal basil ar atelectasis or scarring. Phil Sahu MD on August 03, 2017 at 5:41 Board Certified Radiologist. This report was verified electronically.
[2017-08-03 08:00] VITALS: BP 151/70; PULSE 89; RESP 20; TEMP 98.2; O2SAT 97
[2017-08-03] MEDS: HYDROCHLOROTHIAZIDE 12.5 MG CAP PO SCH ×2 (09:00→20:49)
[2017-08-03] MEDS: BUDESONIDE-FORMOTEROL 160/4.5 MCG INHALER INH SCH ×2 (09:00→20:51)
[2017-08-03] MEDS ORDERED: predniSONE 10 MG TAB PO SCH (09:00)
[2017-08-03] MEDS: predniSONE 5 MG TAB PO SCH (09:00)
[2017-08-03] MEDS ORDERED: SAW PALMETTO PO SCH (09:00)
[2017-08-03] MEDS: SODIUM CHLORIDE 0.9% FLUSH 10 ML FLUSH IV FLUSH SCH ×2 (09:00→20:50)
--- NOTE | 2017-08-03 09:18 | MB ---
cc: BARRETT HYDE M.D. DATE OF CONSULTATION 08/02/2017 REASON FOR CONSULTATION Left pneumothorax. HISTORY OF THE PRESENT ILLNESS Mr. Sosa is a 81-year-old male. He has a known history of COPD. Was recently hospitalized with COPD and exacerbation improved and sent to rehab at [facility]. Developed acute onset shortness of breath, respiratory distress with chest x-ray evidence of left pneumothorax for which a chest tube was placed. The patient was in intensive care unit at that point. He is presently still in intensive care unit. He is in no acute distress. He is generally weak, looks somewhat cachectic; however, he . PAST MEDICAL HISTORY Is that of: 1. Severe chronic obstructive pulmonary disease. 2. Hypertension. 3. Hyperlipidemia. 4. Prostatic hypertrophy. 5. As well as history of prostate cancer. 6. Donated a kidney to a child. SOCIAL HISTORY Remote smoking history, does not smoke industrial exposure. FAMILY HISTORY Noncontributory. MEDICATIONS . He is on Advair for underlying COPD as well as albuterol. REVIEW OF SYSTEMS Systems review, a 12 point review of systems as per the history of present illness and past history, otherwise negative. PHYSICAL EXAMINATION VITAL SIGNS: Temperature 98, pulse 90, respiratory rate 18, blood pressure 150/80. HEENT: Unremarkable. Eyes without icterus. NECK: Without adenopathy or thyroid enlargement. Central trachea. CHEST: Increased AP diameter noted. Left chest tube in place. ABDOMEN: Lax. Bowel sounds audible. EXTREMITIES: No clubbing, cyanosis or edema. IMAGING A chest x-ray post chest tube insertion without evidence of pneumothorax, minor residual at the apex. IMPRESSION 1. Spontaneous left pneumothorax. 2. Chronic obstructive pulmonary disease. 3. Benign prostatic hypertrophy. 4. Hypertension. PLAN 1. The patient will be maintained on oxygen therapy as needed. 2. Bronchodilator continued. 3. Remove chest tube when possible. Does not seem to be leaking at present. 4. I do thank you for asking me to partake in Mr. Sosa's care. Barrett Hyde MD WWW/YAS /3:39 PM /9:07 AM
--- NOTE | 2017-08-03 12:09 | GIPROC ---
[facility] [address] [facility]. [facility], [address] EGD PROCEDURE REPORT EXAM DATE: 08/03/2017 PATIENT NAME: Eduardo Sosa MR #: [id number] BIRTHDATE: 1935 ATTENDING: Danial Chambers MD ORDER #: [id number] EXECUTIVE PASTRY CHEF: Lavern De La Garza and Lashonda Coyle STATUS: inpatient INDICATIONS: The patient is a 81 yr old male here for an EGD due to acute post hemorrhagic anemia PROCEDURE PERFORMED: EGD w/ biopsy MEDICATIONS: None and Per Anesthesia. TOPICAL ANESTHETIC: CONSENT: The patient understands the risks and benefits of the procedure and understands that these risks include, but are not limited to: sedation, allergic reaction, infection, perforation and/or bleeding. Alternative means of evaluation and treatment include, among others: physical exam, x-rays, and/or surgical intervention. The patient elects to proceed with this endoscopic procedure. medical equipment was checked for proper function. Hand hygiene and appropriate measures for infection prevention was taken. After the risks, benefits and alternatives of the procedure were thoroughly explained, Informed consent was verified, confirmed and timeout was successfully executed by the treatment team. The patient was anesthetized with topical anesthesia and the EC-[id number] (Pedi C) endoscope was introduced through the mouth and advanced to the second portion of the duodenum. Retroflexed views revealed no abnormalities The gastroscope was then slowly withdrawn and removed. 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 The stricture was easily traversable. A biopsy was performed using cold forceps. Sample sent for histology. STOMACH: There was erythematous moderate gastritis in the gastric antrum. A biopsy was performed using cold forceps. Sample sent for histology. DUODENUM: The duodenal mucosa appeared normal in the bulb and second portion of the duodenum. ADVERSE EVENTS: There were no complications. IMPRESSIONS: 1. 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 There was erythematous gastritis in the gastric antrum; biopsy was performed 3. Normal duodenal mucosa in the bulb and second portion of the duodenum 4. Retroflexed views revealed no abnormalities RECOMMENDATIONS: 1. Await biopsy results. Biopsy results will not be ready for 7-10 days. If you don't hear from us in two weeks, call our office for biopsy results. 2. Anti-reflux regimen 3. Continue PPI PATIENT CONDITION: stable DISPOSITION: Inpatient REPEAT EXAM: Return 1 year EGD pending biopsy results Danial Chambers MD eSigned: Danial Chambers MD 08/03/2017 12:08 PM cc: PATIENT NAME: SelenenitaEduardo MR#: [id number]
[2017-08-03] MEDS ORDERED: PEG (High)/E-LYTE SOLN 4000 ML BTL PO ONE (13:00)
[2017-08-03] MEDS: busPIRone HCL 5 MG TAB PO SCH ×2 (13:31→20:49)
[2017-08-03] MEDS: LISINOPRIL 20 MG TAB PO SCH ×2 (13:31→20:50)
[2017-08-03] MEDS: MULTIVITAMIN TAB PO SCH (13:31)
[2017-08-03] MEDS: PRAVASTATIN SOD 20 MG TAB PO SCH (13:31)
[2017-08-03] MEDS: METOPROLOL TARTRATE 25 MG TAB PO SCH ×2 (13:31→20:50)
[2017-08-03] MEDS: ASCORBIC ACID 500 MG TAB PO SCH (13:31)
[2017-08-03] MEDS: LORATADINE 10 MG TAB PO SCH (13:32)
[2017-08-03] MEDS: TAMSULOSIN HCL 0.4 MG CAP PO SCH (13:32)
[2017-08-03] MEDS: DOCUSATE SODIUM 50 MG/SENNA 8.6 MG TAB PO SCH ×2 (13:32→20:49)
--- NOTE | 2017-08-03 14:44 | HHI.GIFU ---
Subjective Remarks Pt resting in bed. No GI complaints. Denies further rectal bleeding. REfusing colonoscopy. (Akua Del Toro) Objective Vitals I&O Vital Signs Date Time Temp Pulse Resp B/P (MAP) Pulse Ox O2 Delivery O2 Flow Rate FiO2 08/03/17 12:27 98.0 95 16 169/76 (107) 100 08/03/17 09:17 Nasal Cannula 3.00 08/03/17 08:00 98.2 89 20 151/70 (97) 97 08/03/17 07:00 Nasal Cannula 3.00 08/03/17 04:00 98.5 82 21 155/68 (97) 99 08/03/17 00:00 98.1 75 28 176/82 (113) 98 08/02/17 20:06 99 Nasal Cannula 3.00 08/02/17 20:00 98.3 94 25 153/71 (98) 98 08/02/17 19:00 98 Nasal Cannula 5.00 08/02/17 18:00 108 08/02/17 16:00 117 08/02/17 16:00 98.6 117 32 110/57 (74) 92 I/O 08/02/17 08/02/17 08/02/17 08/03/17 08/03/17 08/03/17 07:00 15:00 23:00 07:00 15:00 23:00 Intake Total 1000 ml 480 ml 500 ml Output Total 286 ml 455 ml Balance 714 ml 25 ml 500 ml Intake Oral 1000 ml 480 ml Other 500 ml Output Urine Total 250 ml 450 ml Chest Tube Drainage Total 36 ml 5 ml # Bowel Movements 2 0 Imaging Last Impressions Chest X-Ray 08/03/17 0600 Signed Impressions: Service Date/Time: Thursday, August 03, 2017 04:20 - CONCLUSION: 1. Small caliber left chest tube without evidence for pneumothorax on the current exam. Minimal basilar atelectasis or scarring. Phil Sahu MD Physical Exam HEENT: PERRL; normocephalic; atraumatic; no jaundice. CHEST: diminished, chest tube left side CARDIAC: RRR ABDOMEN: Soft, nondistended, nontender; no hepatosplenomegaly; bowel sounds are present in all four quadrants. EXTREMITIES: No clubbing, cyanosis, or edema. SKIN: Normal; no rash; no jaundice. CLIN APPLICATION SPECIALIST: lethargic, answers appropriately (Akua Del Toro) Assessment and Plan Plan ASSESSMENT - hematochezia - 1 x episode adriana blood in loose stool. pt denies hx GIB. per RN no bleeding independently of stool pt hesitant about EGD and colonoscopy. - anemia - mild, drop in hgb from 13.8 to 12.2 today. was on lovenox this is held. - leukocytosis - COPD pulmonology following 08/02/17 nikolast called last night for dyspnea, pt now s/p chest tube for pneumothorax. he is cleared by [facility] for colonoscopy and pt and family after discussion agree to have EGD and colonoscopy tomorrow. HH stable 08/03/17 s/p EGD found erythematous gastritis, refused colonoscopy. PLAN - PPI - Await bx - monitor labs - transfuse if needed - supportive care - GI will sign off, please reconsult if needed pt seen by myself and Dr Hein and this note is written on his behalf (Akua Del Toro) Plan Patient was seen and examined, agree with above-noted, shouldn't refusing any colonoscopy, we will sign off at this time (Red Hein MD) Akua Del Toro Aug 03, 2017 14:43 Red Hein MD Aug 03, 2017 16:18
[2017-08-03 16:00] VITALS: BP 126/60; PULSE 82; RESP 20; TEMP 98.4; O2SAT 95
--- NOTE | 2017-08-03 16:56 | HHI.PR ---
Subjective Remarks The pt was ordering dinner. He said he didn't want to drink the colonoscopy prep. He has not noticed further bleeding. Discussed with nursing. Objective Vitals Vital Signs Date Time Temp Pulse Resp B/P (MAP) Pulse Ox O2 Delivery O2 Flow Rate FiO2 08/03/17 12:27 98.0 95 16 169/76 (107) 100 08/03/17 09:17 Nasal Cannula 3.00 08/03/17 08:00 98.2 89 20 151/70 (97) 97 08/03/17 07:00 Nasal Cannula 3.00 08/03/17 04:00 98.5 82 21 155/68 (97) 99 08/03/17 00:00 98.1 75 28 176/82 (113) 98 08/02/17 20:06 99 Nasal Cannula 3.00 08/02/17 20:00 98.3 94 25 153/71 (98) 98 08/02/17 19:00 98 Nasal Cannula 5.00 08/02/17 18:00 108 I/O 08/02/17 08/02/17 08/02/17 08/03/17 08/03/17 08/03/17 07:00 15:00 23:00 07:00 15:00 23:00 Intake Total 1000 ml 480 ml 500 ml Output Total 286 ml 455 ml Balance 714 ml 25 ml 500 ml Intake Oral 1000 ml 480 ml Other 500 ml Output Urine Total 250 ml 450 ml Chest Tube Drainage Total 36 ml 5 ml # Bowel Movements 2 0 Imaging Last Impressions Chest X-Ray 08/03/17 0600 Signed Impressions: Service Date/Time: Thursday, August 03, 2017 04:20 - CONCLUSION: 1. Small caliber left chest tube without evidence for pneumothorax on the current exam. Minimal basilar atelectasis or scarring. Phil Sahu MD Objective Remarks GENERAL: Resting comfortably. SKIN: No rashes, left foot toe with ecchymosis, left heel with fluid-filled blister. Cool and dry. HEAD: Atraumatic. Normocephalic. EYES: Pupils equal round and reactive. Extraocular motions intact. No scleral icterus. No injection or drainage. ENT: Nose without bleeding, purulent drainage. Throat without erythema. Airway patent. NECK: Trachea midline. No JVD. Supple, nontender. CARDIOVASCULAR: Tachycardic without murmurs, gallops, or rubs. RESPIRATORY: Very diminished throughout. GASTROINTESTINAL: Abdomen soft, non-tender, nondistended. No palpable masses. No guarding. MUSCULOSKELETAL: Extremities without clubbing, cyanosis, or edema. No joint tenderness, effusion, or edema noted. NEUROLOGICAL: Awake and alert. Cranial nerves grossly intact motor and sensory grossly within normal limits. Moves all extremities. Medications and IVs Current Medications Medications (Trade) Dose Ordered Sig/Godfrey Route Start Time Stop Time Status Last Admin (Duoneb Neb) 1 ampule Q6HR NEB INH 08/02/17 11:00 08/03/17 16:04 (Duoneb Neb) 1 ampule Q2HR NEB PRN INH 08/02/17 10:00 (NS Flush) 2 ml UNSCH PRN IV FLUSH 08/02/17 09:30 08/03/17 10:32 (NS Flush) 2 ml BID IV FLUSH 08/02/17 21:00 08/03/17 09:00 (Tylenol) 650 mg Q6H PRN PO 08/02/17 10:00 (Zofran Inj) 4 mg Q6H PRN IV PUSH 08/02/17 10:00 Miscellaneous Information 1 Q361D XX 08/02/17 09:30 08/02/17 09:30 (Chlorhexidine 2% Cloth) 3 pack Taper DAILY@04 TOP 08/03/17 04:00 07/30/18 03:59 08/03/17 04:00 (Chlorhexidine 2% Cloth) 3 pack UNSCH PRN TOP 08/02/17 09:30 (Cecilia-Colace) 1 tab BID PO 08/02/17 21:00 08/03/17 13:32 (Milk Of Magnesia Liq) 30 ml Q12H PRN PO 08/02/17 11:00 (Senokot) 17.2 mg Q12H PRN PO 08/02/17 11:00 (Dulcolax Supp) 10 mg DAILY PRN RECTAL 08/02/17 10:00 (Lactulose Liq) 30 ml DAILY PRN PO 08/02/17 10:00 (Buspar) 5 mg Q12HR PO 08/02/17 21:00 08/03/17 13:31 (Pepcid) 20 mg HS PO 08/02/17 21:00 08/02/17 21:41 (Microzide) 12.5 mg BID PO 08/02/17 21:00 08/03/17 09:00 (Prinivil) 20 mg BID PO 08/02/17 21:00 08/03/17 13:31 (Melatonin) 5 mg HS PRN PO 08/02/17 10:00 (Lopressor) 25 mg Q12HR PO 08/02/17 21:00 08/03/17 13:31 (Deltasone) 5 mg Taper BID PO 08/02/17 11:00 08/07/17 06:59 08/03/17 09:00 (Flomax) 0.4 mg DAILY PO 08/03/17 09:00 08/03/17 13:32 (Vitamin C) 1,000 mg DAILY PO 08/03/17 09:00 08/03/17 13:31 (Claritin) 10 mg DAILY PO 08/03/17 09:00 08/03/17 13:32 (Symbicort 160-4.5 Mcg Inh) 2 puff BID INH 08/03/17 09:00 08/03/17 09:00 (Theragran) 1 tab DAILY PO 08/03/17 09:00 08/03/17 13:31 (Pravachol) 20 mg DAILY PO 08/03/17 09:00 08/03/17 13:31 A/P Assessment and Plan Acute on chronic respiratory failure secondary to acute left sided pneumothorax Halicat called, transferred to [facility] and console attendant was consulted. CXR reveals moderate sized PTX on the left with mediastinal shift to the right. S/p chest tube. Pulmonology consult appreciated. - continue supplemental oxygen to maintain O2 sats. - nebs. - follow up with pulmonology. Severe COPD O2 dependent - Continue nasal cannula. - Continue oral steroids, tapered dose. - Continue Symbicort along with 4 times a day duo nebs. - Pulmonary following as well. Leukocytosis Patient has been afebrile, no obvious source of infection identified. UA checked on 07/29 negative. Chest x-ray completed on 07/31 reviewed, stable appearance of emphysema. No evidence of acute pulmonary disease. Suspect leukocytosis is secondary to steroid use. Patient was recently treated for Pseudomonas in the sputum. - Productive cough, obtain sputum culture and treat accordingly. Rectal bleeding Hematochezia. Drop from 13.8-->11.3. - Lovenox held. - GI consult placed, appreciate recommendations. EGD showed erythematous gastritis. Refused prep for colonoscopy. - Continue monitoring for bleeding and monitoring H&H. BPH Patient with history of ureter dilatation with Hernandez catheter in place. - Continue Flomax and catheter, monitor for signs of infection. HTN, uncontrolled/ Tachycardia Blood pressure fluctuating. - Continue hydrochlorothiazide to 12.5 mg daily, lisinopril 20 mg twice a day and metoprolol 25mg BID. - Vasotec as needed. DVT prophylaxis: Lovenox on hold secondary to rectal bleeding Suhail Mcgregor DO Aug 03, 2017 16:56
[2017-08-03] MEDS ORDERED: ENALAPRILAT 1.25 MG/ML VIAL IV PUSH PRN (17:15)
[2017-08-03 20:00] VITALS: BP 153/71; PULSE 95; RESP 18; TEMP 97.6; O2SAT 93
--- NOTE | 2017-08-03 20:30 | HHI.PR ---
Subjective Remarks 81 YOWM with Severe COPd,Left PTX Mild sob On Oxymask Chest tube no air leak CXR no ptx Objective Vital Signs Vital Signs Date Time Temp Pulse Resp B/P (MAP) Pulse Ox O2 Delivery O2 Flow Rate FiO2 08/03/17 16:00 98.4 82 20 126/60 (82) 95 08/03/17 12:27 98.0 95 16 169/76 (107) 100 08/03/17 09:17 Nasal Cannula 3.00 08/03/17 08:00 98.2 89 20 151/70 (97) 97 08/03/17 07:00 Nasal Cannula 3.00 08/03/17 04:00 98.5 82 21 155/68 (97) 99 08/03/17 00:00 98.1 75 28 176/82 (113) 98 I/O 08/02/17 08/02/17 08/02/17 08/03/17 08/03/17 08/03/17 07:00 15:00 23:00 07:00 15:00 23:00 Intake Total 1000 ml 480 ml 500 ml 360 ml Output Total 286 ml 455 ml 375 ml Balance 714 ml 25 ml 500 ml -15 ml Intake Oral 1000 ml 480 ml 360 ml Other 500 ml Output Urine Total 250 ml 450 ml 375 ml Chest Tube Drainage Total 36 ml 5 ml # Bowel Movements 2 0 0 Objective Remarks GENERAL: Elderly Wm, mild sob SKIN: Warm and dry. HEAD: Normocephalic. EYES: No scleral icterus. No injection or drainage. NECK: Supple, trachea midline. No JVD or lymphadenopathy. CARDIOVASCULAR: Regular rate and rhythm without murmurs, gallops, or rubs. RESPIRATORY: Breath sounds equal bilaterally. No accessory muscle use. Left Chest tube in place GASTROINTESTINAL: Abdomen soft, non-tender, nondistended. MUSCULOSKELETAL: No cyanosis, or edema. BACK: Nontender without obvious deformity. No CVA tenderness. A/P Assessment and Plan Severe COPD PTX S/P Left Chest tube Anxiety PLAN: Chest tube to water seal CXR in AM Aerosol nebs Supplement 02 Denys Pratt MD Aug 03, 2017 20:30
[2017-08-03] MEDS: FAMOTIDINE 20 MG TAB PO SCH (20:49)
[2017-08-04] VITALS (8 sets, daily range): BP systolic 116–158; BP diastolic 56–74; PULSE 74–102; RESP 16–20; TEMP 97.6–98; O2SAT 94–98
[2017-08-04] MEDS: RESP: ALBUTEROL 2.5 MG/IPRATROPIUM 0.5 MG NEB (SCH) INH ×4 (02:47→21:27)
[2017-08-04] MEDS: CHLORHEXIDINE GLUCONATE 2 % 1 PACK (2 CLOTHS) TOP SCH (04:00)
--- NOTE | 2017-08-04 08:23 | RADRPT ---
EXAM DATE/TIME: 08/04/2017 08:00 [facility] COMPARISON: CHEST SINGLE AP, August 03, 2017, 4:20. INDICATIONS : Short of breath, evaluate pneumothorax MEDICAL HISTORY : Chronic obstructive pulmonary disease. carcinoma prostate SURGICAL HISTORY : Nephrectomy, right. Chest tube left side ENCOUNTER: Subsequent ACUITY: 2 weeks PAIN SCORE: Non-responsive. LOCATION: Left chest FINDINGS: Lungs clear for expiratory technique. Left chest tube remains in place. No pneumothorax. Heart size s table within normal limits. CONCLUSION: No pneumothorax or other acute disease. Left chest tube remains in place. Eduardo Orozco MD on August 04, 2017 at 8:18 Board Certified Radiologist. This report was verified electronically.
[2017-08-04 08:27] LABS: HEMATOCRIT 33.1 % (39.0-51.0); MEAN CELL VOLUME 85.1 FL (80.0-100.0); MEAN CORPUSCULAR HEMOGLOBIN 28.4 PG (27.0-34.0); MEAN CORPUSCULAR HGB CONC 33.4 % (32.0-36.0); MEAN PLATELET VOLUME 7.8 FL (7.0-11.0); PLATELET COUNT 350 TH/MM3 (150-450); RED BLOOD COUNT 3.89 MIL/MM3 (4.50-5.90); RED CELL DISTRIBUTION WIDTH 14.3 % (11.6-17.2); WHITE BLOOD COUNT 12.1 TH/MM3 (4.0-11.0)
[2017-08-04 09:01] LABS: BICARBONATE 37.9 MEQ/L (21.0-32.0); CALCIUM 8.7 MG/DL (8.5-10.1); CREATININE 0.27 MG/DL (0.60-1.30); MAGNESIUM 1.7 MG/DL (1.5-2.5)
[2017-08-04] MEDS: LORATADINE 10 MG TAB PO SCH (10:08)
[2017-08-04] MEDS: TAMSULOSIN HCL 0.4 MG CAP PO SCH (10:08)
[2017-08-04] MEDS: DOCUSATE SODIUM 50 MG/SENNA 8.6 MG TAB PO SCH ×2 (10:08→21:10)
[2017-08-04] MEDS: METOPROLOL TARTRATE 25 MG TAB PO SCH ×2 (10:08→21:10)
[2017-08-04] MEDS: HYDROCHLOROTHIAZIDE 12.5 MG CAP PO SCH (10:09)
[2017-08-04] MEDS: MULTIVITAMIN TAB PO SCH (10:09)
[2017-08-04] MEDS: busPIRone HCL 5 MG TAB PO SCH ×2 (10:09→21:10)
[2017-08-04] MEDS: PRAVASTATIN SOD 20 MG TAB PO SCH (10:09)
[2017-08-04] MEDS: predniSONE 5 MG TAB PO SCH (10:09)
[2017-08-04] MEDS: LISINOPRIL 20 MG TAB PO SCH ×2 (10:09→21:11)
[2017-08-04] MEDS: ASCORBIC ACID 500 MG TAB PO SCH (10:09)
[2017-08-04] MEDS: SODIUM CHLORIDE 0.9% FLUSH 10 ML FLUSH IV FLUSH SCH ×2 (10:10→21:11)
[2017-08-04] MEDS: BUDESONIDE-FORMOTEROL 160/4.5 MCG INHALER INH SCH ×2 (10:10→21:11)
--- NOTE | 2017-08-04 14:27 | HHI.PR ---
Subjective Remarks The patient was resting in bed comfortably. He requested that I call his . He denied any further bleeding. No acute complaints at this time. Objective Vitals Vital Signs Date Time Temp Pulse Resp B/P (MAP) Pulse Ox O2 Delivery O2 Flow Rate FiO2 08/04/17 08:32 96 Nasal Cannula 2.00 08/04/17 08:00 97.9 98 20 158/74 (102) 98 08/04/17 04:00 98.0 78 20 141/70 (93) 96 08/04/17 00:00 97.6 74 20 126/62 (83) 97 08/03/17 20:00 Nasal Cannula 2.00 08/03/17 20:00 97.6 95 18 153/71 (98) 93 08/03/17 16:00 98.4 82 20 126/60 (82) 95 I/O 08/03/17 08/03/17 08/03/17 08/04/17 08/04/17 08/04/17 07:00 15:00 23:00 07:00 15:00 23:00 Intake Total 480 ml 500 ml 360 ml 220 ml Output Total 455 ml 375 ml 800 ml Balance 25 ml 500 ml -15 ml -580 ml Intake Oral 480 ml 360 ml 220 ml Other 500 ml Output Urine Total 450 ml 375 ml 800 ml Chest Tube Drainage Total 5 ml # Bowel Movements 0 0 0 Result Diagram: 08/04/17 0720 08/04/17 0720 Imaging Last Impressions Chest X-Ray 08/04/17 0600 Signed Impressions: Service Date/Time: August 08:00 - CONCLUSION: No pneumothorax or other acute disease. Left chest tube remains in place. Eduardo Orozco MD Objective Remarks GENERAL: Resting comfortably. SKIN: No rashes, left foot toe with ecchymosis, left heel with fluid-filled blister. Cool and dry. HEAD: Atraumatic. Normocephalic. EYES: Pupils equal round and reactive. Extraocular motions intact. No scleral icterus. No injection or drainage. ENT: Nose without bleeding, purulent drainage. Throat without erythema. Airway patent. NECK: Trachea midline. No JVD. Supple, nontender. CARDIOVASCULAR: Tachycardic without murmurs, gallops, or rubs. RESPIRATORY: Very diminished throughout. GASTROINTESTINAL: Abdomen soft, non-tender, nondistended. No palpable masses. No guarding. MUSCULOSKELETAL: Extremities without clubbing, cyanosis, or edema. No joint tenderness, effusion, or edema noted. NEUROLOGICAL: Awake and alert. Cranial nerves grossly intact motor and sensory grossly within normal limits. Moves all extremities. Medications and IVs Current Medications Medications (Trade) Dose Ordered Sig/Godfrey Route Start Time Stop Time Status Last Admin (Duoneb Neb) 1 ampule Q6HR NEB INH 08/02/17 11:00 08/04/17 08:32 (Duoneb Neb) 1 ampule Q2HR NEB PRN INH 08/02/17 10:00 (NS Flush) 2 ml UNSCH PRN IV FLUSH 08/02/17 09:30 08/03/17 10:32 (NS Flush) 2 ml BID IV FLUSH 08/02/17 21:00 08/04/17 10:10 (Tylenol) 650 mg Q6H PRN PO 08/02/17 10:00 (Zofran Inj) 4 mg Q6H PRN IV PUSH 08/02/17 10:00 Miscellaneous Information 1 Q361D XX 08/02/17 09:30 08/02/17 09:30 (Chlorhexidine 2% Cloth) 3 pack Taper DAILY@04 TOP 08/03/17 04:00 07/30/18 03:59 08/04/17 04:00 (Chlorhexidine 2% Cloth) 3 pack UNSCH PRN TOP 08/02/17 09:30 (Cecilia-Colace) 1 tab BID PO 08/02/17 21:00 08/04/17 10:08 (Milk Of Magnesia Liq) 30 ml Q12H PRN PO 08/02/17 11:00 (Senokot) 17.2 mg Q12H PRN PO 08/02/17 11:00 (Dulcolax Supp) 10 mg DAILY PRN RECTAL 08/02/17 10:00 (Lactulose Liq) 30 ml DAILY PRN PO 08/02/17 10:00 (Buspar) 5 mg Q12HR PO 08/02/17 21:00 08/04/17 10:09 (Pepcid) 20 mg HS PO 08/02/17 21:00 08/03/17 20:49 (Prinivil) 20 mg BID PO 08/02/17 21:00 08/04/17 10:09 (Melatonin) 5 mg HS PRN PO 08/02/17 10:00 (Lopressor) 25 mg Q12HR PO 08/02/17 21:00 08/04/17 10:08 (Deltasone) 5 mg Taper DAILY PO 08/02/17 11:00 08/07/17 06:59 08/04/17 10:09 (Flomax) 0.4 mg DAILY PO 08/03/17 09:00 08/04/17 10:08 (Vitamin C) 1,000 mg DAILY PO 08/03/17 09:00 08/04/17 10:09 (Claritin) 10 mg DAILY PO 08/03/17 09:00 08/04/17 10:08 (Symbicort 160-4.5 Mcg Inh) 2 puff BID INH 08/03/17 09:00 08/04/17 10:10 (Theragran) 1 tab DAILY PO 08/03/17 09:00 08/04/17 10:09 (Pravachol) 20 mg DAILY PO 08/03/17 09:00 08/04/17 10:09 (Vasotec Inj) 1.25 mg Q6H PRN IV PUSH 08/03/17 17:15 (Norvasc) 5 mg DAILY PO 08/05/17 09:00 A/P Assessment and Plan Acute on chronic respiratory failure secondary to acute left sided pneumothorax Halicat called, transferred to [facility] and matrix bath attendant was consulted. CXR reveals moderate sized PTX on the left with mediastinal shift to the right. S/p chest tube. Pulmonology consult appreciated. - continue supplemental oxygen to maintain O2 sats. - nebs. - follow up with pulmonology. Chest tube has been placed to waterseal. Severe COPD O2 dependent. - Continue nasal cannula. - Continue oral steroids, tapered dose. - Continue Symbicort along with 4 times a day duo nebs. - Pulmonary following. Leukocytosis Patient has been afebrile, no obvious source of infection identified. UA checked on 07/29 negative. Chest x-ray completed on 07/31 reviewed, stable appearance of emphysema. No evidence of acute pulmonary disease. Suspect leukocytosis is secondary to steroid use. Patient was recently treated for Pseudomonas in the sputum. - Productive cough, obtain sputum culture and treat accordingly. Rectal bleeding Hematochezia. Drop from 13.8-->11.3. - Lovenox held. - GI consult placed, appreciate recommendations. EGD showed erythematous gastritis. Refused prep for colonoscopy. - Continue monitoring for bleeding and monitoring H&H. BPH Patient with history of ureter dilatation with Hernandez catheter in place. - Continue Flomax and catheter, monitor for signs of infection. HTN, uncontrolled/ Tachycardia Blood pressure fluctuating. - Continue lisinopril 20 mg twice a day and metoprolol 25mg BID. - DC her chlorothiazide secondary to hyponatremia. Add amlodipine 5 mg by mouth daily. - Vasotec as needed. DVT prophylaxis: Lovenox on hold secondary to rectal bleeding Discharge Planning Awaiting removal of chest tube, then transfer back to Suhail Jorgensen DO Aug 04, 2017 14:27
--- NOTE | 2017-08-04 20:00 | HHI.PR ---
Subjective Remarks 81 YOWM with Severe COPd,Left PTX Mild sob On Oxymask Chest tube on water seal CXR no ptx Objective Vital Signs Vital Signs Date Time Temp Pulse Resp B/P (MAP) Pulse Ox O2 Delivery O2 Flow Rate FiO2 08/04/17 16:00 97.7 102 20 116/63 (80) 95 08/04/17 12:00 97.6 85 20 117/56 (76) 94 08/04/17 08:32 96 Nasal Cannula 2.00 08/04/17 08:00 Nasal Cannula 2.00 08/04/17 08:00 97.9 98 20 158/74 (102) 98 08/04/17 04:00 98.0 78 20 141/70 (93) 96 08/04/17 00:00 97.6 74 20 126/62 (83) 97 08/03/17 20:00 Nasal Cannula 2.00 08/03/17 20:00 97.6 95 18 153/71 (98) 93 I/O 08/03/17 08/03/17 08/03/17 08/04/17 08/04/17 08/04/17 07:00 15:00 23:00 07:00 15:00 23:00 Intake Total 480 ml 500 ml 360 ml 220 ml 720 ml Output Total 455 ml 375 ml 800 ml 950 ml Balance 25 ml 500 ml -15 ml -580 ml -230 ml Intake Oral 480 ml 360 ml 220 ml 720 ml Other 500 ml Output Urine Total 450 ml 375 ml 800 ml 950 ml Chest Tube Drainage Total 5 ml # Bowel Movements 0 0 0 1 Result Diagram: 08/04/1720 08/04/17 0720 Objective Remarks GENERAL: Elderly Wm, mild sob SKIN: Warm and dry. HEAD: Normocephalic. EYES: No scleral icterus. No injection or drainage. NECK: Supple, trachea midline. No JVD or lymphadenopathy. CARDIOVASCULAR: Regular rate and rhythm without murmurs, gallops, or rubs. RESPIRATORY: Breath sounds equal bilaterally. No accessory muscle use. Left Chest tube in place GASTROINTESTINAL: Abdomen soft, non-tender, nondistended. MUSCULOSKELETAL: No cyanosis, or edema. BACK: Nontender without obvious deformity. No CVA tenderness. A/P Assessment and Plan Severe COPD PTX S/P Left Chest tube Anxiety PLAN: CXR in AM Aerosol nebs Supplement 02 Clamp chest tube DW Santa,Denys Medina MD Aug 04, 2017 20:00
[2017-08-04] MEDS: FAMOTIDINE 20 MG TAB PO SCH (21:10)
[2017-08-05] VITALS (9 sets, daily range): BP systolic 118–168; BP diastolic 56–81; PULSE 85–90; RESP 16–20; TEMP 97.4–98.5; O2SAT 90–96
[2017-08-05] MEDS: RESP: ALBUTEROL 2.5 MG/IPRATROPIUM 0.5 MG NEB (SCH) INH ×4 (03:27→21:23)
[2017-08-05] MEDS: CHLORHEXIDINE GLUCONATE 2 % 1 PACK (2 CLOTHS) TOP SCH (04:00)
[2017-08-05 07:17] LABS: HEMATOCRIT 31.9 % (39.0-51.0); HEMOGLOBIN 10.5 GM/DL (13.0-17.0); MEAN CELL VOLUME 85.5 FL (80.0-100.0); MEAN CORPUSCULAR HEMOGLOBIN 28.2 PG (27.0-34.0); PLATELET COUNT 337 TH/MM3 (150-450); RED BLOOD COUNT 3.73 MIL/MM3 (4.50-5.90); RED CELL DISTRIBUTION WIDTH 14.5 % (11.6-17.2); WHITE BLOOD COUNT 12.7 TH/MM3 (4.0-11.0)
[2017-08-05 07:43] LABS: BICARBONATE 36.7 MEQ/L (21.0-32.0); CALCIUM 8.4 MG/DL (8.5-10.1); CREATININE 0.25 MG/DL (0.60-1.30); MAGNESIUM 1.7 MG/DL (1.5-2.5)
--- NOTE | 2017-08-05 08:54 | RADRPT ---
EXAM DATE/TIME: 08/05/2017 06:21 [facility] COMPARISON: CHEST SINGLE AP, August 04, 2017, 8:00. INDICATIONS : Shortnest of breath. MEDICAL HISTORY : Chronic obstructive pulmonary disease. Carcinoma, prostate. HTN, SURGICAL HISTORY : Donated right kidney ENCOUNTER: Subsequent ACUITY: 1 day PAIN SCORE: 0/10 LOCATION: Bilateral chest FINDINGS: A single view of the chest demonstrates the lungs to be symmetrically aerated without evidence of mas s, infiltrate or effusion. Left sided chest tube. No pneumothorax. The cardiomediastinal contours are unremarkable. Osseous structures are intact. CONCLUSION: Left-sided chest tube without pneumothorax. Bill Vences MD on August 05, 2017 at 8:48 Board Certified Radiologist. This report was verified electronically.
[2017-08-05] MEDS: BUDESONIDE-FORMOTEROL 160/4.5 MCG INHALER INH SCH ×2 (09:34→20:19)
[2017-08-05] MEDS: METOPROLOL TARTRATE 25 MG TAB PO SCH ×2 (09:35→20:18)
[2017-08-05] MEDS: MULTIVITAMIN TAB PO SCH (09:35)
[2017-08-05] MEDS: predniSONE 5 MG TAB PO SCH (09:35)
[2017-08-05] MEDS: TAMSULOSIN HCL 0.4 MG CAP PO SCH (09:35)
[2017-08-05] MEDS: LISINOPRIL 20 MG TAB PO SCH ×2 (09:35→20:18)
[2017-08-05] MEDS: LORATADINE 10 MG TAB PO SCH (09:35)
[2017-08-05] MEDS: PRAVASTATIN SOD 20 MG TAB PO SCH (09:35)
[2017-08-05] MEDS: DOCUSATE SODIUM 50 MG/SENNA 8.6 MG TAB PO SCH ×2 (09:35→20:18)
[2017-08-05] MEDS: busPIRone HCL 5 MG TAB PO SCH ×2 (09:35→20:18)
[2017-08-05] MEDS: amLODIPine BESYLATE 5 MG TAB PO SCH (09:35)
[2017-08-05] MEDS: SODIUM CHLORIDE 0.9% FLUSH 10 ML FLUSH IV FLUSH SCH ×2 (09:35→20:18)
[2017-08-05] MEDS: ASCORBIC ACID 500 MG TAB PO SCH (09:37)
[2017-08-05] MEDS: POTASSIUM CHLORIDE 20 MEQ CONTROLLED RELEASE TAB PO SCH ×2 (10:59→14:00)
--- NOTE | 2017-08-05 13:00 | RADRPT ---
EXAM DATE/TIME: 08/05/2017 11:45 [facility] COMPARISON: CHEST SINGLE AP, August 05, 2017, 6:21. INDICATIONS : Post chest tube removal. MEDICAL HISTORY : Chronic obstructive pulmonary disease. Carcinoma, prostate. HTN. SURGICAL HISTORY : Donated right kidney, left side chest tube placement. ENCOUNTER: Subsequent ACUITY: 1 day PAIN SCORE: 0/10 LOCATION: Bilateral chest FINDINGS: Portable AP view of the chest demonstrates a normal-sized cardiac silhouette with calcification of th e aorta. Lungs are hyperexpanded. The left chest tube has been removed. No pneumothorax is visualized . There is a conspicuous skinfold on the right. The bones and soft tissues demonstrate no acute findi ng. CONCLUSION: No pneumothorax following left chest tube removal. Eduardo Rudolph MD on August 05, 2017 at 12:56 Board Certified Radiologist. This report was verified electronically.
--- NOTE | 2017-08-05 14:19 | HHI.PR ---
Subjective Remarks The patient was resting comfortably in bed. He had just recently had his chest tube removed. He indicated mild soreness at the site of the former chest tube. Discussed with his at the bedside. Discussed with nursing. Objective Vitals Vital Signs Date Time Temp Pulse Resp B/P (MAP) Pulse Ox O2 Delivery O2 Flow Rate FiO2 08/05/17 12:00 97.4 85 18 142/64 (90) 95 08/05/17 11:29 95 Nasal Cannula 2.00 08/05/17 08:00 98.2 90 16 147/68 (94) 94 08/05/17 04:55 97.7 90 20 118/56 (76) 95 08/05/17 03:29 96 08/05/17 00:55 97.7 85 20 168/81 (110) 96 08/04/17 21:30 97 08/04/17 20:51 97.8 86 16 135/64 (87) 97 08/04/17 20:00 Nasal Cannula 2.00 08/04/17 16:00 97.7 102 20 116/63 (80) 95 I/O 08/04/17 08/04/17 08/04/17 08/05/17 08/05/17 08/05/17 07:00 15:00 23:00 07:00 15:00 23:00 Intake Total 220 ml 720 ml 80 ml Output Total 800 ml 950 ml 100 ml Balance -580 ml -230 ml -20 ml Intake Oral 220 ml 720 ml 80 ml Output Urine Total 800 ml 950 ml 100 ml # Bowel Movements 0 1 Result Diagram: 08/05/17 0530 08/05/17 0530 Imaging Last Impressions Chest X-Ray 08/05/17 0600 Signed Impressions: Service Date/Time: Saturday, August 05, 2017 06:21 - CONCLUSION: Left-sided chest tube without pneumothorax. Bill Vences MD Objective Remarks GENERAL: Resting comfortably. SKIN: No rashes. Cool and dry. HEAD: Atraumatic. Normocephalic. EYES: Pupils equal round and reactive. Extraocular motions intact. No scleral icterus. No injection or drainage. ENT: Nose without bleeding, purulent drainage. Throat without erythema. Airway patent. NECK: Trachea midline. No JVD. Supple, nontender. CARDIOVASCULAR: Regular rate and rhythm without murmurs, gallops, or rubs. RESPIRATORY: Clear to auscultation bilaterally. GASTROINTESTINAL: Abdomen soft, non-tender, nondistended. No palpable masses. No guarding. MUSCULOSKELETAL: Extremities without clubbing, cyanosis, or edema. No joint tenderness, effusion, or edema noted. NEUROLOGICAL: Awake and alert. Cranial nerves grossly intact motor and sensory grossly within normal limits. Moves all extremities. Procedures Chest tube placement Medications and IVs Current Medications Medications (Trade) Dose Ordered Sig/Godfrey Route Start Time Stop Time Status Last Admin (Duoneb Neb) 1 ampule Q6HR NEB INH 08/02/17 11:00 08/05/17 09:33 (Duoneb Neb) 1 ampule Q2HR NEB PRN INH 08/02/17 10:00 (NS Flush) 2 ml UNSCH PRN IV FLUSH 08/02/17 09:30 08/03/17 10:32 (NS Flush) 2 ml BID IV FLUSH 08/02/17 21:00 08/05/17 09:35 (Tylenol) 650 mg Q6H PRN PO 08/02/17 10:00 (Zofran Inj) 4 mg Q6H PRN IV PUSH 08/02/17 10:00 Miscellaneous Information 1 Q361D XX 08/02/17 09:30 08/02/17 09:30 (Chlorhexidine 2% Cloth) 3 pack Taper DAILY@04 TOP 08/03/17 04:00 07/30/18 03:59 08/04/17 04:00 (Chlorhexidine 2% Cloth) 3 pack UNSCH PRN TOP 08/02/17 09:30 (Cecilia-Colace) 1 tab BID PO 08/02/17 21:00 08/05/17 09:35 (Milk Of Magnesia Liq) 30 ml Q12H PRN PO 08/02/17 11:00 (Senokot) 17.2 mg Q12H PRN PO 08/02/17 11:00 (Dulcolax Supp) 10 mg DAILY PRN RECTAL 08/02/17 10:00 (Lactulose Liq) 30 ml DAILY PRN PO 08/02/17 10:00 (Buspar) 5 mg Q12HR PO 08/02/17 21:00 08/05/17 09:35 (Pepcid) 20 mg HS PO 08/02/17 21:00 08/04/17 21:10 (Prinivil) 20 mg BID PO 08/02/17 21:00 08/05/17 09:35 (Melatonin) 5 mg HS PRN PO 08/02/17 10:00 (Lopressor) 25 mg Q12HR PO 08/02/17 21:00 08/05/17 09:35 (Deltasone) 5 mg Taper DAILY PO 08/02/17 11:00 08/07/17 06:59 08/05/17 09:35 (Flomax) 0.4 mg DAILY PO 08/03/17 09:00 08/05/17 09:35 (Vitamin C) 1,000 mg DAILY PO 08/03/17 09:00 08/05/17 09:37 (Claritin) 10 mg DAILY PO 08/03/17 09:00 08/05/17 09:35 (Symbicort 160-4.5 Mcg Inh) 2 puff BID INH 08/03/17 09:00 08/05/17 09:34 (Theragran) 1 tab DAILY PO 08/03/17 09:00 08/05/17 09:35 (Pravachol) 20 mg DAILY PO 08/03/17 09:00 08/05/17 09:35 (Vasotec Inj) 1.25 mg Q6H PRN IV PUSH 08/03/17 17:15 (Norvasc) 5 mg DAILY PO 08/05/17 09:00 08/05/17 09:35 A/P Assessment and Plan Acute on chronic respiratory failure secondary to acute left sided pneumothorax Halicat called, transferred to [facility] [place] and reprographics technician was consulted. CXR reveals moderate sized PTX on the left with mediastinal shift to the right. S/p chest tube. Pulmonology consult appreciated. Chest tube removed 08/05/17. - continue supplemental oxygen to maintain O2 sats. - nebs. - follow up with pulmonology. Severe COPD O2 dependent. - Continue nasal cannula. - Continue oral steroids, tapered dose. - Continue Symbicort along with 4 times a day duo nebs. - Pulmonary following. Leukocytosis Patient has been afebrile, no obvious source of infection identified. UA checked on 07/29 negative. Chest x-ray completed on 07/31 reviewed, stable appearance of emphysema. No evidence of acute pulmonary disease. Suspect leukocytosis is secondary to steroid use. Patient was recently treated for pseudomonas in the sputum. - obtain sputum culture and treat accordingly. - Continue to wean off steroids. Rectal bleeding Hematochezia. GI consult appreciated. - Lovenox held. - EGD showed erythematous gastritis. Refused prep for colonoscopy. - Continue monitoring for bleeding and monitoring H&H. - Reconsult gastroenterology if patient agrees to colonoscopy. BPH Patient with history of ureter dilatation with Hernandez catheter in place. - Continue Flomax and catheter, monitor for signs of infection. HTN/ Tachycardia Improved. - Continue lisinopril 20 mg twice a day and metoprolol 25mg BID. - DC hydrochlorothiazide secondary to hyponatremia. Added amlodipine 5 mg by mouth daily. - Vasotec as needed. Hypokalemia Possibly secondary to decreased by mouth intake. - DC hydrochlorothiazide. - Replete and monitor. DVT prophylaxis: SCDs Discharge Planning Anticipate discharge to [place] tomorrow Suhail Mcgregor DO Aug 05, 2017 14:19
--- NOTE | 2017-08-05 14:41 | HHI.PR ---
Subjective Remarks ALERT NO SOB CXRAY , NO PNX Objective Vital Signs Date Time Temp Pulse Resp B/P (MAP) Pulse Ox O2 Delivery O2 Flow Rate FiO2 08/05/17 12:00 97.4 85 18 142/64 (90) 95 08/05/17 11:29 95 Nasal Cannula 2.00 08/05/17 08:00 98.2 90 16 147/68 (94) 94 08/05/17 04:55 97.7 90 20 118/56 (76) 95 08/05/17 03:29 96 08/05/17 00:55 97.7 85 20 168/81 (110) 96 08/04/17 21:30 97 08/04/17 20:51 97.8 86 16 135/64 (87) 97 08/04/17 20:00 Nasal Cannula 2.00 08/04/17 16:00 97.7 102 20 116/63 (80) 95 I/O 08/04/17 08/04/17 08/04/17 08/05/17 08/05/17 08/05/17 07:00 15:00 23:00 07:00 15:00 23:00 Intake Total 220 ml 720 ml 80 ml Output Total 800 ml 950 ml 100 ml Balance -580 ml -230 ml -20 ml Intake Oral 220 ml 720 ml 80 ml Output Urine Total 800 ml 950 ml 100 ml # Bowel Movements 0 1 Result Diagram: 08/05/17 0530 08/05/17 0530 Objective Remarks GENERAL: SKIN: Warm and dry. HEAD: Atraumatic. Normocephalic. EYES: Pupils equal and round. No scleral icterus. No injection or drainage. ENT: No nasal bleeding or discharge. Mucous membranes pink and moist. NECK: Trachea midline. No JVD. CARDIOVASCULAR: Regular rate and rhythm. RESPIRATORY: No accessory muscle use. Clear to auscultation. Breath sounds equal bilaterally. GASTROINTESTINAL: Abdomen soft, non-tender, nondistended. Hepatic and splenic margins not palpable. MUSCULOSKELETAL: Extremities without clubbing, cyanosis, or edema. No obvious deformities. NEUROLOGICAL: Awake and alert. No obvious cranial nerve deficits. Motor grossly within normal limits. Five out of 5 muscle strength in the arms and legs. Normal speech. PSYCHIATRIC: Appropriate mood and affect; insight and judgment normal. Assessment and Plan Assessment and Plan SP. PNX CT IN PLACE PLAN CLAMP TUBE AND REMOVE IF POSSIBLE Barrett,Barrett Wadie MD Aug 05, 2017 14:41
--- NOTE | 2017-08-05 17:37 | HHI.PR ---
Subjective Remarks 81 YOWM with Severe COPd,Left PTX Mild sob On NC Chest tube removed CXR no PTX Objective Vital Signs Vital Signs Date Time Temp Pulse Resp B/P (MAP) Pulse Ox O2 Delivery O2 Flow Rate FiO2 08/05/17 16:00 97.9 88 18 124/68 (86) 96 08/05/17 12:00 97.4 85 18 142/64 (90) 95 08/05/17 11:29 95 Nasal Cannula 2.00 08/05/17 08:00 98.2 90 16 147/68 (94) 94 08/05/17 07:00 Nasal Cannula 2.00 08/05/17 04:55 97.7 90 20 118/56 (76) 95 08/05/17 03:29 96 08/05/17 00:55 97.7 85 20 168/81 (110) 96 08/04/17 21:30 97 08/04/17 20:51 97.8 86 16 135/64 (87) 97 08/04/17 20:00 Nasal Cannula 2.00 I/O 08/04/17 08/04/17 08/04/17 08/05/17 08/05/17 08/05/17 07:00 15:00 23:00 07:00 15:00 23:00 Intake Total 220 ml 720 ml 80 ml Output Total 800 ml 950 ml 100 ml Balance -580 ml -230 ml -20 ml Intake Oral 220 ml 720 ml 80 ml Output Urine Total 800 ml 950 ml 100 ml # Bowel Movements 0 1 Result Diagram: 08/05/17 0530 08/05/17 0530 Objective Remarks GENERAL: Elderly Wm, mild sob SKIN: Warm and dry. HEAD: Normocephalic. EYES: No scleral icterus. No injection or drainage. NECK: Supple, trachea midline. No JVD or lymphadenopathy. CARDIOVASCULAR: Regular rate and rhythm without murmurs, gallops, or rubs. RESPIRATORY: Breath sounds equal bilaterally. No accessory muscle use. Left Chest tube in place GASTROINTESTINAL: Abdomen soft, non-tender, nondistended. MUSCULOSKELETAL: No cyanosis, or edema. BACK: Nontender without obvious deformity. No CVA tenderness. A/P Assessment and Plan Severe COPD PTX--resolved S/P Left Chest tube removal Anxiety PLAN: Aerosol nebs Supplement 02 DW DC plans underway Available prn over weekend Denys Pratt MD Aug 05, 2017 17:37
[2017-08-05] MEDS: FAMOTIDINE 20 MG TAB PO SCH (20:18)
[2017-08-06] VITALS: BP 135/64; PULSE 69; RESP 18; TEMP 98.3; O2SAT 96
[2017-08-06] MEDS: RESP: ALBUTEROL 2.5 MG/IPRATROPIUM 0.5 MG NEB (SCH) INH ×2 (03:25→08:12)
[2017-08-06 04:00] VITALS: BP 135/63; PULSE 99; RESP 18; TEMP 97.7; O2SAT 91
[2017-08-06] MEDS: CHLORHEXIDINE GLUCONATE 2 % 1 PACK (2 CLOTHS) TOP SCH (04:00)
[2017-08-06 08:00] VITALS: BP 145/73; PULSE 98; RESP 18; TEMP 97.5; O2SAT 96
--- NOTE | 2017-08-06 08:08 | RADRPT ---
EXAM DATE/TIME: 08/06/2017 07:53 [facility] COMPARISON: CHEST SINGLE AP, August 05, 2017, 11:45. INDICATIONS : Left side chest tube removal. MEDICAL HISTORY : Venous insufficiency. Chronic obstructive pulmonary disease. Carcinoma, prostate SURGICAL HISTORY : None. ENCOUNTER: Subsequent ACUITY: 3 days PAIN SCORE: 4/10 LOCATION: Left upper chest FINDINGS: A single view of the chest demonstrates the lungs to be hyperaerated without evidence of mass, infilt rate or effusion. The cardiomediastinal contours are unremarkable. Osseous structures are intact. CONCLUSION: Hyperinflation without infiltrate. Bill Vences MD on August 06, 2017 at 8:04 Board Certified Radiologist. This report was verified electronically.
[2017-08-06] MEDS: BUDESONIDE-FORMOTEROL 160/4.5 MCG INHALER INH SCH (09:00)
[2017-08-06] MEDS: SODIUM CHLORIDE 0.9% FLUSH 10 ML FLUSH IV FLUSH SCH (09:00)
[2017-08-06 09:45] LABS: RED BLOOD COUNT 3.77 MIL/MM3 (4.50-5.90); WHITE BLOOD COUNT 11.2 TH/MM3 (4.0-11.0)
[2017-08-06 09:46] LABS: BICARBONATE 35.6 MEQ/L (21.0-32.0); CALCIUM 8.5 MG/DL (8.5-10.1); CREATININE 0.33 MG/DL (0.60-1.30); HEMATOCRIT 32.3 % (39.0-51.0); HEMOGLOBIN 10.9 GM/DL (13.0-17.0); MAGNESIUM 1.7 MG/DL (1.5-2.5); MEAN CELL VOLUME 85.6 FL (80.0-100.0); MEAN CORPUSCULAR HEMOGLOBIN 28.9 PG (27.0-34.0); MEAN CORPUSCULAR HGB CONC 33.7 % (32.0-36.0); PLATELET COUNT 327 TH/MM3 (150-450); RED CELL DISTRIBUTION WIDTH 14.3 % (11.6-17.2)
[2017-08-06] MEDS ORDERED: PRED5TAB PO (09:50)
--- NOTE | 2017-08-06 09:51 | HHI.DCPOC ---
Discharge Care Plan Diagnosis: (1) Pneumothorax (2) Rectal bleeding (3) Impaired mobility and activities of daily living Goals to Promote Your Health * To prevent worsening of your condition and complications * To maintain your health at the optimal level Directions to Meet Your Goals Take your medications as prescribed Follow your dietary instruction Follow activity as directed Keep your appointments as scheduled Take your immunizations and boosters as scheduled If your symptoms worsen call your PCP, if no PCP go to Urgent Care Center or Emergency Room Smoking is Dangerous to Your Health. Avoid second hand smoke Call the 24-hour hour crisis hotline for domestic abuse at Suhail Mcgregor DO Aug 06, 2017 09:51
--- NOTE | 2017-08-06 09:59 | HHI.DS ---
Discharge Summary Admission Date Aug 02, 2017 at 07:42 Discharge Date: Aug 06, 2017 Admitting Diagnosis spontaneous pneumothorax (1) Rectal bleeding ICD Code: K62.5 - Hemorrhage of anus and rectum (2) Pneumothorax ICD Code: J93.9 - Pneumothorax, unspecified Diagnosis: Principal (3) Impaired mobility and activities of daily living ICD Code: Z74.09 - Other reduced mobility Status: Acute Procedures Chest tube placement Endoscopy Brief History - From Admission This is a 81yM with history of severe COPD and recent admission for COPD exacerbation who was in [facility] this morning when he had sudden onset of dyspnea. denied any chest pain or any other symptoms. rapid response was called and CXR demonstrated new left pneumothorax. due to his respiratory distress, he was emergently transferred to the ICU. I evaluated the patient upon arrival to the ICU. He was in respiratory distress, using accessory muscles to breath. dyspneic. complaining of shortness of breath. ROS unobtainable due to his distress and the emergent nature of his condition. CBC/BMP: 08/06/17 0644 08/06/17 0644 Significant Findings Laboratory Tests Test 08/04/17 07:20 08/05/17 05:30 08/06/17 06:44 White Blood Count 12.1 TH/MM3 (4.0-11.0) 12.7 TH/MM3 (4.0-11.0) 11.2 TH/MM3 (4.0-11.0) Red Blood Count 3.89 MIL/MM3 (4.50-5.90) 3.73 MIL/MM3 (4.50-5.90) 3.77 MIL/MM3 (4.50-5.90) Hemoglobin 11.0 GM/DL (13.0-17.0) 10.5 GM/DL (13.0-17.0) 10.9 GM/DL (13.0-17.0) Hematocrit 33.1 % (39.0-51.0) 31.9 % (39.0-51.0) 32.3 % (39.0-51.0) Creatinine 0.27 MG/DL (0.60-1.30) 0.25 MG/DL (0.60-1.30) 0.33 MG/DL (0.60-1.30) Sodium Level 130 MEQ/L (136-145) 130 MEQ/L (136-145) 131 MEQ/L (136-145) Chloride Level 88 MEQ/L (98-107) 89 MEQ/L (98-107) 93 MEQ/L (98-107) Carbon Dioxide Level 37.9 MEQ/L (21.0-32.0) 36.7 MEQ/L (21.0-32.0) 35.6 MEQ/L (21.0-32.0) Anion Gap 4 MEQ/L (5-15) 4 MEQ/L (5-15) 2 MEQ/L (5-15) Calcium Level 8.4 MG/DL (8.5-10.1) Potassium Level 3.2 MEQ/L (3.5-5.1) Imaging Last Impressions Chest X-Ray 08/06/17 0700 Signed Impressions: Service Date/Time: Sunday, August 06, 2017 07:53 - CONCLUSION: Hyperinflation without infiltrate. Bill Vences MD PE at Discharge GENERAL: Resting comfortably. SKIN: No rashes. Cool and dry. HEAD: Atraumatic. Normocephalic. EYES: Pupils equal round and reactive. Extraocular motions intact. No scleral icterus. No injection or drainage. ENT: Nose without bleeding, purulent drainage. Throat without erythema. Airway patent. NECK: Trachea midline. No JVD. Supple, nontender. CARDIOVASCULAR: Regular rate and rhythm without murmurs, gallops, or rubs. RESPIRATORY: Clear to auscultation bilaterally. GASTROINTESTINAL: Abdomen soft, non-tender, nondistended. No palpable masses. No guarding. MUSCULOSKELETAL: Extremities without clubbing, cyanosis, or edema. No joint tenderness, effusion, or edema noted. NEUROLOGICAL: Awake and alert. Cranial nerves grossly intact motor and sensory grossly within normal limits. Moves all extremities. Pt update on day of discharge The patient said that he has not been doing much here. He said he is breathing well. He denies any pain. He thinks he may not have had a bowel movement since yesterday. He would like to go to rehabilitation. Hospital Course Acute on chronic respiratory failure Secondary to acute left sided pneumothorax. Halicat was called, the pt was transferred to the intensive care unit and the commutator operator was consulted. CXR revealed moderate sized pneumothorax on the left with mediastinal shift to the right. S/p chest tube placement. Pulmonology was then consulted. The pt was continued on prednisone. He received oxygen and nebs as needed. He worked with PT. The chest tube was removed 08/05/17. The pt will follow up with pulmonology as an outpt. Severe COPD O2 dependent. Recently hospitalized for a COPD exacerbation. He has been afebrile. He has had persistent leukocytosis s/t steroid use. He was continued on nasal cannula. He was continued on oral steroids, which will be tapered off over the next few days. He will continue his inhaler regimen and will follow up with pulmonology as an outpt. Rectal bleeding The pt had bouts of hematochezia. GI was consulted. EGD showed erythematous gastritis. The pt refused prep for colonoscopy. His hemoglobin has remained stable. He will follow up with GI as an outpt. He was started on a PPI. BPH Patient with history of ureter dilatation with Hernandez catheter in place. He was continued on Flomax. He will follow up with urology as an outpt. HTN/ Tachycardia He was continued on lisinopril 20 mg twice a day and metoprolol 25mg BID. We d/ c hydrochlorothiazide secondary to hyponatremia. We added amlodipine 5 mg by mouth daily. Pt Condition on Discharge: Stable Discharge Disposition: Rehab Inpatient Discharge Time: > 30 minutes Discharge Instructions DIET: Follow Instructions for: As Tolerated, No Restrictions Activities you can perform: Weight Bearing as Fely Follow up Referrals: PCP Follow-up - 1 Week Pulmonology - 1 Week with Denys Pratt MD New Medications: Pantoprazole (Pantoprazole) 40 Mg Tab 40 MG PO DAILY for Reflux, #30 TAB 0 Refills Amlodipine (Norvasc) 5 Mg Tab 5 MG PO DAILY for Blood Pressure Management, #30 TAB Continued Medications: Ascorbic Acid (Vitamin C) 250 Mg Tab 1000 MG PO DAILY for Nutritional Supplement, TAB 0 Refills Buspirone (Buspirone) 5 Mg Tab 5 MG PO Q12HR for anxiety for 30 Days, TAB Calcium-Magnesium (Calcium & Magnesium) 750-465 Mg Tab 1 TAB PO, TAB Desloratadine (Desloratadine) 5 Mg Tab 5 MG PO DAILY for Allergy Management, #30 TAB 0 Refills Fluticasone-Salmeterol Inh (Advair Diskus Inh) 250-50 Mcg/Blist Aer 2 PUFF INH DAILY, #1 INHALER 0 Refills Rinse mouth after use. Ipratropium-Albuterol Neb (Duoneb) 0.5-2.5 Mg/3 Ml Neb 1 AMPULE NEB Q6HR WHILE AWAKE NEB for COPD for 30 Days, ML Lisinopril (Lisinopril) 20 Mg Tab 20 MG PO BID for Blood Pressure Management for 30 Days, #60 TAB Melatonin (Gnp Melatonin Maximum Str) 5 Mg Tab 5 MG PO HS PRN for SLEEP for 30 Days, TAB Metoprolol Tartrate (Metoprolol Tartrate) 25 Mg Tab 25 MG PO Q12HR for Blood Pressure Management for 30 Days, TAB Multiple Vitamin (Multiple Vitamin) 1 Tab 1 TAB PO DAILY for Nutritional Supplement, TAB 0 Refills Prednisone (Prednisone) 5 Mg Tab 5 MG PO DAILY for Broncospasm, #2 TAB 0 Refills (This prescription has been renewed) [place] ([place]) ([place] ([place])) 450 Mg Cap 2000 MG PO DAILY, CAP 0 Refills Simvastatin (Simvastatin) 10 Mg Tab 10 MG PO DAILY for Cholesterol Management, #30 TAB 0 Refills Tamsulosin (Flomax) 0.4 Mg Cap 0.4 MG PO DAILY for urinary retention, #30 CAP Discontinued Medications: Famotidine (Famotidine) 20 Mg Tab 20 MG PO HS for GI protection for 30 Days, TAB Hydrochlorothiazide (Hydrochlorothiazide) 12.5 Mg Cap 12.5 MG PO BID for Blood Pressure Management for 30 Days, #60 CAP Prednisone (Prednisone) 10 Mg Tab 10 MG PO DIRECTED for COPD, #30 TAB 0 Refills 5 tablets daily for 2 days, then 4 tablets daily for 2 days, then 3 tablets daily for 2 days, then 2 tabs daily for 2 days, then 1 tab daily for 2 days Suhail Mcgregor DO Aug 06, 2017 09:59
[2017-08-06] MEDS ORDERED: PANT40TA3 PO (10:00)
[2017-08-06] MEDS: TAMSULOSIN HCL 0.4 MG CAP PO SCH (10:03)
[2017-08-06] MEDS ORDERED: AMLO5 PO (10:03)
[2017-08-06] MEDS: predniSONE 5 MG TAB PO SCH (10:03)
[2017-08-06] MEDS: DOCUSATE SODIUM 50 MG/SENNA 8.6 MG TAB PO SCH (10:03)
[2017-08-06] MEDS: METOPROLOL TARTRATE 25 MG TAB PO SCH (10:03)
[2017-08-06] MEDS: amLODIPine BESYLATE 5 MG TAB PO SCH (10:03)
[2017-08-06] MEDS: busPIRone HCL 5 MG TAB PO SCH (10:03)
[2017-08-06] MEDS: LORATADINE 10 MG TAB PO SCH (10:03)
[2017-08-06] MEDS: LISINOPRIL 20 MG TAB PO SCH (10:04)
[2017-08-06] MEDS: ASCORBIC ACID 500 MG TAB PO SCH (10:04)
[2017-08-06] MEDS: PRAVASTATIN SOD 20 MG TAB PO SCH (10:04)
[2017-08-06] MEDS: MULTIVITAMIN TAB PO SCH (10:04)
[2017-08-06 12:00] VITALS: BP 123/57; PULSE 73; RESP 18; TEMP 98; O2SAT 95
--- NOTE | 2017-08-06 15:28 | HHI.PR ---
Subjective Remarks NO SOB CT REMOVEDALERT NO SOB CXRAY , NO PNX Objective Vital Signs Date Time Temp Pulse Resp B/P (MAP) Pulse Ox O2 Delivery O2 Flow Rate FiO2 08/06/17 12:00 98.0 73 18 123/57 (79) 95 08/06/17 10:09 96 Nasal Cannula 2.00 08/06/17 08:13 Nasal Cannula 2.00 08/06/17 08:00 97.5 98 18 145/73 (97) 96 08/06/17 04:00 97.7 99 18 135/63 (87) 91 08/06/17 00:00 Nasal Cannula 2.00 08/06/17 00:00 98.3 69 18 135/64 (87) 96 08/05/17 21:23 95 Nasal Cannula 2.00 08/05/17 20:26 Nasal Cannula 2.00 08/05/17 20:00 98.5 89 18 148/67 (94) 90 08/05/17 16:00 97.9 88 18 124/68 (86) 96 I/O 08/05/17 08/05/17 08/05/17 08/06/17 08/06/17 08/06/17 07:00 15:00 23:00 07:00 15:00 23:00 Intake Total 80 ml 480 ml 200 ml Output Total 100 ml 850 ml 650 ml Balance -20 ml -370 ml -450 ml Intake Oral 80 ml 480 ml 200 ml Output Urine Total 100 ml 850 ml 650 ml # Bowel Movements 1 2 Result Diagram: 08/06/17 0644 08/06/17 0644 Objective Remarks GENERAL: SKIN: Warm and dry. HEAD: Atraumatic. Normocephalic. EYES: Pupils equal and round. No scleral icterus. No injection or drainage. ENT: No nasal bleeding or discharge. Mucous membranes pink and moist. NECK: Trachea midline. No JVD. CARDIOVASCULAR: Regular rate and rhythm. RESPIRATORY: No accessory muscle use. Clear to auscultation. Breath sounds equal bilaterally. GASTROINTESTINAL: Abdomen soft, non-tender, nondistended. Hepatic and splenic margins not palpable. MUSCULOSKELETAL: Extremities without clubbing, cyanosis, or edema. No obvious deformities. NEUROLOGICAL: Awake and alert. No obvious cranial nerve deficits. Motor grossly within normal limits. Five out of 5 muscle strength in the arms and legs. Normal speech. PSYCHIATRIC: Appropriate mood and affect; insight and judgment normal. Assessment and Plan Assessment and Plan SP. PNX CT REMOVED PLAN BRONCHODILATOR THERAPY INCREASE ACTIVITY Barrett Hyde MD Aug 06, 2017 15:28
== END 2017-08-06 16:27 | DRG 199 ==
LOC: HIMW 07:42 → N04B 08-03 06:29
PROVIDERS: ADMIT Hospitalist; ATTEND Hospitalist
PROC: 0W9B30Z Drainage of Left Pleural Cavity with Drainage Device, Percutaneous Approach (ICD-10-PCS; principal; 2017-08-02)
PROC: 0DB78ZX Excision of Stomach, Pylorus, Via Natural or Artificial Opening Endoscopic, Diagnostic (ICD-10-PCS; 2017-08-03)
PROC: 0DB38ZX Excision of Lower Esophagus, Via Natural or Artificial Opening Endoscopic, Diagnostic (ICD-10-PCS; 2017-08-03 11:53)
DX: J93.83 Other pneumothorax (principal); J96.21 Acute and chronic respiratory failure with hypoxia; R64 Cachexia; E87.1 Hypo-osmolality and hyponatremia; Z99.81 Dependence on supplemental oxygen; K22.2 Esophageal obstruction; K92.1 Melena; D64.9 Anemia, unspecified; I10 Essential (primary) hypertension; E78.5 Hyperlipidemia, unspecified; N40.0 Benign prostatic hyperplasia without lower urinary tract symptoms; J43.9 Emphysema, unspecified; F41.9 Anxiety disorder, unspecified; R26.9 Unspecified abnormalities of gait and mobility; E87.6 Hypokalemia; K29.70 Gastritis, unspecified, without bleeding; R00.0 Tachycardia, unspecified; Z87.891 Personal history of nicotine dependence; Z85.46 Personal history of malignant neoplasm of prostate; Z90.5 Acquired absence of kidney
CPT/HCPCS: 32551; 71045; 80048; 83735; 85027; 87641; 88305; 94150; 94640; 94664; 94667; 94668; J7512

== ENCOUNTER 2017-08-26 17:18 | Inpatient (IN) | payer MEDICARE, BC ==
[~2017-08-26] VITALS: Ht 170.2 cm; Wt 56.9 kg
[~2017-08-26 17:18] MED LIST changes: +ACET325T15 PO; +AMLO5 PO; +CEFU1TAB20 PO; +CHOL4POW4 PO; -FAMO20TA2 PO; -HYDR12.57 PO; +LACT PO; -LISI-515 PO; +METR250 PO; +PANT40TA3 PO; -PRED10 PO; -SAW450CA2 PO; +WHEEMIS3
[2017-08-26 17:31] VITALS: BP 153/72; PULSE 88; RESP 18; TEMP 98.3; O2SAT 98
[2017-08-26] MEDS ORDERED: SODIUM CHLORIDE 0.9% FLUSH 10 ML FLUSH IVF PRN (18:00)
--- NOTE | 2017-08-26 18:08 | PD ---
HPI Chief Complaint: General Weakness Time Seen by Provider: 17:43 Travel History International Travel<30 days: No Contact w/Intl Traveler<30days: No Traveled to known affect area: No History of Present Illness HPI 81-year-old male presents to the emergency department via EMS for evaluation of generalized weakness, multiple falls. Patient was just discharged from rehabilitation inpatient here at [facility] 2 days ago. Patient was admitted to inpatient rehabilitation with severe COPD on O2. He was initially admitted to [facility] on 125 and then developed sudden dyspnea. He was found to have a left pneumothorax with mediastinal shift. The patient was admitted for acute exacerbation of COPD, UTI, C. difficile, hypotension and tachycardia. The patient states that he fell 3 times yesterday at home. He states that his legs give out due to weakness and he falls. The patient states that he laid on his kitchen floor last night and then got up this morning. He reports falling 4 times today. He denies hitting his head during these falls and denies loss of consciousness. He has no pain at this time. No chest pain. No abdominal pain. No nausea, vomiting, diarrhea. He is on chronic O2 at home for COPD. No exacerbating or alleviating factors. Moderate severity. PFSH Past Medical History Arthritis: Yes Asthma: No Autoimmune Disease: No Anxiety: Yes Depression: No Heart Rhythm Problems: No Cancer: Yes (Prostate) Cardiovascular Problems: Yes High Cholesterol: No Chemotherapy: No Chest Pain: No Congestive Heart Failure: No COPD: Yes Cerebrovascular Accident: No Diabetes: No Diminished Hearing: No Endocrine: No GERD: No Genitourinary: Yes Headaches: Yes Hiatal Hernia: No Hypertension: Yes Immune Disorder: No Kidney Stones: No Musculoskeletal: Yes Neurologic: Yes Psychiatric: Yes Reproductive: No Respiratory: Yes Migraines: Yes Radiation Therapy: Yes Renal Failure: No Seizures: No Shingles: Yes Sickle Cell Disease: No Sleep Apnea: No Thyroid Disease: No Ulcer: No Tetanus Vaccination: > 5 Years Influenza Vaccination: Yes Past Surgical History Abdominal Surgery: No AICD: No Arteriovenous Shunt: No Cardiac Surgery: No Ear Surgery: No Endocrine Surgery: No Eye Surgery: No Genitourinary Surgery: Yes (Hypospadias) Gynecologic Surgery: No Insulin Pump: No Joint Replacement: No Oral Surgery: No Pacemaker: No Thoracic Surgery: No Other Surgery: Yes (PROSTATE CA 20 YRS AGO) Social History Alcohol Use: No Tobacco Use: No (QUIT 20 YRS AGO) Substance Use: No Allergies-Medications (Allergen,Severity, Reaction): Coded Allergies: No Known Drug Allergies (Verified Allergy, Unknown, 07/20/17) Reported Meds & Prescriptions Reported Meds & Active Scripts Active Cefuroxime (Cefuroxime Axetil) 500 Mg Tab 250 Mg PO BID 7 Days Flagyl (Metronidazole) 250 Mg Tab 250 Mg PO TID 7 Days Cholestyramine 4 Gm/Pkt Powd 4 Gm PO Q12HR 7 Days 1 packet contains 4 grams of cholestyramine. Acidophilus/l-Sporogenes (Lactobacillus Acidophilus) 35 Million Cell-25 Million Cell Tab 1 Tab PO TID Eq Acetaminophen (Acetaminophen) 325 Mg Tab 650 Mg PO Q4H PRN MDD 2gm 30 Days Flomax (Tamsulosin HCl) 0.4 Mg Cap 0.8 Mg PO DAILY Norvasc (Amlodipine Besylate) 5 Mg Tab 5 Mg PO DAILY Pantoprazole (Pantoprazole Sodium) 40 Mg Tab 40 Mg PO DAILY Prednisone 5 Mg Tab 5 Mg PO DAILY Gnp Melatonin Maximum Str (Melatonin) 5 Mg Tab 5 Mg PO HS PRN 30 Days Buspirone (Buspirone HCl) 5 Mg Tab 5 Mg PO Q12HR 30 Days Metoprolol Tartrate 25 Mg Tab 25 Mg PO Q12HR 30 Days Duoneb (Ipratropium-Albuterol Neb) 0.5-2.5 Mg/3 Ml Neb 1 Ampule NEB Q6HR WHILE AWAKE NEB 30 Days Vitamin C (Ascorbic Acid) 250 Mg Tab 1,000 Mg PO DAILY Calcium & Magnesium (Calcium-Magnesium) 750-465 Mg Tab 1 Tab PO DAILY Multiple Vitamin 1 Tab 1 Tab PO DAILY Advair Diskus Inh (Fluticasone-Salmeterol Inh) 250-50 Mcg/Blist Aer 2 Puff INH DAILY Rinse mouth after use. Simvastatin 10 Mg Tab 10 Mg PO DAILY Desloratadine 5 Mg Tab 5 Mg PO DAILY Wheelchair (Device) 1 Mis Mis Ea .XX DIRECTED Review of Systems Except as stated in HPI: all other systems reviewed are Neg Physical Exam Narrative GENERAL: Well-nourished, well-developed male patient, afebrile. Patient is alert and oriented to person, place, and time. SKIN: Focused skin assessment warm/dry. HEAD: Normocephalic. Atraumatic. EYES: No scleral icterus. No injection or drainage. NECK: Supple, trachea midline. No JVD or lymphadenopathy. CARDIOVASCULAR: Regular rate and rhythm without murmurs, gallops, or rubs. RESPIRATORY: Breath sounds equal bilaterally. No accessory muscle use. Lungs sounds diminished throughout. GASTROINTESTINAL: Abdomen soft, non-tender, nondistended. MUSCULOSKELETAL: No cyanosis, or edema. Bilateral upper and lower extremity strength 5/5. All extremities are neurovascularly intact. BACK: Nontender without obvious deformity. No CVA tenderness. NEUROLOGICAL: Awake and alert. Cranial nerves II through XII intact. Motor and sensory grossly within normal limits. Five out of 5 muscle strength in all muscle groups. Normal speech. Data Data Last Documented VS Vital Signs Date Time Temp Pulse Resp B/P (MAP) Pulse Ox O2 Delivery O2 Flow Rate FiO2 08/26/17 19:24 85 18 100 Room Air 2.00 08/26/17 19:23 149/64 (92) 08/26/17 17:31 98.3 Orders Orders Electrocardiogram (08/26/17 17:55) Complete Blood Count With Diff (08/26/17 17:55) Comprehensive Metabolic Panel (08/26/17 17:55) Magnesium (Mg) (08/26/17 17:55) Ckmb (Isoenzyme) Profile (08/26/17 17:55) Troponin I (08/26/17 17:55) Act Partial Throm Time (Ptt) (08/26/17 17:55) Prothrombin Time / Inr (Pt) (08/26/17 17:55) Urinalysis - C+S If Indicated (08/26/17 17:55) Chest, Single Ap (08/26/17 17:55) Ct Brain W/O Iv Contrast(Rout) (08/26/17 17:55) Ct Cerv Spine W/O Contrast (08/26/17 17:55) Ecg Monitoring (08/26/17 17:55) Iv Access Insert/Monitor (08/26/17 17:55) Oximetry (08/26/17 17:55) Sodium Chloride 0.9% Flush (Ns Flush) (08/26/17 18:00) Cath For Specimen (08/26/17 19:07) Lactic Acid Sepsis Protocol (08/26/17 19:13) Blood Culture (08/26/17 19:13) Vancomycin Inj (Vancomycin Inj) (08/26/17 19:15) Piperacil-Tazo 3.375 Gm Premix (Zosyn 3. (08/26/17 19:15) Admit Order (Ed Use Only) (08/26/17 20:00) Labs Laboratory Tests Test 08/26/17 18:00 08/26/17 19:36 White Blood Count 13.0 TH/MM3 Red Blood Count 3.71 MIL/MM3 Hemoglobin 10.8 GM/DL Hematocrit 31.8 % Mean Corpuscular Volume 85.6 FL Mean Corpuscular Hemoglobin 29.1 PG Mean Corpuscular Hemoglobin Concent 34.0 % Red Cell Distribution Width 14.7 % Platelet Count 359 TH/MM3 Mean Platelet Volume 7.2 FL Neutrophils (%) (Auto) 90.8 % Lymphocytes (%) (Auto) 2.0 % Monocytes (%) (Auto) 6.9 % Eosinophils (%) (Auto) 0.2 % Basophils (%) (Auto) 0.1 % Neutrophils # (Auto) 11.8 TH/MM3 Lymphocytes # (Auto) 0.3 TH/MM3 Monocytes # (Auto) 0.9 TH/MM3 Eosinophils # (Auto) 0.0 TH/MM3 Basophils # (Auto) 0.0 TH/MM3 CBC Comment DIFF FINAL Differential Comment Prothrombin Time 11.0 SEC Prothromb Time International Ratio 1.1 RATIO Activated Partial Thromboplast Time 25.1 SEC Blood Urea Nitrogen 12 MG/DL Creatinine 0.37 MG/DL Random Glucose 95 MG/DL Total Protein 6.0 GM/DL Albumin 2.6 GM/DL Calcium Level 8.6 MG/DL Magnesium Level 1.6 MG/DL Alkaline Phosphatase 95 U/L Aspartate Amino Transf (AST/SGOT) 21 U/L Alanine Aminotransferase (ALT/SGPT) 37 U/L Total Bilirubin 0.3 MG/DL Sodium Level 131 MEQ/L Potassium Level 4.4 MEQ/L Chloride Level 93 MEQ/L Carbon Dioxide Level 35.5 MEQ/L Anion Gap 3 MEQ/L Estimat Glomerular Filtration Rate 227 ML/MIN Total Creatine Kinase 81 U/L Troponin I LESS THAN 0.02 NG/ML Lactic Acid Level 0.6 mmol/L MDM Medical Decision Making Medical Screen Exam Complete: Yes Emergency Medical Condition: Yes Medical Record Reviewed: Yes Interpretation(s) chest x-ray - CONCLUSION: 1. Changes of obstructive pulmonary disease. 2. Patchy bilateral lower lung zone airspace disease which may reflect atelectasis. However, consider developing pneumonia/aspiration in the appropriate clinical setting. CT brain - CONCLUSION: 1. Senescent changes without acute intracranial abnormality. CT cervical spine - CONCLUSION: 1. Mild 4 mm retrolisthesis of C5 on C6 likely secondary to facet arthrosis. Flexion and extension views may be obtained if there is significant clinical concern regarding ligamentous instability. 2. Advanced degenerative spondylosis of the lower cervical spine most prominently at C4-6. 3. No acute fracture. Differential Diagnosis Electrolyte abnormality versus dehydration versus intracranial abnormality versus COPD exacerbation versus pneumonia versus pneumothorax versus UTI Narrative Course 81-year-old male presents to the emergency department via EMS for evaluation of generalized weakness, multiple falls since yesterday. He was just discharged 2 days ago from inpatient rehabilitation. EKG, CBC, CMP, magnesium, CK, troponin , PTT, PT/INR, UA are ordered and pending. Chest x-ray, CT of the brain, CT of the cervical spine are ordered and pending. EKG shows sinus rhythm, heart rate 91, no acute ST changes. CBC shows leukocytosis 13.0, neutrophil percentage 90.8. CMP shows hyponatremia 131, no acute changes since previous labs. Magnesium is 1.6. CK is 81. Troponin is less than 0.02. Coags show no acute abnormality. UA is pending. Chest x-ray shows changes of obstructive pulmonary disease; Patchy bilateral lower lung zone airspace disease which may reflect atelectasis. However, consider developing pneumonia/aspiration in the appropriate clinical setting.. CT of the brain shows Senescent changes without acute intracranial abnormality. CT of the cervical spine shows Mild 4 mm retrolisthesis of C5 on C6 likely secondary to facet arthrosis. Flexion and extension views may be obtained if there is significant clinical concern regarding ligamentous instability; Advanced degenerative spondylosis of the lower cervical spine most prominently at C4-6; No acute fracture. Dr. Sheffield accepted admission. Diagnosis Primary Impression: Pneumonia Qualified Codes: J69.0 - Pneumonitis due to inhalation of food and vomit Additional Impressions: Generalized weakness Multiple falls Admitting Information Admitting Physician Requests: Admit Leisa Richter Aug 26, 2017 18:08
[2017-08-26 18:26] LABS: AUTOMATED NEUTROPHIL # 11.8 TH/MM3 (1.8-7.7); BASOPHIL % 0.1 % (0.0-2.0); EOSINOPHIL % 0.2 % (0.0-4.0); HEMATOCRIT 31.8 % (39.0-51.0); HEMOGLOBIN 10.8 GM/DL (13.0-17.0); INTERNATIONAL NORMALIZED RATIO 1.1 RATIO; LYMPHOCYTE # 0.3 TH/MM3 (1.0-4.8); MEAN CELL VOLUME 85.6 FL (80.0-100.0); MEAN CORPUSCULAR HEMOGLOBIN 29.1 PG (27.0-34.0); MEAN PLATELET VOLUME 7.2 FL (7.0-11.0); MONO % 6.9 % (0.0-8.0); MONOCYTE # 0.9 TH/MM3 (0-0.9); NEUT % 90.8 % (16.0-70.0); PLATELET COUNT 359 TH/MM3 (150-450); RED BLOOD COUNT 3.71 MIL/MM3 (4.50-5.90); RED CELL DISTRIBUTION WIDTH 14.7 % (11.6-17.2)
[2017-08-26 18:29] LABS: ALBUMIN 2.6 GM/DL (3.4-5.0); AST (GOT) 21 U/L (15-37); BICARBONATE 35.5 MEQ/L (21.0-32.0); BLOOD UREA NITROGEN 12 MG/DL (7-18); CALCIUM 8.6 MG/DL (8.5-10.1); CHLORIDE 93 MEQ/L (98-107); CREATININE 0.37 MG/DL (0.60-1.30); GLOMERULAR FILTRATION RATE 227 ML/MIN (>89); GLUCOSE,RANDOM 95 MG/DL (74-106); MAGNESIUM 1.6 MG/DL (1.5-2.5); SODIUM (NA) 131 MEQ/L (136-145)
[2017-08-26 18:31] LABS: ALT (GPT) 37 U/L (12-78)
[2017-08-26 18:35] LABS: ALKALINE PHOSPHATASE 95 U/L (45-117); TOTAL BILIRUBIN ADULT 0.3 MG/DL (0.2-1.0); TROPONIN I LESS THAN 0.02 NG/ML (0.02-0.05)
--- NOTE | 2017-08-26 18:55 | RADRPT ---
EXAM DATE/TIME: 08/26/2017 18:07 [facility] COMPARISON: No previous studies available for comparison. INDICATIONS : Fall last week. Neck pain and rigid. RADIATION DOSE: 15.74 CTDIvol (mGy) MEDICAL HISTORY : Cardiovascular disease. Hypertension. Carcinoma, prostate. SURGICAL HISTORY : R nephrectomy ENCOUNTER: Initial ACUITY: 1 week PAIN SCALE: 7/10 LOCATION: Bilateral neck TECHNIQUE: Volumetric scanning of the cervical spine was performed. Multiplanar reconstructions in the sagittal, coronal and oblique axial planes were performed. Using automated exposure control and adjustment o f the mA and/or kV according to patient size, radiation dose was kept as low as reasonably achievable to obtain optimal diagnostic quality images. DICOM format image data is available electronically f or review and comparison. FINDINGS: Vertebral body heights are maintained. Osseous structures are intact without evidence for acute bony fracture. Dens is intact. Loss of normal cervical lordosis. There is approximately 4 mm retrolisthesi s of C5 on C6. Sagittal alignment is otherwise maintained. There is a normal C1-2 relationship. Facet s are normally aligned. There is no significant prevertebral soft tissue hematoma. Advanced degenerat mary spondylosis of the lower cervical spine most prominently at C4-5 and C5-6 with significant disc s pace narrowing, endplate sclerosis and posterior disc osteophytes. No bony central canal is grossly p atent. There is mild bony left neural foraminal narrowing most prominent at C5-6. There is also multi level facet arthropathy No significant cervical adenopathy or gross mass. The thyroid appears unremar kable. Visualized lung apices demonstrate no pneumothorax. CONCLUSION: 1. Mild 4 mm retrolisthesis of C5 on C6 likely secondary to facet arthrosis. Flexion and extension vi ews may be obtained if there is significant clinical concern regarding ligamentous instability. 2. Advanced degenerative spondylosis of the lower cervical spine most prominently at C4-6. 3. No acute fracture. Matthew Johnston MD on August 26, 2017 at 18:50 Board Certified Radiologist. This report was verified electronically.
--- NOTE | 2017-08-26 18:59 | RADRPT ---
EXAM DATE/TIME: 08/26/2017 18:07 [facility] COMPARISON: CT BRAIN W/O CONTRAST, July 20, 2017, 8:44. INDICATIONS : Weakness, fell last week, right deviation. RADIATION DOSE: 29.29 CTDIvol (mGy) MEDICAL HISTORY : Cardiovascular disease. Hypertension. Carcinoma, prostate.Rad tx SURGICAL HISTORY : R nephrectomy ENCOUNTER: Initial ACUITY: 1 week PAIN SCALE: 7/10 LOCATION: cranial TECHNIQUE: Multiple contiguous axial images were obtained of the head. Using automated exposure control and adj ustment of the mA and/or kV according to patient size, radiation dose was kept as low as reasonably a chievable to obtain optimal diagnostic quality images. DICOM format image data is available electro nically for review and comparison. FINDINGS: CEREBRUM: Mild diffuse stable atrophy. Mild periventricular white matter hypodensities. The ventricles are norm al for age. No evidence of midline shift, mass lesion, hemorrhage or acute infarction. No extra-axi al fluid collections are seen. POSTERIOR FOSSA: The cerebellum and brainstem are intact. The 4th ventricle is midline. The cerebellopontine angle i s unremarkable. EXTRACRANIAL: The visualized portion of the orbits is intact. SKULL: The calvaria is intact. No evidence of skull fracture. CONCLUSION: 1. Senescent changes without acute intracranial abnormality. Matthew Johnston MD on August 26, 2017 at 18:57 Board Certified Radiologist. This report was verified electronically.
--- NOTE | 2017-08-26 19:01 | RADRPT ---
EXAM DATE/TIME: 08/26/2017 18:19 [facility] COMPARISON: CHEST SINGLE AP, August 21, 2017, 12:13. INDICATIONS : Shortness of breath. MEDICAL HISTORY : Chronic obstructive pulmonary disease. Carcinoma, prostatic. SURGICAL HISTORY : None. ENCOUNTER: Initial ACUITY: 1 day PAIN SCORE: 0/10 LOCATION: Bilateral chest FINDINGS: Redemonstration of diffuse interstitial prominence subtle patchy airspace disease in the lower lung z ones bilaterally. Cardiomediastinal are within normal limits. Bony thorax is grossly intact. CONCLUSION: 1. Changes of obstructive pulmonary disease. 2. Patchy bilateral lower lung zone airspace disease which may reflect atelectasis. However, consider developing pneumonia/aspiration in the appropriate clinical setting. Matthew Johnston MD on August 26, 2017 at 18:58 Board Certified Radiologist. This report was verified electronically.
[2017-08-26] MEDS ORDERED: VANCOMYCIN INJ 1,000 MG in SODIUM CHLOR 0.9% 250 ML INJ 250 ML IV ONE (19:15)
[2017-08-26] MEDS ORDERED: PIPERACIL-TAZO 3.375 GM PREMIX 50 ML IV ONE (19:15)
[2017-08-26 19:23] VITALS: BP 149/64; PULSE 90; RESP 18; O2SAT 100
--- NOTE | 2017-08-26 20:06 | HHI.HP ---
HPI [facility] Primary Care Physician Unknown Admission Diagnosis pneumonia, generalized weakness, multiple falls Diagnoses: (1) PNA (pneumonia) Diagnosis: Principal (2) Recurrent falls Diagnosis: Principal (3) C. difficile colitis Diagnosis: Principal (4) COPD (chronic obstructive pulmonary disease) Diagnosis: Principal (5) UTI (urinary tract infection) Diagnosis: Principal Travel History International Travel<30 Days: No Contact w/Intl Traveler <30 Da: No Traveled to Known Affected Are: No History of Present Illness This is a 81-year-old male with PMH of COPD, O2 Dependent, HTN, h/o C. Diff and Stage II Decubitus Ulcer who was brought to the ER secondary to multiple falls and c/o generalized weakness. Recent admit w/ prolonged hospitalization due to COPD, found to have Pneumothorax s/p CT in addition to C. Diff Colitis, sent to Rehab after discharge, sent home from Rehab on 08/24/17. States he's had multiple falls at home, no head trauma or LOC. Reports generalized weakness w/ fatigue, denies fever/chills, nausea or vomiting. On arrival, BP 153/72, HR 88 , O2 sat 98% on 2L NC, Afebrile. WBC 13.0. Chemistry essentially at baseline. Troponin negative. INR 1.1. UA positive for UTI. CT Head with no acute abnormality. CT C-spine negative for acute fracture. CXR with COPD, patchy bilateral airspace disease likely pneumonia/aspiration. S/p Vanc/Zosyn in ER. Review of Systems Except as stated in HPI: all other systems reviewed are Neg ROS: 14 point review of systems otherwise negative. Past Family Social History Past Medical History PMH: COPD, O2 Dependent, HTN, h/o C. Diff and Stage II Decubitus Ulcer Past Surgical History PAST SURGICAL HISTORY: Prostate Surgery Allergies: Coded Allergies: No Known Drug Allergies (Verified Allergy, Unknown, 07/20/17) Family History PAST FAMILY HISTORY: Reviewed. No h/o DM or CAD Social History PAST SOCIAL HISTORY: Negative for alcohol, tobacco or drugs. Physical Exam Vital Signs Vital Signs Date Time Temp Pulse Resp B/P (MAP) Pulse Ox O2 Delivery O2 Flow Rate FiO2 08/26/17 19:24 85 18 100 Room Air 2.00 08/26/17 19:23 90 18 149/64 (92) 100 Room Air 2.00 08/26/17 17:35 88 18 98 Nasal Cannula 2.00 08/26/17 17:31 98.3 88 18 153/72 (99) 98 Physical Exam PE: GENERAL: Pleasant elderly white male in no acute distress. [place]. HEENT: PERRLA, EOMI. No scleral icterus or conjunctival pallor. No lid lag or facial droop. CARDIOVASCULAR: Regular rate and rhythm. No obvious murmurs to auscultation. No chest tenderness to palpation. RESPIRATORY: No obvious rhonchi or wheezing. Clear to auscultation. Breath sounds equal bilaterally. GASTROINTESTINAL: Abdomen soft, non-tender, nondistended. BS normal. MUSCULOSKELETAL: Extremities without clubbing, cyanosis, or edema. No obvious deformities. NEUROLOGICAL: Awake, alert and oriented x4. No focal neurologic deficits. Moving both upper and lower extremities spontaneously. Laboratory Laboratory Tests Test 08/26/17 18:00 08/26/17 19:36 White Blood Count 13.0 Red Blood Count 3.71 Hemoglobin 10.8 Hematocrit 31.8 Mean Corpuscular Volume 85.6 Mean Corpuscular Hemoglobin 29.1 Mean Corpuscular Hemoglobin Concent 34.0 Red Cell Distribution Width 14.7 Platelet Count 359 Mean Platelet Volume 7.2 Neutrophils (%) (Auto) 90.8 Lymphocytes (%) (Auto) 2.0 Monocytes (%) (Auto) 6.9 Eosinophils (%) (Auto) 0.2 Basophils (%) (Auto) 0.1 Neutrophils # (Auto) 11.8 Lymphocytes # (Auto) 0.3 Monocytes # (Auto) 0.9 Eosinophils # (Auto) 0.0 Basophils # (Auto) 0.0 CBC Comment DIFF FINAL Differential Comment Prothrombin Time 11.0 Prothromb Time International Ratio 1.1 Activated Partial Thromboplast Time 25.1 Blood Urea Nitrogen 12 Creatinine 0.37 Random Glucose 95 Total Protein 6.0 Albumin 2.6 Calcium Level 8.6 Magnesium Level 1.6 Alkaline Phosphatase 95 Aspartate Amino Transf (AST/SGOT) 21 Alanine Aminotransferase (ALT/SGPT) 37 Total Bilirubin 0.3 Sodium Level 131 Potassium Level 4.4 Chloride Level 93 Carbon Dioxide Level 35.5 Anion Gap 3 Estimat Glomerular Filtration Rate 227 Total Creatine Kinase 81 Troponin I LESS THAN 0.02 Lactic Acid Level 0.6 Date/Time Source Procedure Growth Status 08/26/17 19:30 Blood Peripheral Aerobic Blood Culture Pending Received 08/26/17 19:30 Blood Peripheral Anaerobic Blood Culture Pending Received Result Diagram: 08/26/17 1800 08/26/17 1800 [place] VTE Risk Assessment Caprini VTE Risk Assessment: No/Low Risk (score <= 1) Caprini Risk Assessment Model Point Value = 1 Point Value = 2 Point Value = 3 Point Value = 5 Age 41-60 Minor surgery BMI > 25 kg/m2 Swollen legs Varicose veins or History of unexplained or recurrent spontaneous Oral contraceptives or hormone replacement Sepsis (< 1 month) Serious lung disease, including pneumonia (< 1 month) Abnormal pulmonary function Acute myocardial infarction Congestive heart failure (< 1 month) History of inflammatory bowel disease Medical patient at bed rest Age 61-74 Arthroscopic surgery Major open surgery (> 45 min) Laparoscopic surgery (> 45 min) Malignancy Confined to bed (> 72 hours) Immobilizing plaster cast Central venous access Age >= 75 History of VTE Family history of VTE Factor V Leiden Prothrombin [id number] Lupus anticoagulant Anticardiolipin antibodies Elevated serum homocysteine Heparin-induced thrombocytopenia Other congenital or acquired thrombophilia Stroke (< 1 month) Elective arthroplasty Hip, pelvis, or leg fracture Acute spinal cord injury (< 1 month) Prophylaxis Regimen Total Risk Factor Score Risk Level Prophylaxis Regimen 0-1 Low Early ambulation 2 Moderate Order ONE of the following: *Sequential Compression Device (SCD) *Heparin 5000 units SQ BID 3-4 Higher Order ONE of the following medications: *Heparin 5000 units SQ TID *Enoxaparin/Lovenox 40 mg SQ daily (WT < 150 kg, CrCl > 30 mL/min) *Enoxaparin/Lovenox 30 mg SQ daily (WT < 150 kg, CrCl > 10-29 mL/min) *Enoxaparin/Lovenox 30 mg SQ BID (WT < 150 kg, CrCl > 30 mL/min) AND/OR *Sequential Compression Device (SCD) 5 or more Highest Order ONE of the following medications: *Heparin 5000 units SQ TID (Preferred with Epidurals) *Enoxaparin/Lovenox 40 mg SQ daily (WT < 150 kg, CrCl > 30 mL/min) *Enoxaparin/Lovenox 30 mg SQ daily (WT < 150 kg, CrCl > 10-29 mL/min) *Enoxaparin/Lovenox 30 mg SQ BID (WT < 150 kg, CrCl > 30 mL/min) AND *Sequential Compression Device (SCD) Assessment and Plan Problem List: (1) PNA (pneumonia) ICD Code: J18.9 - Pneumonia, unspecified organism (2) COPD (chronic obstructive pulmonary disease) ICD Code: J44.9 - Chronic obstructive pulmonary disease, unspecified (3) C. difficile colitis ICD Code: A04.72 - Enterocolitis due to Clostridium difficile, not specified as recurrent (4) UTI (urinary tract infection) ICD Code: N39.0 - Urinary tract infection, site not specified (5) Recurrent falls ICD Code: R29.6 - Repeated falls Assessment and Plan A/P: 1. PNA: CXR w/ bilateral patchy airspace disease, likely PNA, images reviewed by me. S/p Vanc/Zosyn in ER, will continue w/ IV Abx. Check Sputum Cultures, follow up Blood Cultures, DuoNeb prn. 2. COPD: Chronic Respiratory Failure, Moderate-Severe, O2 Dependent. Monitor O2. CXR as above. DuoNeb prn, Start Symbicort. 3. UTI: U/a w/ UTI. Continue IV Abx, follow up urine cultures, monitor I/O. 4. C Diff Colitis: C Diff + 08/08/17 on last admit, continue Flagyl 250mg po tid. Denies diarrhea. Place on isolation precautions. 5. Recurrent Falls: Likely secondary to physical deconditioning and acute infection. PT for eval/tx. May need assistance w/ placement. 6. DVT Prophylaxis: SCD/Teds. 7. Social work for DC planning as needed. 8. Case discussed at length with ER physician, lab/records/imaging reviewed by me. Physician Certification 2 Midnight Certification Type: Admission for Inpatient Services Order for Inpatient Services The services are ordered in accordance with Medicare regulations or non- Medicare payer requirements, as applicable. In the case of services not specified as inpatient-only, they are appropriately provided as inpatient services in accordance with the 2-midnight benchmark. Estimated LOS (days): 2 days is the estimated time the patient will need to remain in the hospital, assuming treatment plan goals are met and no additional complications. Post-Hospital Plan: Not yet determined Venecia Sheffield MD Aug 26, 2017 20:06
[2017-08-26] MEDS ORDERED: RESP: ALBUTEROL 2.5 MG/IPRATROPIUM 0.5 MG NEB (PRN) NEB (20:15)
[2017-08-26] MEDS ORDERED: BISACODYL 10 MG SUPP RECTAL PRN (20:15)
[2017-08-26] MEDS ORDERED: MAGNESIUM HYDROXIDE SUSP 30 ML CUP PO PRN (20:15)
[2017-08-26] MEDS ORDERED: LACTULOSE SYRUP 20 GM/30 ML CUP PO PRN (20:15)
[2017-08-26] MEDS ORDERED: Vancomycin Consult Pharmacy 1 EA OTHER SCH (20:15)
[2017-08-26] MEDS ORDERED: ACETAMINOPHEN 325 MG TAB PO PRN (20:15)
[2017-08-26] MEDS ORDERED: ACETAMINOPHEN/HYDROcodone 325 MG/5 MG TAB PO PRN (20:15)
[2017-08-26] MEDS ORDERED: SODIUM CHLORIDE 0.9% FLUSH 10 ML FLUSH IV FLUSH PRN (20:15)
[2017-08-26] MEDS ORDERED: ONDANSETRON HCL 4 MG/2 ML VIAL IVP PRN (20:15)
[2017-08-26] MEDS ORDERED: SENNOSIDES 8.6 MG TAB PO PRN (20:15)
[2017-08-26] MEDS ORDERED: MELATONIN 5 MG TAB PO PRN (20:15)
[2017-08-26] MEDS ORDERED: MORPHINE SULFATE 2 MG/ML INJ IV PUSH PRN (20:15)
[2017-08-26 20:43] LABS: BILIRUBIN, URINE NEG (NEG); BLOOD, URINE NEG (NEG); GLUCOSE,URINE NEG (NEG); KETONE, URINE NEG (NEG); NITRITE,URINE NEG (NEG); URINE COLOR YELLOW (YELLW/STRAW); URINE LEUKOCYTE ESTERASE LARGE (NEG)
[2017-08-26] MEDS: DOCUSATE SODIUM 50 MG/SENNA 8.6 MG TAB PO SCH (21:00)
[2017-08-26 22:20] VITALS: BP 169/79; PULSE 96; RESP 18; TEMP 98.1; O2SAT 97
[2017-08-26] MEDS: busPIRone HCL 5 MG TAB PO SCH (22:59)
[2017-08-26] MEDS: METOPROLOL TARTRATE 25 MG TAB PO SCH (22:59)
[2017-08-26] MEDS: SODIUM CHLORIDE 0.9% FLUSH 10 ML FLUSH IV FLUSH SCH (23:01)
[2017-08-26] MEDS: SODIUM CHLOR 0.9% 1000 ML INJ 1,000 ML IV SCH (23:01)
--- NOTE | 2017-08-26 23:06 | EKG ---
Date Performed: 08/26/2017 Time Performed: 17:40:07 PTAGE: 81 years EKG: Sinus rhythm NORMAL ECG PREVIOUS TRACING : 07/20/2017 05.02 No significant change from previous tracing noted. DOCTOR: Kavin Velazco Interpretating Date/Time 08/26/2017 23:05:06
[2017-08-26 23:10] VITALS: BP 170/79; PULSE 95; RESP 18; TEMP 98.4; O2SAT 97
[2017-08-27] VITALS (10 sets, daily range): BP systolic 130–148; BP diastolic 58–66; PULSE 58–92; RESP 18–20; TEMP 97.2–98.1; O2SAT 93–98
[2017-08-27] MEDS: SODIUM CHLOR 0.9% 1000 ML INJ 1,000 ML IV SCH ×4 (06:03→20:32)
[2017-08-27] MEDS: SODIUM CHLORIDE 0.9% FLUSH 10 ML FLUSH IV FLUSH SCH ×2 (09:00→20:32)
[2017-08-27] MEDS: PRAVASTATIN SOD 20 MG TAB PO SCH (09:56)
[2017-08-27] MEDS: LACTOBACILLUS ACIDOPHILUS TAB PO SCH ×3 (09:56→17:59)
[2017-08-27] MEDS: amLODIPine BESYLATE 5 MG TAB PO SCH (09:56)
[2017-08-27] MEDS: DOCUSATE SODIUM 50 MG/SENNA 8.6 MG TAB PO SCH ×2 (09:57→20:31)
[2017-08-27] MEDS: METOPROLOL TARTRATE 25 MG TAB PO SCH ×2 (09:57→20:31)
[2017-08-27] MEDS: CEFEPIME INJ 1,000 MG in SODIUM CHLORIDE 0.9% INJ 100 ML IV SCH ×2 (09:57→20:31)
[2017-08-27] MEDS: metroNIDAZOLE 250 MG TAB PO SCH ×3 (09:57→17:59)
[2017-08-27] MEDS: PANTOPRAZOLE SOD 40 MG DELAYED RELEASE TAB PO SCH (09:57)
[2017-08-27] MEDS: TAMSULOSIN HCL 0.4 MG CAP PO SCH (09:57)
[2017-08-27] MEDS: busPIRone HCL 5 MG TAB PO SCH ×2 (10:09→20:31)
[2017-08-27 10:25] LABS: AUTOMATED NEUTROPHIL # 10.7 TH/MM3 (1.8-7.7); BASOPHIL % 0.3 % (0.0-2.0); EOSINOPHIL % 0.3 % (0.0-4.0); HEMATOCRIT 34.8 % (39.0-51.0); HEMOGLOBIN 11.6 GM/DL (13.0-17.0); LYMPH % 2.7 % (9.0-44.0); LYMPHOCYTE # 0.3 TH/MM3 (1.0-4.8); MEAN CELL VOLUME 85.6 FL (80.0-100.0); MEAN CORPUSCULAR HEMOGLOBIN 28.6 PG (27.0-34.0); MEAN CORPUSCULAR HGB CONC 33.4 % (32.0-36.0); MEAN PLATELET VOLUME 7.2 FL (7.0-11.0); MONO % 7.3 % (0.0-8.0); MONOCYTE # 0.9 TH/MM3 (0-0.9); NEUT % 89.4 % (16.0-70.0); PLATELET COUNT 361 TH/MM3 (150-450); RED BLOOD COUNT 4.06 MIL/MM3 (4.50-5.90); RED CELL DISTRIBUTION WIDTH 14.6 % (11.6-17.2)
[2017-08-27 10:44] LABS: ALBUMIN 2.6 GM/DL (3.4-5.0); AST (GOT) 26 U/L (15-37); BICARBONATE 33.5 MEQ/L (21.0-32.0); BLOOD UREA NITROGEN 9 MG/DL (7-18); CALCIUM 8.8 MG/DL (8.5-10.1); CHLORIDE 93 MEQ/L (98-107); GLOMERULAR FILTRATION RATE 208 ML/MIN (>89); GLUCOSE,RANDOM 59 MG/DL (74-106); SODIUM (NA) 132 MEQ/L (136-145)
[2017-08-27 10:45] LABS: ALT (GPT) 38 U/L (12-78)
[2017-08-27 10:47] LABS: ALKALINE PHOSPHATASE 94 U/L (45-117); TOTAL BILIRUBIN ADULT 0.5 MG/DL (0.2-1.0); TOTAL PROTEIN 5.9 GM/DL (6.4-8.2)
[2017-08-27] MEDS: BUDESONIDE-FORMOTEROL 160/4.5 MCG INHALER INH SCH ×2 (11:37→20:33)
--- NOTE | 2017-08-27 15:11 | HHI.PR ---
Subjective Remarks no complains- cough dry, states COPD 02 dependent at 2 L has been up and walked around room this amx 2 + stools- per patient formed Objective Vitals Vital Signs Date Time Temp Pulse Resp B/P (MAP) Pulse Ox O2 Delivery O2 Flow Rate FiO2 08/27/17 12:00 73 08/27/17 12:00 97.8 71 18 130/62 (84) 93 08/27/17 08:00 97.4 88 18 148/66 (93) 97 08/27/17 08:00 89 08/27/17 08:00 Nasal Cannula 2.00 08/27/17 05:03 97.2 74 18 144/63 (90) 98 08/27/17 04:00 68 08/26/17 23:10 98.4 95 18 170/79 (109) 97 08/26/17 23:00 Nasal Cannula 2.00 08/26/17 22:20 98.1 96 18 169/79 (109) 97 08/26/17 22:19 08/26/17 19:24 85 18 100 Room Air 2.00 08/26/17 19:23 90 18 149/64 (92) 100 Nasal Cannula 2.00 08/26/17 17:35 88 18 98 Nasal Cannula 2.00 08/26/17 17:31 98.3 88 18 153/72 (99) 98 I/O 08/26/17 08/26/17 08/26/17 08/27/17 08/27/17 08/27/17 07:00 15:00 23:00 07:00 15:00 23:00 Intake Total 50 ml 240 ml Output Total 600 ml Balance 50 ml -360 ml Intake Oral 240 ml IV Total 50 ml Output Urine Total 250 ml Stool Total 350 ml Result Diagram: 08/27/1792908/27/1730 Imaging Last Impressions Head CT 08/26/171754 Signed Impressions: Service Date/Time: Saturday, August 26, 2017 18:07 - CONCLUSION: 1. Senescent changes without acute intracranial abnormality. Matthew Johnston MD Chest X-Ray 08/26/171754 Signed Impressions: Service Date/Time: Saturday, August 26, 2017 18:19 - CONCLUSION: 1. Changes of obstructive pulmonary disease. 2. Patchy bilateral lower lung zone airspace disease which may reflect atelectasis. However, consider developing pneumonia/aspiration in the appropriate clinical setting. Matthew Johnston MD Cervical Spine CT 08/26/17 [id number] Signed Impressions: Service Date/Time: Saturday, August 26, 2017 18:07 - CONCLUSION: 1. Mild 4 mm retrolisthesis of C5 on C6 likely secondary to facet arthrosis. Flexion and extension views may be obtained if there is significant clinical concern regarding ligamentous instability. 2. Advanced degenerative spondylosis of the lower cervical spine most prominently at C4-6. 3. No acute fracture. Matthew Johnston MD Objective Remarks anicteric lungs- decrease breath sounds, no rales regular rhythm abdomen soft extremities no edema A/P Problem List: (1) PNA (pneumonia) ICD Code: J18.9 - Pneumonia, unspecified organism (2) COPD (chronic obstructive pulmonary disease) ICD Code: J44.9 - Chronic obstructive pulmonary disease, unspecified (3) C. difficile colitis ICD Code: A04.72 - Enterocolitis due to Clostridium difficile, not specified as recurrent (4) UTI (urinary tract infection) ICD Code: N39.0 - Urinary tract infection, site not specified (5) Recurrent falls ICD Code: R29.6 - Repeated falls Assessment and Plan 81 years old 1. PNA: CXR w/ bilateral patchy airspace disease, likely PNA,- recently DC from the hospital. On Vanc/Zosyn Check Sputum Cultures, follow up Blood Cultures, DuoNeb prn. 2. COPD: Chronic Respiratory Failure, Moderate-Severe, O2 Dependent. NO wheezes. Monitor O2. CXR as above. DuoNeb prn, Symbicort. 3. UTI: U/a w/ UTI. Continue IV Abx, follow up urine cultures, monitor I/O. 4. C Diff Colitis: C Diff + 08/08/17 on last admit, continue Flagyl 250mg po tid. Denies diarrhea. Place on isolation precautions. 5. Recurrent Falls: Likely secondary to physical deconditioning and acute infection. PT f daily. May need assistance w/ placement. 6. DVT Prophylaxis: SCD/Teds- start Lovenox. 7. Social work for DC planning as needed. Carmen Portillo MD Aug 27, 2017 15:11
[2017-08-27] MEDS: ENOXAPARIN SODIUM 40 MG/0.4 ML SYRINGE SQ SCH (16:41)
[2017-08-27] MEDS ORDERED: VANCOMYCIN 1,000 MG/NS 250 ML IV ONE ×2 (20:00)
[2017-08-27] MEDS: VANCOMYCIN INJ 750 MG in SODIUM CHLOR 0.9% 250 ML INJ 250 ML IV SCH (21:21)
[2017-08-28] VITALS (10 sets, daily range): BP systolic 129–148; BP diastolic 53–66; PULSE 63–113; RESP 16–19; TEMP 97.3–98.4; O2SAT 93–99
[2017-08-28] MEDS: SODIUM CHLOR 0.9% 1000 ML INJ 1,000 ML IV SCH ×2 (06:14→18:18)
[2017-08-28] MEDS: LACTOBACILLUS ACIDOPHILUS TAB PO SCH ×3 (08:35→17:46)
[2017-08-28] MEDS: PANTOPRAZOLE SOD 40 MG DELAYED RELEASE TAB PO SCH (08:35)
[2017-08-28] MEDS: amLODIPine BESYLATE 5 MG TAB PO SCH (08:35)
[2017-08-28] MEDS: PRAVASTATIN SOD 20 MG TAB PO SCH (08:36)
[2017-08-28] MEDS: DOCUSATE SODIUM 50 MG/SENNA 8.6 MG TAB PO SCH ×2 (08:36→21:01)
[2017-08-28] MEDS: busPIRone HCL 5 MG TAB PO SCH ×2 (08:36→21:01)
[2017-08-28] MEDS: metroNIDAZOLE 250 MG TAB PO SCH ×3 (08:36→17:46)
[2017-08-28] MEDS: TAMSULOSIN HCL 0.4 MG CAP PO SCH (08:36)
[2017-08-28] MEDS: CEFEPIME INJ 1,000 MG in SODIUM CHLORIDE 0.9% INJ 100 ML IV SCH ×2 (08:37→21:01)
[2017-08-28] MEDS: SODIUM CHLORIDE 0.9% FLUSH 10 ML FLUSH IV FLUSH SCH ×2 (08:37→21:01)
[2017-08-28] MEDS: BUDESONIDE-FORMOTEROL 160/4.5 MCG INHALER INH SCH ×2 (08:37→21:02)
[2017-08-28] MEDS: METOPROLOL TARTRATE 25 MG TAB PO SCH ×2 (08:42→21:01)
--- NOTE | 2017-08-28 13:47 | HHI.PR ---
Subjective Remarks up in chair- ate pretty good cough- dry- minimal- no sputum states feels weak on exam- with few inspiratory wheezes Objective Vitals Vital Signs Date Time Temp Pulse Resp B/P (MAP) Pulse Ox O2 Delivery O2 Flow Rate FiO2 08/28/17 12:00 97.4 80 16 129/60 (83) 95 08/28/17 12:00 101 08/28/17 10:37 Nasal Cannula 2.00 08/28/17 08:00 Nasal Cannula 2.00 08/28/17 08:00 98.4 97 16 140/66 (90) 99 08/28/17 08:00 113 08/28/17 04:00 97.3 87 18 138/62 (87) 96 08/28/17 04:00 Nasal Cannula 2.00 08/28/17 03:47 63 08/28/17 00:00 Nasal Cannula 2.00 08/28/17 00:00 97.3 84 19 142/66 (91) 96 08/27/17 23:46 64 08/27/17 20:29 97.3 90 20 142/58 (86) 97 08/27/17 20:29 Nasal Cannula 2.00 08/27/17 19:47 90 08/27/17 19:37 97 Nasal Cannula 2.00 08/27/17 16:00 98.1 92 18 132/63 (86) 96 I/O 08/27/17 08/27/17 08/27/17 08/28/17 08/28/17 08/28/17 07:00 15:00 23:00 07:00 15:00 23:00 Intake Total 240 ml 1590 ml 1340 ml Output Total 600 ml 600 ml 800 ml Balance -360 ml 990 ml 540 ml Intake Oral 240 ml 240 ml 340 ml IV Total 1350 ml 1000 ml Output Urine Total 250 ml 600 ml 800 ml Stool Total 350 ml # Bowel Movements 3 Result Diagram: 08/27/1792908/27/17929 Imaging Last Impressions Head CT 08/26/171754 Signed Impressions: Service Date/Time: Saturday, August 26, 2017 18:07 - CONCLUSION: 1. Senescent changes without acute intracranial abnormality. Matthew Johnston MD Chest X-Ray 08/26/171754 Signed Impressions: Service Date/Time: Saturday, August 26, 2017 18:19 - CONCLUSION: 1. Changes of obstructive pulmonary disease. 2. Patchy bilateral lower lung zone airspace disease which may reflect atelectasis. However, consider developing pneumonia/aspiration in the appropriate clinical setting. Matthew Johnston MD Cervical Spine CT 08/26/17 0987 Signed Impressions: Service Date/Time: Saturday, August 26, 2017 18:07 - CONCLUSION: 1. Mild 4 mm retrolisthesis of C5 on C6 likely secondary to facet arthrosis. Flexion and extension views may be obtained if there is significant clinical concern regarding ligamentous instability. 2. Advanced degenerative spondylosis of the lower cervical spine most prominently at C4-6. 3. No acute fracture. Matthew Johnston MD Objective Remarks awake and alert, oriented x 3 anicteric no nuchal rigidity, no JVD decrease breath sounds regular rhythm abdomen soft, nontender extremities no edema A/P Problem List: (1) PNA (pneumonia) ICD Code: J18.9 - Pneumonia, unspecified organism (2) COPD (chronic obstructive pulmonary disease) ICD Code: J44.9 - Chronic obstructive pulmonary disease, unspecified (3) C. difficile colitis ICD Code: A04.72 - Enterocolitis due to Clostridium difficile, not specified as recurrent (4) UTI (urinary tract infection) ICD Code: N39.0 - Urinary tract infection, site not specified (5) Recurrent falls ICD Code: R29.6 - Repeated falls Assessment and Plan 81 years old 1. PNA- recently hospitalization: CXR w/ bilateral patchy airspace disease, likely PNA,- continue on Vanc/Zosyn Check Sputum Cultures, follow up Blood Cultures, DuoNeb prn. recently DC from hospital- CXR was normal then 2. COPD: Chronic Respiratory Failure, Moderate-Severe, O2 Dependent. CXR as above. DuoNeb scheduled. Symbicort. 3. UTI: U/a w/ UTI. Continue IV Abx, follow up urine cultures, monitor I/O. 4. C Diff Colitis: C Diff + 08/08/17 on last admit, continue Flagyl 250mg po tid. monitor BM on antibitoics. On Lactinex. Place on isolation precautions. 5. Recurrent Falls: Likely secondary to physical deconditioning and acute infection. PT f daily. May need assistance w/ placement. 6. DVT Prophylaxis: SCD/Teds- start Lovenox. 7. Social work for DC planning as needed. Carmen Portillo MD Aug 28, 2017 13:47
[2017-08-28] MEDS: RESP: ALBUTEROL 2.5 MG/IPRATROPIUM 0.5 MG NEB (SCH) NEB ×3 (14:20→19:56)
[2017-08-28] MEDS: ENOXAPARIN SODIUM 40 MG/0.4 ML SYRINGE SQ SCH (16:08)
[2017-08-28] MEDS: VANCOMYCIN INJ 750 MG in SODIUM CHLOR 0.9% 250 ML INJ 250 ML IV SCH (21:52)
[2017-08-29] VITALS (14 sets, daily range): BP systolic 119–164; BP diastolic 61–80; PULSE 59–112; RESP 18–20; TEMP 97.4–98.8; O2SAT 92–97
[2017-08-29] MEDS: RESP: ALBUTEROL 2.5 MG/IPRATROPIUM 0.5 MG NEB (SCH) NEB ×7 (02:42→23:48)
[2017-08-29] MEDS: SODIUM CHLOR 0.9% 1000 ML INJ 1,000 ML IV SCH ×2 (05:20→22:28)
[2017-08-29] MEDS: PANTOPRAZOLE SOD 40 MG DELAYED RELEASE TAB PO SCH (09:56)
[2017-08-29] MEDS: METOPROLOL TARTRATE 25 MG TAB PO SCH ×2 (09:56→22:23)
[2017-08-29] MEDS: amLODIPine BESYLATE 5 MG TAB PO SCH (09:56)
[2017-08-29] MEDS: PRAVASTATIN SOD 20 MG TAB PO SCH (09:56)
[2017-08-29] MEDS: DOCUSATE SODIUM 50 MG/SENNA 8.6 MG TAB PO SCH ×2 (09:56→21:00)
[2017-08-29] MEDS: metroNIDAZOLE 250 MG TAB PO SCH ×3 (09:56→18:02)
[2017-08-29] MEDS: TAMSULOSIN HCL 0.4 MG CAP PO SCH (09:56)
[2017-08-29] MEDS: busPIRone HCL 5 MG TAB PO SCH ×2 (09:56→22:23)
[2017-08-29] MEDS: LACTOBACILLUS ACIDOPHILUS TAB PO SCH ×3 (09:56→18:02)
[2017-08-29] MEDS: SODIUM CHLORIDE 0.9% FLUSH 10 ML FLUSH IV FLUSH SCH ×2 (09:57→21:00)
[2017-08-29] MEDS: CEFEPIME INJ 1,000 MG in SODIUM CHLORIDE 0.9% INJ 100 ML IV SCH (09:57)
[2017-08-29] MEDS: BUDESONIDE-FORMOTEROL 160/4.5 MCG INHALER INH SCH ×2 (09:58→22:24)
--- NOTE | 2017-08-29 14:03 | HHI.PR ---
Subjective Remarks minimal cough- dry generalized weakness- needs assistance no fever or chills stools- soft- brown Objective Vitals Vital Signs Date Time Temp Pulse Resp B/P (MAP) Pulse Ox O2 Delivery O2 Flow Rate FiO2 08/29/17 12:11 97.7 75 18 148/66 (93) 97 08/29/17 08:05 97.4 112 20 164/67 (99) 92 08/29/17 08:04 97 Nasal Cannula 2.00 08/29/17 04:00 Nasal Cannula 2.00 08/29/17 04:00 98.8 82 19 129/80 (96) 97 08/29/17 03:50 80 08/29/17 00:32 97.6 86 20 138/65 (89) 96 08/29/17 00:00 96 Nasal Cannula 2.00 08/28/17 23:46 72 08/28/17 20:00 97.7 92 18 145/66 (92) 97 08/28/17 20:00 Nasal Cannula 2.00 08/28/17 19:46 77 08/28/17 16:00 97.4 94 16 148/53 (84) 95 I/O 08/28/17 08/28/17 08/28/17 08/29/17 08/29/17 08/29/17 07:00 15:00 23:00 07:00 15:00 23:00 Intake Total 1340 ml 100 ml 1837.5 ml 1400 ml Output Total 800 ml 100 ml Balance 540 ml 100 ml 1837.5 ml 1300 ml Intake Oral 340 ml 480 ml 400 ml IV Total 1000 ml 100 ml 1357.5 ml 1000 ml Output Urine Total 800 ml 100 ml # Voids 3 # Bowel Movements 2 0 Result Diagram: 08/27/1792908/27/17929 Imaging Last Impressions Head CT 08/26/171754 Signed Impressions: Service Date/Time: Saturday, August 26, 2017 18:07 - CONCLUSION: 1. Senescent changes without acute intracranial abnormality. Matthew Johnston MD Chest X-Ray 08/26/171754 Signed Impressions: Service Date/Time: Saturday, August 26, 2017 18:19 - CONCLUSION: 1. Changes of obstructive pulmonary disease. 2. Patchy bilateral lower lung zone airspace disease which may reflect atelectasis. However, consider developing pneumonia/aspiration in the appropriate clinical setting. Matthew Johnston MD Cervical Spine CT 08/26/17 1528 Signed Impressions: Service Date/Time: Saturday, August 26, 2017 18:07 - CONCLUSION: 1. Mild 4 mm retrolisthesis of C5 on C6 likely secondary to facet arthrosis. Flexion and extension views may be obtained if there is significant clinical concern regarding ligamentous instability. 2. Advanced degenerative spondylosis of the lower cervical spine most prominently at C4-6. 3. No acute fracture. Matthew Johnston MD Objective Remarks awake and alert, oriented x 3, no acute distress, easily fatigued anicteric no nuchal rigidity, no JVD decrease breath sounds - no rales, with inspiratory wheezes regular rhythm abdomen soft, nontender extremities no edema A/P Problem List: (1) PNA (pneumonia) ICD Code: J18.9 - Pneumonia, unspecified organism (2) COPD (chronic obstructive pulmonary disease) ICD Code: J44.9 - Chronic obstructive pulmonary disease, unspecified (3) C. difficile colitis ICD Code: A04.72 - Enterocolitis due to Clostridium difficile, not specified as recurrent (4) UTI (urinary tract infection) ICD Code: N39.0 - Urinary tract infection, site not specified (5) Recurrent falls ICD Code: R29.6 - Repeated falls Assessment and Plan 81 years old 1. PNA- recently hospitalization: sputum now growing Pseudomonas on Vanc/Zosyn . follow up sensitivities recently DC from hospital- CXR was normal then ID consult for recommendation 2. COPD: Chronic Respiratory Failure, Moderate-Severe, O2 Dependent. with some inspiratory wheezes Monitor O2. CXR as above. DuoNeb scheduled. Symbicort. 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 UTI: U/a w/ UTI. - On above antibitoics. cultures negative so far., monitor I/O. 4. C Diff Colitis: C Diff + 08/08/17 on last admit, continue Flagyl 250mg po tid. monitor BM on antibitoics. On Lactinex. Place on isolation precautions. 5. Recurrent Falls: Likely secondary to physical deconditioning and acute infection. PT f daily. need assistance w/ placement. 6. DVT Prophylaxis: SCD/Teds- Lovenox. 7. Social work for DC planning as needed.- will need SNF Carmen Portillo MD Aug 29, 2017 14:03
[2017-08-29] MEDS ORDERED: PIPERACIL-TAZO 4.5 GM PREMIX 100 ML IV SCH (15:30)
--- NOTE | 2017-08-29 17:35 | MB ---
cc: Kaelb Avilez MD DATE OF CONSULT: 08/29/2017 REQUESTING PHYSICIAN: Carmen Portillo MD REASON: Hospital-acquired pneumonia. Recent hospitalization. Antibiotic recommendation. Patient with underlying COPD. Oxygen requiring. HISTORY OF PRESENT ILLNESS: This is a 81-year-old white male who is known to me from prior hospitalization. The patient was recently discharged from the hospital on 08/24. He was in rehab for rehabilitation after hospitalization. Patient has history of COPD and recently he had COPD exacerbation and was treated and developed spontaneous left-sided pneumothorax. He was treated and then transferred to rehab. During his stay in rehab, he developed urinary tract infection which was treated as well. He was discharged home on oral antibiotics. Another problem that he developed was C. difficile colitis for which he was receiving treatment. Patient went home and states that he was doing okay. He states that the reason why he was brought in at this time is because he fell from his recliner chair onto his buttocks and he could not get up. He reports that he was down on the floor for about 3 hours and 911 was called and he was brought to the emergency department. He complained of generalized weakness. He was getting around with a walker at home. He is reported to have fallen several times before he came in to the emergency department. In the ED, he was found to have elevated white blood cell count. Chest x-ray was performed and it showed patchy bilateral lower lungs and airspace disease which may reflect atelectasis. It was noted, however, developing pneumonia/aspiration could be present in the appropriate setting. The patient denies cough. He is on oxygen via nasal cannula. He breathes through pursed lips. He denies chills, nausea, vomiting, cough, or sputum production. Sputum culture was obtained and it grew pseudomonas species. He remains afebrile. He is currently sitting up in his bedside recliner and he is in no acute distress. PAST MEDICAL HISTORY: COPD, oxygen dependent, hypertension, history of recent C. 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 ALLERGIES: NO KNOWN DRUG ALLERGIES. MEDICATIONS: Vancomycin intravenous, cefepime, Flagyl p.o., Lactinex, methylprednisolone, DuoNeb, Protonix, Flomax, Symbicort, Cecilia-Colace, Lopressor, BuSpar. SOCIAL HISTORY: No tobacco, no alcohol, no illicit drugs. FAMILY HISTORY: Noncontributory. REVIEW OF SYSTEMS: Significant for shortness of breath and generalized weakness. Otherwise negative on 10-point review. PHYSICAL EXAMINATION: He is a slender male who is in no acute distress. Patient is awake and alert and oriented. VITAL SIGNS: Temperature 97.7, BP 148/56, respirations 18, heart rate 75. HEENT: Head atraumatic. Extraocular movements grossly intact. Pupils reactive to light. No icterus. No conjunctival erythema. OROPHARYNX: Moist mucosa. NECK: Supple without adenopathy. LUNGS: Marked decreased breath sounds. HEART: Regular S1 and S2 without audible murmurs. ABDOMEN: Bowel sounds present, soft, nontender. Bowel sounds are diminished. No palpable masses. RECTAL: Not performed. EXTREMITIES: No clubbing, cyanosis, or edema. Muscle wasting apparent at the lower extremities. SKIN: No rash. NEUROLOGIC: No gross focal findings. PSYCHIATRIC: The patient is very calm and cooperative. LABORATORY STUDIES: WBC 12.0, platelets 261, hemoglobin 11.6, 89% neutrophils. Creatinine 0.40, BUN 9. Sodium 132. LFTs normal. IMPRESSION: 1. Pneumonia superimposed on chronic obstructive pulmonary disease. Pseudomonas species growing in sputum culture. 2. Leukocytosis secondary to pneumonia. 3. Recent C. difficile colitis. 4. Recent urinary tract infection. Urine culture shows no growth. RECOMMENDATIONS: 1. Change the cefepime to piperacillin/tazobactam. 2. Monitor the pseudomonas sensitivity. 3. Continue Flagyl. 4. Discontinue intravenous vancomycin. 5. Continue Lactinex. 6. Monitor his clinical status. Thank you for this consultation. The patient's progress will be monitored and further recommendations will be given upon followup. Currently, he appears to be clinically stable. MD RODRIGUEZ Lopez/TI , 03:20 PM , 05:32 PM
[2017-08-29] MEDS: ENOXAPARIN SODIUM 40 MG/0.4 ML SYRINGE SQ SCH (18:02)
[2017-08-29] MEDS: methylPREDNISolone SOD SUCC 40 MG/1 ML VIAL IV PUSH SCH ×2 (18:02→22:23)
[2017-08-29] MEDS: PIPERACILLIN/TAZ 4.5 GM VIAL 4.5 GM in SODIUM CHLORIDE 0.9% INJ 100 ML IV SCH ×2 (18:02→22:23)
[2017-08-29] MEDS ORDERED: PHARMACY ORDERED LAB ONE (20:45)
[2017-08-30] VITALS (12 sets, daily range): BP systolic 105–150; BP diastolic 54–71; PULSE 61–105; RESP 18–20; TEMP 97.4–97.9; O2SAT 93–98
[2017-08-30] MEDS: PIPERACILLIN/TAZ 4.5 GM VIAL 4.5 GM in SODIUM CHLORIDE 0.9% INJ 100 ML IV SCH ×4 (03:32→21:01)
[2017-08-30] MEDS: SODIUM CHLOR 0.9% 1000 ML INJ 1,000 ML IV SCH ×2 (03:34→22:48)
[2017-08-30] MEDS: RESP: ALBUTEROL 2.5 MG/IPRATROPIUM 0.5 MG NEB (SCH) NEB ×5 (03:39→20:03)
[2017-08-30] MEDS: methylPREDNISolone SOD SUCC 40 MG/1 ML VIAL IV PUSH SCH ×2 (05:27→13:22)
[2017-08-30] MEDS: PANTOPRAZOLE SOD 40 MG DELAYED RELEASE TAB PO SCH (09:15)
[2017-08-30] MEDS: METOPROLOL TARTRATE 25 MG TAB PO SCH ×2 (09:15→20:51)
[2017-08-30] MEDS: DOCUSATE SODIUM 50 MG/SENNA 8.6 MG TAB PO SCH ×2 (09:15→20:51)
[2017-08-30] MEDS: busPIRone HCL 5 MG TAB PO SCH ×2 (09:15→20:50)
[2017-08-30] MEDS: LACTOBACILLUS ACIDOPHILUS TAB PO SCH ×3 (09:15→16:54)
[2017-08-30] MEDS: PRAVASTATIN SOD 20 MG TAB PO SCH (09:15)
[2017-08-30] MEDS: amLODIPine BESYLATE 5 MG TAB PO SCH (09:15)
[2017-08-30] MEDS: TAMSULOSIN HCL 0.4 MG CAP PO SCH (09:15)
[2017-08-30] MEDS: BUDESONIDE-FORMOTEROL 160/4.5 MCG INHALER INH SCH ×2 (09:20→20:52)
[2017-08-30] MEDS: SODIUM CHLORIDE 0.9% FLUSH 10 ML FLUSH IV FLUSH SCH ×2 (09:21→20:52)
[2017-08-30] MEDS: metroNIDAZOLE 250 MG TAB PO SCH ×3 (09:35→16:57)
--- NOTE | 2017-08-30 09:39 | HHI.PR ---
Subjective Remarks He does not appear in acute distress at this time. Feels a little tired. No nausea or vomiting. Eating but not much he does not have appetite. Complains of having gas. No abdominal pain. Did not have a bowel movement yet. No fever or chills. Objective Vitals Vital Signs Date Time Temp Pulse Resp B/P (MAP) Pulse Ox O2 Delivery O2 Flow Rate FiO2 08/30/17 08:24 93 Nasal Cannula 2.00 08/30/17 04:10 61 08/30/17 04:00 97.8 78 19 137/70 (92) 98 08/30/17 00:00 97.8 71 20 130/68 (88) 96 08/29/17 23:53 59 08/29/17 20:44 95 Nasal Cannula 2.00 08/29/17 20:30 Nasal Cannula 2.00 08/29/17 20:22 68 08/29/17 20:00 98.2 86 18 160/78 (105) 95 08/29/17 16:14 97.5 97 18 119/61 (80) 94 08/29/17 16:00 Nasal Cannula 2.00 08/29/17 15:55 104 08/29/17 12:11 97.7 75 18 148/66 (93) 97 08/29/17 12:05 71 08/29/17 12:00 Nasal Cannula 2.00 I/O 08/29/17 08/29/17 08/29/17 08/30/17 08/30/17 08/30/17 07:00 15:00 23:00 07:00 15:00 23:00 Intake Total 1400 ml 480 ml 336 ml Output Total 100 ml 500 ml 800 ml Balance 1300 ml -20 ml -464 ml Intake Oral 400 ml 480 ml 200 ml IV Total 1000 ml 136 ml Output Urine Total 100 ml 500 ml 800 ml # Bowel Movements 0 0 1 Result Diagram: 08/27/1792908/27/17929 Imaging Last Impressions Head CT 08/26/171754 Signed Impressions: Service Date/Time: Saturday, August 26, 2017 18:07 - CONCLUSION: 1. Senescent changes without acute intracranial abnormality. Matthew Johnston MD Chest X-Ray 08/26/171754 Signed Impressions: Service Date/Time: Saturday, August 26, 2017 18:19 - CONCLUSION: 1. Changes of obstructive pulmonary disease. 2. Patchy bilateral lower lung zone airspace disease which may reflect atelectasis. However, consider developing pneumonia/aspiration in the appropriate clinical setting. Matthew Johnston MD Cervical Spine CT 08/26/17 1588 Signed Impressions: Service Date/Time: Saturday, August 26, 2017 18:07 - CONCLUSION: 1. Mild 4 mm retrolisthesis of C5 on C6 likely secondary to facet arthrosis. Flexion and extension views may be obtained if there is significant clinical concern regarding ligamentous instability. 2. Advanced degenerative spondylosis of the lower cervical spine most prominently at C4-6. 3. No acute fracture. Matthew Johnston MD Objective Remarks GENERAL: Awake and alert, oriented x 3, no acute distress, easily fatigued CARDIOVASCULAR: Regular rate and rhythm. RESPIRATORY: Decrease breath sounds - no rales, scattered inspiratory wheezes GASTROINTESTINAL: Abdomen soft, non-tender, nondistended. Hepatic and splenic margins not palpable. MUSCULOSKELETAL: Extremities without clubbing, cyanosis, or edema. No obvious deformities. NEUROLOGICAL: Awake and alert. No obvious cranial nerve deficits. Motor grossly within normal limits. Five out of 5 muscle strength in the arms and legs. Normal speech. PSYCHIATRIC: Appropriate mood and affect; insight and judgment normal. A/P Problem List: (1) PNA (pneumonia) ICD Code: J18.9 - Pneumonia, unspecified organism (2) COPD (chronic obstructive pulmonary disease) ICD Code: J44.9 - Chronic obstructive pulmonary disease, unspecified (3) C. difficile colitis ICD Code: A04.72 - Enterocolitis due to Clostridium difficile, not specified as recurrent (4) UTI (urinary tract infection) ICD Code: N39.0 - Urinary tract infection, site not specified (5) Recurrent falls ICD Code: R29.6 - Repeated falls Assessment and Plan 81 years old 1. PNA- recently hospitalization: sputum now growing Pseudomonas on Vanc/Zosyn . follow up sensitivities recently DC from hospital- CXR was normal then ID consult, appreciate recommendation 2. COPD: Chronic Respiratory Failure, Moderate-Severe, O2 Dependent. with some inspiratory wheezes Monitor O2. CXR as above. DuoNeb scheduled. Symbicort. 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 UTI: U/a w/ UTI. - On above antibitoics. cultures negative so far., monitor I/O. 4. C Diff Colitis: C Diff + 08/08/17 on last admit, continue Flagyl 250mg po tid. monitor BM on antibitoics. On Lactinex. Place on isolation precautions. 5. Recurrent Falls: Likely secondary to physical deconditioning and acute infection. PT f daily. need assistance w/ placement. DVT Prophylaxis: SCD/Teds- Lovenox. CM consulted for DC planning as needed.- will need SNF Discussed with the patient, nurse Kaitlin Pappas MD Aug 30, 2017 09:39
--- NOTE | 2017-08-30 15:10 | HHI.IDPN ---
Note Infectious Disease Note Patient up in chair. Respirations does not seem to be as labored as yesterday. Denies chills or chest pain. Afebrile. 81-year-old white male who is known to me from prior hospitalization. The patient was recently discharged from the hospital on 08/24. He was in rehab for rehabilitation after hospitalization. Patient has history of COPD and recently he had COPD exacerbation and was treated and developed spontaneous left-sided pneumothorax. He was discharged home on oral antibiotics. Patient went home and states that he was doing okay. He states that the reason why he was brought in at this time is because he fell from his recliner chair onto his buttocks and he could not get up. He reports that he was down on the floor for about 3 hours and 911 was called and he was brought to the emergency department. PAST MEDICAL HISTORY: COPD, oxygen dependent, hypertension, history of recent C. 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 ALLERGIES: NO KNOWN DRUG ALLERGIES. MEDICATIONS: Current Medications Medications (Trade) Dose Ordered Sig/Godfrey Route PRN Reason Start Time Stop Time Status Last Admin Dose Admin Albuterol/ Ipratropium (Duoneb Neb) 1 ampule Q4HR NEB PRN NEB SOB/WHEEZING 08/26/17 20:15 08/27/17 19:34 Sodium Chloride 1,000 ml @ 42 mls/hr [id number] IV 08/26/17 20:03 08/30/17 03:34 Sodium Chloride (NS Flush) 2 ml UNSCH PRN IV FLUSH FLUSH AFTER USING IV ACCESS 08/26/17 20:15 Sodium Chloride (NS Flush) 2 ml BID IV FLUSH 08/26/17 21:00 08/30/17 09:21 Ondansetron HCl (Zofran Inj) 4 mg Q6H PRN IVP NAUSEA OR VOMITING 08/26/17 20:15 Acetaminophen (Tylenol) 650 mg Q6H PRN PO FEVER/PAIN SCALE 1 TO 2 08/26/17 20:15 Acetaminophen/ Hydrocodone Bitart ([place] 5-325 Mg) 1 tab Q4H PRN PO PAIN SCALE 3 TO 5 08/26/17 20:15 Morphine Sulfate (Morphine Inj) 2 mg Q3H PRN IV PUSH Pain 6-10 08/26/17 20:15 Senna/Docusate Sodium (Cecilia-Colace) 1 tab BID PO 08/26/17 21:00 08/30/17 09:15 Magnesium Hydroxide (Milk Of Magnesia Liq) 30 ml Q12H PRN PO Mild constipation 08/26/17 20:15 Sennosides (Senokot) 17.2 mg Q12H PRN PO Moderate constipation 08/26/17 20:15 Bisacodyl (Dulcolax Supp) 10 mg DAILY PRN RECTAL SEVERE CONSITIPATION 08/26/17 20:15 Lactulose (Lactulose Liq) 30 ml DAILY PRN PO SEVERE CONSITIPATION 08/26/17 20:15 Amlodipine Besylate (Norvasc) 5 mg DAILY PO 08/27/17 09:00 08/30/17 09:15 Buspirone HCl (Buspar) 5 mg Q12HR PO 08/26/17 21:00 08/30/17 09:15 Lactobacillus Acidophilus (Lactinex) 1 tab TID PO 08/27/17 09:00 08/30/17 13:21 Melatonin (Melatonin) 5 mg HS PRN PO SLEEP 08/26/17 20:15 Metoprolol Tartrate (Lopressor) 25 mg Q12HR PO 08/26/17 21:00 08/30/17 09:15 Metronidazole (Flagyl) 250 mg TID PO 08/27/17 09:00 08/30/17 13:21 Pantoprazole Sodium (Protonix) 40 mg DAILY PO 08/27/17 09:00 08/30/17 09:15 Tamsulosin HCl (Flomax) 0.8 mg DAILY PO 08/27/17 09:00 08/30/17 09:15 Pravastatin Sodium (Pravachol) 20 mg DAILY PO 08/27/17 09:00 08/30/17 09:15 Enoxaparin Sodium (Lovenox Inj) 40 mg Q24H SQ 08/27/17 16:00 08/29/17 18:02 Methylprednisolone Sodium Succinate (SoluMEDROL INJ) 40 mg Q8HR IV PUSH 08/29/17 14:30 08/30/17 13:22 Piperacillin Sod/ Tazobactam Sod 4.5 gm/Sodium Chloride 100 ml @ 200 mls/hr Q6H IV 08/29/17 16:00 08/30/17 09:35 Albuterol/ Ipratropium (Duoneb Neb) 1 ampule Q6HR NEB NEB 08/30/17 13:00 Budesonide/ Formoterol Fumarate (Symbicort 160-4.5 Mcg Inh) 2 puff Q12HR INH 08/30/17 21:00 OBJECTIVE: Vital Signs Date Time Temp Pulse Resp B/P (MAP) Pulse Ox O2 Delivery O2 Flow Rate FiO2 08/30/17 12:11 96 Nasal Cannula 2.00 08/30/17 12:00 97.4 90 20 105/54 (71) 97 08/30/17 08:24 93 Nasal Cannula 2.00 08/30/17 08:00 97.9 105 20 150/71 (97) 96 08/30/17 04:10 61 08/30/17 04:00 97.8 78 19 137/70 (92) 98 08/30/17 00:00 97.8 71 20 130/68 (88) 96 08/29/17 23:53 59 08/29/17 20:44 95 Nasal Cannula 2.00 08/29/17 20:30 Nasal Cannula 2.00 08/29/17 20:22 68 08/29/17 20:00 98.2 86 18 160/78 (105) 95 08/29/17 16:14 97.5 97 18 119/61 (80) 94 08/29/17 16:00 Nasal Cannula 2.00 08/29/17 15:55 104 Microbiology Date/Time Source Procedure Growth Status 08/28/17 12:18 Sputum Expectorated Sputum Gram Stain - Final Complete 08/28/17 12:18 Sputum Culture - Final Pseudomonas Aeruginosa Complete IMAGING: Head CT [id number] Signed Impressions: Service Date/Time: Saturday, August 26, 2017 18:07 - CONCLUSION: 1. Senescent changes without acute intracranial abnormality. Matthew Johnston MD Chest X-Ray [id number] Signed Impressions: Service Date/Time: Saturday, August 26, 2017 18:19 - CONCLUSION: 1. Changes of obstructive pulmonary disease. 2. Patchy bilateral lower lung zone airspace disease which may reflect atelectasis. However, consider developing pneumonia/aspiration in the appropriate clinical setting. Matthew Johnston MD Cervical Spine CT 08/26/17 0748 Signed Impressions: Service Date/Time: Saturday, August 26, 2017 18:07 - CONCLUSION: 1. Mild 4 mm retrolisthesis of C5 on C6 likely secondary to facet arthrosis. Flexion and extension views may be obtained if there is significant clinical concern regarding ligamentous instability. 2. Advanced degenerative spondylosis of the lower cervical spine most prominently at C4-6. 3. No acute fracture. Matthew Johnston MD PHYSICAL EXAMINATION: GENERAL: No acute distress. Patient is awake and alert and oriented. Up in bedside chair. HEENT: Head atraumatic. Extraocular movements grossly intact. Pupils reactive to light. No icterus. No conjunctival erythema. OROPHARYNX: Moist mucosa. NECK: Supple without adenopathy. LUNGS: Marked decreased breath sounds. HEART: Regular S1 and S2 without audible murmurs. ABDOMEN: Bowel sounds present, soft, nontender. Bowel sounds are diminished. No palpable masses. EXTREMITIES: No clubbing, cyanosis, or edema. Muscle wasting apparent at the lower extremities. SKIN: No rash. NEUROLOGIC: No gross focal findings. PSYCHIATRIC: Calm and cooperative. IMPRESSION: 1. Pneumonia superimposed on chronic obstructive pulmonary disease. Pseudomonas species growing in sputum culture. 2. Leukocytosis secondary to pneumonia. 3. Recent C. difficile colitis. 4. Recent urinary tract infection. Urine culture shows no growth. RECOMMENDATIONS: 1. Continue piperacillin/tazobactam. 2. Continue Flagyl PO. 3. Continue Lactinex. 4. Repeat CXR in Am. 5. Monitor his clinical status. Kaleb Avilez MD Aug 30, 2017 15:10
[2017-08-30] MEDS: ENOXAPARIN SODIUM 40 MG/0.4 ML SYRINGE SQ SCH (16:55)
--- NOTE | 2017-08-30 20:09 | MB ---
cc: Mohit Aguilar MD DATE OF CONSULT: 08/30/2017 REASON FOR CONSULTATION: Pneumonia and COPD. HISTORY OF PRESENT ILLNESS: This is a 72-year-old black male who is previously known to me with a history of COPD. He was recently in rehab and secondarily was discharged from there and was home for 3 days. The patient apparently was treated for a left-sided pneumothorax during his previous admission and also was treated for pneumonia and had C. difficile, for which he was treated this past month. The patient, after he went home, had a fall from his recliner chair and suffered contusions to his back and buttocks and could not get off the floor. He was brought to the ER by [facility]. Upon arrival, he was complaining of generalized weakness, shortness of breath and wheezing, and he was on oxygen at 3 L. The chest x-ray showed patchy lower lobe infiltrates consistent with atelectasis and/or pneumonia. White cell count was elevated. The patient did not have any fevers or chills and no hemoptysis. His sputum cultures in the past have shown pseudomonas and it has been treated by infectious disease service. Presently, however, the patient is coughing up little yellowish mucus and denies any hemoptysis, nausea or vomiting. PAST HISTORY: Includes history of COPD, oxygen dependent, history of hypertension, history of pneumothorax, history of prostate infection, prior history of prostate cancer and history for dilatation of the urethra as well as a right nephrectomy for kidney donation. HABITS: The patient does not smoke. No history of significant alcohol. ALLERGIES: NONE LISTED. MEDICATION LIST: Includes Symbicort, Flomax, DuoNeb nebs, Lopressor, BuSpar, Solu-Medrol and vancomycin. FAMILY HISTORY: Noncontributory. SYSTEM REVIEW: The patient has weakness, inability to walk. He has joint pain, lower back pain. He has dizzy attacks. He has cough and wheezing. He has epigastric distress and nausea, and has urinary frequency. The other system review is negative. PHYSICAL EXAMINATION: Elderly, average-built black male who is frail, alert and moderately dyspneic. Blood pressure 138/80, pulse is 78, respirations 20, temp is 97.8. HEENT: Head normocephalic. Pupils are reactive an equal. Tongue dry. Throat is intact. Nasal mucosa is fair. NECK: Supple, no bruits or thyroid enlargement, no lymphadenopathy. CHEST: Decreased excursions with coarse wheezes throughout both lung davis, prolonged expirations and crackles heard at the lung bases. HEART: Sounds are irregular S1 and S2 with no murmur, no S3 gallop. ABDOMEN: Soft, protuberant, without masses. No organomegaly or tenderness. The bowel sounds are active. EXTREMITIES: Mild peripheral edema with decreased pulses. Reflexes are 1+. There are no gross motor deficits. Cranial nerves are grossly intact. SKIN: Dry and cool. IMPRESSION: 1. Basilar pneumonia with atelectasis. 2. 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 3. History of Clostridium difficile colitis. 4. Deconditioning. 5. Urinary tract infection. PLAN: The patient has been placed on IV antibiotics including Zosyn and cefepime. Per infectious disease service, we will continue Flagyl as ordered. Nebulized DuoNeb solution added q.i.d., and the patient will be switched to prednisone 20 [address] day [address] of Solu-Medrol. He will also be given an incentive spirometer and we will use Mucomyst solution 2 mL with a nebulizer t.i.d. A followup chest x-ray will be ordered as well. I will follow the case with you. Dr. De La Cruz, thank you for this consultation. Mohit Aguilar MD VJD/LINDA , 07:29 PM , 08:09 PM
[2017-08-30] MEDS: predniSONE 10 MG TAB PO SCH (20:50)
[2017-08-30] MEDS: RESP: ACETYLCYSTEINE 10% 30 ML NEB NEB SCH (23:58)
[2017-08-31] VITALS (12 sets, daily range): BP systolic 130–162; BP diastolic 62–77; PULSE 49–112; RESP 18–20; TEMP 97.2–98.2; O2SAT 95–100
[2017-08-31] MEDS: PIPERACILLIN/TAZ 4.5 GM VIAL 4.5 GM in SODIUM CHLORIDE 0.9% INJ 100 ML IV SCH ×4 (03:12→21:44)
[2017-08-31] MEDS: SODIUM CHLOR 0.9% 1000 ML INJ 1,000 ML IV SCH (03:13)
[2017-08-31] MEDS: RESP: ALBUTEROL 2.5 MG/IPRATROPIUM 0.5 MG NEB (SCH) NEB ×4 (03:50→21:27)
--- NOTE | 2017-08-31 06:36 | RADRPT ---
EXAM DATE/TIME: 08/31/2017 05:23 [facility] COMPARISON: CHEST SINGLE AP, August 26, 2017, 18:19. INDICATIONS : Evaluate for pneumonia. MEDICAL HISTORY : Chronic obstructive pulmonary disease. Carcinoma, prostatic. SURGICAL HISTORY : None. ENCOUNTER: Subsequent ACUITY: 4 - 6 days PAIN SCORE: Non-responsive. LOCATION: Bilateral chest FINDINGS: Persistent diffuse interstitial prominence with improved aeration in the lower lung zones bilaterally . Cardiomediastinal contours are within normal limits. Remainder of exam is unchanged. CONCLUSION: 1. Changes of obstructive pulmonary disease with improved aeration in the lower lung zones. Matthew Johnston MD on August 31, 2017 at 6:35 Board Certified Radiologist. This report was verified electronically.
[2017-08-31 07:49] LABS: AUTOMATED NEUTROPHIL # 9.5 TH/MM3 (1.8-7.7); BASOPHIL % 0.1 % (0.0-2.0); HEMATOCRIT 30.4 % (39.0-51.0); HEMOGLOBIN 10.4 GM/DL (13.0-17.0); LYMPH % 2.3 % (9.0-44.0); LYMPHOCYTE # 0.2 TH/MM3 (1.0-4.8); MEAN CELL VOLUME 85.5 FL (80.0-100.0); MEAN CORPUSCULAR HEMOGLOBIN 29.1 PG (27.0-34.0); MEAN PLATELET VOLUME 7.1 FL (7.0-11.0); MONO % 5.5 % (0.0-8.0); MONOCYTE # 0.6 TH/MM3 (0-0.9); NEUT % 92.1 % (16.0-70.0); PLATELET COUNT 290 TH/MM3 (150-450); RED BLOOD COUNT 3.56 MIL/MM3 (4.50-5.90); RED CELL DISTRIBUTION WIDTH 14.7 % (11.6-17.2); WHITE BLOOD COUNT 10.3 TH/MM3 (4.0-11.0)
[2017-08-31] MEDS: RESP: ACETYLCYSTEINE 10% 30 ML NEB NEB SCH ×3 (08:00→23:33)
[2017-08-31 08:12] LABS: BICARBONATE 34.7 MEQ/L (21.0-32.0); CREATININE 0.38 MG/DL (0.60-1.30)
[2017-08-31] MEDS: SODIUM CHLORIDE 0.9% FLUSH 10 ML FLUSH IV FLUSH SCH ×2 (09:00→21:00)
[2017-08-31] MEDS: DOCUSATE SODIUM 50 MG/SENNA 8.6 MG TAB PO SCH ×2 (09:00→21:00)
--- NOTE | 2017-08-31 10:05 | HHI.PR ---
Subjective Remarks In bed appears in na.d Says she feels ties. Says his pulm is Dr Pratt. also at bedside No n/v/d/c. Feels sob and has wheezing at times. Objective Vitals Vital Signs Date Time Temp Pulse Resp B/P (MAP) Pulse Ox O2 Delivery O2 Flow Rate FiO2 08/31/17 09:52 98 Nasal Cannula 2.00 08/31/17 08:00 97.2 112 18 161/74 (103) 95 08/31/17 04:00 98.2 78 20 138/65 (89) 95 08/31/17 03:47 61 08/31/17 00:02 63 08/31/17 00:00 97.5 74 20 150/71 (97) 99 08/30/17 20:00 97.4 88 20 143/63 (89) 94 08/30/17 19:45 91 08/30/17 19:30 Nasal Cannula 2.00 08/30/17 16:00 91 08/30/17 16:00 97.8 99 18 131/61 (84) 98 08/30/17 15:05 96 Nasal Cannula 2.00 08/30/17 12:11 96 Nasal Cannula 2.00 08/30/17 12:00 97 08/30/17 12:00 97.4 90 20 105/54 (71) 97 I/O 08/30/17 08/30/17 08/30/17 08/31/17 08/31/17 08/31/17 07:00 15:00 23:00 07:00 15:00 23:00 Intake Total 441 ml 505 ml 200 ml Output Total 800 ml 200 ml 575 ml Balance -359 ml 305 ml -375 ml Intake Oral 200 ml 400 ml 200 ml IV Total 241 ml 105 ml Output Urine Total 800 ml 200 ml 575 ml Stool Total 0 ml # Bowel Movements 1 2 Result Diagram: 08/31/17 0715 08/31/17 0715 Imaging Last Impressions Chest X-Ray 08/31/17 0600 Signed Impressions: Service Date/Time: Thursday, August 31, 2017 05:23 - CONCLUSION: 1. Changes of obstructive pulmonary disease with improved aeration in the lower lung zones. Matthew Johnston MD Head CT 08/26/17 [id number] Signed Impressions: Service Date/Time: Saturday, August 26, 2017 18:07 - CONCLUSION: 1. Senescent changes without acute intracranial abnormality. Matthew Johnston MD Cervical Spine CT 08/26/17 3410 Signed Impressions: Service Date/Time: Saturday, August 26, 2017 18:07 - CONCLUSION: 1. Mild 4 mm retrolisthesis of C5 on C6 likely secondary to facet arthrosis. Flexion and extension views may be obtained if there is significant clinical concern regarding ligamentous instability. 2. Advanced degenerative spondylosis of the lower cervical spine most prominently at C4-6. 3. No acute fracture. Matthew Johnston MD Objective Remarks GENERAL: Awake and alert, oriented x 3, no acute distress, easily fatigued CARDIOVASCULAR: Regular rate and rhythm. RESPIRATORY: Decrease breath sounds - no rales, scattered inspiratory wheezes GASTROINTESTINAL: Abdomen soft, non-tender, nondistended. Hepatic and splenic margins not palpable. MUSCULOSKELETAL: Extremities without clubbing, cyanosis, or edema. No obvious deformities. NEUROLOGICAL: Awake and alert. No obvious cranial nerve deficits. Motor grossly within normal limits. Five out of 5 muscle strength in the arms and legs. Normal speech. PSYCHIATRIC: Appropriate mood and affect; insight and judgment normal. A/P Problem List: (1) PNA (pneumonia) ICD Code: J18.9 - Pneumonia, unspecified organism (2) COPD (chronic obstructive pulmonary disease) ICD Code: J44.9 - Chronic obstructive pulmonary disease, unspecified (3) C. difficile colitis ICD Code: A04.72 - Enterocolitis due to Clostridium difficile, not specified as recurrent (4) UTI (urinary tract infection) ICD Code: N39.0 - Urinary tract infection, site not specified (5) Recurrent falls ICD Code: R29.6 - Repeated falls Assessment and Plan 81 years old 1. PNA- recently hospitalization: sputum now growing Pseudomonas on Vanc/Zosyn . follow up sensitivities recently DC from hospital- CXR was normal then. Repeat CXR 08/31/17 reviewed improved aeration lower lung lobes ID consult, appreciate recommendation 2. COPD: Chronic Respiratory Failure, Moderate-Severe, O2 Dependent. with some inspiratory wheezes Monitor O2. CXR as above. DuoNeb scheduled. Symbicort. Start IV solumedrol a 8 states he has a manager adult- "well dressed belia" - consult 3. UTI: U/a w/ UTI. - On above antibitoics. cultures negative so far., monitor I/O. 4. C Diff Colitis: C Diff + 08/08/17 on last admit, continue Flagyl 250mg po tid. monitor BM on antibitoics. On Lactinex. Place on isolation precautions. 5. Recurrent Falls: Likely secondary to physical deconditioning and acute infection. PT f daily. need assistance w/ placement. DVT Prophylaxis: SCD/Teds- Lovenox. CM consulted for DC planning as needed.- will need SNF Discussed with the patient, at bedside, nurse Kaitlin Pappas MD Aug 31, 2017 10:05
[2017-08-31] MEDS: busPIRone HCL 5 MG TAB PO SCH ×2 (10:21→21:43)
[2017-08-31] MEDS: BUDESONIDE-FORMOTEROL 160/4.5 MCG INHALER INH SCH ×2 (10:21→21:00)
[2017-08-31] MEDS: TAMSULOSIN HCL 0.4 MG CAP PO SCH (10:21)
[2017-08-31] MEDS: PRAVASTATIN SOD 20 MG TAB PO SCH (10:21)
[2017-08-31] MEDS: METOPROLOL TARTRATE 25 MG TAB PO SCH ×2 (10:22→21:43)
[2017-08-31] MEDS: amLODIPine BESYLATE 5 MG TAB PO SCH (10:22)
[2017-08-31] MEDS: LACTOBACILLUS ACIDOPHILUS TAB PO SCH ×3 (10:22→17:57)
[2017-08-31] MEDS: predniSONE 10 MG TAB PO SCH ×2 (10:22→21:43)
[2017-08-31] MEDS: PANTOPRAZOLE SOD 40 MG DELAYED RELEASE TAB PO SCH (10:22)
[2017-08-31] MEDS: metroNIDAZOLE 250 MG TAB PO SCH ×3 (10:22→17:56)
--- NOTE | 2017-08-31 13:24 | HHI.IDPN ---
Note Infectious Disease Note Patient sitting upright in bed eating. Denies shortness of breath. Receiving oxygen via nasal cannula. Denies chills or chest pain. Afebrile. Repeat chest x-ray shows improved aeration. 81-year-old white male who is known to me from prior hospitalization. The patient was recently discharged from the hospital on 08/24. He was in rehab for rehabilitation after hospitalization. Patient has history of COPD and recently he had COPD exacerbation and was treated and developed spontaneous left-sided pneumothorax. He was discharged home on oral antibiotics. Patient went home and states that he was doing okay. He states that the reason why he was brought in at this time is because he fell from his recliner chair onto his buttocks and he could not get up. He reports that he was down on the floor for about 3 hours and 911 was called and he was brought to the emergency department. PAST MEDICAL HISTORY: COPD, oxygen dependent, hypertension, history of recent C. 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 ALLERGIES: NO KNOWN DRUG ALLERGIES. Antibiotics: Piperacillin/tazobactam. OBJECTIVE: Vital Signs Date Time Temp Pulse Resp B/P (MAP) Pulse Ox O2 Delivery O2 Flow Rate FiO2 08/31/17 12:00 97.6 85 20 130/62 (84) 98 08/31/17 11:00 Nasal Cannula 2.00 08/31/17 09:52 98 Nasal Cannula 2.00 08/31/17 08:00 49 08/31/17 08:00 97.2 112 18 161/74 (103) 95 08/31/17 04:00 98.2 78 20 138/65 (89) 95 08/31/17 03:47 61 08/31/17 00:02 63 08/31/17 00:00 97.5 74 20 150/71 (97) 99 08/30/17 20:00 97.4 88 20 143/63 (89) 94 08/30/17 19:45 91 08/30/17 19:30 Nasal Cannula 2.00 08/30/17 16:00 91 08/30/17 16:00 97.8 99 18 131/61 (84) 98 08/30/17 15:05 96 Nasal Cannula 2.00 Laboratory Tests Test 08/31/17 07:15 White Blood Count 10.3 TH/MM3 Red Blood Count 3.56 MIL/MM3 Hemoglobin 10.4 GM/DL Hematocrit 30.4 % Mean Corpuscular Volume 85.5 FL Mean Corpuscular Hemoglobin 29.1 PG Mean Corpuscular Hemoglobin Concent 34.0 % Red Cell Distribution Width 14.7 % Platelet Count 290 TH/MM3 Mean Platelet Volume 7.1 FL Neutrophils (%) (Auto) 92.1 % Lymphocytes (%) (Auto) 2.3 % Monocytes (%) (Auto) 5.5 % Eosinophils (%) (Auto) 0.0 % Basophils (%) (Auto) 0.1 % Neutrophils # (Auto) 9.5 TH/MM3 Lymphocytes # (Auto) 0.2 TH/MM3 Monocytes # (Auto) 0.6 TH/MM3 Eosinophils # (Auto) 0.0 TH/MM3 Basophils # (Auto) 0.0 TH/MM3 CBC Comment DIFF FINAL Differential Comment Laboratory Tests Test 08/31/17 07:15 Blood Urea Nitrogen 12 MG/DL Creatinine 0.38 MG/DL Random Glucose 98 MG/DL Calcium Level 8.0 MG/DL Sodium Level 137 MEQ/L Potassium Level 3.3 MEQ/L Chloride Level 98 MEQ/L Carbon Dioxide Level 34.7 MEQ/L Anion Gap 4 MEQ/L Estimat Glomerular Filtration Rate 220 ML/MIN Microbiology Date/Time Source Procedure Growth Status 08/28/17 12:18 Sputum Expectorated Sputum Gram Stain - Final Complete 08/28/17 12:18 Sputum Culture - Final Pseudomonas Aeruginosa Complete IMAGING: Chest X-Ray 08/31/17 0600 Signed Impressions: Service Date/Time: Thursday, August 31, 2017 05:23 - CONCLUSION: 1. Changes of obstructive pulmonary disease with improved aeration in the lower lung zones. Matthew Johnston MD Head CT 08/26/17 249 Signed Impressions: Service Date/Time: Saturday, August 26, 2017 18:07 - CONCLUSION: 1. Senescent changes without acute intracranial abnormality. Matthew Johnston MD Chest X-Ray 08/26/17 658 Signed Impressions: Service Date/Time: Saturday, August 26, 2017 18:19 - CONCLUSION: 1. Changes of obstructive pulmonary disease. 2. Patchy bilateral lower lung zone airspace disease which may reflect atelectasis. However, consider developing pneumonia/aspiration in the appropriate clinical setting. Matthew Johnston MD Cervical Spine CT 08/26/17 [id number] Signed Impressions: Service Date/Time: Saturday, August 26, 2017 18:07 - CONCLUSION: 1. Mild 4 mm retrolisthesis of C5 on C6 likely secondary to facet arthrosis. Flexion and extension views may be obtained if there is significant clinical concern regarding ligamentous instability. 2. Advanced degenerative spondylosis of the lower cervical spine most prominently at C4-6. 3. No acute fracture. Matthew Johnston MD PHYSICAL EXAMINATION: GENERAL: No acute distress. Alert and oriented. HEENT: Head atraumatic. Extraocular movements grossly intact. Pupils reactive to light. No icterus. No conjunctival erythema. OROPHARYNX: Moist mucosa. NECK: Supple without adenopathy. LUNGS: Decreased breath sounds. HEART: Regular S1 and S2 without audible murmurs. ABDOMEN: Bowel sounds present, soft, nontender. Bowel sounds are diminished. No palpable masses. EXTREMITIES: No clubbing, cyanosis, or edema. Muscle wasting apparent at the lower extremities. SKIN: No rash. NEUROLOGIC: No gross focal findings. PSYCHIATRIC: Calm and cooperative. IMPRESSION: 1. Pneumonia superimposed on chronic obstructive pulmonary disease. Pseudomonas species growing in sputum culture. Sensitive to Levaquin. Chest x-ray shows improvement. 2. Leukocytosis secondary to pneumonia. Improved. 3. Recent C. difficile colitis. 4. Recent urinary tract infection. Urine culture shows no growth. RECOMMENDATIONS: 1. Continue piperacillin/tazobactam today. 2. Continue Flagyl PO. 3. Continue Lactinex. Because of his recent history of C. difficile I would make arrangements for treatment with intravenous Piperacillin/tazobactam for another 7 days and would continue to give Flagyl p.o. while he Receiving intravenous antibiotics. In the midline can be placed for the antibiotics and patient can be discharged tomorrow from my standpoint. I will order antibiotics on the infusion form. Kaleb Avilez MD Aug 31, 2017 13:24
--- NOTE | 2017-08-31 13:27 | HHI.FF ---
Infusion Therapy Location of Infusion Therapy: Home [facility] IV Infusion Order Patient Information Patient Weight 52.4 kg Diagnosis: Diagnosis Pneumonia pseudomonas. 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 [] May leave port accessed during therapy. [] May leave peripheral site accessed for duration of therapy. [x] If patient has SOB or respiratory distress, check oxygen saturation. If less than 90% or clinical signs of respiratory distress, administer oxygen at 2 L/min. via nasal cannula and notify physician. [x] Anaphylaxis/Reaction orders: * Stop infusion. * Keep IV line open with saline flush. * Notify physician. * Monitor vital signs every 15 minutes until symptoms resolve. * Check Oxygen saturation; Oxygen at 2 L/min. via nasal cannula if less than 90% or clinical signs of respiratory distress. * Administer diphenhydramine (Benadryl) 25 mg IV STAT, (unless patient has received as pre-med). May repeat once, if necessary. * Solu-Cortef 250 mg IVP over 30-60 seconds, use 100 mg vials for each dissolution. * Epinephrine (1mg/1 ml) 0.3 mg subcutaneously or IVP now with any signs of respiratory distress. * Check with physician for new additional pre-med orders if patient is re- challenged or re-treated. [x] May remove PICC line when treatment complete, after confirming with Physician. [x] If the patient is admitted to the hospital, the ED, or transferred via [facility] , complete transfer form including medication reconciliation order sheet. Laboratory Tests Weekly Labs: Kaleb Carr MD Aug 31, 2017 13:27
[2017-08-31] MEDS ORDERED: METR250 PO (13:30)
[2017-08-31] MEDS: ENOXAPARIN SODIUM 40 MG/0.4 ML SYRINGE SQ SCH (16:07)
--- NOTE | 2017-08-31 17:47 | HHI.PR ---
Subjective Remarks Up in a Chair . Feels better. On O2 3 L. Off BiPAP now. Objective Vital Signs Date Time Temp Pulse Resp B/P (MAP) Pulse Ox O2 Delivery O2 Flow Rate FiO2 08/31/17 16:11 85 08/31/17 15:44 Nasal Cannula 2.00 08/31/17 12:00 97.6 85 20 130/62 (84) 98 08/31/17 12:00 87 08/31/17 11:00 Nasal Cannula 2.00 08/31/17 09:52 98 Nasal Cannula 2.00 08/31/17 08:00 49 08/31/17 08:00 97.2 112 18 161/74 (103) 95 08/31/17 04:00 98.2 78 20 138/65 (89) 95 08/31/17 03:47 61 08/31/17 00:02 63 08/31/17 00:00 97.5 74 20 150/71 (97) 99 08/30/17 20:00 97.4 88 20 143/63 (89) 94 08/30/17 19:45 91 08/30/17 19:30 Nasal Cannula 2.00 I/O 08/30/17 08/30/17 08/30/17 08/31/17 08/31/17 08/31/17 07:00 15:00 23:00 07:00 15:00 23:00 Intake Total 441 ml 505 ml 200 ml Output Total 800 ml 200 ml 575 ml Balance -359 ml 305 ml -375 ml Intake Oral 200 ml 400 ml 200 ml IV Total 241 ml 105 ml Output Urine Total 800 ml 200 ml 575 ml Stool Total 0 ml # Bowel Movements 1 2 Result Diagram: 08/31/1715 08/31/17 0715 Objective Remarks Elderly, average-built black male who is frail, alert and moderately dyspneic. HEENT: Head normocephalic. Pupils are reactive an equal. Tongue dry. Throat is clear. Nasal mucosa is fair. NECK: Supple, no bruits or thyroid enlargement, no lymphadenopathy. CHEST: Decreased excursions with wheezes throughout both lung davis, prolonged expirations and occ crackles heard at the lung bases. HEART: Sounds are irregular S1 and S2 with no murmur, no S3 gallop. ABDOMEN: Soft, protuberant, without masses. No organomegaly or tenderness. The bowel sounds are active. EXTREMITIES: Mild peripheral edema with decreased pulses. Reflexes are 1+. There are no gross motor deficits. Cranial nerves are grossly intact. SKIN: Dry and cool. Assessment and Plan Assessment and Plan IMPRESSION: 1. Basilar pneumonia with atelectasis. 2. 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 3. History of Clostridium difficile colitis. 4. Deconditioning. 5. Urinary tract infection. Plan : 1. O2 at 2 L. 2. Continue antibiotics Zosyn. Vanco 3. Duonebs qid. 4. Prednisone 10 mg bid. 5. CBC,CXR in am 6. IS at Bedside q3h 7. Mucomyst 2 CC 10 % tid with Mohit Cherry MD Aug 31, 2017 17:47
[2017-09-01] VITALS (12 sets, daily range): BP systolic 130–161; BP diastolic 60–125; PULSE 54–98; RESP 16–22; TEMP 97.6–98.4; O2SAT 94–98
[2017-09-01] MEDS: RESP: ALBUTEROL 2.5 MG/IPRATROPIUM 0.5 MG NEB (SCH) NEB ×4 (04:19→20:49)
[2017-09-01] MEDS: PIPERACILLIN/TAZ 4.5 GM VIAL 4.5 GM in SODIUM CHLORIDE 0.9% INJ 100 ML IV SCH ×4 (04:45→21:40)
[2017-09-01] MEDS: RESP: ACETYLCYSTEINE 10% 30 ML NEB NEB SCH ×2 (07:40→16:00)
[2017-09-01] MEDS: DOCUSATE SODIUM 50 MG/SENNA 8.6 MG TAB PO SCH ×2 (09:00→21:00)
[2017-09-01] MEDS: BUDESONIDE-FORMOTEROL 160/4.5 MCG INHALER INH SCH ×2 (09:00→21:00)
[2017-09-01] MEDS: METOPROLOL TARTRATE 25 MG TAB PO SCH ×2 (09:29→21:11)
[2017-09-01] MEDS: PRAVASTATIN SOD 20 MG TAB PO SCH (09:29)
[2017-09-01] MEDS: PANTOPRAZOLE SOD 40 MG DELAYED RELEASE TAB PO SCH (09:29)
[2017-09-01] MEDS: metroNIDAZOLE 250 MG TAB PO SCH ×3 (09:29→18:15)
[2017-09-01] MEDS: predniSONE 10 MG TAB PO SCH ×2 (09:30→21:11)
[2017-09-01] MEDS: LACTOBACILLUS ACIDOPHILUS TAB PO SCH ×3 (09:30→18:00)
[2017-09-01] MEDS: amLODIPine BESYLATE 5 MG TAB PO SCH (09:30)
[2017-09-01] MEDS: TAMSULOSIN HCL 0.4 MG CAP PO SCH (09:30)
[2017-09-01] MEDS: busPIRone HCL 5 MG TAB PO SCH ×2 (09:30→21:11)
[2017-09-01] MEDS: SODIUM CHLORIDE 0.9% FLUSH 10 ML FLUSH IV FLUSH SCH ×2 (09:30→21:00)
--- NOTE | 2017-09-01 13:14 | HHI.PR ---
Subjective Remarks Feels a little better. wants to sit in the chair. No n/v/d/c. Not much cough. No fevers or chills overnight. Objective Vitals Vital Signs Date Time Temp Pulse Resp B/P (MAP) Pulse Ox O2 Delivery O2 Flow Rate FiO2 09/01/17 12:31 98.3 73 22 155/72 (99) 97 09/01/17 08:06 88 09/01/17 08:00 98.0 88 22 151/73 (99) 96 09/01/17 08:00 Nasal Cannula 2.00 09/01/17 07:41 95 Nasal Cannula 2.00 09/01/17 05:12 54 09/01/17 04:00 97.7 58 18 154/67 (96) 94 09/01/17 04:00 Nasal Cannula 2.00 09/01/17 00:00 60 09/01/17 00:00 98.4 77 16 130/60 (83) 96 09/01/17 00:00 Nasal Cannula 2.00 08/31/17 23:34 100 Nasal Cannula 2.00 08/31/17 21:39 98 Nasal Cannula 2.00 08/31/17 20:00 98.0 84 20 131/77 (95) 98 08/31/17 20:00 Nasal Cannula 2.00 08/31/17 20:00 86 08/31/17 18:03 Nasal Cannula 2.00 08/31/17 16:11 85 08/31/17 16:00 97.4 93 18 162/75 (104) 98 08/31/17 15:44 Nasal Cannula 2.00 I/O 08/31/17 08/31/17 08/31/17 09/01/17 09/01/17 09/01/17 06:59 14:59 22:59 06:59 14:59 22:59 Intake Total 200 ml 780 ml 460 ml Output Total 575 ml 475 ml Balance -375 ml 780 ml -15 ml Intake Oral 200 ml 680 ml 360 ml IV Total 100 ml 100 ml Output Urine Total 575 ml 475 ml # Bowel Movements 2 0 Result Diagram: 08/31/17 0715 08/31/17 0715 Imaging Last Impressions Chest X-Ray 08/31/17 0600 Signed Impressions: Service Date/Time: Thursday, August 31, 2017 05:23 - CONCLUSION: 1. Changes of obstructive pulmonary disease with improved aeration in the lower lung zones. Matthew Johnston MD Head CT 08/26/17 [id number] Signed Impressions: Service Date/Time: Saturday, August 26, 2017 18:07 - CONCLUSION: 1. Senescent changes without acute intracranial abnormality. Matthew Johnston MD Cervical Spine CT 08/26/17 [id number] Signed Impressions: Service Date/Time: Saturday, August 26, 2017 18:07 - CONCLUSION: 1. Mild 4 mm retrolisthesis of C5 on C6 likely secondary to facet arthrosis. Flexion and extension views may be obtained if there is significant clinical concern regarding ligamentous instability. 2. Advanced degenerative spondylosis of the lower cervical spine most prominently at C4-6. 3. No acute fracture. Matthew Johnston MD Objective Remarks GENERAL: Awake and alert, oriented x 3, no acute distress, easily fatigued CARDIOVASCULAR: Regular rate and rhythm. RESPIRATORY: Decrease breath sounds - no rales, scattered inspiratory wheezes GASTROINTESTINAL: Abdomen soft, non-tender, nondistended. Hepatic and splenic margins not palpable. MUSCULOSKELETAL: Extremities without clubbing, cyanosis, or edema. No obvious deformities. NEUROLOGICAL: Awake and alert. No obvious cranial nerve deficits. Motor grossly within normal limits. Five out of 5 muscle strength in the arms and legs. Normal speech. PSYCHIATRIC: Appropriate mood and affect; insight and judgment normal. A/P Problem List: (1) PNA (pneumonia) ICD Code: J18.9 - Pneumonia, unspecified organism (2) COPD (chronic obstructive pulmonary disease) ICD Code: J44.9 - Chronic obstructive pulmonary disease, unspecified (3) C. difficile colitis ICD Code: A04.72 - Enterocolitis due to Clostridium difficile, not specified as recurrent (4) UTI (urinary tract infection) ICD Code: N39.0 - Urinary tract infection, site not specified (5) Recurrent falls ICD Code: R29.6 - Repeated falls Assessment and Plan 81 years old 1. PNA- recently hospitalization: sputum now growing Pseudomonas on Vanc/Zosyn . follow up sensitivities recently DC from hospital- CXR was normal then. Repeat CXR 08/31/17 reviewed improved aeration lower lung lobes ID consult, appreciate recommendation 2. COPD: Chronic Respiratory Failure, Moderate-Severe, O2 Dependent. with some inspiratory wheezes Monitor O2. CXR as above. DuoNeb scheduled. Symbicort. 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 UTI: U/a w/ UTI. - On above antibitoics. cultures negative so far., monitor I/O. 4. C Diff Colitis: C Diff + 08/08/17 on last admit, continue Flagyl 250mg po tid. monitor BM on antibitoics. On Lactinex. Place on isolation precautions. 5. Recurrent Falls: Likely secondary to physical deconditioning and acute infection. PT f daily. need assistance w/ placement. DVT Prophylaxis: SCD/Teds- Lovenox. CM consulted for DC planning as needed.- will need SNF Discussed with the patient, nurse, Dr Avilez ID specialist, Dr Santa greer , case management Cleared for DC by consultants. Plan to DC patient to SNF, case management ff ABX at DC: Piperacillin/Tazobactam 4.5 grams IV q 6 hours . Stop Treatment: Sep 06, 2017. Continue Flagyl at discharge. Continue Lactinex at discharge. Kaitlin Pappas MD Sep 01, 2017 13:14
--- NOTE | 2017-09-01 15:19 | HHI.DS ---
Discharge Summary Admission Date Aug 26, 2017 at 20:01 Discharge Date: Sep 01, 2017 Admitting Diagnosis pneumonia, generalized weakness, multiple falls (1) PNA (pneumonia) ICD Code: J18.9 - Pneumonia, unspecified organism (2) COPD (chronic obstructive pulmonary disease) ICD Code: J44.9 - Chronic obstructive pulmonary disease, unspecified (3) C. difficile colitis ICD Code: A04.72 - Enterocolitis due to Clostridium difficile, not specified as recurrent (4) UTI (urinary tract infection) ICD Code: N39.0 - Urinary tract infection, site not specified (5) Recurrent falls ICD Code: R29.6 - Repeated falls Procedures none Brief History - From Admission This is a 81-year-old male with PMH of COPD, O2 Dependent, HTN, h/o C. Diff and Stage II Decubitus Ulcer who was brought to the ER secondary to multiple falls and c/o generalized weakness. Recent admit w/ prolonged hospitalization due to COPD, found to have Pneumothorax s/p CT in addition to C. Diff Colitis, sent to Rehab after discharge, sent home from Rehab on 08/24/17. States he's had multiple falls at home, no head trauma or LOC. Reports generalized weakness w/ fatigue, denies fever/chills, nausea or vomiting. On arrival, BP 153/72, HR 88 , O2 sat 98% on 2L NC, Afebrile. WBC 13.0. Chemistry essentially at baseline. Troponin negative. INR 1.1. UA positive for UTI. CT Head with no acute abnormality. CT C-spine negative for acute fracture. CXR with COPD, patchy bilateral airspace disease likely pneumonia/aspiration. S/p Vanc/Zosyn in ER. CBC/BMP: 08/31/17 0715 08/31/17 0715 Significant Findings Laboratory Tests Test 08/31/17 07:15 Red Blood Count 3.56 MIL/MM3 (4.50-5.90) Hemoglobin 10.4 GM/DL (13.0-17.0) Hematocrit 30.4 % (39.0-51.0) Neutrophils (%) (Auto) 92.1 % (16.0-70.0) Lymphocytes (%) (Auto) 2.3 % (9.0-44.0) Neutrophils # (Auto) 9.5 TH/MM3 (1.8-7.7) Lymphocytes # (Auto) 0.2 TH/MM3 (1.0-4.8) Creatinine 0.38 MG/DL (0.60-1.30) Calcium Level 8.0 MG/DL (8.5-10.1) Potassium Level 3.3 MEQ/L (3.5-5.1) Carbon Dioxide Level 34.7 MEQ/L (21.0-32.0) Anion Gap 4 MEQ/L (5-15) Imaging Last Impressions Chest X-Ray 08/31/17 0600 Signed Impressions: Service Date/Time: Thursday, August 31, 2017 05:23 - CONCLUSION: 1. Changes of obstructive pulmonary disease with improved aeration in the lower lung zones. Matthew Johnston MD Head CT [id number] Signed Impressions: Service Date/Time: Saturday, August 26, 2017 18:07 - CONCLUSION: 1. Senescent changes without acute intracranial abnormality. Matthew Johnston MD Cervical Spine CT [id number] Signed Impressions: Service Date/Time: Saturday, August 26, 2017 18:07 - CONCLUSION: 1. Mild 4 mm retrolisthesis of C5 on C6 likely secondary to facet arthrosis. Flexion and extension views may be obtained if there is significant clinical concern regarding ligamentous instability. 2. Advanced degenerative spondylosis of the lower cervical spine most prominently at C4-6. 3. No acute fracture. Matthew Johnston MD PE at Discharge GENERAL: Awake and alert, oriented x 3, no acute distress, easily fatigued CARDIOVASCULAR: Regular rate and rhythm. RESPIRATORY: Decrease breath sounds - no rales, scattered inspiratory wheezes GASTROINTESTINAL: Abdomen soft, non-tender, nondistended. Hepatic and splenic margins not palpable. MUSCULOSKELETAL: Extremities without clubbing, cyanosis, or edema. No obvious deformities. NEUROLOGICAL: Awake and alert. No obvious cranial nerve deficits. Motor grossly within normal limits. Five out of 5 muscle strength in the arms and legs. Normal speech. PSYCHIATRIC: Appropriate mood and affect; insight and judgment normal. Hospital Course 81 years old 1. PNA- recently hospitalization: sputum now growing Pseudomonas on Vanc/Zosyn . follow up sensitivities recently DC from hospital- CXR was normal then. Repeat CXR 08/31/17 reviewed improved aeration lower lung lobes ID consult, appreciate recommendation 2. COPD: Chronic Respiratory Failure, Moderate-Severe, O2 Dependent. with some inspiratory wheezes Monitor O2. CXR as above. DuoNeb scheduled. Symbicort. 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 UTI: U/a w/ UTI. - On above antibitoics. cultures negative so far., monitor I/O. 4. C Diff Colitis: C Diff + 08/08/17 on last admit, continue Flagyl 250mg po tid. monitor BM on antibitoics. On Lactinex. Place on isolation precautions. 5. Recurrent Falls: Likely secondary to physical deconditioning and acute infection. PT f daily. need assistance w/ placement. DVT Prophylaxis: SCD/Teds- Lovenox. CM consulted for DC planning as needed.- will need SNF Discussed with the patient, nurse, Dr Avilez ID specialist, Dr Santa greer , case management Cleared for DC by consultants. DC to SNF, in stable condition to follow up as OP with PCp and consultants. ABX at DC: Piperacillin/Tazobactam 4.5 grams IV q 6 hours . Stop Treatment: Sep 06, 2017. Continue Flagyl at discharge. Continue Lactinex at discharge. Pt Condition on Discharge: Stable Discharge Disposition: Discharge to SNF Discharge Time: > 30 minutes Discharge Instructions DIET: Follow Instructions for: Heart Healthy Diet Activities you can perform: Regular-No Restrictions Follow up Referrals: PCP Follow-up - 2-3 Days Pulmonology New Medications: Metronidazole (Flagyl) 250 Mg Tab 250 MG PO TID for Infection for 10 Days, TAB 0 Refills Continued Medications: Acetaminophen (Eq Acetaminophen) 325 Mg Tab 650 MG PO Q4H PRN for pain MDD 2gm for 30 Days, #360 TAB Amlodipine (Norvasc) 5 Mg Tab 5 MG PO DAILY for Blood Pressure Management, #30 TAB Ascorbic Acid (Vitamin C) 250 Mg Tab 1000 MG PO DAILY for Nutritional Supplement, #120 TAB 0 Refills Buspirone (Buspirone) 5 Mg Tab 5 MG PO Q12HR for anxiety for 30 Days, #60 TAB Calcium-Magnesium (Calcium & Magnesium) 750-465 Mg Tab 1 TAB PO DAILY for nutritional supplement, #30 TAB Cholestyramine (Cholestyramine) 4 Gm/Pkt Powd 4 GM PO Q12HR for 7 Days 1 packet contains 4 grams of cholestyramine. Desloratadine (Desloratadine) 5 Mg Tab 5 MG PO DAILY for Allergy Management, #30 TAB 0 Refills Fluticasone-Salmeterol Inh (Advair Diskus Inh) 250-50 Mcg/Blist Aer 2 PUFF INH DAILY for COPD, #1 INHALER 0 Refills Rinse mouth after use. Ipratropium-Albuterol Neb (Duoneb) 0.5-2.5 Mg/3 Ml Neb 1 AMPULE NEB Q6HR WHILE AWAKE NEB for COPD for 30 Days, #120 AMPULE Lactobacillus Acidophilus (Acidophilus/l-Sporogenes) 35 Million Cell-25 Million Cell Tab 1 TAB PO TID for healthy bacteria, #90 TAB Melatonin (Gnp Melatonin Maximum Str) 5 Mg Tab 5 MG PO HS PRN for SLEEP for 30 Days, #30 TAB Metoprolol Tartrate (Metoprolol Tartrate) 25 Mg Tab 25 MG PO Q12HR for Blood Pressure Management for 30 Days, #60 TAB Metronidazole (Flagyl) 250 Mg Tab 250 MG PO TID for Infection for 7 Days, #21 TAB 0 Refills Multiple Vitamin (Multiple Vitamin) 1 Tab 1 TAB PO DAILY for Nutritional Supplement, #30 TAB 0 Refills Pantoprazole (Pantoprazole) 40 Mg Tab 40 MG PO DAILY for Reflux, #30 TAB 0 Refills Prednisone (Prednisone) 5 Mg Tab 5 MG PO DAILY for Broncospasm, #30 TAB 0 Refills Simvastatin (Simvastatin) 10 Mg Tab 10 MG PO DAILY for Cholesterol Management, #30 TAB 0 Refills Tamsulosin (Flomax) 0.4 Mg Cap 0.8 MG PO DAILY for assist with urination flow, #60 CAP Discontinued Medications: Cefuroxime (Cefuroxime) 500 Mg Tab 250 MG PO BID for Infection for 7 Days, #7 TAB 0 Refills Kaitlin Pappas MD Sep 01, 2017 15:19
--- NOTE | 2017-09-01 15:33 | HHI.PR ---
Subjective Remarks 81 YOWM with COPD,Pseudomonas Pn, Gen weakness Up in chair No Fever Anxious to go home Objective Vital Signs Vital Signs Date Time Temp Pulse Resp B/P (MAP) Pulse Ox O2 Delivery O2 Flow Rate FiO2 09/01/17 12:31 98.3 73 22 155/72 (99) 97 09/01/17 08:06 88 09/01/17 08:00 98.0 88 22 151/73 (99) 96 09/01/17 08:00 Nasal Cannula 2.00 09/01/17 07:41 95 Nasal Cannula 2.00 09/01/17 05:12 54 09/01/17 04:00 97.7 58 18 154/67 (96) 94 09/01/17 04:00 Nasal Cannula 2.00 09/01/17 00:00 60 09/01/17 00:00 98.4 77 16 130/60 (83) 96 09/01/17 00:00 Nasal Cannula 2.00 08/31/17 23:34 100 Nasal Cannula 2.00 08/31/17 21:39 98 Nasal Cannula 2.00 08/31/17 20:00 98.0 84 20 131/77 (95) 98 08/31/17 20:00 Nasal Cannula 2.00 08/31/17 20:00 86 08/31/17 18:03 Nasal Cannula 2.00 08/31/17 16:11 85 08/31/17 16:00 97.4 93 18 162/75 (104) 98 08/31/17 15:44 Nasal Cannula 2.00 I/O 08/31/17 08/31/17 08/31/17 09/01/17 09/01/17 09/01/17 07:00 15:00 23:00 07:00 15:00 23:00 Intake Total 200 ml 780 ml 460 ml Output Total 575 ml 475 ml Balance -375 ml 780 ml -15 ml Intake Oral 200 ml 680 ml 360 ml IV Total 100 ml 100 ml Output Urine Total 575 ml 475 ml # Bowel Movements 2 0 Result Diagram: 08/31/1771408/31/17714 Objective Remarks GENERAL: Frail elderly WM, weak, mild sob SKIN: Warm and dry. HEAD: Normocephalic. EYES: No scleral icterus. No injection or drainage. NECK: Supple, trachea midline. No JVD or lymphadenopathy. CARDIOVASCULAR: Regular rate and rhythm without murmurs, gallops, or rubs. RESPIRATORY: Breath sounds equal bilaterally. No accessory muscle use. Scattered rales GASTROINTESTINAL: Abdomen soft, non-tender, nondistended. MUSCULOSKELETAL: No cyanosis, or edema. BACK: Nontender without obvious deformity. No CVA tenderness. A/P Assessment and Plan Pseudomonas Pneumonia COPD UTI Gen Weakness Multiple falls. PLAN: DW Pt and Pt will need rehab Aerosol nebs Supplement 02 Zosyn IV until 09/06 per Denys Edmond MD Sep 01, 2017 15:33
[2017-09-01] MEDS: ENOXAPARIN SODIUM 40 MG/0.4 ML SYRINGE SQ SCH (16:04)
[2017-09-01] MEDS: SODIUM CHLOR 0.9% 1000 ML INJ 1,000 ML IV SCH (22:26)
[2017-09-02] VITALS (8 sets, daily range): BP systolic 111–152; BP diastolic 60–85; PULSE 58–101; RESP 18–20; TEMP 97.2–98.3; O2SAT 95–98
[2017-09-02] MEDS: RESP: ALBUTEROL 2.5 MG/IPRATROPIUM 0.5 MG NEB (SCH) NEB ×3 (02:36→15:38)
[2017-09-02] MEDS: PIPERACILLIN/TAZ 4.5 GM VIAL 4.5 GM in SODIUM CHLORIDE 0.9% INJ 100 ML IV SCH ×3 (04:00→16:44)
[2017-09-02] MEDS: TAMSULOSIN HCL 0.4 MG CAP PO SCH (08:42)
[2017-09-02] MEDS: metroNIDAZOLE 250 MG TAB PO SCH ×2 (08:42→13:23)
[2017-09-02] MEDS: busPIRone HCL 5 MG TAB PO SCH (08:42)
[2017-09-02] MEDS: PANTOPRAZOLE SOD 40 MG DELAYED RELEASE TAB PO SCH (08:42)
[2017-09-02] MEDS: amLODIPine BESYLATE 5 MG TAB PO SCH (08:42)
[2017-09-02] MEDS: LACTOBACILLUS ACIDOPHILUS TAB PO SCH ×2 (08:42→13:23)
[2017-09-02] MEDS: predniSONE 10 MG TAB PO SCH (08:42)
[2017-09-02] MEDS: METOPROLOL TARTRATE 25 MG TAB PO SCH (08:43)
[2017-09-02] MEDS: SODIUM CHLORIDE 0.9% FLUSH 10 ML FLUSH IV FLUSH SCH (08:43)
[2017-09-02] MEDS: PRAVASTATIN SOD 20 MG TAB PO SCH (08:43)
[2017-09-02] MEDS: BUDESONIDE-FORMOTEROL 160/4.5 MCG INHALER INH SCH (08:44)
[2017-09-02] MEDS: DOCUSATE SODIUM 50 MG/SENNA 8.6 MG TAB PO SCH (08:44)
[2017-09-02] MEDS: RESP: ACETYLCYSTEINE 10% 30 ML NEB NEB SCH ×3 (10:14→15:38)
--- NOTE | 2017-09-07 14:19 | PQ ---
Physician Query Response Document PATIENT: NEETA MCGEE : 1935 ADMIT DATE: 08/26/2017 8:01 PM DISCH DATE: 09/02/2017 5:32 PM RESPONDING PROVIDER #: [email or web address] QUERY TEXT: Pneumonia Specificity Pneumonia is documented in the Medical Record. Please specify the type of pneumonia and the causative organism (includes probable or suspected) Such as: Type: -- Aspiration pneumonia (please also specify the aspirate) - [place] (please specify cause) - Please indicate if the aspiration is postprocedure -- Bacterial (please document suspected or probable organism) -- Bronchopneumonia (please document suspected or probable organism) -- Interstitial pneumonia -- Organizing pneumonia / BOOP -- Pneumonia with influenza, ty flu, or H1N1 flu -- RSV -- Tuberculosis, pulmonary -- Viral -- Other, please specify If you have any additional questions/comments and/or concerns, please do not hesitate to reach out to the CDI/Coding Hotline, Ext. [phone]. The patient's Clinical Indicators include: Progress Note of 09/01/[address] Pratt - Assessment and Plan: Pseudomonas Pneumonia Discharge Summary - Hospital Course : 1. PNA- recently hospitalization: sputum now growing Pseudomonas. on Vanc/Zosyn . follow up sensiti sapna ID Progress Note by Dr. Avilez 08/31/17: IMPRESSION: 1. Pneumonia superimposed on chronic obstructive pulmonary disease. Pseudomonas species growing in s putum culture. Sensitive to Levaquin. Chest x-ray shows improvement. Dr. Aguilar's consult 08/30/17: IMPRESSION: 1. Basilar pneumonia with atelectasis. H Query created by: Landy Giang on 09/07/2017 11:56 AM RESPONSE TEXT: Bacterial pneumonia 2/2 pseudomonas infection as sputum grows pseudomonas. Electronically signed by: Kaitlin Pappas MD 09/07/2017 2:15 PM
== END 2017-09-02 17:32 | DRG 178 ==
LOC: NEPC 17:18 → NEDA 20:01 → N04A 22:39
PROVIDERS: ADMIT Hospitalist; ATTEND Hospitalist
DX: J15.1 Pneumonia due to Pseudomonas (principal); A04.72 Enterocolitis due to Clostridium difficile, not specified as recurrent; J96.10 Chronic respiratory failure, unspecified whether with hypoxia or hypercapnia; L89.152 Pressure ulcer of sacral region, stage 2; N39.0 Urinary tract infection, site not specified; J44.0 Chronic obstructive pulmonary disease with (acute) lower respiratory infection; Z99.81 Dependence on supplemental oxygen; R29.6 Repeated falls; H91.90 Unspecified hearing loss, unspecified ear; Z90.5 Acquired absence of kidney; Z85.46 Personal history of malignant neoplasm of prostate
CPT/HCPCS: 36569; 70450; 71045; 72125; 76937; 80048; 80053; 81001; 82550; 83605; 83735; 84484; 85025; 85610; 85730; 87040; 87070; 87077; 87086; 87186; 87205; 87493; 93005; 94640; 94664; 96374; J0692; J1650; J2543; J2920; J3370; J7030; J7050; J7512; J7608; P9612

== ENCOUNTER 2017-09-04 20:45 | Emergency (ER) | payer MEDICARE, BC ==
[~2017-09-04] VITALS: Ht 170.2 cm; Wt 64.5 kg
[~2017-09-04 20:45] MED LIST changes: -CEFU1TAB20 PO
[2017-09-04 20:56] VITALS: BP 161/70; PULSE 84; RESP 20; TEMP 98.7; O2SAT 99
[2017-09-04] MEDS ORDERED: SODIUM CHLORIDE 0.9% 10 ML VIAL IV FLUSH ONE (21:00)
--- NOTE | 2017-09-04 21:08 | PD ---
HPI Chief Complaint: Edema Time Seen by Provider: 20:58 Travel History International Travel<30 days: No Contact w/Intl Traveler<30days: No Traveled to known affect area: No History of Present Illness HPI Patient is a 81-year-old male sent in for evaluation of left upper extremity edema. Patient has a PICC line, he was sent by the [facility]. They state that it has not been used since he was discharged from [facility] on September. Patient denies any pain. Symptom onset appears gradual, symptom severity is [id number], there are no exacerbating or alleviating factors. Upon review of medical records patient is supposed to be receiving Piperacillin/Tazobactam 4.5 grams IV q 6 hours until September 06. PFSH Past Medical History Arthritis: Yes Anxiety: Yes Depression: Yes Cancer: Yes (Prostate) Cardiovascular Problems: Yes COPD: Yes Diminished Hearing: Yes Gastrointestinal Disorders: Yes (c-diff) Genitourinary: Yes Headaches: Yes Hiatal Hernia: No Hypertension: Yes Immune Disorder: No Kidney Stones: No Musculoskeletal: Yes Neurologic: Yes Psychiatric: Yes Reproductive: No Respiratory: Yes Migraines: Yes Radiation Therapy: Yes Renal Failure: No Seizures: No Shingles: Yes Sickle Cell Disease: No Sleep Apnea: No Thyroid Disease: No Ulcer: No Tetanus Vaccination: > 5 Years Influenza Vaccination: Yes Past Surgical History Abdominal Surgery: No AICD: No Arteriovenous Shunt: No Cardiac Surgery: No Ear Surgery: No Endocrine Surgery: No Eye Surgery: No Genitourinary Surgery: Yes (Hypospadias) Gynecologic Surgery: No Insulin Pump: No Joint Replacement: No Oral Surgery: No Pacemaker: No Thoracic Surgery: No Other Surgery: Yes (PROSTATE CA 20 YRS AGO) Social History Alcohol Use: No Tobacco Use: No (QUIT 20 YRS AGO) Substance Use: No Allergies-Medications (Allergen,Severity, Reaction): Coded Allergies: No Known Drug Allergies (Verified Allergy, Unknown, 07/20/17) Reported Meds & Prescriptions Reported Meds & Active Scripts Active Zosyn Inj (Piperacillin Sod/Tazobactam Sod) 4.5 Gram Inj 4.5 Gm IV Q6HR 2 Days Flagyl (Metronidazole) 250 Mg Tab 250 Mg PO TID 10 Days Flagyl (Metronidazole) 250 Mg Tab 250 Mg PO TID 7 Days Cholestyramine 4 Gm/Pkt Powd 4 Gm PO Q12HR 7 Days 1 packet contains 4 grams of cholestyramine. Acidophilus/l-Sporogenes (Lactobacillus Acidophilus) 35 Million Cell-25 Million Cell Tab 1 Tab PO TID Eq Acetaminophen (Acetaminophen) 325 Mg Tab 650 Mg PO Q4H PRN MDD 2gm 30 Days Flomax (Tamsulosin HCl) 0.4 Mg Cap 0.8 Mg PO DAILY Norvasc (Amlodipine Besylate) 5 Mg Tab 5 Mg PO DAILY Pantoprazole (Pantoprazole Sodium) 40 Mg Tab 40 Mg PO DAILY Prednisone 5 Mg Tab 5 Mg PO DAILY Gnp Melatonin Maximum Str (Melatonin) 5 Mg Tab 5 Mg PO HS PRN 30 Days Buspirone (Buspirone HCl) 5 Mg Tab 5 Mg PO Q12HR 30 Days Metoprolol Tartrate 25 Mg Tab 25 Mg PO Q12HR 30 Days Duoneb (Ipratropium-Albuterol Neb) 0.5-2.5 Mg/3 Ml Neb 1 Ampule NEB Q6HR WHILE AWAKE NEB 30 Days Vitamin C (Ascorbic Acid) 250 Mg Tab 1,000 Mg PO DAILY Calcium & Magnesium (Calcium-Magnesium) 750-465 Mg Tab 1 Tab PO DAILY Multiple Vitamin 1 Tab 1 Tab PO DAILY Advair Diskus Inh (Fluticasone-Salmeterol Inh) 250-50 Mcg/Blist Aer 2 Puff INH DAILY Rinse mouth after use. Simvastatin 10 Mg Tab 10 Mg PO DAILY Desloratadine 5 Mg Tab 5 Mg PO DAILY Wheelchair (Device) 1 Mis Mis Ea .XX DIRECTED Review of Systems ROS Limitations: Poor Historian Except as stated in HPI: all other systems reviewed are Neg Musculoskeletal: Positive: Edema Physical Exam Narrative GENERAL: Well-developed, well-nourished, alert elderly male. Presenting in no acute distress. SKIN: Warm and dry. Superficial skin avulsion to left inner forearm, 2+ pitting edema to left antecubital space and hand. HEAD: Atraumatic. Normocephalic. EYES: Pupils equal and round. No scleral icterus. No injection or drainage. ENT: No nasal bleeding or discharge. Mucous membranes pink and moist. NECK: Trachea midline. No JVD. CARDIOVASCULAR: Regular rate and rhythm. RESPIRATORY: No accessory muscle use. Clear to auscultation. Breath sounds equal bilaterally. GASTROINTESTINAL: Abdomen soft, non-tender, nondistended. Hepatic and splenic margins not palpable. MUSCULOSKELETAL: Extremities without clubbing, cyanosis, or edema. No obvious deformities. NEUROLOGICAL: Awake and alert. No obvious cranial nerve deficits. Motor grossly within normal limits. Five out of 5 muscle strength in the arms and legs. Normal speech. PSYCHIATRIC: Appropriate mood and affect; insight and judgment normal. Data Data Last Documented VS Vital Signs Date Time Temp Pulse Resp B/P (MAP) Pulse Ox O2 Delivery O2 Flow Rate FiO2 09/05/17 08:00 97.8 65 16 130/77 (94) 99 09/05/17 07:00 Room Air Orders Orders Us Arm Venous Doppler (09/04/17 ) Complete Blood Count With Diff (09/04/17 20:58) Basic Metabolic Panel (Bmp) (09/04/17 20:58) Act Partial Throm Time (Ptt) (09/04/17 20:58) Prothrombin Time / Inr (Pt) (09/04/17 20:58) Iv Access Insert/Monitor (09/04/17 20:58) Sodium Chloride 0.9% Inj (Ns Inj) (09/04/17 21:00) Piperacil-Tazo 4.5 Gm Premix (Zosyn 4.5 (09/04/17 22:45) Chest, Single Ap (09/04/17 ) Ed Discharge Order (09/04/17 23:51) Piperacil-Tazo 4.5 Gm Premix (Zosyn 4.5 (09/05/17 05:15) Labs Laboratory Tests Test 09/04/17 21:07 White Blood Count 14.0 TH/MM3 Red Blood Count 4.46 MIL/MM3 Hemoglobin 12.7 GM/DL Hematocrit 37.8 % Mean Corpuscular Volume 84.9 FL Mean Corpuscular Hemoglobin 28.4 PG Mean Corpuscular Hemoglobin Concent 33.5 % Red Cell Distribution Width 14.8 % Platelet Count 340 TH/MM3 Mean Platelet Volume 7.2 FL Neutrophils (%) (Auto) 91.3 % Lymphocytes (%) (Auto) 2.7 % Monocytes (%) (Auto) 5.6 % Eosinophils (%) (Auto) 0.3 % Basophils (%) (Auto) 0.1 % Neutrophils # (Auto) 12.8 TH/MM3 Lymphocytes # (Auto) 0.4 TH/MM3 Monocytes # (Auto) 0.8 TH/MM3 Eosinophils # (Auto) 0.0 TH/MM3 Basophils # (Auto) 0.0 TH/MM3 CBC Comment DIFF FINAL Differential Comment Prothrombin Time 11.3 SEC Prothromb Time International Ratio 1.1 RATIO Activated Partial Thromboplast Time 22.9 SEC Blood Urea Nitrogen 15 MG/DL Creatinine 0.49 MG/DL Random Glucose 104 MG/DL Calcium Level 8.2 MG/DL Sodium Level 134 MEQ/L Potassium Level 3.3 MEQ/L Chloride Level 92 MEQ/L Carbon Dioxide Level 33.5 MEQ/L Anion Gap 9 MEQ/L Estimat Glomerular Filtration Rate 164 ML/MIN MDM Medical Decision Making Medical Screen Exam Complete: Yes Emergency Medical Condition: Yes Medical Record Reviewed: Yes Interpretation(s) Laboratory Tests Test 09/04/17 21:07 White Blood Count 14.0 TH/MM3 Red Blood Count 4.46 MIL/MM3 Hemoglobin 12.7 GM/DL Hematocrit 37.8 % Mean Corpuscular Volume 84.9 FL Mean Corpuscular Hemoglobin 28.4 PG Mean Corpuscular Hemoglobin Concent 33.5 % Red Cell Distribution Width 14.8 % Platelet Count 340 TH/MM3 Mean Platelet Volume 7.2 FL Neutrophils (%) (Auto) 91.3 % Lymphocytes (%) (Auto) 2.7 % Monocytes (%) (Auto) 5.6 % Eosinophils (%) (Auto) 0.3 % Basophils (%) (Auto) 0.1 % Neutrophils # (Auto) 12.8 TH/MM3 Lymphocytes # (Auto) 0.4 TH/MM3 Monocytes # (Auto) 0.8 TH/MM3 Eosinophils # (Auto) 0.0 TH/MM3 Basophils # (Auto) 0.0 TH/MM3 CBC Comment DIFF FINAL Differential Comment Prothrombin Time 11.3 SEC Prothromb Time International Ratio 1.1 RATIO Activated Partial Thromboplast Time 22.9 SEC Blood Urea Nitrogen 15 MG/DL Creatinine 0.49 MG/DL Random Glucose 104 MG/DL Calcium Level 8.2 MG/DL Sodium Level 134 MEQ/L Potassium Level 3.3 MEQ/L Chloride Level 92 MEQ/L Carbon Dioxide Level 33.5 MEQ/L Anion Gap 9 MEQ/L Estimat Glomerular Filtration Rate 164 ML/MIN Vital Signs Date Time Temp Pulse Resp B/P (MAP) Pulse Ox O2 Delivery O2 Flow Rate FiO2 09/04/17 20:56 98.7 84 20 161/70 (100) 99 Differential Diagnosis DVT versus dependent edema versus cellulitis versus other Narrative Course Patient is a 81-year-old male presenting [facility] for evaluation of edema to his left arm. Patient has a PICC line in that arm for IV antibiotic therapy. Patient is to be receiving Zosyn until September 06. Skilled facility stated that PICC line has not been utilized since patient was discharged from the hospital. Patient will be given dose of Zosyn now. White count of 14.0 with left shift, prior CBC had a white count of 10.3 on 08/31/17. Chemistry is stable when compared to prior. Chest x-ray is pending, patient is refusing to be admitted to the hospital. Prescription will be written to continue Zosyn through September 06. He was also seen and evaluated by my attending physician. Patient has been afebrile and is otherwise stable. Diagnosis Primary Impression: PNA (pneumonia) Qualified Codes: J18.9 - Pneumonia, unspecified organism Additional Impression: Edema Qualified Codes: R60.0 - Localized edema Referrals: Primary Care Physician 1 day Patient Instructions: General Instructions Additional Instructions: Patient is to receive IV Zosyn every 8 hours through September 06. Please contact primary doctor in the morning for follow-up. Return to emergency department immediately for any new or worsening symptoms Keep extremity elevated Med/Other Pt SpecificInfo: Prescription(s) given Scripts Piperacillin-Tazobactam Inj (Zosyn Inj) 4.5 Gram Inj 4.5 GM IV Q6HR for Infection for 2 Days, BAG 0 Refills Prov: Shelby Martinez 09/04/17 Disposition: 03 DISCHARGE TO SNF Condition: Stable Shelby Martinez Sep 04, 2017 21:08
[2017-09-04 21:52] LABS: AUTOMATED NEUTROPHIL # 12.8 TH/MM3 (1.8-7.7); BASOPHIL % 0.1 % (0.0-2.0); EOSINOPHIL % 0.3 % (0.0-4.0); HEMATOCRIT 37.8 % (39.0-51.0); HEMOGLOBIN 12.7 GM/DL (13.0-17.0); LYMPH % 2.7 % (9.0-44.0); LYMPHOCYTE # 0.4 TH/MM3 (1.0-4.8); MEAN CELL VOLUME 84.9 FL (80.0-100.0); MEAN CORPUSCULAR HEMOGLOBIN 28.4 PG (27.0-34.0); MEAN CORPUSCULAR HGB CONC 33.5 % (32.0-36.0); MEAN PLATELET VOLUME 7.2 FL (7.0-11.0); MONO % 5.6 % (0.0-8.0); MONOCYTE # 0.8 TH/MM3 (0-0.9); NEUT % 91.3 % (16.0-70.0); PLATELET COUNT 340 TH/MM3 (150-450); RED BLOOD COUNT 4.46 MIL/MM3 (4.50-5.90); RED CELL DISTRIBUTION WIDTH 14.8 % (11.6-17.2)
[2017-09-04 21:54] LABS: BICARBONATE 33.5 MEQ/L (21.0-32.0); CALCIUM 8.2 MG/DL (8.5-10.1); CREATININE 0.49 MG/DL (0.60-1.30)
[2017-09-04 21:57] LABS: INTERNATIONAL NORMALIZED RATIO 1.1 RATIO; PROTHROMBIN TIME - PATIENT 11.3 SEC (9.8-11.6)
--- NOTE | 2017-09-04 22:39 | RADRPT ---
EXAM DATE/TIME: 09/04/2017 21:48 [facility] COMPARISON: No previous studies available for comparison. INDICATIONS : Left arm swelling. MEDICAL HISTORY : Chronic obstructive pulmonary disease. Carcinoma, prostate. HTN. Donated Right kidney. SURGICAL HISTORY : Kidney transplant. ENCOUNTER: Initial ACUITY: 1 day PAIN SCORE: 4/10 LOCATION: Left arm. FINDINGS: There is spontaneous flow documented in the brachial, basilic, cephalic, axillary, and subclavian vei ns. The vessels are compressible and augmentation response is documented. No filling defects are se en. The flow is phasic with respiration. Direction of flow in the jugular vein is caudal. CONCLUSION: Normal examination. Phil Sahu MD on September 04, 2017 at 22:37 Board Certified Radiologist. This report was verified electronically.
[2017-09-04] MEDS ORDERED: PIPERACIL-TAZO 4.5 GM PREMIX 100 ML IV ONE (22:45)
[2017-09-04] MEDS ORDERED: ZOSY4.5P IV (23:00)
[2017-09-04 23:20] VITALS: BP 163/77; PULSE 80; RESP 14; O2SAT 97
--- NOTE | 2017-09-04 23:36 | RADRPT ---
EXAM DATE/TIME: 09/04/2017 23:06 [facility] COMPARISON: CHEST SINGLE AP, August 31, 2017, 5:23. INDICATIONS : Short of breath. MEDICAL HISTORY : Chronic obstructive pulmonary disease. Carcinoma, prostatic. SURGICAL HISTORY : None. ENCOUNTER: Initial ACUITY: 1 day PAIN SCORE: 0/10 LOCATION: Bilateral chest FINDINGS: 2 AP views of the chest demonstrate a normal-sized cardiac silhouette with calcification of the aorta . Lungs are hyperinflated with coarse interstitial opacities bilaterally. No pleural effusion, airspa ce consolidation, or pneumothorax is identified. Bones and soft tissues demonstrate no acute finding. CONCLUSION: No acute finding is identified. The background lung changes are characteristic of emphysema. Eduardo Rudolph MD on September 04, 2017 at 23:33 Board Certified Radiologist. This report was verified electronically.
--- NOTE | 2017-09-04 23:50 | PD ---
Physical Exam Narrative Patient was seen by me and my senior care assistant. Patient refused admission. Data Data Last Documented VS Vital Signs Date Time Temp Pulse Resp B/P (MAP) Pulse Ox O2 Delivery O2 Flow Rate FiO2 09/04/17 23:20 80 14 163/77 (105) 97 Room Air 09/04/17 20:56 98.7 Orders Orders Us Arm Venous Doppler (09/04/17 ) Complete Blood Count With Diff (09/04/17 20:58) Basic Metabolic Panel (Bmp) (09/04/17 20:58) Act Partial Throm Time (Ptt) (09/04/17 20:58) Prothrombin Time / Inr (Pt) (09/04/17 20:58) Iv Access Insert/Monitor (09/04/17 20:58) Sodium Chloride 0.9% Inj (Ns Inj) (09/04/17 21:00) Piperacil-Tazo 4.5 Gm Premix (Zosyn 4.5 (09/04/17 22:45) Chest, Single Ap (09/04/17 ) Labs Laboratory Tests Test 09/04/17 21:07 White Blood Count 14.0 TH/MM3 Red Blood Count 4.46 MIL/MM3 Hemoglobin 12.7 GM/DL Hematocrit 37.8 % Mean Corpuscular Volume 84.9 FL Mean Corpuscular Hemoglobin 28.4 PG Mean Corpuscular Hemoglobin Concent 33.5 % Red Cell Distribution Width 14.8 % Platelet Count 340 TH/MM3 Mean Platelet Volume 7.2 FL Neutrophils (%) (Auto) 91.3 % Lymphocytes (%) (Auto) 2.7 % Monocytes (%) (Auto) 5.6 % Eosinophils (%) (Auto) 0.3 % Basophils (%) (Auto) 0.1 % Neutrophils # (Auto) 12.8 TH/MM3 Lymphocytes # (Auto) 0.4 TH/MM3 Monocytes # (Auto) 0.8 TH/MM3 Eosinophils # (Auto) 0.0 TH/MM3 Basophils # (Auto) 0.0 TH/MM3 CBC Comment DIFF FINAL Differential Comment Prothrombin Time 11.3 SEC Prothromb Time International Ratio 1.1 RATIO Activated Partial Thromboplast Time 22.9 SEC Blood Urea Nitrogen 15 MG/DL Creatinine 0.49 MG/DL Random Glucose 104 MG/DL Calcium Level 8.2 MG/DL Sodium Level 134 MEQ/L Potassium Level 3.3 MEQ/L Chloride Level 92 MEQ/L Carbon Dioxide Level 33.5 MEQ/L Anion Gap 9 MEQ/L Estimat Glomerular Filtration Rate 164 ML/MIN MDM Supervised Visit with WINSOME: Yes Interpretation(s) Last Impressions Upper Extremity Ultrasound 09/04/17 0000 Signed Impressions: Service Date/Time: Monday, September 04, 2017 21:48 - CONCLUSION: Normal examination. Phil Sahu MD Chest X-Ray 09/04/17 0000 Signed Impressions: Service Date/Time: Monday, September 04, 2017 23:06 - CONCLUSION: No acute finding is identified. The background lung changes are characteristic of emphysema. Eduardo Rudolph MD Diagnosis Primary Impression: PNA (pneumonia) Qualified Codes: J18.9 - Pneumonia, unspecified organism Additional Impression: Edema Qualified Codes: R60.0 - Localized edema Referrals: Primary Care Physician 1 day Patient Instructions: General Instructions Additional Instruction: Patient is to receive IV Zosyn every 8 hours through September 06. Please contact primary doctor in the morning for follow-up. Return to emergency department immediately for any new or worsening symptoms Keep extremity elevated Scripts Piperacillin-Tazobactam Inj (Zosyn Inj) 4.5 Gram Inj 4.5 GM IV Q6HR for Infection for 2 Days, BAG 0 Refills Prov: Shelby Martinez 09/04/17 Disposition: 03 DISCHARGE TO SNF Condition: Stable Tico Andrade MD Sep 04, 2017 23:50
[2017-09-05 03:34] VITALS: BP 142/67; PULSE 61; RESP 14
[2017-09-05] MEDS ORDERED: PIPERACIL-TAZO 4.5 GM PREMIX 100 ML IV ONE (05:15)
[2017-09-05 08:00] VITALS: BP 130/77; TEMP 97.8
== END 2017-09-05 08:00 ==
LOC: NEPE 20:45
DX: J18.9 Pneumonia, unspecified organism (principal); R60.0 Localized edema; J44.9 Chronic obstructive pulmonary disease, unspecified; I10 Essential (primary) hypertension; Z87.891 Personal history of nicotine dependence
CPT/HCPCS: 71045; 80048; 85025; 85610; 85730; 93971; 96365; 96366; 99285; J2543

== ENCOUNTER 2017-12-20 11:31 | Emergency (ER) | payer MEDICARE, BC ==
[~2017-12-20 11:31] MED LIST changes: +ZOSY4.5P IV
--- NOTE | 2017-12-20 12:10 | PD ---
HPI Chief Complaint: Fall Time Seen by Provider: 11:58 Travel History International Travel<30 days: No Contact w/Intl Traveler<30days: No Traveled to known affect area: No History of Present Illness HPI Patient is a 81-year-old male presenting to the emergency department for evaluation of a possible head injury after a mechanical fall last night. Fall was witnessed, no loss of consciousness. Patient woke up this morning complaining of a headache. Patient was sent to emergency department for evaluation via EMS. Patient has baseline dementia. He stated that he was helping another patient get into a wheelchair last night and fell forward hitting his head. He denies any physical complaints at this time. Patient is a poor historian secondary to baseline dementia. Patient is oxygen dependent, he is on O2 at 2 L via nasal cannula. PFSH Past Medical History Arthritis: Yes Anxiety: Yes Depression: Yes Cancer: Yes (Prostate) Cardiovascular Problems: Yes COPD: Yes Diminished Hearing: Yes Gastrointestinal Disorders: Yes (c-diff) Genitourinary: Yes Headaches: Yes Hypertension: Yes Neurologic: Yes Migraines: Yes Radiation Therapy: Yes Shingles: Yes Ulcer: No Past Surgical History Abdominal Surgery: No AICD: No Arteriovenous Shunt: No Cardiac Surgery: No Ear Surgery: No Endocrine Surgery: No Eye Surgery: No Genitourinary Surgery: Yes (Hypospadias) Gynecologic Surgery: No Insulin Pump: No Joint Replacement: No Oral Surgery: No Pacemaker: No Thoracic Surgery: No Other Surgery: Yes (PROSTATE CA 20 YRS AGO) Social History Alcohol Use: No Tobacco Use: No (QUIT 20 YRS AGO) Substance Use: No Allergies-Medications (Allergen,Severity, Reaction): Coded Allergies: No Known Drug Allergies (Verified Allergy, Unknown, 12/20/17) Reported Meds & Prescriptions Reported Meds & Active Scripts Active Zosyn Inj (Piperacillin Sod/Tazobactam Sod) 4.5 Gram Inj 4.5 Gm IV Q6HR 2 Days Flagyl (Metronidazole) 250 Mg Tab 250 Mg PO TID 10 Days Flagyl (Metronidazole) 250 Mg Tab 250 Mg PO TID 7 Days Cholestyramine 4 Gm/Pkt Powd 4 Gm PO Q12HR 7 Days 1 packet contains 4 grams of cholestyramine. Acidophilus/l-Sporogenes (Lactobacillus Acidophilus) 35 Million Cell-25 Million Cell Tab 1 Tab PO TID Eq Acetaminophen (Acetaminophen) 325 Mg Tab 650 Mg PO Q4H PRN MDD 2gm 30 Days Flomax (Tamsulosin HCl) 0.4 Mg Cap 0.8 Mg PO DAILY Norvasc (Amlodipine Besylate) 5 Mg Tab 5 Mg PO DAILY Pantoprazole (Pantoprazole Sodium) 40 Mg Tab 40 Mg PO DAILY Prednisone 5 Mg Tab 5 Mg PO DAILY Gnp Melatonin Maximum Str (Melatonin) 5 Mg Tab 5 Mg PO HS PRN 30 Days Buspirone (Buspirone HCl) 5 Mg Tab 5 Mg PO Q12HR 30 Days Metoprolol Tartrate 25 Mg Tab 25 Mg PO Q12HR 30 Days Duoneb (Ipratropium-Albuterol Neb) 0.5-2.5 Mg/3 Ml Neb 1 Ampule NEB Q6HR WHILE AWAKE NEB 30 Days Vitamin C (Ascorbic Acid) 250 Mg Tab 1,000 Mg PO DAILY Calcium & Magnesium (Calcium-Magnesium) 750-465 Mg Tab 1 Tab PO DAILY Multiple Vitamin 1 Tab 1 Tab PO DAILY Advair Diskus Inh (Fluticasone-Salmeterol Inh) 250-50 Mcg/Blist Aer 2 Puff INH DAILY Rinse mouth after use. Simvastatin 10 Mg Tab 10 Mg PO DAILY Desloratadine 5 Mg Tab 5 Mg PO DAILY Wheelchair (Device) 1 Mis Mis Ea .XX DIRECTED Review of Systems ROS Limitations: Poor Historian Except as stated in HPI: all other systems reviewed are Neg HENT: Positive: Headaches Physical Exam Exam Limitations: Altered Mental Status, Poor Historian Narrative GENERAL: Thin, well-developed, alert elderly male. Presenting in no acute distress. SKIN: Warm and dry. Right upper arm and right lower arm are bandaged, bandaged to left lower arm. HEAD: Atraumatic. Normocephalic. EYES: Pupils equal and round. No scleral icterus. No injection or drainage. ENT: No nasal bleeding or discharge. Mucous membranes pink and moist. NECK: Trachea midline. No JVD. CARDIOVASCULAR: Regular rate and rhythm. RESPIRATORY: No accessory muscle use. Diminished. GASTROINTESTINAL: Abdomen soft, non-tender, nondistended. Hepatic and splenic margins not palpable. MUSCULOSKELETAL: Extremities without clubbing, cyanosis, or edema. No obvious deformities. NEUROLOGICAL: Awake and alert, oriented to self only. No obvious cranial nerve deficits. Motor grossly within normal limits. Five out of 5 muscle strength in the arms and legs. Normal speech. PSYCHIATRIC: Appropriate mood and affect; insight and judgment impaired. Data Data Last Documented VS Vital Signs Date Time Temp Pulse Resp B/P (MAP) Pulse Ox O2 Delivery O2 Flow Rate FiO2 12/20/17 12:50 97.7 88 16 158/72 (100) 98 Nasal Cannula 2.[address] Brain W/O Iv Contrast(Rout) (12/20/17 ) Ct Cerv Spine W/O Contrast (12/20/17 ) MDM Medical Decision Making Medical Screen Exam Complete: Yes Emergency Medical Condition: Yes Interpretation(s) Last Impressions Head CT 12/20/17 0000 Signed Impressions: CONCLUSION: 1. Negative trauma study. Cervical Spine CT 12/20/17 0000 Signed Impressions: CONCLUSION: 1. Negative trauma study with no acute fracture or malalignment. There are deg enerative changes. Vital Signs Date Time Temp Pulse Resp B/P (MAP) Pulse Ox O2 Delivery O2 Flow Rate FiO2 12/20/17 12:50 97.7 88 16 158/72 (100) 98 Nasal Cannula 2.00 Differential Diagnosis Contusion versus hemorrhage versus concussion versus other Narrative Course Patient is 73-year-old male [facility] of the head injury that occurred last night. Patient has dementia, per report he is at baseline. CT of the brain and neck ordered and pending. Vital signs are stable. CT scan of the brain and cervical spine are without any acute abnormalities. There are degenerative changes noted in the cervical spine. At this time patient will be discharged back to the [facility]. He will continue home medications as prescribed, he will return to emergency department for new worsening symptoms. Patient should follow-up with his primary doctor. Diagnosis Primary Impression: Recurrent falls Additional Impression: Head injury Qualified Codes: S09.90XA - Unspecified injury of head, initial encounter Referrals: Primary Care Physician 2 days Patient Instructions: Fall Prevention for Older Adults (DC), General Instructions Additional Instructions: Follow-up with your primary doctor Return to emergency department for any new or worsening symptoms Med/Other Pt SpecificInfo: No Change to Meds Disposition: 03 DISCHARGE TO SNF Condition: Stable Shelby Martinez Dec 20, 2017 12:10
--- NOTE | 2017-12-20 12:46 | RADRPT ---
EXAM DATE: 12/20/2017 12:36 PM EDT AGE/SEX: 81 years / Male INDICATIONS: Trauma. Fell last night and hit head. CLINICAL DATA: This is the patient's initial encounter. Patient reports that signs and symptoms have been present for 1 day and indicates a pain score of 0/10. MEDICAL/SURGICAL HISTORY: Chronic obstructive pulmonary disease. Carcinoma, prostatic. Hypert ension. Nephrectomy, right. RADIATION DOSE: 15.34 CTDI (mGy) COMPARISON: No prior exams available for comparison. TECHNIQUE: Contiguous axial images were obtained using helical multirow detector technique. The vol umetric data was post-processed with multiplanar reconstruction in oblique axial, sagittal, and coron al planes. Using automated exposure control and adjustment of the mA and/or kV according to patient s ize, radiation dose was kept as low as reasonably achievable to obtain optimal diagnostic quality mirza ges. DICOM format image data is available electronically for review and comparison. FINDINGS: Vertebrae: Normal vertebral body height. There is diffuse osteopenia. Degenerative disc changes are present at the C4-5 and C5-6 levels with disc space narrowing and hyper trophic change. There is mild reversal of normal cervical lordosis. Alignment: Normal. No subluxation. The axial images demonstrate that the vertebral bodies and posterior elements are intact. Mild degene rative changes are present. CONCLUSION: 1. Negative trauma study with no acute fracture or malalignment. There are degenerative changes. Electronically signed by: Suhail Cooper MD 12/20/2017 12:45 PM EDT
[2017-12-20 12:50] VITALS: BP 158/72; PULSE 88; RESP 16; TEMP 97.7; O2SAT 98
--- NOTE | 2017-12-20 12:52 | RADRPT ---
EXAM DATE: 12/20/2017 12:27 PM EDT AGE/SEX: 81 years / Male INDICATIONS: Trauma. Fell last night and hit head. CLINICAL DATA: This is the patient's initial encounter. Patient reports that signs and symptoms have been present for 1 day and indicates a pain score of 0/10. MEDICAL/SURGICAL HISTORY: Chronic obstructive pulmonary disease. Carcinoma, prostatic. Hypertensi on. Nephrectomy, right. RADIATION DOSE: 30.74 CTDI (mGy) COMPARISON: No prior exams available for comparison. TECHNIQUE: CT of the head without contrast. Using automated exposure control and adjustment of the mA and/or kV according to patient size, radiation dose was kept as low as reasonably achievable to ob tain optimal diagnostic quality images. DICOM format image data is available electronically for revi ew and comparison. FINDINGS: Cerebrum: The ventricles are normal for age with diffuse moderate atrophic change again noted. No ev idence of midline shift, mass lesion, hemorrhage or acute infarction. No extraaxial fluid collection s are seen. Posterior Fossa: The cerebellum and brainstem are intact. The 4th ventricle is midline. The cerebe llopontine angle is unremarkable. Extracranial: The visualized portion of the orbits is intact. Skull: The calvaria is intact. No evidence of skull fracture. CONCLUSION: 1. Negative trauma study. Electronically signed by: Suhail Cooper MD 12/20/2017 12:51 PM EDT
== END 2017-12-20 16:00 ==
LOC: NEDAMB 11:31
DX: S09.90XA Unspecified injury of head, initial encounter (principal); F03.90 Unspecified dementia, unspecified severity, without behavioral disturbance, psychotic disturbance, mood disturbance, and anxiety; M19.90 Unspecified osteoarthritis, unspecified site; F41.9 Anxiety disorder, unspecified; F32.9 Major depressive disorder, single episode, unspecified; J44.9 Chronic obstructive pulmonary disease, unspecified; I10 Essential (primary) hypertension; W05.0XXA Fall from non-moving wheelchair, initial encounter; Z99.81 Dependence on supplemental oxygen; Z91.81 History of falling; Z87.891 Personal history of nicotine dependence; Z79.899 Other long term (current) drug therapy; Z79.51 Long term (current) use of inhaled steroids
CPT/HCPCS: 70450; 72125